=== PATIENT | male | born 1940 | race African-American/Black ===

== ENCOUNTER 2017-08-12 15:21 | Inpatient (IN) | payer MEDICARE ==
[~2017-08-12] VITALS: Ht 182.9 cm; Wt 81.6 kg
[~2017-08-12 15:21] MED LIST: AMBIEN10 M1 ORAL; ASPIR 8181 MG GT; CLONIDINE0.1 MG GT; COLACE100 MG GT; FERROUS SULFAT325 MG ORAL; FLOMAX0.4 MG GT; HEPARIN1000 UNIT/ SQ; LOPRESSOR25 M1 GT; MIRALAX17 G2 GT; MIRALAX17 G2 ORAL; NOVOLOG100 UNIT/3 SUBQ; PHOSPHA 250 NE250 M1 GT; PROSCAR5 MG ORAL; RANITIDINE HCL150 MG GT; TYLENOL325 MG GT; UNOBMED; VITAMIN B-1100 MG GT; ZANTAC GT; ZOFRAN4 M1 GT
[2017-08-12 15:40] VITALS: BP 153/85
[2017-08-12] MEDS ORDERED: CATAPRES0.1 MG ORAL (16:25)
[2017-08-12] MEDS ORDERED: AMLODIPINE BESY10 MG ORAL (16:25)
[2017-08-12] MEDS ORDERED: VITAMIN B-1100 MG ORAL (16:25)
[2017-08-12] MEDS ORDERED: ACETAMINOPHEN325 M1 ORAL (16:25)
[2017-08-12] MEDS ORDERED: METOPROLOL TART25 MG ORAL (16:25)
[2017-08-12] MEDS ORDERED: ASPIR 8181 MG ORAL (16:25)
[2017-08-12] MEDS ORDERED: ZANTAC150 MG ORAL (16:25)
--- NOTE | 2017-08-12 16:42 | Emergency Room Report ---
History of Present Illness General Chief Complaint: Male Urogenital Problems Source: Patient, EMS, PMD Present Illness HPI 77-year-old male, history of dementia coming from senior care, coming in for altered mental status. Per patient he does not know why he is here. PMD and senior care records the patient is more altered than his normal. No other history able to be obtained Currently patient is denying complaint Allergies: Coded Allergies: No Known Allergies (Unverified , 02/28/16) Patient History Past Medical History: see triage record Past Surgical History: none Pertinent Family History: none Reviewed Nursing Documentation: PMH: Agreed, PSxH: Agreed Nursing Documentation-PMH Past Medical History Deferred: Pt Cognitively Impaired Past Medical History: Deferred Hx Cardiac Problems: Yes - Syncope Hx Hypertension: Yes Hx Diabetes: Yes Hx Cancer: No Hx Gastrointestinal Problems: Yes History Of Psychiatric Problem: Yes - Anxiety Hx Neurological Problems: Yes - encephalopathy Review of Systems All Other Systems: negative except mentioned in HPI Physical Exam Vital Signs Date Time Temp Pulse Resp B/P (MAP) Pulse Ox O2 Delivery O2 Flow Rate FiO2 08/12/17 15:22 97.9 78 18 111/74 99 Room Air Sp02 EP Interpretation: reviewed, normal General Appearance: normal inspection, well appearing, no apparent distress, alert, other Head: normocephalic, atraumatic Eyes: bilateral eye normal inspection, bilateral eye PERRL, bilateral eye EOMI ENT: normal ENT inspection, normal pharynx, normal voice, moist mucus membranes Neck: normal inspection, full range of motion, supple Respiratory: normal inspection, lungs clear, normal breath sounds, no respiratory distress, no retraction, no wheezing, speaking full sentences, chest symmetrical Cardiovascular #1: normal inspection, regular rate, rhythm, no edema, normal capillary refill Cardiovascular #2: 2+ radial (R), 2+ radial (L) Gastrointestinal: normal inspection, non tender, soft, non-distended, no guarding Genitourinary: no CVA tenderness Musculoskeletal: normal inspection, back normal, normal range of motion, non- tender Neurologic: alert, responsive, motor strength/tone normal, sensory intact, other - oritned x 1 , moves all ext spontaneously Psychiatric: normal inspection, judgement/insight normal, memory normal Skin: normal inspection, normal color, no rash, warm/dry, well hydrated, normal turgor Medical Decision Making Diagnostic Impression: Primary Impression: UTI (urinary tract infection) Additional Impression: Altered mental status ER Course 77-year-old male, history of Alzheimer's, presenting with worsening altered mental status DDX: Dehydration, infection, UTI, pneumonia Cardiac Currently patient is oriented to person, no neurological signs on exam, will not perform CT head at this time Plan: Obtain labs, ua, EKG, CXR ER course: Patient has been monitored during ED stay, HD stable UTI found, fluids and antibiotics given Disposition: Patient is to be admitted to [facility] D/W hospitalist Dr. Marx who has accepted patient for admission Please note that this Emergency Department Report was dictated using [employer] wel[employer] technology software, occasionally this can lead to erroneous entry secondary to interpretation by the dictation equipment. EKG Diagnostic Results EP Interpretation: Yes Rate: normal Rhythm: NSR ST Segments: Right bundle branch block ASA given to patient: No Rhythm Strip EP Interpretation: Yes Rate: 70 Rhythm: NSR, no PVCs, no ectopy Chest X-ray CXR: Ordered: Yes 1 view Indication: ams EP interpretation: Yes Interpretation: No consolidation, no effusion, no PTX, no acute cardiopulmonary disease Impression: No acute disease Electronically signed by Rebecca Allen MD Laboratory Tests Test 08/12/17 16:00 08/12/17 16:22 White Blood Count 6.9 K/UL (4.8-10.8) Red Blood Count 4.84 M/UL (4.70-6.10) Hemoglobin 13.9 G/DL (14.2-18.0) L Hematocrit 45.6 % (42.0-52.0) Mean Corpuscular Volume 94 FL (80-99) Mean Corpuscular Hemoglobin 28.8 PG (27.0-31.0) Mean Corpuscular Hemoglobin Concent 30.6 G/DL (32.0-36.0) L Red Cell Distribution Width 13.3 % (11.6-14.8) Platelet Count 223 K/UL (150-450) Mean Platelet Volume 6.6 FL (6.5-10.1) Neutrophils (%) (Auto) 59.4 % (45.0-75.0) Lymphocytes (%) (Auto) 30.8 % (20.0-45.0) Monocytes (%) (Auto) 7.3 % (1.0-10.0) Eosinophils (%) (Auto) 1.2 % (0.0-3.0) Basophils (%) (Auto) 1.4 % (0.0-2.0) Sodium Level 144 MMOL/L (136-145) Potassium Level 4.1 MMOL/L (3.5-5.1) Chloride Level 108 MMOL/L (98-107) H Carbon Dioxide Level 29 MMOL/L (21-32) Anion Gap 7 mmol/L (5-15) Blood Urea Nitrogen 15 mg/dL (7-18) Creatinine 1.7 MG/DL (0.55-1.30) H Estimate Glomerular Filtration Rate mL/min (>60) Glucose Level 114 MG/DL (74-106) H Lactic Acid Level 1.30 mmol/L (0.66-2.22) Calcium Level 9.4 MG/DL (8.5-10.1) Total Bilirubin 0.3 MG/DL (0.2-1.0) Aspartate Amino Transferase (AST) 9 U/L (15-37) L Alanine Aminotransferase (ALT) 20 U/L (12-78) Alkaline Phosphatase 160 U/L (46-116) H Troponin I 0.018 ng/mL (0.000-0.056) Pro-B-Type Natriuretic Peptide 92 pg/mL (0-125) Total Protein 6.7 G/DL (6.4-8.2) Albumin 3.5 G/DL (3.4-5.0) Globulin 3.2 g/dL Albumin/Globulin Ratio 1.1 (1.0-2.7) Urine Color Yellow Urine Appearance Slightly cloudy Urine pH 5 (4.5-8.0) Urine Specific [place] 1.030 (1.005-1.035) Urine Protein 3+ (NEGATIVE) H Urine Glucose (UA) Negative (NEGATIVE) Urine Ketones 1+ (NEGATIVE) H Urine Occult Blood 5+ (NEGATIVE) H Urine Nitrite Positive (NEGATIVE) H Urine Bilirubin Negative (NEGATIVE) Urine Urobilinogen Normal MG/DL (0.0-1.0) Urine Leukocyte Esterase 3+ (NEGATIVE) H Urine RBC 15-20 /HPF (0 - 0) H Urine WBC 60-80 /HPF (0 - 0) H Urine Squamous Epithelial Cells Occasional /LPF Urine Bacteria Few /HPF (NONE) Last Vital Signs Date Time Temp Pulse Resp B/P (MAP) Pulse Ox O2 Delivery O2 Flow Rate FiO2 08/12/17 15:22 97.9 78 18 111/74 99 Room Air Rebecca Allen M.D. Aug 12, 2017 16:42
[2017-08-12] MEDS ORDERED: TAMSULOSIN HCL0.4 MG ORAL (16:49)
[2017-08-12] MEDS ORDERED: COLACE100 MG ORAL (16:49)
[2017-08-12 16:58] LABS: APPEARANCE,URINE SLIGHTLY CLOUDY; KETONES,URINE 1+ (NEGATIVE); LEUKOCYTE ESTERASE ,URINE 3+ (NEGATIVE); NITRITE,URINE POSITIVE (NEGATIVE); PH,URINE 5 (4.5-8.0); PROTEIN,URINE 3+ (NEGATIVE); UROBILINOGEN,URINE NORMAL MG/DL (0.0-1.0)
[2017-08-12 17:05] LABS: BACTERIA,URINE FEW /HPF; RBC,URINE 15-20 /HPF (0 - 0); SQUAMOUS EPITHELIAL CELL,UR OCCASIONAL /LPF (NONE/OCC); WBC,URINE 60-80 /HPF (0 - 0)
[2017-08-12] MEDS ORDERED: cefTRIAXone 1 GM in NS 55 ML IVPB ONE (17:15)
--- NOTE | 2017-08-12 17:21 | Diagnostic Imaging Report ---
Indication: Shortness of breath Technique: One view of the chest Comparison: 02/24/2016 Findings: Lungs and pleural spaces are clear. Heart size is normal. Aorta is tortuous Impression: No acute process
[2017-08-12 17:31] LABS: ANION GAP 7 mmol/L (5-15); CALCIUM 9.4 MG/DL (8.5-10.1); CARBON DIOXIDE 29 MMOL/L (21-32); CHLORIDE 108 MMOL/L (98-107); CREATININE 1.7 MG/DL (0.55-1.30); POTASSIUM 4.1 MMOL/L (3.5-5.1); SODIUM 144 MMOL/L (136-145)
[2017-08-12 17:41] LABS: ALANINE AMINOTRANSFERASE 20 U/L (12-78); ALBUMIN/GLOBULIN RATIO 1.1 (1.0-2.7); ASPARTATE AMINO TRANSFERASE 9 U/L (15-37); TOTAL PROTEIN 6.7 G/DL (6.4-8.2)
[2017-08-12 17:51] LABS: BASOPHILS % (AUTO) 1.4 % (0.0-2.0); EOSINOPHILS % (AUTO) 1.2 % (0.0-3.0); LYMPHOCYTES % (AUTO) 30.8 % (20.0-45.0); MEAN CORPUSCULAR HEMOGLOBIN 28.8 PG (27.0-31.0); MEAN CORPUSCULAR HGB CONC 30.6 G/DL (32.0-36.0); MEAN CORPUSCULAR VOLUME 94 FL (80-99); MEAN PLATELET VOLUME 6.6 FL (6.5-10.1); MONOCYTES % (AUTO) 7.3 % (1.0-10.0); NEUTROPHILS % (AUTO) 59.4 % (45.0-75.0); PLATELET COUNT 223 K/UL (150-450); RED BLOOD COUNT 4.84 M/UL (4.70-6.10); RED CELL DISTRIBUTION WIDTH 13.3 % (11.6-14.8); WHITE BLOOD COUNT 6.9 K/UL (4.8-10.8)
[2017-08-12 18:00] VITALS: BP 145/98
[2017-08-12 18:45] VITALS: BP 144/98
[2017-08-12] MEDS ORDERED: Docusate 100mg cap ORAL PRN (20:45)
[2017-08-12 21:00] VITALS: BP 143/98
[2017-08-12] MEDS: Metoprolol Tartrate 12.5mg TAB ORAL SCH (21:32)
[2017-08-12] MEDS: Tamsulosin 0.4mg cap ORAL SCH (21:32)
[2017-08-13] VITALS: BP 147/98
[2017-08-13 07:27] LABS: ALANINE AMINOTRANSFERASE 20 U/L (12-78); ANION GAP 8 mmol/L (5-15); ASPARTATE AMINO TRANSFERASE 17 U/L (15-37); CARBON DIOXIDE 26 MMOL/L (21-32); CHLORIDE 110 MMOL/L (98-107); CREATININE 1.6 MG/DL (0.55-1.30); POTASSIUM 4.1 MMOL/L (3.5-5.1); SODIUM 144 MMOL/L (136-145); TOTAL PROTEIN 6.4 G/DL (6.4-8.2)
[2017-08-13 07:34] LABS: BASOPHILS % (AUTO) 1.1 % (0.0-2.0); EOSINOPHILS % (AUTO) 1.5 % (0.0-3.0); LYMPHOCYTES % (AUTO) 30.5 % (20.0-45.0); MEAN CORPUSCULAR HEMOGLOBIN 30.4 PG (27.0-31.0); MEAN CORPUSCULAR HGB CONC 32.8 G/DL (32.0-36.0); MEAN CORPUSCULAR VOLUME 93 FL (80-99); MEAN PLATELET VOLUME 6.7 FL (6.5-10.1); MONOCYTES % (AUTO) 7.9 % (1.0-10.0); NEUTROPHILS % (AUTO) 59.1 % (45.0-75.0); PLATELET COUNT 205 K/UL (150-450); RED BLOOD COUNT 4.79 M/UL (4.70-6.10); RED CELL DISTRIBUTION WIDTH 13.1 % (11.6-14.8); WHITE BLOOD COUNT 4.9 K/UL (4.8-10.8)
[2017-08-13 08:00] VITALS: BP 136/94
--- NOTE | 2017-08-13 08:00 | History and Physical Report ---
DATE OF ADMISSION: 08/12/2017 REASON FOR ADMISSION: Altered mental status, most likely due to UTI. HISTORY OF PRESENT ILLNESS: The patient very confused, has dementia; however, is more agitated and confused according to the nurse at the half-way and it is most likely due to UTI. The patient also has an indwelling Martínez catheter. He is a very poor historian, cannot get any history from the patient at this point. PAST MEDICAL HISTORY: Indwelling catheter, history of recurrent UTI, history of GERD, history of BPH and Martínez-dependent, constipation, and hypertension. PAST SURGICAL HISTORY: History of PEG. ALLERGIES: No known allergies. MEDICATIONS: Clonidine, aspirin, Norvasc, finasteride, , Flomax, and thiamine. SOCIAL HISTORY: Unable to obtain. FAMILY HISTORY: Unable to obtain. REVIEW OF SYSTEMS: Unable to obtain. PHYSICAL EXAMINATION: VITAL SIGNS: Temperature is 97.9, pulse is 70, and blood pressure 111/74. HEENT: PERRLA. NECK: Supple. No lymphadenopathy. CHEST: Clear to auscultation. GASTROINTESTINAL: Soft, nontender, and nondistended. No organomegaly. EXTREMITIES: He has edema. NEUROLOGIC: Reflexes are equal on both sides. Oriented to however, is more confused and agitated than his baseline. LABORATORY DATA: WBC of 6.9, hemoglobin 13.9. Sodium 144, BUN 15, and creatinine 1.7. ASSESSMENT AND PLAN: 1. Agitated. 2. Azotemia. 3. Urinary tract infection, Martínez catheter. I have asked the urologist as well as blue print control clerk as well as Infectious Diseases to see the patient for the above-mentioned diagnoses and treatment. Jhon Moreno M.D. DR: MOY JOB#: [id number] CC:
[2017-08-13] MEDS: Thiamine 100mg tab ORAL SCH (08:45)
[2017-08-13] MEDS: Metoprolol Tartrate 12.5mg TAB ORAL SCH ×2 (08:45→20:34)
[2017-08-13] MEDS: Aspirin EC 81mg tab ORAL SCH (08:46)
--- NOTE | 2017-08-13 11:15 | Consultation ---
History of Present Illness General Date patient seen: Aug 13, 2017 Time patient seen: 11:11 Chief Complaint: Male Urogenital Problems Referring physician: Josh Reason for Consultation: UTI, BPH Present Illness HPI 77 yo male with hx of BPH and catheter dependence. In a facility due to dementia from what i can gather from records. Admitted for confusion. After one day, patient has seemingly improved. Question of azotemia but baseline creatinine unavailable. Catheter was changed in ER yesterday. Currently feels fine. Allergies: Coded Allergies: No Known Allergies (Unverified , 02/28/16) Medication History Scheduled Amlodipine Besylate* (Amlodipine Besylate*), 10 MG ORAL DAILY, (Reported) Aspirin* (Aspir 81*), 81 MG ORAL DAILY, (Reported) Finasteride* (Proscar*), 5 MG ORAL DAILY, (Reported) Metoprolol Tartrate* (Metoprolol Tartrate*), 12.5 MG ORAL EVERY 12 HOURS, ( Reported) Ranitidine Hcl* (Zantac*), 150 MG ORAL DAILY, (Reported) Tamsulosin Hcl (Tamsulosin Hcl*), 0.4 MG ORAL BEDTIME, (Reported) Thiamine Hcl* (Vitamin B-1*), 100 MG ORAL DAILY, (Reported) Scheduled PRN Acetaminophen* (Acetaminophen 325MG Tablet*), 650 MG ORAL Q4H PRN for For Pain, (Reported) Clonidine Hcl* (Catapres*), 0.1 MG ORAL EVERY 6 HOURS PRN for For High Blood Pressure, (Reported) Docusate Sodium* (Colace*), 100 MG ORAL DAILY PRN for Constipation, (Reported) Discontinued Medications Acetaminophen (Tylenol), 650 MG GT EVERY 4 HOURS PRN for Mild Pain/Temp > 100.5, (Reported) Discontinued Reason: Pt stopped taking med Aspirin* (Aspir 81*), 81 MG GT DAILY, (Reported) Discontinued Reason: Pt stopped taking med Ferrous Sulfate* (Ferrous Sulfate*), 325 MG ORAL DAILY, (Reported) Discontinued Reason: Pt stopped taking med Insulin Aspart* (Novolog*), 0 SUBQ BEFORE MEALS AND HS, (Reported) Discontinued Reason: Pt stopped taking med Metoprolol Tartrate (Metoprolol Tartrate), 12.5 MG GT EVERY 12 HOURS, (Reported) Discontinued Reason: Pt stopped taking med Ondansetron (Zofran), 4 MG GT EVERY 6 HOURS PRN for Nausea & Vomiting, (Reported ) Discontinued Reason: Pt stopped taking med Phosphorus (Phospha 250 Neutral Tablet), 250 MG GT TID, (Reported) Discontinued Reason: Pt stopped taking med Polyethylene Glycol 3350* (Miralax*), 17 GM ORAL HS PRN for Constipation, ( Reported) Discontinued Reason: Pt stopped taking med Polyethylene Glycol 3350* (Miralax*), 17 GM GT QHS, (Reported) Discontinued Reason: Pt stopped taking med Thiamine Hcl* (Vitamin B-1*), 100 MG GT DAILY, (Reported) Discontinued Reason: Pt stopped taking med Zolpidem Tartrate* (Ambien*), 10 MG ORAL HS PRN for Insomnia, (Reported) Discontinued Reason: Pt stopped taking med [Zantac liquid ], 150 MG GT DAILY, (Reported) Discontinued Reason: Pt stopped taking med Patient History History Provided By: Patient, Medical Record Healthcare decision maker N Resuscitation status Full Code Advanced Directive on File Past Medical/Surgical History Past Medical/Surgical History: (1) Acute renal failure (2) Altered level of consciousness (3) PEG (percutaneous endoscopic gastrostomy) adjustment/replacement/removal Review of Systems Constitutional: Denies: no symptoms, see HPI, chills, sweats, fever, malaise, weakness, other All Other Systems: negative except mentioned in HPI Physical Exam General Appearance: no apparent distress, alert Neck: supple Respiratory/Chest: lungs clear Cardiovascular/Chest: normal rate, regular rhythm Abdomen: non tender, soft Genitourinary/Rectal: begum Last 24 Hour Vital Signs Date Time Temp Pulse Resp B/P (MAP) Pulse Ox O2 Delivery O2 Flow Rate FiO2 08/13/17 08:46 66 147/98 08/13/17 08:45 66 147/98 08/13/17 08:00 98.1 70 17 136/94 97 Room Air 08/13/17 00:00 97.2 66 20 147/98 99 Room Air 08/12/17 21:32 83 144/98 08/12/17 21:00 97.3 66 19 143/98 99 Room Air 08/12/17 18:45 97.2 83 18 144/98 100 Room Air 08/12/17 18:44 97.2 83 18 144/98 100 Room Air 08/12/17 18:00 97.5 65 19 145/98 99 Room Air 08/12/17 15:40 97.2 108 18 153/85 100 Room Air 08/12/17 15:22 97.9 78 18 111/74 99 Room Air Laboratory Tests Test 08/12/17 16:00 08/12/17 16:22 08/13/17 05:35 White Blood Count 6.9 K/UL (4.8-10.8) 4.9 K/UL (4.8-10.8) Red Blood Count 4.84 M/UL (4.70-6.10) 4.79 M/UL (4.70-6.10) Hemoglobin 13.9 G/DL (14.2-18.0) L 14.6 G/DL (14.2-18.0) Hematocrit 45.6 % (42.0-52.0) 44.3 % (42.0-52.0) Mean Corpuscular Volume 94 FL (80-99) 93 FL (80-99) Mean Corpuscular Hemoglobin 28.8 PG (27.0-31.0) 30.4 PG (27.0-31.0) Mean Corpuscular Hemoglobin Concent 30.6 G/DL (32.0-36.0) L 32.8 G/DL (32.0-36.0) Red Cell Distribution Width 13.3 % (11.6-14.8) 13.1 % (11.6-14.8) Platelet Count 223 K/UL (150-450) 205 K/UL (150-450) Mean Platelet Volume 6.6 FL (6.5-10.1) 6.7 FL (6.5-10.1) Neutrophils (%) (Auto) 59.4 % (45.0-75.0) 59.1 % (45.0-75.0) Lymphocytes (%) (Auto) 30.8 % (20.0-45.0) 30.5 % (20.0-45.0) Monocytes (%) (Auto) 7.3 % (1.0-10.0) 7.9 % (1.0-10.0) Eosinophils (%) (Auto) 1.2 % (0.0-3.0) 1.5 % (0.0-3.0) Basophils (%) (Auto) 1.4 % (0.0-2.0) 1.1 % (0.0-2.0) Sodium Level 144 MMOL/L (136-145) 144 MMOL/L (136-145) Potassium Level 4.1 MMOL/L (3.5-5.1) 4.1 MMOL/L (3.5-5.1) Chloride Level 108 MMOL/L (98-107) H 110 MMOL/L (98-107) H Carbon Dioxide Level 29 MMOL/L (21-32) 26 MMOL/L (21-32) Anion Gap 7 mmol/L (5-15) 8 mmol/L (5-15) Blood Urea Nitrogen 15 mg/dL (7-18) 14 mg/dL (7-18) Creatinine 1.7 MG/DL (0.55-1.30) H 1.6 MG/DL (0.55-1.30) H Estimat Glomerular Filtration Rate mL/min (>60) mL/min (>60) Glucose Level 114 MG/DL (74-106) H 98 MG/DL (74-106) Lactic Acid Level 1.30 mmol/L (0.66-2.22) Calcium Level 9.4 MG/DL (8.5-10.1) 9.0 MG/DL (8.5-10.1) Total Bilirubin 0.3 MG/DL (0.2-1.0) 0.4 MG/DL (0.2-1.0) Aspartate Amino Transf (AST/SGOT) 9 U/L (15-37) L 17 U/L (15-37) Alanine Aminotransferase (ALT/SGPT) 20 U/L (12-78) 20 U/L (12-78) Alkaline Phosphatase 160 U/L (46-116) H 157 U/L (46-116) H Troponin I 0.018 ng/mL (0.000-0.056) Pro-B-Type Natriuretic Peptide 92 pg/mL (0-125) Total Protein 6.7 G/DL (6.4-8.2) 6.4 G/DL (6.4-8.2) Albumin 3.5 G/DL (3.4-5.0) 3.2 G/DL (3.4-5.0) L Globulin 3.2 g/dL 3.2 g/dL Albumin/Globulin Ratio 1.1 (1.0-2.7) 1.0 (1.0-2.7) Urine Color Yellow Urine Appearance Slightly cloudy Urine pH 5 (4.5-8.0) Urine Specific [place] 1.030 (1.005-1.035) Urine Protein 3+ (NEGATIVE) H Urine Glucose (UA) Negative (NEGATIVE) Urine Ketones 1+ (NEGATIVE) H Urine Occult Blood 5+ (NEGATIVE) H Urine Nitrite Positive (NEGATIVE) H Urine Bilirubin Negative (NEGATIVE) Urine Urobilinogen Normal MG/DL (0.0-1.0) Urine Leukocyte Esterase 3+ (NEGATIVE) H Urine RBC 15-20 /HPF (0 - 0) H Urine WBC 60-80 /HPF (0 - 0) H Urine Squamous Epithelial Cells Occasional /LPF Urine Bacteria Few /HPF (NONE) Microbiology Date/Time Source Procedure Growth Status 08/12/17 16:22 Urine,Clean Catch Urine Culture - Preliminary Resulted Height (Feet): 6 Height (Inches): 0.00 Weight (Pounds): 180 Medications Current Medications Medications (Trade) Dose Ordered Sig/Eufemia Route PRN Reason Start Time Stop Time Status Last Admin Dose Admin Acetaminophen (Tylenol) 650 mg Q4H PRN ORAL For Pain 08/12/17 20:45 09/11/17 20:44 Amlodipine Besylate (Norvasc) 10 mg DAILY ORAL 08/13/17 09:00 09/12/17 08:59 08/13/17 08:46 Aspirin (Ecotrin) 81 mg DAILY ORAL 08/13/17 09:00 09/12/17 08:59 08/13/17 08:46 Clonidine HCl (Catapres) 0.1 mg Q6H PRN ORAL For High Blood Pressure 08/12/17 20:45 09/11/17 20:44 Docusate Sodium (Colace) 100 mg Q12H PRN ORAL Constipation 08/12/17 20:45 09/11/17 20:44 Finasteride (Proscar) 5 mg DAILY ORAL 08/13/17 09:00 09/12/17 08:59 08/13/17 08:46 Metoprolol Tartrate (Lopressor) 12.5 mg EVERY 12 HOURS ORAL 08/12/17 21:00 09/11/17 20:59 08/13/17 08:45 Piperacillin Sod/ Tazobactam Sod 3.375 gm/Dextrose 55 ml @ 13.75 mls/ hr Q8H IVPB 08/13/17 12:00 08/20/17 11:59 Ranitidine HCl (Zantac) 150 mg DAILY ORAL 08/13/17 09:00 09/12/17 08:59 08/13/17 08:46 Tamsulosin HCl (Flomax) 0.4 mg BEDTIME ORAL 08/12/17 21:00 09/11/17 20:59 08/12/17 21:32 Thiamine HCl (Vitamin B1) 100 mg DAILY ORAL 08/13/17 09:00 09/12/17 08:59 08/13/17 08:45 Assessment/Plan Status: stable Assessment/Plan 77 yo male with likely catheter associated UTI. New catheter placed yesterday. patient feels better already. Doing well. Catheter dependent. Can consider voiding trial when back at facility and after urine infection is cleared. unsure baseline creatinine, but seems to be improved. 1. ok to discharge after culture results 2. recommend cath changes every 6 weeks 3. consider voiding trial at facility 4. consider adding flomax 0.8 mg to regimen to improve chances of successful voiding trial. Kwesi Baer M.D. Aug 13, 2017 11:15
[2017-08-13 12:00] VITALS: BP 136/86
[2017-08-13] MEDS: Piperacillin/Tazobactam 3.375 GM in D5W 55 ML IVPB SCH ×2 (12:19→20:35)
--- NOTE | 2017-08-13 15:40 | Cardiology Report ---
APPROVED REPORT EKG Measurement Heart [id number] Normal sinus rhythm Right bundle branch block Abnormal ECG
--- NOTE | 2017-08-13 15:45 | Consultation ---
DATE OF CONSULTATION: 08/13/2017 INFECTIOUS DISEASES CONSULTATION CONSULTING PHYSICIAN: Yue Markham M.D. REFERRING PHYSICIAN: Jhon Moreno M.D. This consultation has been done on behalf of Dr. Rick Cat. HISTORY OF PRESENTING ILLNESS: This is a 77-year-old gentleman with history of asthma, recurrent urinary tract infection, benign prostatic hypertrophy, GERD and hypertension, who came in with altered mental status. He was thought to have urinary tract infection and an Infectious Diseases consultation has been obtained for antibiotics. PAST MEDICAL HISTORY: 1. History of hypertension. 2. GERD. 3. Asthma. 4. History of benign prostatic hypertrophy. 5. Recurrent urinary tract infection. MEDICATIONS: As an inpatient, he is on amlodipine, aspirin, finasteride, Zantac, thiamine, metoprolol, Flomax, Tylenol, clonidine, and docusate. ALLERGIES: No known drug allergies. SOCIAL HISTORY: He does not smoke, drink, or use drugs. FAMILY HISTORY: Noncontributory. REVIEW OF SYSTEMS: RESPIRATORY: He denies any fever, chills, cough, shortness of breath, or chest pain. CARDIAC: No chest pain. No palpitations. No dizziness. No syncope. GASTROINTESTINAL: No nausea. No vomiting. No abdominal pain or diarrhea. PHYSICAL EXAMINATION: VITAL SIGNS: Temperature of 98.1, T-max of 98.1, pulse of 66, respiratory rate 17, blood pressure 147/98, and O2 saturation of 97%. HEENT: Pupils equally reactive to light and accommodation. Mouth appears clean without thrush. NECK: Supple. No adenopathy. No JVD. CARDIOVASCULAR: Regular rate and rhythm. No murmurs. LUNGS: Clear to auscultation bilaterally. No crackles. No wheezes. ABDOMEN: Soft and nontender. No organomegaly. EXTREMITIES: No cyanosis. No clubbing. No edema. LABORATORY AND DIAGNOSTIC DATA: White count 4.9, hemoglobin 14.6, hematocrit 44.3, MCV 93, platelet count 205, and neutrophils of 59%. Sodium 144, potassium 4.1, chloride 110, bicarbonate 26, BUN 14, creatinine 1.6, glucose 98, and calcium 9. Total bilirubin 0.4, AST 17, ALT 20, alkaline phosphatase 157, total protein 6.4. Albumin 3.2. UA showing 60 to 80 white cells. Urine cultures are pending. Chest x-ray showing no acute process. ASSESSMENT: 1. This is a 77-year-old gentleman with history of benign prostatic hypertrophy, hypertension, and asthma who comes in and is found to have urinary tract infection. 2. Renal failure is improving. 3. Hypertension. PLAN: 1. The patient has received ceftriaxone in the emergency room. 2. We will start the patient on Zosyn. 3. We will follow up cultures and adjust antibiotics accordingly. I would like to thank, Dr. Moreno, for this consultation. Yue Mrakham M.D. DR: KAYLYN JOB#: [id number] CC: Jhon Moreno M.D.; Fax#: [phone]
[2017-08-13 16:00] VITALS: BP 138/82
--- NOTE | 2017-08-13 19:44 | Consultation ---
History of Present Illness General Date patient seen: Aug 12, 2017 Chief Complaint: Male Urogenital Problems Referring physician: Josh Reason for Consultation: UTI, BPH Present Illness HPI 77 yo male with hx of mmp, agitation and dementia admitted for medical stabilization. the pt was a poor historian and confused. he was agitated earlier however calm during my eval the pt has cognitive impairment Allergies: Coded Allergies: No Known Allergies (Unverified , 02/28/16) Medication History Scheduled Amlodipine Besylate* (Amlodipine Besylate*), 10 MG ORAL DAILY, (Reported) Aspirin* (Aspir 81*), 81 MG ORAL DAILY, (Reported) Finasteride* (Proscar*), 5 MG ORAL DAILY, (Reported) Metoprolol Tartrate* (Metoprolol Tartrate*), 12.5 MG ORAL EVERY 12 HOURS, ( Reported) Ranitidine Hcl* (Zantac*), 150 MG ORAL DAILY, (Reported) Tamsulosin Hcl (Tamsulosin Hcl*), 0.4 MG ORAL BEDTIME, (Reported) Thiamine Hcl* (Vitamin B-1*), 100 MG ORAL DAILY, (Reported) Scheduled PRN Acetaminophen* (Acetaminophen 325MG Tablet*), 650 MG ORAL Q4H PRN for For Pain, (Reported) Clonidine Hcl* (Catapres*), 0.1 MG ORAL EVERY 6 HOURS PRN for For High Blood Pressure, (Reported) Docusate Sodium* (Colace*), 100 MG ORAL DAILY PRN for Constipation, (Reported) Discontinued Medications Acetaminophen (Tylenol), 650 MG GT EVERY 4 HOURS PRN for Mild Pain/Temp > 100.5, (Reported) Discontinued Reason: Pt stopped taking med Aspirin* (Aspir 81*), 81 MG GT DAILY, (Reported) Discontinued Reason: Pt stopped taking med Ferrous Sulfate* (Ferrous Sulfate*), 325 MG ORAL DAILY, (Reported) Discontinued Reason: Pt stopped taking med Insulin Aspart* (Novolog*), 0 SUBQ BEFORE MEALS AND HS, (Reported) Discontinued Reason: Pt stopped taking med Metoprolol Tartrate (Metoprolol Tartrate), 12.5 MG GT EVERY 12 HOURS, (Reported) Discontinued Reason: Pt stopped taking med Ondansetron (Zofran), 4 MG GT EVERY 6 HOURS PRN for Nausea & Vomiting, (Reported ) Discontinued Reason: Pt stopped taking med Phosphorus (Phospha 250 Neutral Tablet), 250 MG GT TID, (Reported) Discontinued Reason: Pt stopped taking med Polyethylene Glycol 3350* (Miralax*), 17 GM ORAL HS PRN for Constipation, ( Reported) Discontinued Reason: Pt stopped taking med Polyethylene Glycol 3350* (Miralax*), 17 GM GT QHS, (Reported) Discontinued Reason: Pt stopped taking med Thiamine Hcl* (Vitamin B-1*), 100 MG GT DAILY, (Reported) Discontinued Reason: Pt stopped taking med Zolpidem Tartrate* (Ambien*), 10 MG ORAL HS PRN for Insomnia, (Reported) Discontinued Reason: Pt stopped taking med [Zantac liquid ], 150 MG GT DAILY, (Reported) Discontinued Reason: Pt stopped taking med Patient History History Provided By: Patient, Medical Record, PMD Healthcare decision maker N Resuscitation status Full Code Advanced Directive on File Past Medical/Surgical History Past Medical/Surgical History: (1) Dehydration (2) Cocaine abuse (3) Hypernatremia (4) Acute encephalopathy (5) Swallowing impairment (6) Elevated creatine kinase (7) Encounter for PEG (percutaneous endoscopic gastrostomy) (8) Dysphagia (9) Encounter for nasogastric (NG) tube placement (10) Hyperglycemia (11) Anemia (12) Hypoalbuminemia (13) Elevated CEA (14) UTI (urinary tract infection) (15) Altered mental status (16) Acute renal failure (17) Altered level of consciousness (18) PEG (percutaneous endoscopic gastrostomy) adjustment/replacement/removal Review of Systems Psychiatric: Reports: prior hx, anxiety, emotional problems, hallucinations Physical Exam General Appearance: no apparent distress, alert, confused Neurologic: alert, responsive, disoriented, depressed affect Last 24 Hour Vital Signs Date Time Temp Pulse Resp B/P (MAP) Pulse Ox O2 Delivery O2 Flow Rate FiO2 08/13/17 16:00 98.0 63 18 138/82 99 Room Air 08/13/17 12:00 98.2 65 18 136/86 100 Room Air 08/13/17 08:46 66 147/98 08/13/17 08:45 66 147/98 08/13/17 08:00 98.1 70 17 136/94 97 Room Air 08/13/17 00:00 97.2 66 20 147/98 99 Room Air 08/12/17 21:32 83 144/98 08/12/17 21:00 97.3 66 19 143/98 99 Room Air Intake and Output 08/13/17 08/14/17 19:00 07:00 Intake Total 55.00 ml Output Total 300 ml Balance -245.00 ml IV Total 55.00 ml Output Urine Total 300 ml Laboratory Tests Test 08/13/17 05:35 White Blood Count 4.9 K/UL (4.8-10.8) Red Blood Count 4.79 M/UL (4.70-6.10) Hemoglobin 14.6 G/DL (14.2-18.0) Hematocrit 44.3 % (42.0-52.0) Mean Corpuscular Volume 93 FL (80-99) Mean Corpuscular Hemoglobin 30.4 PG (27.0-31.0) Mean Corpuscular Hemoglobin Concent 32.8 G/DL (32.0-36.0) Red Cell Distribution Width 13.1 % (11.6-14.8) Platelet Count 205 K/UL (150-450) Mean Platelet Volume 6.7 FL (6.5-10.1) Neutrophils (%) (Auto) 59.1 % (45.0-75.0) Lymphocytes (%) (Auto) 30.5 % (20.0-45.0) Monocytes (%) (Auto) 7.9 % (1.0-10.0) Eosinophils (%) (Auto) 1.5 % (0.0-3.0) Basophils (%) (Auto) 1.1 % (0.0-2.0) Sodium Level 144 MMOL/L (136-145) Potassium Level 4.1 MMOL/L (3.5-5.1) Chloride Level 110 MMOL/L (98-107) H Carbon Dioxide Level 26 MMOL/L (21-32) Anion Gap 8 mmol/L (5-15) Blood Urea Nitrogen 14 mg/dL (7-18) Creatinine 1.6 MG/DL (0.55-1.30) H Estimat Glomerular Filtration Rate mL/min (>60) Glucose Level 98 MG/DL (74-106) Calcium Level 9.0 MG/DL (8.5-10.1) Total Bilirubin 0.4 MG/DL (0.2-1.0) Aspartate Amino Transf (AST/SGOT) 17 U/L (15-37) Alanine Aminotransferase (ALT/SGPT) 20 U/L (12-78) Alkaline Phosphatase 157 U/L (46-116) H Total Protein 6.4 G/DL (6.4-8.2) Albumin 3.2 G/DL (3.4-5.0) L Globulin 3.2 g/dL Albumin/Globulin Ratio 1.0 (1.0-2.7) Height (Feet): 6 Height (Inches): 0.00 Weight (Pounds): 180 Medications Current Medications Medications (Trade) Dose Ordered Sig/Eufemia Route PRN Reason Start Time Stop Time Status Last Admin Dose Admin Acetaminophen (Tylenol) 650 mg Q4H PRN ORAL For Pain 08/12/17 20:45 09/11/17 20:44 Amlodipine Besylate (Norvasc) 10 mg DAILY ORAL 08/13/17 09:00 09/12/17 08:59 08/13/17 08:46 Aspirin (Ecotrin) 81 mg DAILY ORAL 08/13/17 09:00 09/12/17 08:59 08/13/17 08:46 Clonidine HCl (Catapres) 0.1 mg Q6H PRN ORAL For High Blood Pressure 08/12/17 20:45 09/11/17 20:44 Docusate Sodium (Colace) 100 mg Q12H PRN ORAL Constipation 08/12/17 20:45 09/11/17 20:44 Finasteride (Proscar) 5 mg DAILY ORAL 08/13/17 09:00 09/12/17 08:59 08/13/17 08:46 Metoprolol Tartrate (Lopressor) 12.5 mg EVERY 12 HOURS ORAL 08/12/17 21:00 09/11/17 20:59 08/13/17 08:45 Piperacillin Sod/ Tazobactam Sod 3.375 gm/Dextrose 55 ml @ 13.75 mls/ hr Q8H IVPB 08/13/17 12:00 08/20/17 11:59 08/13/17 12:19 Ranitidine HCl (Zantac) 150 mg DAILY ORAL 08/13/17 09:00 09/12/17 08:59 08/13/17 08:46 Tamsulosin HCl (Flomax) 0.4 mg BEDTIME ORAL 08/12/17 21:00 09/11/17 20:59 08/12/17 21:32 Thiamine HCl (Vitamin B1) 100 mg DAILY ORAL 08/13/17 09:00 09/12/17 08:59 08/13/17 08:45 Assessment/Plan Status: stable Assessment/Plan Dementia encephalopathy zyprexa 2.5 q6hr prn zyprexa 2.5 qhs Watson Hillman M.D. Aug 13, 2017 19:44
--- NOTE | 2017-08-13 19:50 | General Progress Note ---
Assessment/Plan Status: stable Assessment/Plan dementia encephalopathy zyprexa 2.5 qhs zyprexa 2.5 q6hr prn Subjective Date patient seen: Aug 13, 2017 Neurologic/Psychiatric: Reports: anxiety, emotional problems Allergies: Coded Allergies: No Known Allergies (Unverified , 02/28/16) Objective Last 24 Hour Vital Signs Date Time Temp Pulse Resp B/P (MAP) Pulse Ox O2 Delivery O2 Flow Rate FiO2 08/13/17 16:00 98.0 63 18 138/82 99 Room Air 08/13/17 12:00 98.2 65 18 136/86 100 Room Air 08/13/17 08:46 66 147/98 08/13/17 08:45 66 147/98 08/13/17 08:00 98.1 70 17 136/94 97 Room Air 08/13/17 00:00 97.2 66 20 147/98 99 Room Air 08/12/17 21:32 83 144/98 08/12/17 21:00 97.3 66 19 143/98 99 Room Air Intake and Output 08/13/17 08/14/17 19:00 07:00 Intake Total 55.00 ml Output Total 300 ml Balance -245.00 ml IV Total 55.00 ml Output Urine Total 300 ml Laboratory Tests 08/13/17 05:35: White Blood Count 4.9, Red Blood Count 4.79, Hemoglobin 14.6, Hematocrit 44.3, Mean Corpuscular Volume 93, Mean Corpuscular Hemoglobin 30.4, Mean Corpuscular Hemoglobin Concent 32.8, Red Cell Distribution Width 13.1, Platelet Count 205, Mean Platelet Volume 6.7, Neutrophils (%) (Auto) 59.1, Lymphocytes (%) (Auto) 30.5, Monocytes (%) (Auto) 7.9, Eosinophils (%) (Auto) 1.5, Basophils (%) (Auto ) 1.1, Sodium Level 144, Potassium Level 4.1, Chloride Level 110H, Carbon Dioxide Level 26, Anion Gap 8, Blood Urea Nitrogen 14, Creatinine 1.6H, Estimat Glomerular Filtration Rate , Glucose Level 98, Calcium Level 9.0, Total Bilirubin 0.4, Aspartate Amino Transf (AST/SGOT) 17, Alanine Aminotransferase ( ALT/SGPT) 20, Alkaline Phosphatase 157H, Total Protein 6.4, Albumin 3.2L, Globulin 3.2, Albumin/Globulin Ratio 1.0 Height (Feet): 6 Height (Inches): 0.00 Weight (Pounds): 180 General Appearance: no apparent distress, alert, confused Neurologic: alert, responsive, disoriented, depressed affect Watson Hillman M.D. Aug 13, 2017 19:50
[2017-08-13 20:00] VITALS: BP 109/73
[2017-08-13] MEDS ORDERED: OLANZapine 2.5mg tab ORAL PRN (20:00)
[2017-08-13] MEDS: Tamsulosin 0.4mg cap ORAL SCH (20:34)
[2017-08-13] MEDS ORDERED: OLANZapine 2.5mg tab ORAL SCH (21:00)
--- NOTE | 2017-08-13 21:22 | General Progress Note ---
Assessment/Plan Problem List: (1) UTI (urinary tract infection) ICD Codes: N39.0 - Urinary tract infection, site not specified SNOMED: 31469980 Status: progressing Assessment/Plan afebrile demented uti begum indwelling reviewed chart and labs abx per id Subjective ROS Limited/Unobtainable: Yes Allergies: Coded Allergies: No Known Allergies (Unverified , 02/28/16) Objective Last 24 Hour Vital Signs Date Time Temp Pulse Resp B/P (MAP) Pulse Ox O2 Delivery O2 Flow Rate FiO2 08/13/17 20:34 60 109/73 08/13/17 20:00 98.1 60 18 109/73 96 Room Air 08/13/17 16:00 98.0 63 18 138/82 99 Room Air 08/13/17 12:00 98.2 65 18 136/86 100 Room Air 08/13/17 08:46 66 147/98 08/13/17 08:45 66 147/98 08/13/17 08:00 98.1 70 17 136/94 97 Room Air 08/13/17 00:00 97.2 66 20 147/98 99 Room Air 08/12/17 21:32 83 144/98 Intake and Output 08/13/17 08/14/17 19:00 07:00 Intake Total 55.00 ml Output Total 300 ml Balance -245.00 ml IV Total 55.00 ml Output Urine Total 300 ml Laboratory Tests 08/13/17 05:35: White Blood Count 4.9, Red Blood Count 4.79, Hemoglobin 14.6, Hematocrit 44.3, Mean Corpuscular Volume 93, Mean Corpuscular Hemoglobin 30.4, Mean Corpuscular Hemoglobin Concent 32.8, Red Cell Distribution Width 13.1, Platelet Count 205, Mean Platelet Volume 6.7, Neutrophils (%) (Auto) 59.1, Lymphocytes (%) (Auto) 30.5, Monocytes (%) (Auto) 7.9, Eosinophils (%) (Auto) 1.5, Basophils (%) (Auto ) 1.1, Sodium Level 144, Potassium Level 4.1, Chloride Level 110H, Carbon Dioxide Level 26, Anion Gap 8, Blood Urea Nitrogen 14, Creatinine 1.6H, Estimat Glomerular Filtration Rate , Glucose Level 98, Calcium Level 9.0, Total Bilirubin 0.4, Aspartate Amino Transf (AST/SGOT) 17, Alanine Aminotransferase ( ALT/SGPT) 20, Alkaline Phosphatase 157H, Total Protein 6.4, Albumin 3.2L, Globulin 3.2, Albumin/Globulin Ratio 1.0 Height (Feet): 6 Height (Inches): 0.00 Weight (Pounds): 180 General Appearance: confused Neck: supple Cardiovascular: normal rate Respiratory/Chest: lungs clear Jhon Moreno MD Aug 13, 2017 21:22
[2017-08-14] VITALS (7 sets, daily range): BP systolic 111–140; BP diastolic 63–99
[2017-08-14] MEDS: Piperacillin/Tazobactam 3.375 GM in D5W 55 ML IVPB SCH ×3 (03:42→20:39)
[2017-08-14] MEDS: Metoprolol Tartrate 12.5mg TAB ORAL SCH ×2 (09:08→20:40)
[2017-08-14] MEDS: Thiamine 100mg tab ORAL SCH (09:09)
[2017-08-14] MEDS: Aspirin EC 81mg tab ORAL SCH (09:09)
--- NOTE | 2017-08-14 12:22 | Infectious Diseases Prog Note ---
Assessment/Plan Assessment/Plan A; UTI ARF, CKD BPH Dementia P; Continue Zosyn Will f/u cultures Subjective ROS Limited/Unobtainable: No Respiratory: Reports: no symptoms Cardiovascular: Reports: no symptoms Gastrointestinal/Abdominal: Reports: no symptoms Genitourinary: Reports: no symptoms Allergies: Coded Allergies: No Known Allergies (Unverified , 02/28/16) Objective Vital Signs Last 24 Hour Vital Signs Date Time Temp Pulse Resp B/P (MAP) Pulse Ox O2 Delivery O2 Flow Rate FiO2 08/14/17 09:09 66 133/83 08/14/17 09:08 66 133/83 08/14/17 08:00 98.1 66 20 133/83 98 08/14/17 04:00 98.1 62 18 119/70 97 Room Air 08/14/17 00:00 98.0 61 18 111/75 96 Room Air 08/13/17 20:34 60 109/73 08/13/17 20:00 98.1 60 18 109/73 96 Room Air 08/13/17 16:00 98.0 63 18 138/82 99 Room Air Height (Feet): 6 Height (Inches): 0.00 Weight (Pounds): 180 General Appearance: no acute distress HEENT: mucous membranes moist Respiratory/Chest: lungs clear Cardiovascular: normal rate Abdomen: soft, non tender Genitourinary: other - Martínez catheter Extremities: no edema Neurologic/Psychiatric: alert, responsive Microbiology Date/Time Source Procedure Growth Status 08/12/17 16:05 Blood Blood Culture - Preliminary NO GROWTH AFTER 24 HOURS Resulted 08/12/17 15:55 Blood Blood Culture - Preliminary NO GROWTH AFTER 24 HOURS Resulted 08/12/17 19:00 Nasal Nares MRSA Culture - Final NO METHICILLIN RESISTANT STAPH AUREUS... Complete 08/12/17 16:22 Urine,Clean Catch Urine Culture - Preliminary Gram Negative Bacillus 1 Resulted 08/12/17 19:00 Rectum VRE Culture - Final NO VANCOMYCIN RESISTANT ENTEROCOCCUS ... Complete Current Medications Medications (Trade) Dose Ordered Sig/Eufemia Route PRN Reason Start Time Stop Time Status Last Admin Dose Admin Acetaminophen (Tylenol) 650 mg Q4H PRN ORAL For Pain 08/12/17 20:45 09/11/17 20:44 Amlodipine Besylate (Norvasc) 10 mg DAILY ORAL 08/13/17 09:00 09/12/17 08:59 08/14/17 09:09 Aspirin (Ecotrin) 81 mg DAILY ORAL 08/13/17 09:00 09/12/17 08:59 08/14/17 09:09 Clonidine HCl (Catapres) 0.1 mg Q6H PRN ORAL For High Blood Pressure 08/12/17 20:45 09/11/17 20:44 Docusate Sodium (Colace) 100 mg Q12H PRN ORAL Constipation 08/12/17 20:45 09/11/17 20:44 Finasteride (Proscar) 5 mg DAILY ORAL 08/13/17 09:00 09/12/17 08:59 08/14/17 09:09 Metoprolol Tartrate (Lopressor) 12.5 mg EVERY 12 HOURS ORAL 08/12/17 21:00 09/11/17 20:59 08/14/17 09:08 Olanzapine (ZyPREXA) 2.5 mg BEDTIME ORAL 08/13/17 21:00 09/12/17 20:59 08/13/17 20:34 Olanzapine (ZyPREXA) 2.5 mg EVERY 6 HOURS PRN ORAL agitation 08/13/17 20:00 09/12/17 19:59 Piperacillin Sod/ Tazobactam Sod 3.375 gm/Dextrose 55 ml @ 13.75 mls/ hr Q8H IVPB 08/13/17 12:00 08/20/17 11:59 08/14/17 03:42 Ranitidine HCl (Zantac) 150 mg DAILY ORAL 08/13/17 09:00 09/12/17 08:59 08/14/17 09:08 Tamsulosin HCl (Flomax) 0.4 mg BEDTIME ORAL 08/12/17 21:00 09/11/17 20:59 08/13/17 20:34 Thiamine HCl (Vitamin B1) 100 mg DAILY ORAL 08/13/17 09:00 09/12/17 08:59 08/14/17 09:09 BASIM HERRERA Aug 14, 2017 12:22
--- NOTE | 2017-08-14 15:58 | General Progress Note ---
Assessment/Plan Status: not improved, unchanged Assessment/Plan dementia encephalopathy zyprexa 7.5 qhs zyprexa 2.5 q6hr prn Subjective Neurologic/Psychiatric: Reports: anxiety, emotional problems Allergies: Coded Allergies: No Known Allergies (Unverified , 02/28/16) Subjective the pt is agitated and attempted to leave/ the pt was uncooperative Objective Last 24 Hour Vital Signs Date Time Temp Pulse Resp B/P (MAP) Pulse Ox O2 Delivery O2 Flow Rate FiO2 08/14/17 12:00 96.8 59 20 140/95 99 08/14/17 09:09 66 133/83 08/14/17 09:08 66 133/83 08/14/17 08:00 98.1 66 20 133/83 98 08/14/17 04:00 98.1 62 18 119/70 97 Room Air 08/14/17 00:00 98.0 61 18 111/75 96 Room Air 08/13/17 20:34 60 109/73 08/13/17 20:00 98.1 60 18 109/73 96 Room Air 08/13/17 16:00 98.0 63 18 138/82 99 Room Air Intake and Output 08/14/17 08/15/17 19:00 07:00 # Bowel Movements 1 Height (Feet): 6 Height (Inches): 0.00 Weight (Pounds): 180 General Appearance: no apparent distress, alert, confused, agitated Neurologic: alert, responsive, disoriented, depressed affect Watson Hillman M.D. Aug 14, 2017 15:58
[2017-08-14] MEDS ORDERED: DiphenhydrAMINE 50mg/ml Inj IVP PRN ×3 (16:15→17:00)
[2017-08-14] MEDS ORDERED: LORazepam Inj 2mg/ml 1ml IV ONE (16:30)
[2017-08-14] MEDS ORDERED: Haloperidol Lactate 5 MG in D5W 55 ML IVPB ONE (16:30)
[2017-08-14] MEDS ORDERED: Haloperidol 5mg/ml Inj IM ONE (16:30)
[2017-08-14] MEDS ORDERED: LORazepam Inj 2mg/ml 1ml IM ONE (17:00)
--- NOTE | 2017-08-14 20:30 | General Progress Note ---
Assessment/Plan Problem List: (1) UTI (urinary tract infection) ICD Codes: N39.0 - Urinary tract infection, site not specified SNOMED: 68885793 Status: progressing Status Narrative afebrile uti is improving abx per id bph Assessment/Plan afebrile demented uti begum indwelling reviewed chart and labs abx per id Subjective ROS Limited/Unobtainable: Yes Allergies: Coded Allergies: No Known Allergies (Unverified , 02/28/16) Objective Last 24 Hour Vital Signs Date Time Temp Pulse Resp B/P (MAP) Pulse Ox O2 Delivery O2 Flow Rate FiO2 08/14/17 20:11 98.2 64 20 138/99 99 Room Air 08/14/17 15:58 97.1 70 21 111/63 99 Room Air 08/14/17 12:00 96.8 59 20 140/95 99 08/14/17 09:09 66 133/83 08/14/17 09:08 66 133/83 08/14/17 08:00 98.1 66 20 133/83 98 08/14/17 04:00 98.1 62 18 119/70 97 Room Air 08/14/17 00:00 98.0 61 18 111/75 96 Room Air 08/13/17 20:34 60 109/73 Intake and Output 08/14/17 08/15/17 19:00 07:00 Intake Total 358.60 ml Output Total 900 ml Balance -541.40 ml Intake Oral 300 ml IV Total 58.60 ml Output Urine Total 900 ml # Bowel Movements 1 Height (Feet): 6 Height (Inches): 0.00 Weight (Pounds): 180 General Appearance: confused Jhon Moreno MD Aug 14, 2017 20:30
[2017-08-14] MEDS: Tamsulosin 0.4mg cap ORAL SCH (20:39)
[2017-08-14] MEDS: OLANZapine 2.5mg tab ORAL SCH (20:40)
[2017-08-15] VITALS (7 sets, daily range): BP systolic 131–154; BP diastolic 89–105
[2017-08-15] MEDS: Piperacillin/Tazobactam 3.375 GM in D5W 55 ML IVPB SCH (03:34)
[2017-08-15] MEDS: Thiamine 100mg tab ORAL SCH (08:26)
[2017-08-15] MEDS: Aspirin EC 81mg tab ORAL SCH (08:26)
[2017-08-15] MEDS: Metoprolol Tartrate 12.5mg TAB ORAL SCH ×2 (08:39→21:00)
--- NOTE | 2017-08-15 10:02 | Infectious Diseases Prog Note ---
Assessment/Plan Assessment/Plan A; UTI with Pseudomonas ARF, CKD BPH Dementia P; Change Zosyn to Levaquin Subjective ROS Limited/Unobtainable: Yes Constitutional: Reports: other - wants to go home Respiratory: Reports: no symptoms Gastrointestinal/Abdominal: Reports: no symptoms Genitourinary: Reports: no symptoms Allergies: Coded Allergies: No Known Allergies (Unverified , 02/28/16) Objective Vital Signs Last 24 Hour Vital Signs Date Time Temp Pulse Resp B/P (MAP) Pulse Ox O2 Delivery O2 Flow Rate FiO2 08/15/17 08:39 73 133/89 08/15/17 08:26 73 133/89 08/15/17 08:08 97.5 73 21 133/89 99 Room Air 08/15/17 04:00 97.2 66 18 154/101 100 Room Air 08/15/17 04:00 Room Air 08/14/17 23:53 97.9 71 18 123/79 99 Room Air 08/14/17 20:40 64 138/99 08/14/17 20:11 98.2 64 20 138/99 99 Room Air 08/14/17 15:58 97.1 70 21 111/63 99 Room Air 08/14/17 12:00 96.8 59 20 140/95 99 Height (Feet): 6 Height (Inches): 0.00 Weight (Pounds): 180 General Appearance: no acute distress HEENT: mucous membranes moist Respiratory/Chest: lungs clear Cardiovascular: normal rate Abdomen: soft, non tender Extremities: no edema Neurologic/Psychiatric: alert, responsive Microbiology Date/Time Source Procedure Growth Status 08/12/17 16:05 Blood Blood Culture - Preliminary NO GROWTH AFTER 48 HOURS Resulted 08/12/17 15:55 Blood Blood Culture - Preliminary NO GROWTH AFTER 48 HOURS Resulted 08/12/17 19:00 Nasal Nares MRSA Culture - Final NO METHICILLIN RESISTANT STAPH AUREUS... Complete 08/12/17 16:22 Urine,Clean Catch Urine Culture - Final Pseudomonas Aeruginosa Complete 08/12/17 19:00 Rectum VRE Culture - Final NO VANCOMYCIN RESISTANT ENTEROCOCCUS ... Complete Current Medications Medications (Trade) Dose Ordered Sig/Eufemia Route PRN Reason Start Time Stop Time Status Last Admin Dose Admin Acetaminophen (Tylenol) 650 mg Q4H PRN ORAL For Pain 08/12/17 20:45 09/11/17 20:44 Amlodipine Besylate (Norvasc) 10 mg DAILY ORAL 08/13/17 09:00 09/12/17 08:59 08/15/17 08:26 Aspirin (Ecotrin) 81 mg DAILY ORAL 08/13/17 09:00 09/12/17 08:59 08/15/17 08:26 Clonidine HCl (Catapres) 0.1 mg Q6H PRN ORAL For High Blood Pressure 08/12/17 20:45 09/11/17 20:44 Diphenhydramine HCl (Benadryl) 50 mg Q6H PRN IVP Itching/Psychosis 08/14/17 17:00 09/13/17 16:59 Docusate Sodium (Colace) 100 mg Q12H PRN ORAL Constipation 08/12/17 20:45 09/11/17 20:44 Finasteride (Proscar) 5 mg DAILY ORAL 08/13/17 09:00 09/12/17 08:59 08/15/17 08:26 Metoprolol Tartrate (Lopressor) 12.5 mg EVERY 12 HOURS ORAL 08/12/17 21:00 09/11/17 20:59 08/15/17 08:39 Olanzapine (ZyPREXA) 2.5 mg EVERY 6 HOURS PRN ORAL agitation 08/13/17 20:00 09/12/17 19:59 Olanzapine (ZyPREXA) 7.5 mg BEDTIME ORAL 08/14/17 21:00 09/13/17 20:59 Piperacillin Sod/ Tazobactam Sod 3.375 gm/Dextrose 55 ml @ 13.75 mls/ hr Q8H IVPB 08/13/17 12:00 08/20/17 11:59 08/15/17 03:34 Ranitidine HCl (Zantac) 150 mg DAILY ORAL 08/13/17 09:00 09/12/17 08:59 08/15/17 08:26 Tamsulosin HCl (Flomax) 0.4 mg BEDTIME ORAL 08/12/17 21:00 09/11/17 20:59 08/13/17 20:34 Thiamine HCl (Vitamin B1) 100 mg DAILY ORAL 08/13/17 09:00 09/12/17 08:59 08/15/17 08:26 BASIM HERRERA Aug 15, 2017 10:02
--- NOTE | 2017-08-15 13:14 | General Progress Note ---
Assessment/Plan Problem List: (1) UTI (urinary tract infection) ICD Codes: N39.0 - Urinary tract infection, site not specified SNOMED: 87920851 Status: progressing Assessment/Plan no change abx per id uti begum indwelling reviewed chart and labs Subjective ROS Limited/Unobtainable: Yes Allergies: Coded Allergies: No Known Allergies (Unverified , 02/28/16) Objective Last 24 Hour Vital Signs Date Time Temp Pulse Resp B/P (MAP) Pulse Ox O2 Delivery O2 Flow Rate FiO2 08/15/17 12:00 98.3 63 21 133/90 99 Room Air 08/15/17 08:39 73 133/89 08/15/17 08:26 73 133/89 08/15/17 08:08 97.5 73 21 133/89 99 Room Air 08/15/17 04:00 97.2 66 18 154/101 100 Room Air 08/15/17 04:00 Room Air 08/14/17 23:53 97.9 71 18 123/79 99 Room Air 08/14/17 20:40 64 138/99 08/14/17 20:11 98.2 64 20 138/99 99 Room Air 08/14/17 15:58 97.1 70 21 111/63 99 Room Air Intake and Output 08/15/17 08/16/17 19:00 07:00 Intake Total 240 ml Balance 240 ml Intake Oral 240 ml Height (Feet): 6 Height (Inches): 0.00 Weight (Pounds): 180 General Appearance: confused Jhon Moreno MD Aug 15, 2017 13:14
[2017-08-15] MEDS ORDERED: Tubing IV Secondary IV ONE (16:36)
[2017-08-15] MEDS ORDERED: NS 275ml ONE (16:36)
[2017-08-15] MEDS: Tamsulosin 0.4mg cap ORAL SCH (20:57)
[2017-08-15] MEDS: OLANZapine 2.5mg tab ORAL SCH (20:57)
[2017-08-16 04:09] VITALS: BP 138/90
[2017-08-16 08:00] VITALS: BP 130/91
[2017-08-16 08:54] VITALS: BP 138/90
[2017-08-16] MEDS: Thiamine 100mg tab ORAL SCH (08:54)
[2017-08-16] MEDS: Aspirin EC 81mg tab ORAL SCH (08:54)
[2017-08-16] MEDS: Metoprolol Tartrate 12.5mg TAB ORAL SCH (08:54)
--- NOTE | 2017-08-16 12:14 | Infectious Diseases Prog Note ---
Assessment/Plan Assessment/Plan A; UTI with Pseudomonas ARF, CKD BPH Dementia P; Continue Levaquin X 3 days Subjective ROS Limited/Unobtainable: Yes Allergies: Coded Allergies: No Known Allergies (Unverified , 02/28/16) Objective Vital Signs Last 24 Hour Vital Signs Date Time Temp Pulse Resp B/P (MAP) Pulse Ox O2 Delivery O2 Flow Rate FiO2 08/16/17 08:54 60 138/90 08/16/17 08:54 60 138/90 08/16/17 04:09 97.7 60 19 138/90 96 Room Air 08/15/17 23:49 97.6 59 19 145/105 96 Room Air 08/15/17 21:04 59 19 133/89 98 Room Air 08/15/17 21:00 59 133/89 08/15/17 20:14 97.6 64 20 131/90 96 Room Air 08/15/17 16:00 97.5 60 20 134/92 100 Height (Feet): 6 Height (Inches): 0.00 Weight (Pounds): 180 General Appearance: no acute distress HEENT: mucous membranes moist Respiratory/Chest: lungs clear Cardiovascular: normal rate Abdomen: soft, non tender Extremities: no edema Neurologic/Psychiatric: alert, responsive Current Medications Medications (Trade) Dose Ordered Sig/Eufemia Route PRN Reason Start Time Stop Time Status Last Admin Dose Admin Acetaminophen (Tylenol) 650 mg Q4H PRN ORAL For Pain 08/12/17 20:45 09/11/17 20:44 Amlodipine Besylate (Norvasc) 10 mg DAILY ORAL 08/13/17 09:00 09/12/17 08:59 08/16/17 08:54 Aspirin (Ecotrin) 81 mg DAILY ORAL 08/13/17 09:00 09/12/17 08:59 08/16/17 08:54 Clonidine HCl (Catapres) 0.1 mg Q6H PRN ORAL For High Blood Pressure 08/12/17 20:45 09/11/17 20:44 Diphenhydramine HCl (Benadryl) 50 mg Q6H PRN IVP Itching/Psychosis 08/14/17 17:00 09/13/17 16:59 Docusate Sodium (Colace) 100 mg Q12H PRN ORAL Constipation 08/12/17 20:45 09/11/17 20:44 Finasteride (Proscar) 5 mg DAILY ORAL 08/13/17 09:00 09/12/17 08:59 08/16/17 08:54 Levofloxacin (Levaquin) 250 mg DAILY ORAL 08/15/17 10:15 08/22/17 10:14 08/16/17 08:54 Metoprolol Tartrate (Lopressor) 12.5 mg EVERY 12 HOURS ORAL 08/12/17 21:00 09/11/17 20:59 08/16/17 08:54 Olanzapine (ZyPREXA) 2.5 mg EVERY 6 HOURS PRN ORAL agitation 08/13/17 20:00 09/12/17 19:59 08/15/17 14:23 Olanzapine (ZyPREXA) 7.5 mg BEDTIME ORAL 08/14/17 21:00 09/13/17 20:59 08/15/17 20:57 Ranitidine HCl (Zantac) 150 mg DAILY ORAL 08/13/17 09:00 09/12/17 08:59 08/16/17 08:54 Tamsulosin HCl (Flomax) 0.4 mg BEDTIME ORAL 08/12/17 21:00 09/11/17 20:59 08/15/17 20:57 Thiamine HCl (Vitamin B1) 100 mg DAILY ORAL 08/13/17 09:00 09/12/17 08:59 08/16/17 08:54 BASIM HERRERA Aug 16, 2017 12:14
[2017-08-16] MEDS ORDERED: LEVOFLOXACIN250 MG ORAL (13:50)
--- NOTE | 2017-08-19 09:02 | Discharge Summary ---
Discharge Summary Hospital Course Date of Admission Aug 12, 2017 at 16:55 Date of Discharge Aug 16, 2017 at 14:40 Admitting Diagnosis alterd mental status HPI Jasiel Pete is a 77 year old male who was admitted on Aug 12, 2017 at 16:55 for Altered Mental Status Hospital Course dc summary #[id number] Discharge Medications Continued Medications: Acetaminophen* (Acetaminophen 325MG Tablet*) 325 Mg Tablet 650 MG ORAL Q4H PRN for For Pain, TAB Amlodipine Besylate* (Amlodipine Besylate*) 10 Mg Tablet 10 MG ORAL DAILY, TAB Aspirin* (Aspir 81*) 81 Mg Tablet.dr 81 MG ORAL DAILY, TAB Clonidine Hcl* (Catapres*) 0.1 Mg Tablet 0.1 MG ORAL EVERY 6 HOURS PRN for For High Blood Pressure, TAB Docusate Sodium* (Colace*) 100 Mg Capsule 100 MG ORAL DAILY PRN for Constipation, CAP Finasteride* (Proscar*) 5 Mg Tablet 5 MG ORAL DAILY, #30 TAB 0 Refills Levofloxacin (Levofloxacin*) 250 Mg Tablet 250 MG ORAL DAILY for 3 Days, TAB Metoprolol Tartrate* (Metoprolol Tartrate*) 25 Mg Tablet 12.5 MG ORAL EVERY 12 HOURS, TAB Ranitidine Hcl* (Zantac*) 150 Mg Tablet 150 MG ORAL DAILY, #30 TAB 0 Refills Tamsulosin Hcl (Tamsulosin Hcl*) 0.4 Mg Cap.er.24h 0.4 MG ORAL BEDTIME, CAP Thiamine Hcl* (Vitamin B-1*) 100 Mg Tablet 100 MG ORAL DAILY, #30 TAB 0 Refills Discharge Condition Upon Discharge: stable Discharge Disposition Patient was discharged to SNF Discharge Diagnoses: Discharge Instructions Discharge Instructions Special Instructions I have been assigned to complete a D/C Summary on this account. I was not involved in the patient management Milla Demarco NP ([place]) Aug 19, 2017 09:02
--- NOTE | 2017-08-19 10:19 | Diagnostic Imaging Report ---
APPROVED REPORT CPT Code: 45057 Present Symptoms Comments: R/O DVT BILATERAL: Imaging reveals a patent deep venous system bilaterally. There is no evidence of thrombus within the femoral, popliteal or tibial segments. The greater saphenous veins are also within normal limits. Doppler indicates normal spontaneous flow within these segments.
--- NOTE | 2017-08-19 16:30 | Discharge Summary 2 SIG ---
DATE OF ADMISSION: 08/12/2017 DATE OF DISCHARGE: 08/16/2017 REASON FOR ADMISSION: 77-year-old male with history of dementia, BPH, and acute renal failure, which resolved in 2016 with residual chronic kidney disease, [facility] with altered mental status. Vital signs were stable. Urinalysis with evidence of UTI. EKG revealed normal sinus rhythm. Troponin negative. Chest x-ray revealed no acute cardiopulmonary disease. BUN -15 and creatinine-1.7. The patient was admitted for further management with diagnosis of altered mental status, urinary tract infection, renal failure. HOSPITAL STAY: The patient was admitted to medical/surgical floor. ID consult along with the Urology consult were requested. Urologist seen and evaluated the patient, concluded that the patient likely had a catheter- associated urinary tract infection. The patient was a catheter-dependent. The catheter was changed by urologist, and further changes every six weeks. Urologist recommended to continue with antibiotics and attempt voiding trial in the facility after infection cleared. Urologist added Flomax to existing regimen of Proscar to improve chances of successful voiding trial. Renal parameters were closely monitored. The patient received IV fluids. Creatinine down to 1.6. ID seen and evaluated the patient and closely followed. Urine culture revealed Pseudomonas aeruginosa. Blood culture were negative. ID specialist recommended to change antibiotics to oral upon discharge and to continue for additional three days at the jail facility to complete the course. Psychiatrist seen and evaluated the patient, diagnosed the patient with dementia , and started the patient on Zyprexa at night time and on as needed basis. Blood pressure was managed with calcium channel zakia and clonidine on an as needed basis. Blood pressure was controlled with current regimen. Aspirin was continued. GI and DVT prophylaxis provided. The patient was stable for discharge back to facility. FINAL DIAGNOSES: 1. Urinary tract infection with Pseudomonas aeruginosa 2. Encephalopathy, probably due to acute toxic metabolic encephalopathy, secondary to urinary tract infection. 3. Chronic dementia. 4. Benign prostatic hypertrophy. 5. Acute renal failure on chronic kidney disease. DISCHARGE MEDICATIONS: See medication reconciliation list. DISCHARGE INSTRUCTIONS: The [facility] was [facility] facility. FOLLOWUP: Follow up with medical doctor at the facility. Jhon Moreno M.D. I have been assigned to dictate discharge summary on this account and I was not involved in the patient's management. Milla Álvarezfabiana N.PSusanne DR: Jesi JOB#: [id number] CC: MONTSERRAT
== END 2017-08-16 14:40 | DRG 698 ==
LOC: EDBD 15:21 → EMR 16:01 → EDBEDREQ 16:08 → 4E 16:55 → EDBEDREQ 17:23 → 4E 20:02
DX: T83.511A Infection and inflammatory reaction due to indwelling urethral catheter, initial encounter (principal); G92 Toxic encephalopathy; N17.9 Acute kidney failure, unspecified; B96.5 Pseudomonas (aeruginosa) (mallei) (pseudomallei) as the cause of diseases classified elsewhere; F03.90 Unspecified dementia, unspecified severity, without behavioral disturbance, psychotic disturbance, mood disturbance, and anxiety; Y84.6 Urinary catheterization as the cause of abnormal reaction of the patient, or of later complication, without mention of misadventure at the time of the procedure; N39.0 Urinary tract infection, site not specified; N18.9 Chronic kidney disease, unspecified; N40.0 Benign prostatic hyperplasia without lower urinary tract symptoms; K21.9 Gastro-esophageal reflux disease without esophagitis; I12.9 Hypertensive chronic kidney disease with stage 1 through stage 4 chronic kidney disease, or unspecified chronic kidney disease; J45.909 Unspecified asthma, uncomplicated; R13.10 Dysphagia, unspecified
CPT/HCPCS: 36415; 71010; 80053; 81003; 82962; 83605; 83880; 84484; 85025; 87040; 87081; 87086; 87181; 93005; 93970; 99285

== ENCOUNTER 2017-09-13 19:59 | Emergency (ER) | payer MEDICARE ==
[~2017-09-13] VITALS: Ht 182.9 cm; Wt 81.6 kg
[~2017-09-13 19:59] MED LIST changes: +ACETAMINOPHEN325 M1 ORAL; +AMLODIPINE BESY10 MG ORAL; +ASPIR 8181 MG ORAL; +CATAPRES0.1 MG ORAL; +COLACE100 MG ORAL; +LEVOFLOXACIN250 MG ORAL; +METOPROLOL TART25 MG ORAL; +TAMSULOSIN HCL0.4 MG ORAL; +VITAMIN B-1100 MG ORAL; +ZANTAC150 MG ORAL
[2017-09-13 20:05] VITALS: BP 127/85
[2017-09-13 20:38] LABS: APPEARANCE,URINE TURBID; KETONES,URINE NEGATIVE (NEGATIVE); LEUKOCYTE ESTERASE ,URINE 3+ (NEGATIVE); NITRITE,URINE NEGATIVE (NEGATIVE); PH,URINE 6 (4.5-8.0); PROTEIN,URINE 3+ (NEGATIVE); UROBILINOGEN,URINE NORMAL MG/DL (0.0-1.0)
[2017-09-13] MEDS ORDERED: NITROFURANTOIN100 M2 ORAL (20:47)
[2017-09-13 20:52] LABS: BACTERIA,URINE MANY /HPF; RBC,URINE 20-30 /HPF (0 - 0); SQUAMOUS EPITHELIAL CELL,UR OCCASIONAL /LPF (NONE/OCC); WBC,URINE TNTC /HPF (0 - 0)
--- NOTE | 2017-09-13 21:07 | Emergency Room Report ---
History of Present Illness General Chief Complaint: Male Urogenital Problems Source: Patient, Medical Record Present Illness Allergies: Coded Allergies: No Known Allergies (Unverified , 02/28/16) Patient History Past Medical History: see triage record, old chart reviewed Past Surgical History: none Pertinent Family History: none Social History: Denies: smoking, alcohol use, drug use Immunizations: UTD Reviewed Nursing Documentation: PMH: Agreed, PSxH: Agreed Nursing Documentation-PMH Hx Cardiac Problems: Yes - Syncope Hx Hypertension: Yes Hx Diabetes: Yes Hx Cancer: No Review of Systems All Other Systems: negative except mentioned in HPI Physical Exam Vital Signs Date Time Temp Pulse Resp B/P (MAP) Pulse Ox O2 Delivery O2 Flow Rate FiO2 09/13/17 19:54 98.2 75 18 127/85 98 Room Air Sp02 EP Interpretation: reviewed, normal General Appearance: normal inspection, well appearing, no apparent distress, alert, GCS 15, non-toxic Head: normocephalic, atraumatic Eyes: bilateral eye PERRL, bilateral eye EOMI ENT: normal ENT inspection, hearing grossly normal, normal pharynx, no angioedema, normal voice, TMs + canals normal, uvula midline, moist mucus membranes Neck: normal inspection, full range of motion, supple, thyroid normal, no meningismus, no bony tend Respiratory: normal inspection, lungs clear, normal breath sounds, no rhonchi, no respiratory distress, no retraction, no accessory muscle use, no wheezing, speaking full sentences Cardiovascular #1: regular rate, rhythm, no edema, no JVD, normal capillary refill Gastrointestinal: normal inspection, normal bowel sounds, non tender, soft, no mass, no peritonitis, non-distended, no guarding, no hernia, no pulsatile mass Genitourinary: no CVA tenderness, other Musculoskeletal: normal inspection, back normal, normal range of motion, no calf tenderness, pelvis stable, Rigoberto's Sign negative Neurologic: normal inspection, alert, oriented x3, responsive, binman III-XII nml as tested, motor strength/tone normal, cerebellar normal, normal gait, speech normal Psychiatric: normal inspection, judgement/insight normal, mood/affect normal, no suicidal/homicidal ideation, no delusions Skin: normal inspection, normal color, no rash Lymphatic: normal inspection, no adenopathy Medical Decision Making Diagnostic Impression: Primary Impression: Abnormal urogenital findings Additional Impression: UTI (urinary tract infection) Qualified Codes: N30.01 - Acute cystitis with hematuria ER Course August 12 urine culture alvarado sensitive to antibiotucs Martínez catheter replaced, urine output flowing, 300 mL in bag reports decreased pain UA with UTI< ABX GIVEN Last Vital Signs Date Time Temp Pulse Resp B/P (MAP) Pulse Ox O2 Delivery O2 Flow Rate FiO2 09/13/17 20:05 98.2 75 18 127/85 98 Room Air Status: improved Disposition: XFER SNF Condition: Improved Scripts Nitrofurantoin Monohyd/M-Cryst* (MACROBID 100 MG*) 100 Mg Capsule 100 MG ORAL EVERY 12 HOURS for 7 Days, #13 CAP Prov: MAIRA MCCLELLAN M.D. 09/13/17 Patient Instructions: Urinary Tract Infection Additional Instructions: - Martínez replaced in ER - Patient has UTI - initial dose tonight of Macrobid given. Take BID for next 7 days - Followup with PMD MAIRA MCCLELLAN M.D. Sep 13, 2017 21:07
[2017-09-13 21:39] VITALS: BP 133/86
[2017-09-13 22:50] VITALS: BP 129/80
[2017-09-13 23:15] VITALS: BP 129/80
== END 2017-09-13 23:15 ==
LOC: EDBD 19:59 → EMR 20:21
DX: R10.2 Pelvic and perineal pain (principal); N39.0 Urinary tract infection, site not specified; I10 Essential (primary) hypertension; E11.9 Type 2 diabetes mellitus without complications
CPT/HCPCS: 81003; 87086; 87181; 99283

== ENCOUNTER 2017-11-13 03:47 | Inpatient (IN) | payer MEDICARE, MEDICAID ==
[~2017-11-13] VITALS: Ht 188 cm; Wt 86.2 kg
[~2017-11-13 03:47] MED LIST changes: +NITROFURANTOIN100 M2 ORAL
[2017-11-13 04:29] LABS: BASOPHILS % (AUTO) 0.8 % (0.0-2.0); EOSINOPHILS % (AUTO) 0.1 % (0.0-3.0); HEMATOCRIT 44.3 % (42.0-52.0); HEMOGLOBIN 14.8 G/DL (14.2-18.0); LYMPHOCYTES % (AUTO) 11.2 % (20.0-45.0); MEAN CORPUSCULAR VOLUME 89 FL (80-99); MONOCYTES % (AUTO) 7.3 % (1.0-10.0); NEUTROPHILS % (AUTO) 80.6 % (45.0-75.0); PLATELET COUNT 186 K/UL (150-450); RED BLOOD COUNT 4.98 M/UL (4.70-6.10); RED CELL DISTRIBUTION WIDTH 13.2 % (11.6-14.8); WHITE BLOOD COUNT 9.2 K/UL (4.8-10.8)
[2017-11-13 04:37] LABS: BILIRUBIN, URINE NEGATIVE (NEGATIVE); COLOR,URINE PALE YELLOW; GLUCOSE, URINE (UA) NEGATIVE (NEGATIVE); KETONES,URINE NEGATIVE (NEGATIVE); LEUKOCYTE ESTERASE ,URINE 3+ (NEGATIVE); NITRITE,URINE NEGATIVE (NEGATIVE); PH,URINE 6.5 (4.5-8.0); PROTEIN,URINE 3+ (NEGATIVE); UROBILINOGEN,URINE NORMAL MG/DL (0.0-1.0)
[2017-11-13 04:40] LABS: ANION GAP 12 mmol/L (5-15); BLOOD UREA NITROGEN 25 mg/dL (7-18); CALCIUM 9.3 MG/DL (8.5-10.1); CARBON DIOXIDE 24 MMOL/L (21-32); CHLORIDE 107 MMOL/L (98-107); CREATININE 1.7 MG/DL (0.55-1.30); POTASSIUM 3.3 MMOL/L (3.5-5.1); SODIUM 142 MMOL/L (136-145)
[2017-11-13 04:44] LABS: ALANINE AMINOTRANSFERASE 21 U/L (12-78); ALBUMIN 3.7 G/DL (3.4-5.0); ALBUMIN/GLOBULIN RATIO 1.2 (1.0-2.7); ALKALINE PHOSPHATASE 223 U/L (46-116); ASPARTATE AMINO TRANSFERASE 21 U/L (15-37); BILIRUBIN,TOTAL 0.6 MG/DL (0.2-1.0); CREATINE KINASE 467 U/L (26-308)
[2017-11-13 04:46] LABS: APPEARANCE,URINE CLOUDY
[2017-11-13] MEDS ORDERED: cefTRIAXone 1 GM in NS 55 ML IVPB ONE (05:00)
--- NOTE | 2017-11-13 05:06 | Emergency Room Report ---
History of Present Illness General Chief Complaint: Altered Level of Consciousness Source: Patient, EMS Present Illness HPI Patient presents with alleged altered level of consciousness according to EMS and staff at the senior care facility. The patient was assessed by paramedics and found to have a negative MLAPPS and by their report, he was "oriented x3". He denies WILLIAM, change in vision, dehydration (thirst), chest pain , palpitations, neck pain, fever, chills. The patient complains about abdominal pain. He states it's on the left side greater than the right and constant. He summoned what is improved when he is laying down. He denies ever having pain like this before. He has an indwelling begum. Last admitted 07/2017 with d/c Dx: 1. Urinary tract infection with Pseudomonas aeruginosa 2. Encephalopathy, probably due to acute toxic metabolic encephalopathy, secondary to urinary tract infection. 3. Chronic dementia. 4. Benign prostatic hypertrophy. 5. Acute renal failure on chronic kidney disease. Allergies: Coded Allergies: No Known Allergies (Unverified , 02/28/16) Patient History Past Medical History: see triage record Social History: Reports: drug use - in past Social History Narrative SNF Reviewed Nursing Documentation: PMH: Agreed, PSxH: Agreed Nursing Documentation-PMH Hx Cardiac Problems: Yes - Syncope Hx Hypertension: Yes Hx Diabetes: Yes Hx Cancer: No Review of Systems All Other Systems: negative except mentioned in HPI - verasity questionable Physical Exam Vital Signs Date Time Temp Pulse Resp B/P (MAP) Pulse Ox O2 Delivery O2 Flow Rate FiO2 11/13/17 03:46 97.5 71 16 150/105 96 97.5 Sp02 EP Interpretation: reviewed, normal General Appearance: no apparent distress, GCS 15, Chronically Ill Head: normocephalic Eyes: bilateral eye normal inspection, bilateral eye PERRL ENT: dry mucus membranes Neck: supple Respiratory: lungs clear, normal breath sounds Cardiovascular #1: regular rate, rhythm Cardiovascular #2: 2+ radial (R) Gastrointestinal: no rebound, guarding - bilateral lower abdomen, tenderness Genitourinary: other - begum Musculoskeletal: back normal, gait/station normal, normal range of motion Neurologic: alert, motor strength/tone normal, sensory intact, oriented - X2 Psychiatric: mood/affect normal Skin: normal inspection, warm/dry Medical Decision Making Diagnostic Impression: Primary Impression: Abdominal pain Qualified Codes: R10.9 - Unspecified abdominal pain Additional Impressions: UTI (urinary tract infection) Qualified Codes: T83.511A - Infection and inflammatory reaction due to indwelling urethral catheter, initial encounter; N39.0 - Urinary tract infection , site not specified Renal insufficiency Hypertension Qualified Codes: I10 - Essential (primary) hypertension Hydronephrosis Qualified Codes: N13.39 - Other hydronephrosis ER Course Patient with alleged AMS complaining of abdominal pain. Ddx: diverticulitis, UTI, bowel ischemia, constipation, appendicitis, GItis amongst others. He appears dry. Evaluation with EKG, CXR, CT abdomen and pelvis (due to age and variable exam), labs. Treatment with IV hydration. Patient declines pain medicine at this time. Based on neurologic exam, CT head not indicated. EKG no injury. CXR no infiltrates. Labs with normal WBC and renal insufficiency. UA with pyuria. Patient requested pain medicine, poorly describes pain. Morphine ordered. Antibiotics started for UTI. Patient given his usual HTN meds. Improved. Still with abdominal pain. Signed out CT to Dr. Mondragon (not surgical abdomen at this time). Admit medical Dr. Moreno. Laboratory Tests Test 11/13/17 04:20 White Blood Count 9.2 K/UL (4.8-10.8) Red Blood Count 4.98 M/UL (4.70-6.10) Hemoglobin 14.8 G/DL (14.2-18.0) Hematocrit 44.3 % (42.0-52.0) Mean Corpuscular Volume 89 FL (80-99) Mean Corpuscular Hemoglobin 29.6 PG (27.0-31.0) Mean Corpuscular Hemoglobin Concent 33.3 G/DL (32.0-36.0) Red Cell Distribution Width 13.2 % (11.6-14.8) Platelet Count 186 K/UL (150-450) Mean Platelet Volume 7.4 FL (6.5-10.1) Neutrophils (%) (Auto) 80.6 % (45.0-75.0) H Lymphocytes (%) (Auto) 11.2 % (20.0-45.0) L Monocytes (%) (Auto) 7.3 % (1.0-10.0) Eosinophils (%) (Auto) 0.1 % (0.0-3.0) Basophils (%) (Auto) 0.8 % (0.0-2.0) Prothrombin Time 10.7 SEC (9.30-11.50) Prothrombin Time INR 1.0 (0.9-1.1) PTT 22 SEC (23-33) L Urine Color Pale yellow Urine Appearance Cloudy Urine pH 6.5 (4.5-8.0) Urine Specific [place] 1.015 (1.005-1.035) Urine Protein 3+ (NEGATIVE) H Urine Glucose (UA) Negative (NEGATIVE) Urine Ketones Negative (NEGATIVE) Urine Occult Blood 4+ (NEGATIVE) H Urine Nitrite Negative (NEGATIVE) Urine Bilirubin Negative (NEGATIVE) Urine Urobilinogen Normal MG/DL (0.0-1.0) Urine Leukocyte Esterase 3+ (NEGATIVE) H Urine RBC 10-15 /HPF (0 - 0) H Urine WBC Tntc /HPF (0 - 0) H Urine Squamous Epithelial Cells None /LPF (NONE/OCC) Urine Bacteria Many /HPF (NONE) H Sodium Level 142 MMOL/L (136-145) Potassium Level 3.3 MMOL/L (3.5-5.1) L Chloride Level 107 MMOL/L (98-107) Carbon Dioxide Level 24 MMOL/L (21-32) Anion Gap 12 mmol/L (5-15) Blood Urea Nitrogen 25 mg/dL (7-18) H Creatinine 1.7 MG/DL (0.55-1.30) H Estimate Glomerular Filtration Rate mL/min (>60) Glucose Level 118 MG/DL (74-106) H Calcium Level 9.3 MG/DL (8.5-10.1) Total Bilirubin 0.6 MG/DL (0.2-1.0) Aspartate Amino Transferase (AST) 21 U/L (15-37) Alanine Aminotransferase (ALT) 21 U/L (12-78) Alkaline Phosphatase 223 U/L (46-116) H Total Creatine Kinase 467 U/L (26-308) H Troponin I 0.042 ng/mL (0.000-0.056) Total Protein 6.7 G/DL (6.4-8.2) Albumin 3.7 G/DL (3.4-5.0) Globulin 3.0 g/dL Albumin/Globulin Ratio 1.2 (1.0-2.7) Lipase 86 U/L (73-393) EKG Diagnostic Results Rate: normal Rhythm: NSR ST Segments: no acute changes Rhythm Strip Diag. Results EP Interpretation: yes Rhythm: NSR, no PVC's, no ectopy Chest X-Ray Diagnostic Results Chest X-Ray Diagnostic Results : Chest X-Ray Ordered: Yes # of Views/Limited/Complete: 1 View Indication: Other Interpretation: no consolidation, no effusion, no pneumothorax Impression: No acute disease Electronically Signed by: Ye Kemp MD Last Vital Signs Date Time Temp Pulse Resp B/P (MAP) Pulse Ox O2 Delivery O2 Flow Rate FiO2 11/13/17 12:19 71 167/105 11/13/17 12:00 97.0 20 97 97.0 11/13/17 08:31 Room Air Status: improved Disposition: ADMITTED INPATIENT Condition: Serious Referrals: Jhon Moreno MD (PCP) Ye Kemp M.D. Nov 13, 2017 05:06
[2017-11-13] MEDS ORDERED: Morphine Sulfate 4mg/ml Inj IVP ONE (05:15)
[2017-11-13 07:23] VITALS: BP 176/105
[2017-11-13] MEDS ORDERED: Metoprolol 25mg tab ORAL ONE (07:45)
[2017-11-13 08:31] VITALS: BP 167/105
--- NOTE | 2017-11-13 09:06 | Diagnostic Imaging Report ---
Indication: Pain Technique: CT of the abdomen and pelvis utilizing automated exposure without intravenous contrast. Oral contrast was administered however scanning was performed early after oral contrast administration, with contrast opacifying only proximal small bowel loops. CT dose: Total DLP 712 mGycm; CTDI vol 13.8 mGy Comparison: None Findings: Please note that evaluation of the abdominal and pelvic viscera is limited without the use of intravenous contrast. Respiratory motion also degrades images through the lower lungs. Within these limitations, the following observations are made: There is dependent bibasilar atelectasis, right greater than left. Heart size within normal limits. Noncontrast evaluation of the liver, gallbladder, spleen, adrenal glands and pancreas is grossly unremarkable. There is moderate bilateral hydroureteronephrosis and bilateral perinephric stranding. No renal stones are seen bilaterally. The bladder is distended. There are multiple layering calcifications posteriorly within the bladder which may represent bladder stones or bladder wall calcifications. The prostate is enlarged and exerts mass effect the bladder. There is apparent asymmetric thickening of the wrist are bladder wall (series 3 image 123). Malignancy (either primary bladder or extension of prostatic malignancy) not entirely excluded. A Martínez catheter is noted within the bladder with the balloon above the level of the prostate. The tip of the catheter is clearly within the bladder. There is a 7 mm linear high attenuation focus in the tip of the Martínez catheter (series 3 image #128) of uncertain etiology. The bladder does not appear decompressed -correlate to assure appropriate catheter functioning. Some air is noted within the bladder likely related to recent catheterization. There is no free intraperitoneal air. No evidence of bowel obstruction. There is diverticulosis without evidence of acute diverticulitis. Appendix is normal. Abdominal aorta normal in caliber. Very few scattered atherosclerotic calcifications noted. Small pelvic and retroperitoneal lymph nodes are identified, possibly reactive in etiology. There are degenerative changes of the spine. No acute osseous abnormality is seen. IMPRESSION: Limited exam without venous contrast. Within these limitations: Moderately distended bladder despite Martínez catheter in place, with retention balloon and catheter tip within the bladder. 7 mm high attenuation structure within the tip of the Martínez catheter, possibly clogging the catheter. Correlate clinically to assure appropriate catheter functioning. Layering bladder stones versus posterior bladder wall calcifications. Moderate bilateral hydroureteronephrosis with bilateral perinephric stranding. Findings may be related to bladder distention. Cystitis/pyelonephritis not excluded. Correlation with urinalysis recommended. Consider follow up kidney ultrasound after appropriate bladder decompression to assess for resolution of the hydronephrosis. Enlarged prostate exerting mass effect on the bladder. Focal asymmetric thickening of the posterior wall of the bladder. Malignancy (primary bladder or extension of prostatic malignancy) not entirely excluded. Correlation with urine cytology and direct visualization with cystoscopy recommended. Colonic diverticulosis. No evidence of acute diverticulitis. The CT scanner at [facility] is accredited by the [employer] and the scans are performed using protocols designed to limit radiation exposure to as low as reasonably achievable to attain images of sufficient resolution adequate for diagnostic evaluation.
--- NOTE | 2017-11-13 09:50 | Diagnostic Imaging Report ---
Indication: Abdominal pain Technique: XRAY Chest 1v Comparison: 08/12/2017 Findings: Heart size and mediastinal contours are stable. There is no focal consolidation, pneumothorax or pleural effusion. Osseous structures demonstrate no acute abnormality. Impression: No radiographic evidence of acute cardiopulmonary disease.
[2017-11-13] MEDS ORDERED: Docusate 100mg cap ORAL PRN (10:15)
--- NOTE | 2017-11-13 10:47 | GI Initial Consult Note ---
Sheriff,Lucía Richard N.PSusanne 11/13/17 1047: History of Present Illness General Date patient seen: Nov 13, 2017 Time patient seen: 10:38 Reason for Hospitalization: Altered Level of Consciousness Referring physician: LUPIS DAVENPORT Reason for Consultation: ABDOMINAL PAIN Present Illness HPI Patient presents with alleged altered level of consciousness according to EMS and a custodial facility. The patient was assessed by paramedics and found to have a negative and labs and beat the report that he was oriented x3. The patient complains about abdominal pain. He states it's on the left side greater than the right and constant. He summoned what is improved when he is laying down. He denies ever having pain like this before. GI consulted for abdominal pain. Patient seen on medsurg, asleep but able to wake. Denies any abdominal pain at this time. Patient has history of PEG in 2016, now removed and noted scar on abdomen. CT AP noted with moderately distended bladder despite begum in place with enlarged prostate, see full report. Presents today with renal insufficiency and hypoalbuminemia. Home Meds Active Scripts Nitrofurantoin Monohyd/M-Cryst* (MACROBID 100 MG*) 100 Mg Capsule, 100 MG ORAL EVERY 12 HOURS for 7 Days, #13 CAP Prov:MAIRA MCCLELLAN M.D. 09/13/17 Reported Medications Levofloxacin (LEVOFLOXACIN*) 250 Mg Tablet, 250 MG ORAL DAILY for 3 Days, TAB 08/16/17 Tamsulosin Hcl (TAMSULOSIN HCL*) 0.4 Mg Cap.er.24h, 0.4 MG ORAL BEDTIME, CAP 08/12/17 Docusate Sodium* (COLACE*) 100 Mg Capsule, 100 MG ORAL DAILY Y for Constipation , CAP 08/12/17 Ranitidine Hcl* (ZANTAC*) 150 Mg Tablet, 150 MG ORAL DAILY, #30 TAB 0 Refills 08/12/17 Thiamine Hcl* (VITAMIN B-1*) 100 Mg Tablet, 100 MG ORAL DAILY, #30 TAB 0 Refills 08/12/17 Acetaminophen* (ACETAMINOPHEN 325MG TABLET*) 325 Mg Tablet, 650 MG ORAL Q4H Y for For Pain, TAB 08/12/17 Metoprolol Tartrate* (METOPROLOL TARTRATE*) 25 Mg Tablet, 12.5 MG ORAL EVERY 12 HOURS, TAB 08/12/17 Clonidine Hcl* (CATAPRES*) 0.1 Mg Tablet, 0.1 MG ORAL EVERY 6 HOURS Y for For High Blood Pressure, TAB 08/12/17 Aspirin* (ASPIR 81*) 81 Mg Tablet.dr, 81 MG ORAL DAILY, TAB 08/12/17 Amlodipine Besylate* (AMLODIPINE BESYLATE*) 10 Mg Tablet, 10 MG ORAL DAILY, TAB 08/12/17 Finasteride* (PROSCAR*) 5 Mg Tablet, 5 MG ORAL DAILY, #30 TAB 0 Refills 07/30/16 Med list reviewed/reconciled: Yes Allergies: Coded Allergies: No Known Allergies (Unverified , 02/28/16) Patient History History Provided By: Medical Record PMH Narrative Patient History Limited by: medical condition History Provided By: Medical Record PMH Narrative Dementia, history of hypertension, history of NIDDM, history of constipation, and GERD. Past Surgical History: other - unknown Social History: Reports: drug use Review of Systems All Other Systems: negative except mentioned in HPI Physical Exam Vital Signs Date Time Temp Pulse Resp B/P (MAP) Pulse Ox O2 Delivery O2 Flow Rate FiO2 11/13/17 03:46 97.5 71 16 150/105 96 97.5 11/13/17 07:23 Room Air Sp02 EP Interpretation: reviewed, normal Labs Laboratory Tests Test 11/13/17 04:20 White Blood Count 9.2 K/UL (4.8-10.8) Red Blood Count 4.98 M/UL (4.70-6.10) Hemoglobin 14.8 G/DL (14.2-18.0) Hematocrit 44.3 % (42.0-52.0) Mean Corpuscular Volume 89 FL (80-99) Mean Corpuscular Hemoglobin 29.6 PG (27.0-31.0) Mean Corpuscular Hemoglobin Concent 33.3 G/DL (32.0-36.0) Red Cell Distribution Width 13.2 % (11.6-14.8) Platelet Count 186 K/UL (150-450) Mean Platelet Volume 7.4 FL (6.5-10.1) Neutrophils (%) (Auto) 80.6 % (45.0-75.0) H Lymphocytes (%) (Auto) 11.2 % (20.0-45.0) L Monocytes (%) (Auto) 7.3 % (1.0-10.0) Eosinophils (%) (Auto) 0.1 % (0.0-3.0) Basophils (%) (Auto) 0.8 % (0.0-2.0) Prothrombin Time 10.7 SEC (9.30-11.50) Prothromb Time International Ratio 1.0 (0.9-1.1) Activated Partial Thromboplast Time 22 SEC (23-33) L Urine Color Pale yellow Urine Appearance Cloudy Urine pH 6.5 (4.5-8.0) Urine Specific [place] 1.015 (1.005-1.035) Urine Protein 3+ (NEGATIVE) H Urine Glucose (UA) Negative (NEGATIVE) Urine Ketones Negative (NEGATIVE) Urine Occult Blood 4+ (NEGATIVE) H Urine Nitrite Negative (NEGATIVE) Urine Bilirubin Negative (NEGATIVE) Urine Urobilinogen Normal MG/DL (0.0-1.0) Urine Leukocyte Esterase 3+ (NEGATIVE) H Urine RBC 10-15 /HPF (0 - 0) H Urine WBC Tntc /HPF (0 - 0) H Urine Squamous Epithelial Cells None /LPF (NONE/OCC) Urine Bacteria Many /HPF (NONE) H Sodium Level 142 MMOL/L (136-145) Potassium Level 3.3 MMOL/L (3.5-5.1) L Chloride Level 107 MMOL/L (98-107) Carbon Dioxide Level 24 MMOL/L (21-32) Anion Gap 12 mmol/L (5-15) Blood Urea Nitrogen 25 mg/dL (7-18) H Creatinine 1.7 MG/DL (0.55-1.30) H Estimat Glomerular Filtration Rate mL/min (>60) Glucose Level 118 MG/DL (74-106) H Calcium Level 9.3 MG/DL (8.5-10.1) Total Bilirubin 0.6 MG/DL (0.2-1.0) Aspartate Amino Transf (AST/SGOT) 21 U/L (15-37) Alanine Aminotransferase (ALT/SGPT) 21 U/L (12-78) Alkaline Phosphatase 223 U/L (46-116) H Total Creatine Kinase 467 U/L (26-308) H Troponin I 0.042 ng/mL (0.000-0.056) Total Protein 6.7 G/DL (6.4-8.2) Albumin 3.7 G/DL (3.4-5.0) Globulin 3.0 g/dL Albumin/Globulin Ratio 1.2 (1.0-2.7) Lipase 86 U/L (73-393) General Appearance: well appearing, no apparent distress, alert Head: normocephalic EENT: PERRL/EOMI, normal ENT inspection Neck: supple Respiratory: normal breath sounds, no respiratory distress Cardiovascular: normal rate Gastrointestinal: soft, normal bowel sounds, distended - tympanic Rectal: deferred Genitourinary: deferred Neurologic: alert, responsive Psychiatric: normal inspection, judgement/insight normal, memory normal Skin: normal inspection, normal color, no rash, warm/dry, palpation normal, well hydrated Lymphatic: normal inspection, no adenopathy Current Medications Current Medications Medications (Trade) Dose Ordered Sig/Eufemia Route PRN Reason Start Time Stop Time Status Last Admin Dose Admin Amlodipine Besylate (Norvasc) 10 mg DAILY ORAL 11/13/17 10:15 12/13/17 10:14 UNV Aspirin (Ecotrin) 81 mg DAILY ORAL 11/14/17 09:00 12/14/17 08:59 UNV Docusate Sodium (Colace) 100 mg TWICE A DAY PRN ORAL constipation 11/13/17 10:15 12/13/17 10:14 UNV Finasteride (Proscar) 5 mg DAILY ORAL 11/14/17 09:00 12/14/17 08:59 UNV Metoprolol Tartrate (Lopressor) 12.5 mg Q12HR ORAL 11/13/17 10:15 12/13/17 10:14 UNV Sodium Chloride 1,000 ml @ 300 mls/hr Q3H20M IV 11/13/17 04:15 12/13/17 04:14 11/13/17 04:51 Sodium Chloride 1,000 ml @ 300 mls/hr Q3H20M IV 11/13/17 08:00 12/13/17 07:59 11/13/17 08:25 Tamsulosin HCl (Flomax) 0.4 mg BEDTIME ORAL 11/13/17 21:00 12/13/17 20:59 UNV Thiamine HCl (Vitamin B1) 100 mg DAILY ORAL 11/14/17 09:00 12/14/17 08:59 UNV GI: Plan Problems: (1) Renal insufficiency (2) Abdominal pain (3) Dysphagia (4) Cocaine abuse (5) Anemia (6) Dehydration Plan CT AP reviewed, see full report >> bladder distention with enlarged prostate. POLST reviewed >> full treatment Hx of G tube placement for dysphagia, removed in 2015. symptomatic treatment adv diet ppi bowel regime pain mgmt fu labs Discussed with Dr. Gaxiola. Thank you for this patient referral, we will follow. ANGELICA GAXIOLA 11/14/17 1553: History of Present Illness General Reason for Hospitalization: Altered Level of Consciousness Present Illness Home Meds Active Scripts Nitrofurantoin Monohyd/M-Cryst* (MACROBID 100 MG*) 100 Mg Capsule, 100 MG ORAL EVERY 12 HOURS for 7 Days, #13 CAP Prov:MAIRA MCCLELLAN M.D. 09/13/17 Reported Medications Levofloxacin (LEVOFLOXACIN*) 250 Mg Tablet, 250 MG ORAL DAILY for 3 Days, TAB 08/16/17 Tamsulosin Hcl (TAMSULOSIN HCL*) 0.4 Mg Cap.er.24h, 0.4 MG ORAL BEDTIME, CAP 08/12/17 Docusate Sodium* (COLACE*) 100 Mg Capsule, 100 MG ORAL DAILY Y for Constipation , CAP 08/12/17 Ranitidine Hcl* (ZANTAC*) 150 Mg Tablet, 150 MG ORAL DAILY, #30 TAB 0 Refills 08/12/17 Thiamine Hcl* (VITAMIN B-1*) 100 Mg Tablet, 100 MG ORAL DAILY, #30 TAB 0 Refills 08/12/17 Acetaminophen* (ACETAMINOPHEN 325MG TABLET*) 325 Mg Tablet, 650 MG ORAL Q4H Y for For Pain, TAB 08/12/17 Metoprolol Tartrate* (METOPROLOL TARTRATE*) 25 Mg Tablet, 12.5 MG ORAL EVERY 12 HOURS, TAB 08/12/17 Clonidine Hcl* (CATAPRES*) 0.1 Mg Tablet, 0.1 MG ORAL EVERY 6 HOURS Y for For High Blood Pressure, TAB 08/12/17 Aspirin* (ASPIR 81*) 81 Mg Tablet., 81 MG ORAL DAILY, TAB 08/12/17 Amlodipine Besylate* (AMLODIPINE BESYLATE*) 10 Mg Tablet, 10 MG ORAL DAILY, TAB 08/12/17 Finasteride* (PROSCAR*) 5 Mg Tablet, 5 MG ORAL DAILY, #30 TAB 0 Refills 07/30/16 Allergies: Coded Allergies: No Known Allergies (Unverified , 02/28/16) GI: Plan Plan The patient was seen and examined at bedside and all new and available data was reviewed in the patients chart. I agree with the above findings, impression and plan. (Patient seen earlier today. Signature stamp does not reflect patient encounter time.). - MD Adilson [facility]uyyolandaSt[facility] Richard N.PSusanne Nov 13, 2017 10:47 ANGELICA GAXIOLA Nov 14, 2017 15:53
[2017-11-13 12:00] VITALS: BP 148/100
[2017-11-13] MEDS: Metoprolol Tartrate 12.5mg TAB ORAL SCH ×2 (12:19→21:17)
[2017-11-13] MEDS: Cefepime HCl 1 GM in NS 55 ML IVPB SCH (14:34)
--- NOTE | 2017-11-13 15:02 | Cardiology Report ---
APPROVED REPORT EKG Measurement Heart [id number] Normal sinus rhythm Possible Left atrial enlargement Pulmonary disease pattern Right bundle branch block Abnormal ECG
--- NOTE | 2017-11-13 15:15 | Consultation ---
Consult Note Consult Note Asked to eval for renal failure Chief Complaint: Altered Level of Consciousness Patient presents with alleged altered level of consciousness according to EMS and a longterm facility. The patient was assessed by paramedics and found to have a negative and labs and beat the report that he was oriented x3. The patient complains about abdominal pain. He states it's on the left side greater than the right and constant. He summoned what is improved when he is laying down. He denies ever having pain like this before. Hx Cardiac Problems: Yes - Syncope Hx Hypertension: Yes Hx Diabetes: Yes examined data reviewed . Assessment/Plan Renal failure: - Dehydration - Possible undelying Nephropathy due to DM or HTN - HTN OOC - BPH Other: - Abdominal pain - UTI (urinary tract infection) - Hypertension Plan: Hydrate- K supplement Adjust BP meds Per orders monitor renal parameters BRIGIDA BAILEY Nov 13, 2017 15:15
[2017-11-13 16:00] VITALS: BP 127/90
[2017-11-13] MEDS: Docusate 100mg cap ORAL SCH (17:51)
[2017-11-13] MEDS: D5 1/2NS w/KCl 20mEq 1,000 ML IV SCH (17:51)
[2017-11-13] MEDS: Tamsulosin 0.4mg cap ORAL SCH (17:59)
[2017-11-13 20:00] VITALS: BP 112/76
--- NOTE | 2017-11-13 20:06 | Consultation ---
History of Present Illness General Date patient seen: Nov 13, 2017 Time patient seen: 20:03 Chief Complaint: Altered Level of Consciousness Referring physician: LUPIS DAVENPORT Reason for Consultation: ABDOMINAL PAIN Present Illness HPI 77 yo male, frequent visitor of hospital. Admitted for abdominal pain. Found to have catheter malfunction. CT showed begum in place. After irrigation in ED , started to flow fine. Patient currently feels well. Allergies: Coded Allergies: No Known Allergies (Unverified , 02/28/16) Medication History Scheduled Amlodipine Besylate* (Amlodipine Besylate*), 10 MG ORAL DAILY, (Reported) Aspirin* (Aspir 81*), 81 MG ORAL DAILY, (Reported) Finasteride* (Proscar*), 5 MG ORAL DAILY, (Reported) Levofloxacin (Levofloxacin*), 250 MG ORAL DAILY, (Reported) Metoprolol Tartrate* (Metoprolol Tartrate*), 12.5 MG ORAL EVERY 12 HOURS, ( Reported) Nitrofurantoin Monohyd/M-Cryst* (Macrobid 100 Mg*), 100 MG ORAL EVERY 12 HOURS Ranitidine Hcl* (Zantac*), 150 MG ORAL DAILY, (Reported) Tamsulosin Hcl (Tamsulosin Hcl*), 0.4 MG ORAL BEDTIME, (Reported) Thiamine Hcl* (Vitamin B-1*), 100 MG ORAL DAILY, (Reported) Scheduled PRN Acetaminophen* (Acetaminophen 325MG Tablet*), 650 MG ORAL Q4H PRN for For Pain, (Reported) Clonidine Hcl* (Catapres*), 0.1 MG ORAL EVERY 6 HOURS PRN for For High Blood Pressure, (Reported) Docusate Sodium* (Colace*), 100 MG ORAL DAILY PRN for Constipation, (Reported) Patient History Limited by: medical condition History Provided By: Patient, Medical Record Healthcare decision maker Resuscitation status Full Code Advanced Directive on File Past Medical/Surgical History Past Medical/Surgical History: (1) PEG (percutaneous endoscopic gastrostomy) adjustment/replacement/removal (2) UTI (urinary tract infection) (3) Abdominal pain Review of Systems All Other Systems: negative except mentioned in HPI Physical Exam General Appearance: alert HEENT: normocephalic, atraumatic Respiratory/Chest: lungs clear Cardiovascular/Chest: normal rate Abdomen: non tender, soft Genitourinary/Rectal: other - paraphimosis noted, begum in place draining Extremities: non-tender Skin Exam: normal pigmentation Last 24 Hour Vital Signs Date Time Temp Pulse Resp B/P (MAP) Pulse Ox O2 Delivery O2 Flow Rate FiO2 11/13/17 16:00 97.5 63 20 127/90 96 97.5 11/13/17 12:19 71 167/105 11/13/17 12:19 71 167/105 11/13/17 12:00 97.0 56 20 148/100 97 97.0 11/13/17 08:31 97.7 71 17 167/105 100 Room Air 97.7 11/13/17 08:25 71 167/105 11/13/17 08:25 167/105 11/13/17 08:25 71 167/105 11/13/17 07:23 97.7 72 17 176/105 98 Room Air 97.7 11/13/17 03:46 97.5 71 16 150/105 96 97.5 Intake and Output 11/12/17 11/13/17 19:00 07:00 Intake Total 0 ml Balance 0 ml Intake Oral 0 ml Laboratory Tests Test 11/13/17 04:20 11/13/17 05:00 11/13/17 16:16 White Blood Count 9.2 K/UL (4.8-10.8) Red Blood Count 4.98 M/UL (4.70-6.10) Hemoglobin 14.8 G/DL (14.2-18.0) Hematocrit 44.3 % (42.0-52.0) Mean Corpuscular Volume 89 FL (80-99) Mean Corpuscular Hemoglobin 29.6 PG (27.0-31.0) Mean Corpuscular Hemoglobin Concent 33.3 G/DL (32.0-36.0) Red Cell Distribution Width 13.2 % (11.6-14.8) Platelet Count 186 K/UL (150-450) Mean Platelet Volume 7.4 FL (6.5-10.1) Neutrophils (%) (Auto) 80.6 % (45.0-75.0) H Lymphocytes (%) (Auto) 11.2 % (20.0-45.0) L Monocytes (%) (Auto) 7.3 % (1.0-10.0) Eosinophils (%) (Auto) 0.1 % (0.0-3.0) Basophils (%) (Auto) 0.8 % (0.0-2.0) Prothrombin Time 10.7 SEC (9.30-11.50) Prothromb Time International Ratio 1.0 (0.9-1.1) Activated Partial Thromboplast Time 22 SEC (23-33) L Urine Color Pale yellow Urine Appearance Cloudy Urine pH 6.5 (4.5-8.0) Urine Specific [place] 1.015 (1.005-1.035) Urine Protein 3+ (NEGATIVE) H Urine Glucose (UA) Negative (NEGATIVE) Urine Ketones Negative (NEGATIVE) Urine Occult Blood 4+ (NEGATIVE) H Urine Nitrite Negative (NEGATIVE) Urine Bilirubin Negative (NEGATIVE) Urine Urobilinogen Normal MG/DL (0.0-1.0) Urine Leukocyte Esterase 3+ (NEGATIVE) H Urine RBC 10-15 /HPF (0 - 0) H Urine WBC Tntc /HPF (0 - 0) H Urine Squamous Epithelial Cells None /LPF (NONE/OCC) Urine Bacteria Many /HPF (NONE) H Sodium Level 142 MMOL/L (136-145) Potassium Level 3.3 MMOL/L (3.5-5.1) L Chloride Level 107 MMOL/L (98-107) Carbon Dioxide Level 24 MMOL/L (21-32) Anion Gap 12 mmol/L (5-15) Blood Urea Nitrogen 25 mg/dL (7-18) H Creatinine 1.7 MG/DL (0.55-1.30) H Estimat Glomerular Filtration Rate mL/min (>60) Glucose Level 118 MG/DL (74-106) H Calcium Level 9.3 MG/DL (8.5-10.1) Total Bilirubin 0.6 MG/DL (0.2-1.0) Aspartate Amino Transf (AST/SGOT) 21 U/L (15-37) Alanine Aminotransferase (ALT/SGPT) 21 U/L (12-78) Alkaline Phosphatase 223 U/L (46-116) H Total Creatine Kinase 467 U/L (26-308) H Troponin I 0.042 ng/mL (0.000-0.056) Total Protein 6.7 G/DL (6.4-8.2) Albumin 3.7 G/DL (3.4-5.0) Globulin 3.0 g/dL Albumin/Globulin Ratio 1.2 (1.0-2.7) Lipase 86 U/L (73-393) C-Reactive Protein, Quantitative 1.4 mg/dL (0.00-0.90) H Urine Random Sodium 92 MEQ/L (20-110) Height (Feet): 6 Height (Inches): 2.00 Weight (Pounds): 190 Medications Current Medications Medications (Trade) Dose Ordered Sig/Eufemia Route PRN Reason Start Time Stop Time Status Last Admin Dose Admin Amlodipine Besylate (Norvasc) 10 mg DAILY ORAL 11/13/17 10:15 12/13/17 10:14 11/13/17 12:19 Aspirin (Ecotrin) 81 mg DAILY ORAL 11/14/17 09:00 12/14/17 08:59 Cefepime HCl 1 gm/ Sodium Chloride 55 ml @ 110 mls/hr Q24H IVPB 11/13/17 14:00 11/20/17 23:59 11/13/17 14:34 Clonidine HCl (Catapres Tab) 0.1 mg Q6H PRN ORAL SBP > 160mmHg 11/13/17 15:30 12/13/17 15:29 Dextrose/ Electrolytes 1,000 ml @ 75 mls/hr [id number] IV 11/13/17 16:30 12/13/17 16:29 11/13/17 17:51 Docusate Sodium (Colace) 100 mg TWICE A DAY ORAL 11/13/17 16:00 12/13/17 15:59 11/13/17 17:51 Finasteride (Proscar) 5 mg DAILY ORAL 11/14/17 09:00 12/14/17 08:59 Metoprolol Tartrate (Lopressor) 12.5 mg Q12HR ORAL 11/13/17 10:15 12/13/17 10:14 11/13/17 12:19 Tamsulosin HCl (Flomax) 0.4 mg BID ORAL 11/13/17 18:00 12/13/17 20:59 11/13/17 17:59 Thiamine HCl (Vitamin B1) 100 mg DAILY ORAL 11/14/17 09:00 12/14/17 08:[address]: reviewed showing enlarged bladder Assessment/Plan Status: stable Assessment/Plan 77 yo male with likely catheter malfunction. Reviewing records, evaluated patient 07/2017 for retention. Seemingly failed multiple voiding trials since then on maximum medication. At this point, likely going to be catheter dependent and recommend changing begum every 6 weeks to avoid re-admissions like this. Catheter functioning fine since irrigation. feels well. 1. continue begum indefinitely 2. recommend changing begum every 6 weeks. Kwesi Baer M.D. Nov 13, 2017 20:06
[2017-11-13] MEDS ORDERED: Tamsulosin 0.4mg cap ORAL SCH (21:00)
--- NOTE | 2017-11-13 22:15 | Consultation ---
DATE OF CONSULTATION: 11/13/2017 INFECTIOUS DISEASES CONSULTATION PRIMARY ATTENDING PHYSICIAN: Jhon Moreno M.D. REASON FOR CONSULT: Complicated UTI. HISTORY OF PRESENT ILLNESS: The patient is a 77-year-old male, admitted yesterday from a longterm facility with altered mental status. The patient has history of prostatic hypertrophy and he is on chronic Martínez catheter. In hospital Martínez catheter was changed. The patient complained of abdominal pain. Currently, he is not very communicate. PAST MEDICAL HISTORY: Significant for hypertension, diabetes mellitus, enlarged prostate, has history of encephalopathy, and has history of G-tube placement that is removed. MEDICATIONS: Getting thiamine, aspirin, Proscar, Flomax, amlodipine, Colace, metoprolol, and got a dose of ceftriaxone in the ER. ALLERGIES: No known drug allergies. SOCIAL HISTORY: [facility] resident. At the present time, is not very communicative, just open the eyes. PHYSICAL EXAMINATION: VITAL SIGNS: Temperature 97.7 degrees, pulse 71, and blood pressure 167/105. GENERAL APPEARANCE: Seems to be well developed. HEAD AND NECK: [place] conjunctiva. HEART: S1 and S2 regular. LUNGS: Clear. ABDOMEN: Soft. EXTREMITIES: No edema. GENITOURINARY: He has Martínez catheter. NEUROLOGIC: Just open eyes. He talk with a nurse briefly. LABORATORY AND DIAGNOSTIC DATA: Sodium 142, potassium 3.3, chloride 107, bicarbonate 24, BUN 25, creatinine 1.7, and glucose is 118. WBC 9.2, hemoglobin 14.2, hematocrit 44.3, and platelets 186. CT scan of the abdomen and pelvis showed bladder distention, moderate bilateral hydronephrosis, and enlarged prostate. IMPRESSION: 1. Complicated urinary tract infection. 2. Bilateral hydronephrosis. 3. Enlarged prostate. 4. Renal failure, seems to be acute. 5. Hypertension. RECOMMENDATION: 1. We will start the patient on cefepime. 2. We will follow up the cultures. Also, I have asked the patient to be seen by a urologist. At the end of my exam, I thank Dr. Moreno for involving me in the care of this patient. Rick Cat M.D. DR: ELAYNE JOB#: [id number] CC: [place]
[2017-11-13 23:58] VITALS: BP 118/73
--- NOTE | 2017-11-14 | History and Physical Report ---
DATE OF ADMISSION: 11/13/2017 HISTORY OF PRESENT ILLNESS: In general, the patient is a poor historian and has advanced dementia, admitted for abdominal pain, as well as the patient has chronic severe BPH. Also complaining t of suprapubic tenderness. He has an indwelling Martínez for urinary retention. CT of the pelvis showed asymmetric bladder thickening, distention, and bilateral hydronephrosis. The patient is also admitted for urinary tract infection. The patient was called and was transferred via 911 because of complaining of abdominal pain. The patient is a very poor historian and cannot rely up on his history. PAST MEDICAL HISTORY: Advanced dementia, severe BPH, hypertension, urinary retention, constipation, hypertension, and gastroesophageal reflux disease. PAST SURGICAL HISTORY: History of prostate surgery, history of lung surgery, and history of PEG in the past. MEDICATIONS: Norvasc, aspirin, clonidine, Colace, finasteride, metoprolol, ranitidine, and Flomax. ALLERGIES: No known allergies. FAMILY HISTORY: Noncontributory. REVIEW OF SYSTEMS: HEENT: Denies headaches. RESPIRATORY: Denies shortness of breath. Denies cough. CARDIOVASCULAR: Denies chest pain. No orthopnea. GASTROINTESTINAL: Reports abdominal pain. He is a poor historian. Denies nausea, vomiting, or diarrhea. Denies constipation. EXTREMITIES: Denies pain in lower extremities. CENTRAL NERVOUS SYSTEMS: Denies change in vision or speech pattern. PHYSICAL EXAMINATION: VITAL SIGNS: Temperature is 97.5, pulse 71, and blood pressure is 150/105. HEENT: PERRLA. NECK: Supple. No lymphadenopathy. CHEST: Clear to auscultation. GASTROINTESTINAL: Soft, nontender, and nondistended. No organomegaly. Has chronic indwelling Martínez catheter. EXTREMITIES: No edema. NEUROLOGIC: Reflexes are equal in both sides. Oriented to name x1. ASSESSMENT AND PLAN: 1. Chronic indwelling Martínez catheter. 2. History of urinary retention. 3. Benign prostatic hypertrophy. 4. Abdominal pain. 5. Urinary tract infection. 6. I have asked basically Dr. Collins, Dr. Yepez, Dr. Fernandes, and Dr. Baer to see the patient for the above-mentioned diagnoses and treatment. Jhon Moreno M.D. DR: BARI JOB#: [id number] CC:
[2017-11-14 04:24] VITALS: BP 130/90
[2017-11-14] MEDS: D5 1/2NS w/KCl 20mEq 1,000 ML IV SCH ×2 (06:39→18:11)
[2017-11-14 07:22] LABS: BASOPHILS % (AUTO) 1.3 % (0.0-2.0); EOSINOPHILS % (AUTO) 1.4 % (0.0-3.0); HEMATOCRIT 44.2 % (42.0-52.0); HEMOGLOBIN 14.9 G/DL (14.2-18.0); LYMPHOCYTES % (AUTO) 22.3 % (20.0-45.0); MEAN CORPUSCULAR VOLUME 91 FL (80-99); MONOCYTES % (AUTO) 9.7 % (1.0-10.0); NEUTROPHILS % (AUTO) 65.2 % (45.0-75.0); PLATELET COUNT 163 K/UL (150-450); RED BLOOD COUNT 4.86 M/UL (4.70-6.10); RED CELL DISTRIBUTION WIDTH 13.4 % (11.6-14.8); WHITE BLOOD COUNT 7.8 K/UL (4.8-10.8)
[2017-11-14 07:48] LABS: ALANINE AMINOTRANSFERASE 13 U/L (12-78); ANION GAP 6 mmol/L (5-15); ASPARTATE AMINO TRANSFERASE 21 U/L (15-37); BILIRUBIN,TOTAL 0.6 MG/DL (0.2-1.0); BLOOD UREA NITROGEN 22 mg/dL (7-18); CALCIUM 8.9 MG/DL (8.5-10.1); CARBON DIOXIDE 26 MMOL/L (21-32); CHLORIDE 110 MMOL/L (98-107); CREATININE 1.5 MG/DL (0.55-1.30); PHOSPHORUS 2.7 MG/DL (2.5-4.9); POTASSIUM 4.5 MMOL/L (3.5-5.1); SODIUM 142 MMOL/L (136-145)
[2017-11-14 07:49] LABS: ALBUMIN 2.9 G/DL (3.4-5.0); ALBUMIN/GLOBULIN RATIO 0.9 (1.0-2.7); ALKALINE PHOSPHATASE 183 U/L (46-116); CHOLESTEROL 155 MG/DL (< 200); HDL CHOLESTEROL 69 MG/DL (40-60); TRIGLYCERIDES 36 MG/DL (30-150)
[2017-11-14 08:00] VITALS: BP 142/91
[2017-11-14] MEDS: Tamsulosin 0.4mg cap ORAL SCH ×2 (08:20→17:37)
[2017-11-14] MEDS: Docusate 100mg cap ORAL SCH ×3 (08:20→17:37)
[2017-11-14] MEDS: Aspirin EC 81mg tab ORAL SCH (08:20)
[2017-11-14] MEDS: Metoprolol Tartrate 12.5mg TAB ORAL SCH ×2 (08:21→20:30)
[2017-11-14] MEDS: Thiamine 100mg tab ORAL SCH (08:22)
[2017-11-14 08:32] LABS: CREATINE KINASE 450 U/L (26-308); GAMMA GLUTAMYL TRANSPEPTIDASE 50 U/L (5-85)
--- NOTE | 2017-11-14 11:06 | GI Progress Note ---
Assessment/Plan Problems: (1) Anemia ICD Codes: D64.9 - Anemia, unspecified SNOMED: 679466259 (2) Cocaine abuse ICD Codes: F14.10 - Cocaine abuse, uncomplicated SNOMED: 35429583 (3) Dehydration ICD Codes: E86.0 - Dehydration SNOMED: 68802855 (4) Altered level of consciousness ICD Codes: R40.4 - Transient alteration of awareness SNOMED: 5570874 (5) Hypoalbuminemia ICD Codes: E88.09 - Other disorders of plasma-protein metabolism, not elsewhere classified SNOMED: 185811044 Status: stable Status Narrative Discussed with Dr. Yepez. Assessment/Plan CT AP reviewed, see full report >> bladder distention with enlarged prostate. POLST reviewed >> full treatment Hx of G tube placement for dysphagia, removed in 2015. symptomatic treatment adv diet ppi bowel regime pain mgmt fu labs PT eval The patient was seen and examined at bedside and all new and available data was reviewed in the patients chart. I agree with the above findings, impression and plan. (Patient seen earlier today. Signature stamp does not reflect patient encounter time.). - Andreia Yepez MD Subjective Subjective denies any abdominal pain at this time Objective Last 24 Hour Vital Signs Date Time Temp Pulse Resp B/P (MAP) Pulse Ox O2 Delivery O2 Flow Rate FiO2 11/14/17 08:21 55 142/91 11/14/17 08:21 55 142/91 11/14/17 08:00 97.9 55 19 142/91 98 97.9 11/14/17 04:24 98.6 71 17 130/90 97 98.6 11/13/17 23:58 98.4 61 18 118/73 96 98.4 11/13/17 21:17 66 112/76 11/13/17 20:00 98.6 66 18 112/76 97 98.6 11/13/17 16:00 97.5 63 20 127/90 96 97.5 11/13/17 12:19 71 167/105 11/13/17 12:19 71 167/105 11/13/17 12:00 97.0 56 20 148/100 97 97.0 Intake and Output 11/13/17 11/14/17 19:00 07:00 Intake Total 175 ml 1380 ml Output Total 1725 ml 800 ml Balance -1550 ml 580 ml Intake Oral 100 ml 480 ml IV Total 75 ml 900 ml Output Urine Total 1725 ml 800 ml # Voids 1 Laboratory Tests Test 11/13/17 16:16 11/14/17 05:00 Urine Random Sodium 92 MEQ/L (20-110) White Blood Count 7.8 K/UL (4.8-10.8) Red Blood Count 4.86 M/UL (4.70-6.10) Hemoglobin 14.9 G/DL (14.2-18.0) Hematocrit 44.2 % (42.0-52.0) Mean Corpuscular Volume 91 FL (80-99) Mean Corpuscular Hemoglobin 30.6 PG (27.0-31.0) Mean Corpuscular Hemoglobin Concent 33.6 G/DL (32.0-36.0) Red Cell Distribution Width 13.4 % (11.6-14.8) Platelet Count 163 K/UL (150-450) Mean Platelet Volume 6.9 FL (6.5-10.1) Neutrophils (%) (Auto) 65.2 % (45.0-75.0) Lymphocytes (%) (Auto) 22.3 % (20.0-45.0) Monocytes (%) (Auto) 9.7 % (1.0-10.0) Eosinophils (%) (Auto) 1.4 % (0.0-3.0) Basophils (%) (Auto) 1.3 % (0.0-2.0) Sodium Level 142 MMOL/L (136-145) Potassium Level 4.5 MMOL/L (3.5-5.1) Chloride Level 110 MMOL/L (98-107) H Carbon Dioxide Level 26 MMOL/L (21-32) Anion Gap 6 mmol/L (5-15) Blood Urea Nitrogen 22 mg/dL (7-18) H Creatinine 1.5 MG/DL (0.55-1.30) H Estimat Glomerular Filtration Rate mL/min (>60) Glucose Level 114 MG/DL (74-106) H Hemoglobin A1c 6.7 % (4.3-6.0) H Uric Acid 4.6 MG/DL (2.6-7.2) Calcium Level 8.9 MG/DL (8.5-10.1) Phosphorus Level 2.7 MG/DL (2.5-4.9) Magnesium Level 2.2 MG/DL (1.8-2.4) Total Bilirubin 0.6 MG/DL (0.2-1.0) Gamma Glutamyl Transpeptidase 50 U/L (5-85) Aspartate Amino Transf (AST/SGOT) 21 U/L (15-37) Alanine Aminotransferase (ALT/SGPT) 13 U/L (12-78) Alkaline Phosphatase 183 U/L (46-116) H Total Creatine Kinase 450 U/L (26-308) H Pro-B-Type Natriuretic Peptide 272 pg/mL (0-125) H Total Protein 6.1 G/DL (6.4-8.2) L Albumin 2.9 G/DL (3.4-5.0) L Globulin 3.2 g/dL Albumin/Globulin Ratio 0.9 (1.0-2.7) L Triglycerides Level 36 MG/DL (30-150) Cholesterol Level 155 MG/DL (< 200) LDL Cholesterol 78 mg/dL (<100) HDL Cholesterol 69 MG/DL (40-60) H Cholesterol/HDL Ratio 2.2 (3.3-4.4) L Vitamin B12 Level 464 PG/ML (193-986) Folate 3.2 NG/ML (8.6-58.9) L Thyroid Stimulating Hormone (TSH) 0.462 uiU/mL (0.358-3.740) Height (Feet): 6 Height (Inches): 2.00 Weight (Pounds): 190 General Appearance: WD/WN, no apparent distress, alert Cardiovascular: normal rate Respiratory/Chest: normal breath sounds, no respiratory distress Abdominal Exam: normal bowel sounds, non tender, soft Extremities: non-tender Lucía Sheriff NMartin Nov 14, 2017 11:06 ANGELICA YEPEZ Nov 14, 2017 15:55
[2017-11-14 11:49] VITALS: BP 126/91
--- NOTE | 2017-11-14 12:11 | Nephrology Progress Note ---
Assessment/Plan Assessment Renal failure: - Dehydration Cr lower - Possible undelying Nephropathy due to DM or HTN - HTN OOC - BPH - UTI - low folate Other: - Abdominal pain - UTI (urinary tract infection) - Hypertension Plan Plan: Hydrate- K supplement Adjust BP meds Per orders monitor renal parameters Subjective ROS Limited/Unobtainable: No Constitutional: Reports: malaise Objective Objective Last 24 Hour Vital Signs Date Time Temp Pulse Resp B/P (MAP) Pulse Ox O2 Delivery O2 Flow Rate FiO2 11/14/17 11:49 98.4 55 19 126/91 98 98.4 11/14/17 08:21 55 142/91 11/14/17 08:21 55 142/91 11/14/17 08:00 97.9 55 19 142/91 98 97.9 11/14/17 04:24 98.6 71 17 130/90 97 98.6 11/13/17 23:58 98.4 61 18 118/73 96 98.4 11/13/17 21:17 66 112/76 11/13/17 20:00 98.6 66 18 112/76 97 98.6 11/13/17 16:00 97.5 63 20 127/90 96 97.5 11/13/17 12:19 71 167/105 11/13/17 12:19 71 167/105 Intake and Output 11/13/17 11/14/17 19:00 07:00 Intake Total 175 ml 1380 ml Output Total 1725 ml 800 ml Balance -1550 ml 580 ml Intake Oral 100 ml 480 ml IV Total 75 ml 900 ml Output Urine Total 1725 ml 800 ml # Voids 1 Laboratory Tests 11/13/17 16:16: Urine Random Sodium 92 11/14/17 05:00: White Blood Count 7.8, Red Blood Count 4.86, Hemoglobin 14.9, Hematocrit 44.2, Mean Corpuscular Volume 91, Mean Corpuscular Hemoglobin 30.6, Mean Corpuscular Hemoglobin Concent 33.6, Red Cell Distribution Width 13.4, Platelet Count 163, Mean Platelet Volume 6.9, Neutrophils (%) (Auto) 65.2, Lymphocytes (%) (Auto) 22.3, Monocytes (%) (Auto) 9.7, Eosinophils (%) (Auto) 1.4, Basophils (%) (Auto ) 1.3, Sodium Level 142, Potassium Level 4.5, Chloride Level 110H, Carbon Dioxide Level 26, Anion Gap 6, Blood Urea Nitrogen 22H, Creatinine 1.5H, Estimat Glomerular Filtration Rate , Glucose Level 114H, Hemoglobin A1c 6.7H, Uric Acid 4.6, Calcium Level 8.9, Phosphorus Level 2.7, Magnesium Level 2.2, Total Bilirubin 0.6, Gamma Glutamyl Transpeptidase 50, Aspartate Amino Transf ( AST/SGOT) 21, Alanine Aminotransferase (ALT/SGPT) 13, Alkaline Phosphatase 183H , Total Creatine Kinase 450H, Pro-B-Type Natriuretic Peptide 272H, Total Protein 6.1L, Albumin 2.9L, Globulin 3.2, Albumin/Globulin Ratio 0.9L, Triglycerides Level 36, Cholesterol Level 155, LDL Cholesterol 78, HDL Cholesterol 69H, Cholesterol/HDL Ratio 2.2L, Vitamin B12 Level 464, Folate 3.2L , Thyroid Stimulating Hormone (TSH) 0.462 Height (Feet): 6 Height (Inches): 2.00 Weight (Pounds): 190 General Appearance: no apparent distress Cardiovascular: regular rhythm Respiratory/Chest: lungs clear Abdomen: soft BRIGIDA BAILEY Nov 14, 2017 12:11
--- NOTE | 2017-11-14 13:11 | Infectious Diseases Prog Note ---
Assessment/Plan Assessment/Plan A: 1. Complicated urinary tract infection. 2. Bilateral hydronephrosis. 3. Enlarged prostate. 4. Renal failure, seems to be acute. 5. Hypertension. P; Continue Cefepime will f/u cultures Subjective ROS Limited/Unobtainable: Yes Respiratory: Reports: no symptoms Gastrointestinal/Abdominal: Reports: no symptoms Genitourinary: Reports: no symptoms Neurologic: Reports: other - more alert today Allergies: Coded Allergies: No Known Allergies (Unverified , 02/28/16) Objective Vital Signs Last 24 Hour Vital Signs Date Time Temp Pulse Resp B/P (MAP) Pulse Ox O2 Delivery O2 Flow Rate FiO2 11/14/17 11:49 98.4 55 19 126/91 98 98.4 11/14/17 08:21 55 142/91 11/14/17 08:21 55 142/91 11/14/17 08:00 97.9 55 19 142/91 98 97.9 11/14/17 04:24 98.6 71 17 130/90 97 98.6 11/13/17 23:58 98.4 61 18 118/73 96 98.4 11/13/17 21:17 66 112/76 11/13/17 20:00 98.6 66 18 112/76 97 98.6 11/13/17 16:00 97.5 63 20 127/90 96 97.5 Height (Feet): 6 Height (Inches): 2.00 Weight (Pounds): 190 General Appearance: no acute distress HEENT: mucous membranes moist, other - has no teeth Cardiovascular: normal rate Abdomen: soft, non tender Genitourinary: other - GT feeding Extremities: no edema Neurologic/Psychiatric: alert, responsive Microbiology Date/Time Source Procedure Growth Status 11/13/17 04:20 Urine,Clean Catch Urine Culture - Preliminary Resulted Laboratory Tests Test 11/13/17 16:16 11/14/17 05:00 Urine Random Sodium 92 MEQ/L (20-110) White Blood Count 7.8 K/UL (4.8-10.8) Red Blood Count 4.86 M/UL (4.70-6.10) Hemoglobin 14.9 G/DL (14.2-18.0) Hematocrit 44.2 % (42.0-52.0) Mean Corpuscular Volume 91 FL (80-99) Mean Corpuscular Hemoglobin 30.6 PG (27.0-31.0) Mean Corpuscular Hemoglobin Concent 33.6 G/DL (32.0-36.0) Red Cell Distribution Width 13.4 % (11.6-14.8) Platelet Count 163 K/UL (150-450) Mean Platelet Volume 6.9 FL (6.5-10.1) Neutrophils (%) (Auto) 65.2 % (45.0-75.0) Lymphocytes (%) (Auto) 22.3 % (20.0-45.0) Monocytes (%) (Auto) 9.7 % (1.0-10.0) Eosinophils (%) (Auto) 1.4 % (0.0-3.0) Basophils (%) (Auto) 1.3 % (0.0-2.0) Sodium Level 142 MMOL/L (136-145) Potassium Level 4.5 MMOL/L (3.5-5.1) Chloride Level 110 MMOL/L (98-107) H Carbon Dioxide Level 26 MMOL/L (21-32) Anion Gap 6 mmol/L (5-15) Blood Urea Nitrogen 22 mg/dL (7-18) H Creatinine 1.5 MG/DL (0.55-1.30) H Estimat Glomerular Filtration Rate mL/min (>60) Glucose Level 114 MG/DL (74-106) H Hemoglobin A1c 6.7 % (4.3-6.0) H Uric Acid 4.6 MG/DL (2.6-7.2) Calcium Level 8.9 MG/DL (8.5-10.1) Phosphorus Level 2.7 MG/DL (2.5-4.9) Magnesium Level 2.2 MG/DL (1.8-2.4) Total Bilirubin 0.6 MG/DL (0.2-1.0) Gamma Glutamyl Transpeptidase 50 U/L (5-85) Aspartate Amino Transf (AST/SGOT) 21 U/L (15-37) Alanine Aminotransferase (ALT/SGPT) 13 U/L (12-78) Alkaline Phosphatase 183 U/L (46-116) H Total Creatine Kinase 450 U/L (26-308) H C-Reactive Protein, Quantitative 7.0 mg/dL (0.00-0.90) H Pro-B-Type Natriuretic Peptide 272 pg/mL (0-125) H Total Protein 6.1 G/DL (6.4-8.2) L Albumin 2.9 G/DL (3.4-5.0) L Globulin 3.2 g/dL Albumin/Globulin Ratio 0.9 (1.0-2.7) L Triglycerides Level 36 MG/DL (30-150) Cholesterol Level 155 MG/DL (< 200) LDL Cholesterol 78 mg/dL (<100) HDL Cholesterol 69 MG/DL (40-60) H Cholesterol/HDL Ratio 2.2 (3.3-4.4) L Vitamin B12 Level 464 PG/ML (193-986) Folate 3.2 NG/ML (8.6-58.9) L Thyroid Stimulating Hormone (TSH) 0.462 uiU/mL (0.358-3.740) Current Medications Medications (Trade) Dose Ordered Sig/Eufemia Route PRN Reason Start Time Stop Time Status Last Admin Dose Admin Amlodipine Besylate (Norvasc) 10 mg DAILY ORAL 11/13/17 10:15 12/13/17 10:14 11/14/17 08:21 Aspirin (Ecotrin) 81 mg DAILY ORAL 11/14/17 09:00 12/14/17 08:59 11/14/17 08:20 Cefepime HCl 1 gm/ Sodium Chloride 55 ml @ 110 mls/hr Q24H IVPB 11/13/17 14:00 11/20/17 23:59 11/13/17 14:34 Clonidine HCl (Catapres Tab) 0.1 mg Q6H PRN ORAL SBP > 160mmHg 11/13/17 15:30 12/13/17 15:29 Cyanocobalamin (Vitamin B12) 1,000 mcg DAILY SUBQ 11/14/17 13:00 11/16/17 09:01 Dextrose/ Electrolytes 1,000 ml @ 75 mls/hr [id number] IV 11/13/17 16:30 12/13/17 16:29 11/14/17 06:39 Docusate Sodium (Colace) 100 mg TID ORAL 11/14/17 13:00 12/13/17 15:59 Finasteride (Proscar) 5 mg DAILY ORAL 11/14/17 09:00 12/14/17 08:59 11/14/17 08:22 Folic Acid (Folate) 5 mg DAILY ORAL 11/14/17 13:00 12/14/17 12:59 Metoprolol Tartrate (Lopressor) 12.5 mg Q12HR ORAL 11/13/17 10:15 12/13/17 10:14 11/14/17 08:21 Tamsulosin HCl (Flomax) 0.4 mg BID ORAL 11/13/17 18:00 12/13/17 20:59 11/14/17 08:20 Thiamine HCl (Vitamin B1) 100 mg DAILY ORAL 11/14/17 09:00 12/14/17 08:59 11/14/17 08:22 BASIM HERRERA Nov 14, 2017 13:11
[2017-11-14] MEDS: Vitamin B12 1000mcg/ml Inj SUBQ SCH (14:25)
[2017-11-14] MEDS: Cefepime HCl 1 GM in NS 55 ML IVPB SCH (14:25)
[2017-11-14] MEDS ORDERED: NS Irrig 1000ml ONE (15:28)
[2017-11-14] MEDS ORDERED: NS 275ml ONE (15:28)
[2017-11-14 15:52] VITALS: BP 123/75
[2017-11-14 19:58] VITALS: BP 141/91
--- NOTE | 2017-11-14 21:32 | General Progress Note ---
Assessment/Plan Problem List: (1) Hydronephrosis ICD Codes: N13.30 - Unspecified hydronephrosis SNOMED: 17341495 Qualifiers: Qualified Codes: N13.39 - Other hydronephrosis (2) Renal insufficiency ICD Codes: N28.9 - Disorder of kidney and ureter, unspecified SNOMED: 863085442, 916075204 (3) UTI (urinary tract infection) ICD Codes: N39.0 - Urinary tract infection, site not specified SNOMED: 28468439 Qualifiers: Qualified Codes: T83.511A - Infection and inflammatory reaction due to indwelling urethral catheter, initial encounter; N39.0 - Urinary tract infection , site not specified (4) Hypertension ICD Codes: I10 - Essential (primary) hypertension SNOMED: 72968804, 834266619 Qualifiers: Qualified Codes: I10 - Essential (primary) hypertension (5) Abdominal pain ICD Codes: R10.9 - Unspecified abdominal pain SNOMED: 46495870 Qualifiers: Qualified Codes: R10.9 - Unspecified abdominal pain Status: progressing Assessment/Plan indwelling begum uti abx per id decrease abdominal pain demented severe bph h/o of obstructive uropathy hydronephrosis will discuss w urologist Subjective ROS Limited/Unobtainable: Yes Respiratory: Reports: no symptoms Allergies: Coded Allergies: No Known Allergies (Unverified , 02/28/16) Objective Last 24 Hour Vital Signs Date Time Temp Pulse Resp B/P (MAP) Pulse Ox O2 Delivery O2 Flow Rate FiO2 11/14/17 20:30 62 141/91 11/14/17 19:58 98.1 62 20 141/91 99 Room Air 98.1 11/14/17 15:52 99.5 60 20 123/75 97 99.5 11/14/17 11:49 98.4 55 19 126/91 98 98.4 11/14/17 08:21 55 142/91 11/14/17 08:21 55 142/91 11/14/17 08:00 97.9 55 19 142/91 98 97.9 11/14/17 04:24 98.6 71 17 130/90 97 98.6 11/13/17 23:58 98.4 61 18 118/73 96 98.4 Intake and Output 11/13/17 11/14/17 19:00 07:00 Intake Total 175 ml 1380 ml Output Total 1725 ml 800 ml Balance -1550 ml 580 ml Intake Oral 100 ml 480 ml IV Total 75 ml 900 ml Output Urine Total 1725 ml 800 ml # Voids 1 Laboratory Tests 11/14/17 05:00: White Blood Count 7.8, Red Blood Count 4.86, Hemoglobin 14.9, Hematocrit 44.2, Mean Corpuscular Volume 91, Mean Corpuscular Hemoglobin 30.6, Mean Corpuscular Hemoglobin Concent 33.6, Red Cell Distribution Width 13.4, Platelet Count 163, Mean Platelet Volume 6.9, Neutrophils (%) (Auto) 65.2, Lymphocytes (%) (Auto) 22.3, Monocytes (%) (Auto) 9.7, Eosinophils (%) (Auto) 1.4, Basophils (%) (Auto ) 1.3, Sodium Level 142, Potassium Level 4.5, Chloride Level 110H, Carbon Dioxide Level 26, Anion Gap 6, Blood Urea Nitrogen 22H, Creatinine 1.5H, Estimat Glomerular Filtration Rate , Glucose Level 114H, Hemoglobin A1c 6.7H, Uric Acid 4.6, Calcium Level 8.9, Phosphorus Level 2.7, Magnesium Level 2.2, Total Bilirubin 0.6, Gamma Glutamyl Transpeptidase 50, Aspartate Amino Transf ( AST/SGOT) 21, Alanine Aminotransferase (ALT/SGPT) 13, Alkaline Phosphatase 183H , Total Creatine Kinase 450H, C-Reactive Protein, Quantitative 7.0H, Pro-B-Type Natriuretic Peptide 272H, Total Protein 6.1L, Albumin 2.9L, Globulin 3.2, Albumin/Globulin Ratio 0.9L, Triglycerides Level 36, Cholesterol Level 155, LDL Cholesterol 78, HDL Cholesterol 69H, Cholesterol/HDL Ratio 2.2L, Vitamin B12 Level 464, Folate 3.2L, Thyroid Stimulating Hormone (TSH) 0.462 Height (Feet): 6 Height (Inches): 2.00 Weight (Pounds): 190 Neck: supple Cardiovascular: normal rate Respiratory/Chest: lungs clear Abdomen: soft Jhon Moreno MD Nov 14, 2017 21:32
[2017-11-15] VITALS: BP 141/79
[2017-11-15 03:52] VITALS: BP 125/80
[2017-11-15] MEDS: D5 1/2NS w/KCl 20mEq 1,000 ML IV SCH ×2 (05:47→21:37)
[2017-11-15 06:42] LABS: BASOPHILS % (AUTO) 1.1 % (0.0-2.0); EOSINOPHILS % (AUTO) 2.4 % (0.0-3.0); HEMATOCRIT 43.3 % (42.0-52.0); HEMOGLOBIN 14.6 G/DL (14.2-18.0); LYMPHOCYTES % (AUTO) 31.5 % (20.0-45.0); MEAN CORPUSCULAR VOLUME 90 FL (80-99); MONOCYTES % (AUTO) 9.6 % (1.0-10.0); NEUTROPHILS % (AUTO) 55.5 % (45.0-75.0); PLATELET COUNT 163 K/UL (150-450); RED CELL DISTRIBUTION WIDTH 13.1 % (11.6-14.8); WHITE BLOOD COUNT 5.2 K/UL (4.8-10.8)
[2017-11-15 07:23] LABS: ALANINE AMINOTRANSFERASE 22 U/L (12-78); ALBUMIN 2.9 G/DL (3.4-5.0); ALBUMIN/GLOBULIN RATIO 0.9 (1.0-2.7); ALKALINE PHOSPHATASE 181 U/L (46-116); ANION GAP 9 mmol/L (5-15); ASPARTATE AMINO TRANSFERASE 21 U/L (15-37); BILIRUBIN,TOTAL 0.4 MG/DL (0.2-1.0); BLOOD UREA NITROGEN 16 mg/dL (7-18); CALCIUM 8.6 MG/DL (8.5-10.1); CARBON DIOXIDE 24 MMOL/L (21-32); CHLORIDE 107 MMOL/L (98-107); CREATINE KINASE 298 U/L (26-308); CREATININE 1.2 MG/DL (0.55-1.30); GAMMA GLUTAMYL TRANSPEPTIDASE 41 U/L (5-85); PHOSPHORUS 2.2 MG/DL (2.5-4.9); SODIUM 140 MMOL/L (136-145)
[2017-11-15 08:00] VITALS: BP 147/86
[2017-11-15] MEDS: Docusate 100mg cap ORAL SCH ×3 (08:40→17:35)
[2017-11-15] MEDS: Thiamine 100mg tab ORAL SCH (08:40)
[2017-11-15] MEDS: Aspirin EC 81mg tab ORAL SCH (08:40)
[2017-11-15] MEDS: Metoprolol Tartrate 12.5mg TAB ORAL SCH ×2 (08:40→21:36)
[2017-11-15] MEDS: Tamsulosin 0.4mg cap ORAL SCH ×2 (08:40→17:35)
[2017-11-15] MEDS: Vitamin B12 1000mcg/ml Inj SUBQ SCH (08:41)
--- NOTE | 2017-11-15 10:13 | GI Progress Note ---
Assessment/Plan Problems: (1) Anemia ICD Codes: D64.9 - Anemia, unspecified SNOMED: 444333716 (2) Cocaine abuse ICD Codes: F14.10 - Cocaine abuse, uncomplicated SNOMED: 90948378 (3) Dehydration ICD Codes: E86.0 - Dehydration SNOMED: 69439863 (4) Altered level of consciousness ICD Codes: R40.4 - Transient alteration of awareness SNOMED: 7794494 (5) Hypoalbuminemia ICD Codes: E88.09 - Other disorders of plasma-protein metabolism, not elsewhere classified SNOMED: 796606434 Status: stable Status Narrative Discussed with Dr. Yepez. Assessment/Plan CT AP reviewed, see full report >> bladder distention with enlarged prostate. POLST reviewed >> full treatment Hx of G tube placement for dysphagia, removed in 2015. symptomatic treatment adv diet ppi bowel regime pain mgmt fu labs PT eval The patient was seen and examined at bedside and all new and available data was reviewed in the patients chart. I agree with the above findings, impression and plan. (Patient seen earlier today. Signature stamp does not reflect patient encounter time.). - Andreia Yepez MD Subjective Subjective denies any abdominal pain at this time Objective Last 24 Hour Vital Signs Date Time Temp Pulse Resp B/P (MAP) Pulse Ox O2 Delivery O2 Flow Rate FiO2 11/15/17 08:40 66 147/86 11/15/17 08:40 66 147/86 11/15/17 08:32 Room Air 11/15/17 08:00 98.2 66 20 147/86 98 98.2 11/15/17 03:52 97.2 62 20 125/80 99 Room Air 97.2 11/15/17 00:00 97.3 61 20 141/79 99 Room Air 97.3 11/14/17 20:30 62 141/91 11/14/17 19:58 98.1 62 20 141/91 99 Room Air 98.1 11/14/17 15:52 99.5 60 20 123/75 97 99.5 11/14/17 11:49 98.4 55 19 126/91 98 98.4 Intake and Output 11/14/17 11/15/17 19:00 07:00 Intake Total 1435 ml 1380 ml Output Total 750 ml 1300 ml Balance 685 ml 80 ml Intake Oral 480 ml 480 ml IV Total 955 ml 900 ml Output Urine Total 750 ml 1300 ml Laboratory Tests Test 11/15/17 04:40 White Blood Count 5.2 K/UL (4.8-10.8) Red Blood Count 4.80 M/UL (4.70-6.10) Hemoglobin 14.6 G/DL (14.2-18.0) Hematocrit 43.3 % (42.0-52.0) Mean Corpuscular Volume 90 FL (80-99) Mean Corpuscular Hemoglobin 30.3 PG (27.0-31.0) Mean Corpuscular Hemoglobin Concent 33.6 G/DL (32.0-36.0) Red Cell Distribution Width 13.1 % (11.6-14.8) Platelet Count 163 K/UL (150-450) Mean Platelet Volume 7.2 FL (6.5-10.1) Neutrophils (%) (Auto) 55.5 % (45.0-75.0) Lymphocytes (%) (Auto) 31.5 % (20.0-45.0) Monocytes (%) (Auto) 9.6 % (1.0-10.0) Eosinophils (%) (Auto) 2.4 % (0.0-3.0) Basophils (%) (Auto) 1.1 % (0.0-2.0) Sodium Level 140 MMOL/L (136-145) Potassium Level 4.0 MMOL/L (3.5-5.1) Chloride Level 107 MMOL/L (98-107) Carbon Dioxide Level 24 MMOL/L (21-32) Anion Gap 9 mmol/L (5-15) Blood Urea Nitrogen 16 mg/dL (7-18) Creatinine 1.2 MG/DL (0.55-1.30) Estimat Glomerular Filtration Rate mL/min (>60) Glucose Level 116 MG/DL (74-106) H Uric Acid 3.6 MG/DL (2.6-7.2) Calcium Level 8.6 MG/DL (8.5-10.1) Phosphorus Level 2.2 MG/DL (2.5-4.9) L Magnesium Level 1.8 MG/DL (1.8-2.4) Total Bilirubin 0.4 MG/DL (0.2-1.0) Gamma Glutamyl Transpeptidase 41 U/L (5-85) Aspartate Amino Transf (AST/SGOT) 21 U/L (15-37) Alanine Aminotransferase (ALT/SGPT) 22 U/L (12-78) Alkaline Phosphatase 181 U/L (46-116) H Total Creatine Kinase 298 U/L (26-308) Pro-B-Type Natriuretic Peptide 145 pg/mL (0-125) H Total Protein 6.3 G/DL (6.4-8.2) L Albumin 2.9 G/DL (3.4-5.0) L Globulin 3.4 g/dL Albumin/Globulin Ratio 0.9 (1.0-2.7) L Height (Feet): 6 Height (Inches): 2.00 Weight (Pounds): 190 General Appearance: WD/WN, no apparent distress, alert Cardiovascular: normal rate Respiratory/Chest: normal breath sounds, no respiratory distress Abdominal Exam: normal bowel sounds, non tender, soft Extremities: normal range of motion, non-tender Lucía Sheriff N.P. Nov 15, 2017 10:13 ANGELICA YEPEZ Nov 20, 2017 12:20
[2017-11-15 12:00] VITALS: BP 149/95
--- NOTE | 2017-11-15 13:02 | Infectious Diseases Prog Note ---
Assessment/Plan Assessment/Plan A: 1. Complicated urinary tract infection. 2. Bilateral hydronephrosis. 3. Enlarged prostate. 4. Renal failure, seems to be acute. 5. Hypertension. P; Continue Cefepime will f/u cultures Subjective ROS Limited/Unobtainable: Yes Cardiovascular: Reports: no symptoms Gastrointestinal/Abdominal: Reports: no symptoms Genitourinary: Reports: other - pain in [place] Allergies: Coded Allergies: No Known Allergies (Unverified , 02/28/16) Objective Vital Signs Last 24 Hour Vital Signs Date Time Temp Pulse Resp B/P (MAP) Pulse Ox O2 Delivery O2 Flow Rate FiO2 11/15/17 12:00 97.5 57 20 149/95 98 97.5 11/15/17 08:40 66 147/86 11/15/17 08:40 66 147/86 11/15/17 08:32 Room Air 11/15/17 08:00 98.2 66 20 147/86 98 98.2 11/15/17 03:52 97.2 62 20 125/80 99 Room Air 97.2 11/15/17 00:00 97.3 61 20 141/79 99 Room Air 97.3 11/14/17 20:30 62 141/91 11/14/17 19:58 98.1 62 20 141/91 99 Room Air 98.1 11/14/17 15:52 99.5 60 20 123/75 97 99.5 Height (Feet): 6 Height (Inches): 2.00 Weight (Pounds): 190 General Appearance: no acute distress HEENT: mucous membranes moist Respiratory/Chest: lungs clear Cardiovascular: normal rate Abdomen: soft, non tender Genitourinary: other - Martínez catheter Extremities: no edema Neurologic/Psychiatric: alert, responsive Microbiology Date/Time Source Procedure Growth Status 11/13/17 16:00 Nasal Nares MRSA Culture - Final NO METHICILLIN RESISTANT STAPH AUREUS... Complete 11/13/17 04:20 Urine,Clean Catch Urine Culture - Preliminary Gram Negative Bacillus 1 Resulted 11/13/17 16:00 Rectum VRE Culture - Final NO VANCOMYCIN RESISTANT ENTEROCOCCUS ... Complete Laboratory Tests Test 11/15/17 04:40 White Blood Count 5.2 K/UL (4.8-10.8) Red Blood Count 4.80 M/UL (4.70-6.10) Hemoglobin 14.6 G/DL (14.2-18.0) Hematocrit 43.3 % (42.0-52.0) Mean Corpuscular Volume 90 FL (80-99) Mean Corpuscular Hemoglobin 30.3 PG (27.0-31.0) Mean Corpuscular Hemoglobin Concent 33.6 G/DL (32.0-36.0) Red Cell Distribution Width 13.1 % (11.6-14.8) Platelet Count 163 K/UL (150-450) Mean Platelet Volume 7.2 FL (6.5-10.1) Neutrophils (%) (Auto) 55.5 % (45.0-75.0) Lymphocytes (%) (Auto) 31.5 % (20.0-45.0) Monocytes (%) (Auto) 9.6 % (1.0-10.0) Eosinophils (%) (Auto) 2.4 % (0.0-3.0) Basophils (%) (Auto) 1.1 % (0.0-2.0) Sodium Level 140 MMOL/L (136-145) Potassium Level 4.0 MMOL/L (3.5-5.1) Chloride Level 107 MMOL/L (98-107) Carbon Dioxide Level 24 MMOL/L (21-32) Anion Gap 9 mmol/L (5-15) Blood Urea Nitrogen 16 mg/dL (7-18) Creatinine 1.2 MG/DL (0.55-1.30) Estimat Glomerular Filtration Rate mL/min (>60) Glucose Level 116 MG/DL (74-106) H Uric Acid 3.6 MG/DL (2.6-7.2) Calcium Level 8.6 MG/DL (8.5-10.1) Phosphorus Level 2.2 MG/DL (2.5-4.9) L Magnesium Level 1.8 MG/DL (1.8-2.4) Total Bilirubin 0.4 MG/DL (0.2-1.0) Gamma Glutamyl Transpeptidase 41 U/L (5-85) Aspartate Amino Transf (AST/SGOT) 21 U/L (15-37) Alanine Aminotransferase (ALT/SGPT) 22 U/L (12-78) Alkaline Phosphatase 181 U/L (46-116) H Total Creatine Kinase 298 U/L (26-308) Pro-B-Type Natriuretic Peptide 145 pg/mL (0-125) H Total Protein 6.3 G/DL (6.4-8.2) L Albumin 2.9 G/DL (3.4-5.0) L Globulin 3.4 g/dL Albumin/Globulin Ratio 0.9 (1.0-2.7) L Current Medications Medications (Trade) Dose Ordered Sig/Eufemia Route PRN Reason Start Time Stop Time Status Last Admin Dose Admin Amlodipine Besylate (Norvasc) 10 mg DAILY ORAL 11/13/17 10:15 12/13/17 10:14 11/15/17 08:40 Aspirin (Ecotrin) 81 mg DAILY ORAL 11/14/17 09:00 12/14/17 08:59 11/15/17 08:40 Cefepime HCl 1 gm/ Sodium Chloride 55 ml @ 110 mls/hr Q24H IVPB 11/13/17 14:00 11/20/17 23:59 11/14/17 14:25 Clonidine HCl (Catapres Tab) 0.1 mg Q6H PRN ORAL SBP > 160mmHg 11/13/17 15:30 12/13/17 15:29 Cyanocobalamin (Vitamin B12) 1,000 mcg DAILY SUBQ 11/14/17 13:00 11/16/17 09:01 11/15/17 08:41 Dextrose/ Electrolytes 1,000 ml @ 75 mls/hr [id number] IV 11/13/17 16:30 12/13/17 16:29 11/15/17 05:47 Docusate Sodium (Colace) 100 mg TID ORAL 11/14/17 13:00 12/13/17 15:59 11/15/17 08:40 Finasteride (Proscar) 5 mg DAILY ORAL 11/14/17 09:00 12/14/17 08:59 11/15/17 08:40 Folic Acid (Folate) 5 mg DAILY ORAL 11/14/17 13:00 12/14/17 12:59 11/15/17 08:40 Metoprolol Tartrate (Lopressor) 12.5 mg Q12HR ORAL 11/13/17 10:15 12/13/17 10:14 11/15/17 08:40 Tamsulosin HCl (Flomax) 0.4 mg BID ORAL 11/13/17 18:00 12/13/17 20:59 11/15/17 08:40 Thiamine HCl (Vitamin B1) 100 mg DAILY ORAL 11/14/17 09:00 12/14/17 08:59 11/15/17 08:40 BASIM HERRERA Nov 15, 2017 13:02
[2017-11-15] MEDS: Cefepime HCl 1 GM in NS 55 ML IVPB SCH (14:05)
--- NOTE | 2017-11-15 14:26 | Nephrology Progress Note ---
Assessment/Plan Problem List: (1) UTI (urinary tract infection) (2) Renal insufficiency (3) Dehydration (4) Hypertension Assessment Renal failure: - Dehydration Cr lower - Possible undelying Nephropathy due to DM or HTN - HTN OOC - BPH - UTI - low folate Other: - Abdominal pain - UTI (urinary tract infection) - Hypertension Plan Plan: Phos supplement Hydrate- K supplement Adjust BP meds Per orders monitor renal parameters Subjective ROS Limited/Unobtainable: No Objective Objective Last 24 Hour Vital Signs Date Time Temp Pulse Resp B/P (MAP) Pulse Ox O2 Delivery O2 Flow Rate FiO2 11/15/17 12:00 97.5 57 20 149/95 98 97.5 11/15/17 08:40 66 147/86 11/15/17 08:40 66 147/86 11/15/17 08:32 Room Air 11/15/17 08:00 98.2 66 20 147/86 98 98.2 11/15/17 03:52 97.2 62 20 125/80 99 Room Air 97.2 11/15/17 00:00 97.3 61 20 141/79 99 Room Air 97.3 11/14/17 20:30 62 141/91 11/14/17 19:58 98.1 62 20 141/91 99 Room Air 98.1 11/14/17 15:52 99.5 60 20 123/75 97 99.5 Intake and Output 11/14/17 11/15/17 19:00 07:00 Intake Total 1435 ml 1380 ml Output Total 750 ml 1300 ml Balance 685 ml 80 ml Intake Oral 480 ml 480 ml IV Total 955 ml 900 ml Output Urine Total 750 ml 1300 ml Laboratory Tests 11/15/17 04:40: White Blood Count 5.2, Red Blood Count 4.80, Hemoglobin 14.6, Hematocrit 43.3, Mean Corpuscular Volume 90, Mean Corpuscular Hemoglobin 30.3, Mean Corpuscular Hemoglobin Concent 33.6, Red Cell Distribution Width 13.1, Platelet Count 163, Mean Platelet Volume 7.2, Neutrophils (%) (Auto) 55.5, Lymphocytes (%) (Auto) 31.5, Monocytes (%) (Auto) 9.6, Eosinophils (%) (Auto) 2.4, Basophils (%) (Auto ) 1.1, Sodium Level 140, Potassium Level 4.0, Chloride Level 107, Carbon Dioxide Level 24, Anion Gap 9, Blood Urea Nitrogen 16, Creatinine 1.2, Estimat Glomerular Filtration Rate , Glucose Level 116H, Uric Acid 3.6, Calcium Level 8.6, Phosphorus Level 2.2L, Magnesium Level 1.8, Total Bilirubin 0.4, Gamma Glutamyl Transpeptidase 41, Aspartate Amino Transf (AST/SGOT) 21, Alanine Aminotransferase (ALT/SGPT) 22, Alkaline Phosphatase 181H, Total Creatine Kinase 298, Pro-B-Type Natriuretic Peptide 145H, Total Protein 6.3L, Albumin 2.9L, Globulin 3.4, Albumin/Globulin Ratio 0.9L Height (Feet): 6 Height (Inches): 2.00 Weight (Pounds): 190 General Appearance: no apparent distress Objective no change BRIGIDA BAILEY Nov 15, 2017 14:26
[2017-11-15 15:44] VITALS: BP 147/84
[2017-11-15] MEDS: Phospha 250 Neutral tab ORAL SCH (17:35)
[2017-11-15 20:03] VITALS: BP 116/77
--- NOTE | 2017-11-15 20:22 | General Progress Note ---
Assessment/Plan Problem List: (1) Hydronephrosis ICD Codes: N13.30 - Unspecified hydronephrosis SNOMED: 46320393 Qualifiers: Qualified Codes: N13.39 - Other hydronephrosis (2) Renal insufficiency ICD Codes: N28.9 - Disorder of kidney and ureter, unspecified SNOMED: 567015486, 243361009 (3) UTI (urinary tract infection) ICD Codes: N39.0 - Urinary tract infection, site not specified SNOMED: 70982047 Qualifiers: Qualified Codes: T83.511A - Infection and inflammatory reaction due to indwelling urethral catheter, initial encounter; N39.0 - Urinary tract infection , site not specified (4) Hypertension ICD Codes: I10 - Essential (primary) hypertension SNOMED: 33005349, 858332121 Qualifiers: Qualified Codes: I10 - Essential (primary) hypertension (5) Abdominal pain ICD Codes: R10.9 - Unspecified abdominal pain SNOMED: 41345676 Qualifiers: Qualified Codes: R10.9 - Unspecified abdominal pain Status: progressing Assessment/Plan indwelling begum uti afebrile improving agitated severe bph h/o of obstructive uropathy hydronephrosis Subjective ROS Limited/Unobtainable: Yes Allergies: Coded Allergies: No Known Allergies (Unverified , 02/28/16) Objective Last 24 Hour Vital Signs Date Time Temp Pulse Resp B/P (MAP) Pulse Ox O2 Delivery O2 Flow Rate FiO2 11/15/17 20:03 97.8 61 20 116/77 98 Room Air 97.8 11/15/17 17:09 Room Air 11/15/17 15:44 98.1 62 20 147/84 99 98.1 11/15/17 12:00 Room Air 11/15/17 12:00 97.5 57 20 149/95 98 97.5 11/15/17 08:40 66 147/86 11/15/17 08:40 66 147/86 11/15/17 08:32 Room Air 11/15/17 08:00 98.2 66 20 147/86 98 98.2 11/15/17 03:52 97.2 62 20 125/80 99 Room Air 97.2 11/15/17 00:00 97.3 61 20 141/79 99 Room Air 97.3 2/22/18 20:30 62 141/91 Intake and Output 11/14/17 11/15/17 19:00 07:00 Intake Total 1435 ml 1380 ml Output Total 750 ml 1300 ml Balance 685 ml 80 ml Intake Oral 480 ml 480 ml IV Total 955 ml 900 ml Output Urine Total 750 ml 1300 ml Laboratory Tests 11/15/17 04:40: White Blood Count 5.2, Red Blood Count 4.80, Hemoglobin 14.6, Hematocrit 43.3, Mean Corpuscular Volume 90, Mean Corpuscular Hemoglobin 30.3, Mean Corpuscular Hemoglobin Concent 33.6, Red Cell Distribution Width 13.1, Platelet Count 163, Mean Platelet Volume 7.2, Neutrophils (%) (Auto) 55.5, Lymphocytes (%) (Auto) 31.5, Monocytes (%) (Auto) 9.6, Eosinophils (%) (Auto) 2.4, Basophils (%) (Auto ) 1.1, Sodium Level 140, Potassium Level 4.0, Chloride Level 107, Carbon Dioxide Level 24, Anion Gap 9, Blood Urea Nitrogen 16, Creatinine 1.2, Estimat Glomerular Filtration Rate , Glucose Level 116H, Uric Acid 3.6, Calcium Level 8.6, Phosphorus Level 2.2L, Magnesium Level 1.8, Total Bilirubin 0.4, Gamma Glutamyl Transpeptidase 41, Aspartate Amino Transf (AST/SGOT) 21, Alanine Aminotransferase (ALT/SGPT) 22, Alkaline Phosphatase 181H, Total Creatine Kinase 298, Pro-B-Type Natriuretic Peptide 145H, Total Protein 6.3L, Albumin 2.9L, Globulin 3.4, Albumin/Globulin Ratio 0.9L Height (Feet): 6 Height (Inches): 2.00 Weight (Pounds): 190 General Appearance: confused Jhon Moreno MD Nov 15, 2017 20:22
[2017-11-16] VITALS: BP 122/75
[2017-11-16] MEDS: Cefepime HCl 1 GM in NS 55 ML IVPB SCH ×2 (01:45→15:35)
[2017-11-16 04:00] VITALS: BP 145/98
[2017-11-16 07:20] LABS: BASOPHILS % (AUTO) 1.6 % (0.0-2.0); EOSINOPHILS % (AUTO) 2.6 % (0.0-3.0); HEMATOCRIT 44.8 % (42.0-52.0); HEMOGLOBIN 15.3 G/DL (14.2-18.0); LYMPHOCYTES % (AUTO) 30.7 % (20.0-45.0); MEAN CORPUSCULAR VOLUME 90 FL (80-99); MONOCYTES % (AUTO) 8.5 % (1.0-10.0); NEUTROPHILS % (AUTO) 56.6 % (45.0-75.0); PLATELET COUNT 190 K/UL (150-450); RED BLOOD COUNT 5.01 M/UL (4.70-6.10); RED CELL DISTRIBUTION WIDTH 12.9 % (11.6-14.8); WHITE BLOOD COUNT 5.1 K/UL (4.8-10.8)
[2017-11-16 07:35] LABS: ANION GAP 6 mmol/L (5-15); BLOOD UREA NITROGEN 9 mg/dL (7-18); CARBON DIOXIDE 27 MMOL/L (21-32); CHLORIDE 107 MMOL/L (98-107); CREATININE 1.2 MG/DL (0.55-1.30); POTASSIUM 4.2 MMOL/L (3.5-5.1); SODIUM 140 MMOL/L (136-145)
[2017-11-16] MEDS: Tamsulosin 0.4mg cap ORAL SCH ×2 (08:04→17:00)
[2017-11-16] MEDS: Thiamine 100mg tab ORAL SCH (08:04)
[2017-11-16] MEDS: Aspirin EC 81mg tab ORAL SCH (08:04)
[2017-11-16] MEDS: Docusate 100mg cap ORAL SCH ×3 (08:04→17:00)
[2017-11-16 08:06] VITALS: BP 144/97
[2017-11-16] MEDS: Metoprolol Tartrate 12.5mg TAB ORAL SCH ×2 (08:06→21:00)
[2017-11-16] MEDS: Vitamin B12 1000mcg/ml Inj SUBQ SCH (08:07)
[2017-11-16] MEDS: Phospha 250 Neutral tab ORAL SCH ×3 (08:11→17:00)
[2017-11-16] MEDS ORDERED: Tubing IV Secondary IV ONE (11:14)
[2017-11-16] MEDS: D5 1/2NS w/KCl 20mEq 1,000 ML IV SCH (11:31)
--- NOTE | 2017-11-16 11:45 | Nephrology Progress Note ---
Assessment/Plan Problem List: (1) UTI (urinary tract infection) (2) Renal insufficiency (3) Dehydration (4) Hypertension Assessment Renal failure: - Dehydration Cr lower - Possible undelying Nephropathy due to DM or HTN - HTN OOC - BPH - UTI - low folate Other: - Abdominal pain - UTI (urinary tract infection) - Hypertension Plan Plan: Phos supplement Hydrate- K supplement Adjust BP meds Per orders monitor renal parameters Subjective ROS Limited/Unobtainable: No Objective Objective Last 24 Hour Vital Signs Date Time Temp Pulse Resp B/P (MAP) Pulse Ox O2 Delivery O2 Flow Rate FiO2 11/16/17 08:06 60 144/97 11/16/17 08:06 60 144/97 11/16/17 08:06 98.1 60 18 144/97 97 Room Air 98.1 11/16/17 04:00 97.5 58 21 145/98 98 97.5 11/16/17 00:00 97.5 65 20 122/75 97 Room Air 97.5 11/15/17 21:36 61 116/77 11/15/17 20:03 97.8 61 20 116/77 98 Room Air 97.8 11/15/17 17:09 Room Air 11/15/17 15:44 98.1 62 20 147/84 99 98.1 11/15/17 12:00 Room Air 11/15/17 12:00 97.5 57 20 149/95 98 97.5 Intake and Output 11/15/17 11/16/17 19:00 07:00 Intake Total 1145 ml 805 ml Output Total 2200 ml 1500 ml Balance -1055 ml -695 ml Intake Oral 360 ml IV Total 785 ml 805 ml Output Urine Total 2200 ml 1500 ml Laboratory Tests 11/16/17 05:35: White Blood Count 5.1, Red Blood Count 5.01, Hemoglobin 15.3, Hematocrit 44.8, Mean Corpuscular Volume 90, Mean Corpuscular Hemoglobin 30.6, Mean Corpuscular Hemoglobin Concent 34.2, Red Cell Distribution Width 12.9, Platelet Count 190, Mean Platelet Volume 7.6, Neutrophils (%) (Auto) 56.6, Lymphocytes (%) (Auto) 30.7, Monocytes (%) (Auto) 8.5, Eosinophils (%) (Auto) 2.6, Basophils (%) (Auto ) 1.6, Sodium Level 140, Potassium Level 4.2, Chloride Level 107, Carbon Dioxide Level 27, Anion Gap 6, Blood Urea Nitrogen 9, Creatinine 1.2, Estimat Glomerular Filtration Rate , Glucose Level 117H, Calcium Level 9.0 Height (Feet): 6 Height (Inches): 2.00 Weight (Pounds): 190 General Appearance: no apparent distress Objective no change BRIIGDA BAILEY Nov 16, 2017 11:45
[2017-11-16 11:58] VITALS: BP 120/86
[2017-11-16 16:00] VITALS: BP 149/92
--- NOTE | 2017-11-16 19:18 | General Progress Note ---
Assessment/Plan Assessment/Plan Assessment (1) Anemia ICD Codes: D64.9 - Anemia, unspecified SNOMED: 464431189 (2) Cocaine abuse ICD Codes: F14.10 - Cocaine abuse, uncomplicated SNOMED: 24292725 (3) Dehydration ICD Codes: E86.0 - Dehydration SNOMED: 60824857 (4) Altered level of consciousness ICD Codes: R40.4 - Transient alteration of awareness SNOMED: 4715089 (5) Hypoalbuminemia ICD Codes: E88.09 - Other disorders of plasma-protein metabolism, not elsewhere classified SNOMED: 456798241 Assessment/Plan CT AP reviewed, see full report >> bladder distention with enlarged prostate. POLST reviewed >> full treatment Hx of G tube placement for dysphagia, removed in 2015. symptomatic treatment adv diet ppi bowel regime pain mgmt fu labs PT eval Subjective Allergies: Coded Allergies: No Known Allergies (Unverified , 02/28/16) Subjective walking with PT no abdominal pain d/w family and RN Objective Last 24 Hour Vital Signs Date Time Temp Pulse Resp B/P (MAP) Pulse Ox O2 Delivery O2 Flow Rate FiO2 11/16/17 16:00 98.6 62 18 149/92 97 Room Air 98.6 11/16/17 11:58 98.1 53 18 120/86 97 Room Air 98.1 11/16/17 08:06 60 144/97 11/16/17 08:06 60 144/97 11/16/17 08:06 98.1 60 18 144/97 97 Room Air 98.1 11/16/17 04:00 97.5 58 21 145/98 98 97.5 11/16/17 00:00 97.5 65 20 122/75 97 Room Air 97.5 11/15/17 21:36 61 116/77 11/15/17 20:03 97.8 61 20 116/77 98 Room Air 97.8 Intake and Output 11/15/17 11/16/17 19:00 07:00 Intake Total 1145 ml 880 ml Output Total 2200 ml 1500 ml Balance -1055 ml -620 ml Intake Oral 360 ml IV Total 785 ml 880 ml Output Urine Total 2200 ml 1500 ml Laboratory Tests 11/16/17 05:35: White Blood Count 5.1, Red Blood Count 5.01, Hemoglobin 15.3, Hematocrit 44.8, Mean Corpuscular Volume 90, Mean Corpuscular Hemoglobin 30.6, Mean Corpuscular Hemoglobin Concent 34.2, Red Cell Distribution Width 12.9, Platelet Count 190, Mean Platelet Volume 7.6, Neutrophils (%) (Auto) 56.6, Lymphocytes (%) (Auto) 30.7, Monocytes (%) (Auto) 8.5, Eosinophils (%) (Auto) 2.6, Basophils (%) (Auto ) 1.6, Sodium Level 140, Potassium Level 4.2, Chloride Level 107, Carbon Dioxide Level 27, Anion Gap 6, Blood Urea Nitrogen 9, Creatinine 1.2, Estimat Glomerular Filtration Rate , Glucose Level 117H, Calcium Level 9.0 Height (Feet): 6 Height (Inches): 2.00 Weight (Pounds): 190 Objective WDWN AA man NCAT supple CTA RRR soft ND NT no edema non focal VALENTIN TABARES Nov 16, 2017 19:18
[2017-11-16 20:00] VITALS: BP 156/98
--- NOTE | 2017-11-16 20:36 | General Progress Note ---
Assessment/Plan Problem List: (1) Hydronephrosis ICD Codes: N13.30 - Unspecified hydronephrosis SNOMED: 45503792 Qualifiers: Qualified Codes: N13.39 - Other hydronephrosis (2) Renal insufficiency ICD Codes: N28.9 - Disorder of kidney and ureter, unspecified SNOMED: 210643013, 666411794 (3) UTI (urinary tract infection) ICD Codes: N39.0 - Urinary tract infection, site not specified SNOMED: 16778226 Qualifiers: Qualified Codes: T83.511A - Infection and inflammatory reaction due to indwelling urethral catheter, initial encounter; N39.0 - Urinary tract infection , site not specified (4) Hypertension ICD Codes: I10 - Essential (primary) hypertension SNOMED: 08505781, 097131646 Qualifiers: Qualified Codes: I10 - Essential (primary) hypertension (5) Abdominal pain ICD Codes: R10.9 - Unspecified abdominal pain SNOMED: 33386593 Qualifiers: Qualified Codes: R10.9 - Unspecified abdominal pain Status: progressing Assessment/Plan indwelling begum uti severe bph h/o of obstructive uropathy hydronephrosis abx per id improving Subjective ROS Limited/Unobtainable: Yes Allergies: Coded Allergies: No Known Allergies (Unverified , 02/28/16) Objective Last 24 Hour Vital Signs Date Time Temp Pulse Resp B/P (MAP) Pulse Ox O2 Delivery O2 Flow Rate FiO2 11/16/17 16:00 98.6 62 18 149/92 97 Room Air 98.6 11/16/17 11:58 98.1 53 18 120/86 97 Room Air 98.1 11/16/17 08:06 60 144/97 11/16/17 08:06 60 144/97 11/16/17 08:06 98.1 60 18 144/97 97 Room Air 98.1 11/16/17 04:00 97.5 58 21 145/98 98 97.5 11/16/17 00:00 97.5 65 20 122/75 97 Room Air 97.5 11/15/17 21:36 61 116/77 Intake and Output 11/15/17 11/16/17 19:00 07:00 Intake Total 1145 ml 880 ml Output Total 2200 ml 1500 ml Balance -1055 ml -620 ml Intake Oral 360 ml IV Total 785 ml 880 ml Output Urine Total 2200 ml 1500 ml Laboratory Tests 11/16/17 05:35: White Blood Count 5.1, Red Blood Count 5.01, Hemoglobin 15.3, Hematocrit 44.8, Mean Corpuscular Volume 90, Mean Corpuscular Hemoglobin 30.6, Mean Corpuscular Hemoglobin Concent 34.2, Red Cell Distribution Width 12.9, Platelet Count 190, Mean Platelet Volume 7.6, Neutrophils (%) (Auto) 56.6, Lymphocytes (%) (Auto) 30.7, Monocytes (%) (Auto) 8.5, Eosinophils (%) (Auto) 2.6, Basophils (%) (Auto ) 1.6, Sodium Level 140, Potassium Level 4.2, Chloride Level 107, Carbon Dioxide Level 27, Anion Gap 6, Blood Urea Nitrogen 9, Creatinine 1.2, Estimat Glomerular Filtration Rate , Glucose Level 117H, Calcium Level 9.0 Height (Feet): 6 Height (Inches): 2.00 Weight (Pounds): 190 Cardiovascular: normal rate Respiratory/Chest: lungs clear Jhon Moreno MD Nov 16, 2017 20:36
[2017-11-17 00:29] VITALS: BP 140/99
[2017-11-17] MEDS: D5 1/2NS w/KCl 20mEq 1,000 ML IV SCH ×2 (01:16→13:46)
[2017-11-17] MEDS: Cefepime HCl 1 GM in NS 55 ML IVPB SCH (01:16)
[2017-11-17 04:07] VITALS: BP 138/79
[2017-11-17 07:54] VITALS: BP 148/91
[2017-11-17] MEDS: Phospha 250 Neutral tab ORAL SCH ×3 (08:19→17:03)
[2017-11-17] MEDS: Tamsulosin 0.4mg cap ORAL SCH ×2 (08:19→17:03)
[2017-11-17] MEDS: Docusate 100mg cap ORAL SCH ×3 (08:19→17:03)
[2017-11-17] MEDS: Aspirin EC 81mg tab ORAL SCH (08:19)
[2017-11-17] MEDS: Metoprolol Tartrate 12.5mg TAB ORAL SCH ×2 (08:20→20:56)
[2017-11-17] MEDS: Thiamine 100mg tab ORAL SCH (08:20)
--- NOTE | 2017-11-17 09:22 | Infectious Diseases Prog Note ---
Assessment/Plan Assessment/Plan A: 1. Complicated urinary tract infection with E Coli 2. Bilateral hydronephrosis. 3. Enlarged prostate. 4. Renal failure, seems to be acute. 5. Hypertension. P; Change Cefepime to Amoxicillin Subjective ROS Limited/Unobtainable: Yes Constitutional: Reports: no symptoms Genitourinary: Reports: no symptoms Allergies: Coded Allergies: No Known Allergies (Unverified , 02/28/16) Objective Vital Signs Last 24 Hour Vital Signs Date Time Temp Pulse Resp B/P (MAP) Pulse Ox O2 Delivery O2 Flow Rate FiO2 11/17/17 08:20 68 148/91 11/17/17 08:20 68 148/91 11/17/17 07:54 97.9 68 18 148/91 98 Room Air 97.9 11/17/17 04:07 97.5 59 17 138/79 97 97.5 11/17/17 00:29 98.1 57 19 140/99 100 98.1 11/16/17 21:00 52 156/98 11/16/17 20:00 97.9 56 18 156/98 98 97.9 11/16/17 16:00 98.6 62 18 149/92 97 Room Air 98.6 11/16/17 11:58 98.1 53 18 120/86 97 Room Air 98.1 Height (Feet): 6 Height (Inches): 2.00 Weight (Pounds): 190 General Appearance: no acute distress HEENT: mucous membranes moist Respiratory/Chest: lungs clear Cardiovascular: normal rate Abdomen: soft, non tender Genitourinary: other - Martínez catheter Extremities: no edema Neurologic/Psychiatric: alert, responsive Current Medications Medications (Trade) Dose Ordered Sig/Eufemia Route PRN Reason Start Time Stop Time Status Last Admin Dose Admin Amlodipine Besylate (Norvasc) 10 mg DAILY ORAL 11/13/17 10:15 12/13/17 10:14 11/17/17 08:20 Aspirin (Ecotrin) 81 mg DAILY ORAL 11/14/17 09:00 12/14/17 08:59 11/17/17 08:19 Cefepime HCl 1 gm/ Sodium Chloride 55 ml @ 110 mls/hr Q12HR@0200,1400 IVPB 11/16/17 02:00 11/20/17 13:59 11/17/17 01:16 Clonidine HCl (Catapres Tab) 0.1 mg Q6H PRN ORAL SBP > 160mmHg 11/13/17 15:30 12/13/17 15:29 Dextrose/ Electrolytes 1,000 ml @ 75 mls/hr [id number] IV 11/13/17 16:30 12/13/17 16:29 11/17/17 01:16 Docusate Sodium (Colace) 100 mg TID ORAL 11/14/17 13:00 12/13/17 15:59 11/17/17 08:19 Finasteride (Proscar) 5 mg DAILY ORAL 11/14/17 09:00 12/14/17 08:59 11/17/17 08:20 Folic Acid (Folate) 5 mg DAILY ORAL 11/14/17 13:00 12/14/17 12:59 11/17/17 08:19 Metoprolol Tartrate (Lopressor) 12.5 mg Q12HR ORAL 11/13/17 10:15 12/13/17 10:14 11/17/17 08:20 Phosphorus (Phospha 250 Neutral) 250 mg THREE TIMES A DAY ORAL 11/15/17 18:00 12/15/17 17:59 11/17/17 08:19 Tamsulosin HCl (Flomax) 0.4 mg BID ORAL 11/13/17 18:00 12/13/17 20:59 11/17/17 08:19 Thiamine HCl (Vitamin B1) 100 mg DAILY ORAL 11/14/17 09:00 12/14/17 08:59 11/17/17 08:20 BASIM HERRERA Nov 17, 2017 09:22
--- NOTE | 2017-11-17 11:29 | Nephrology Progress Note ---
Assessment/Plan Problem List: (1) UTI (urinary tract infection) (2) Renal insufficiency (3) Dehydration (4) Hypertension Assessment Renal failure: - Dehydration Cr lower - Possible undelying Nephropathy due to DM or HTN - HTN OOC - BPH - UTI - low folate Other: - Abdominal pain - UTI (urinary tract infection) - Hypertension Plan Plan: no labs today Phos supplement Hydrate- K supplement Adjust BP meds Per orders monitor renal parameters Subjective ROS Limited/Unobtainable: No Objective Objective Last 24 Hour Vital Signs Date Time Temp Pulse Resp B/P (MAP) Pulse Ox O2 Delivery O2 Flow Rate FiO2 11/17/17 08:20 68 148/91 11/17/17 08:20 68 148/91 11/17/17 07:54 97.9 68 18 148/91 98 Room Air 97.9 11/17/17 04:07 97.5 59 17 138/79 97 97.5 11/17/17 00:29 98.1 57 19 140/99 100 98.1 11/16/17 21:00 52 156/98 11/16/17 20:00 97.9 56 18 156/98 98 97.9 11/16/17 16:00 98.6 62 18 149/92 97 Room Air 98.6 11/16/17 11:58 98.1 53 18 120/86 97 Room Air 98.1 Intake and Output 11/16/17 11/17/17 19:00 07:00 Intake Total 1560 ml 1045 ml Output Total 1200 ml 2000 ml Balance 360 ml -955 ml Intake Oral 960 ml 240 ml IV Total 600 ml 805 ml Output Urine Total 1200 ml 2000 ml Height (Feet): 6 Height (Inches): 2.00 Weight (Pounds): 190 General Appearance: no apparent distress Objective no change BRIGIDA BAILEY Nov 17, 2017 11:29
[2017-11-17 11:41] VITALS: BP 139/97
[2017-11-17] MEDS: Amoxicillin 250mg/5ml susp 150ml GT SCH ×2 (13:46→21:29)
--- NOTE | 2017-11-17 15:42 | General Progress Note ---
Assessment/Plan Assessment/Plan Assessment (1) Anemia ICD Codes: D64.9 - Anemia, unspecified SNOMED: 289548506 (2) Cocaine abuse ICD Codes: F14.10 - Cocaine abuse, uncomplicated SNOMED: 72678868 (3) Dehydration ICD Codes: E86.0 - Dehydration SNOMED: 47312690 (4) Altered level of consciousness ICD Codes: R40.4 - Transient alteration of awareness SNOMED: 0856605 (5) Hypoalbuminemia ICD Codes: E88.09 - Other disorders of plasma-protein metabolism, not elsewhere classified SNOMED: 522401283 Assessment/Plan CT AP reviewed, see full report >> bladder distention with enlarged prostate. POLST reviewed >> full treatment Hx of G tube placement for dysphagia, removed in 2015. symptomatic treatment adv diet ppi bowel regime pain mgmt fu labs PT eval Subjective Allergies: Coded Allergies: No Known Allergies (Unverified , 02/28/16) Subjective eating well no abdominal pain d/w RN Objective Last 24 Hour Vital Signs Date Time Temp Pulse Resp B/P (MAP) Pulse Ox O2 Delivery O2 Flow Rate FiO2 11/17/17 11:41 98.2 18 139/97 98 Room Air 98.2 11/17/17 08:20 68 148/91 11/17/17 08:20 68 148/91 11/17/17 07:54 97.9 68 18 148/91 98 Room Air 97.9 11/17/17 04:07 97.5 59 17 138/79 97 97.5 11/17/17 00:29 98.1 57 19 140/99 100 98.1 11/16/17 21:00 52 156/98 11/16/17 20:00 97.9 56 18 156/98 98 97.9 11/16/17 16:00 98.6 62 18 149/92 97 Room Air 98.6 Intake and Output 11/16/17 11/17/17 19:00 07:00 Intake Total 1560 ml 1045 ml Output Total 1200 ml 2000 ml Balance 360 ml -955 ml Intake Oral 960 ml 240 ml IV Total 600 ml 805 ml Output Urine Total 1200 ml 2000 ml Height (Feet): 6 Height (Inches): 2.00 Weight (Pounds): 190 Objective WDWN AA man NCAT supple CTA RRR soft ND NT no edema non focal KHORRAMI,PAYMAN Nov 17, 2017 15:41
[2017-11-17 16:01] VITALS: BP 141/97
[2017-11-17 20:00] VITALS: BP 138/95
--- NOTE | 2017-11-17 20:18 | General Progress Note ---
Assessment/Plan Problem List: (1) Hydronephrosis ICD Codes: N13.30 - Unspecified hydronephrosis SNOMED: 47140585 Qualifiers: Qualified Codes: N13.39 - Other hydronephrosis (2) Renal insufficiency ICD Codes: N28.9 - Disorder of kidney and ureter, unspecified SNOMED: 847375160, 704626233 (3) UTI (urinary tract infection) ICD Codes: N39.0 - Urinary tract infection, site not specified SNOMED: 38117003 Qualifiers: Qualified Codes: T83.511A - Infection and inflammatory reaction due to indwelling urethral catheter, initial encounter; N39.0 - Urinary tract infection , site not specified (4) Hypertension ICD Codes: I10 - Essential (primary) hypertension SNOMED: 91454539, 206714566 Qualifiers: Qualified Codes: I10 - Essential (primary) hypertension (5) Abdominal pain ICD Codes: R10.9 - Unspecified abdominal pain SNOMED: 23770786 Qualifiers: Qualified Codes: R10.9 - Unspecified abdominal pain Status: progressing Assessment/Plan indwelling begum uti improved dc in am to snf demented severe bph h/o of obstructive uropathy hydronephrosis a Subjective ROS Limited/Unobtainable: Yes Constitutional: Reports: no symptoms Allergies: Coded Allergies: No Known Allergies (Unverified , 02/28/16) Objective Last 24 Hour Vital Signs Date Time Temp Pulse Resp B/P (MAP) Pulse Ox O2 Delivery O2 Flow Rate FiO2 11/17/17 16:01 98.1 68 18 141/97 98 Room Air 98.1 11/17/17 11:41 98.2 68 18 139/97 98 Room Air 98.2 11/17/17 08:20 68 148/91 11/17/17 08:20 68 148/91 11/17/17 07:54 97.9 68 18 148/91 98 Room Air 97.9 11/17/17 04:07 97.5 59 17 138/79 97 97.5 11/17/17 00:29 98.1 57 19 140/99 100 98.1 11/16/17 21:00 52 156/98 Intake and Output 11/16/17 11/17/17 19:00 07:00 Intake Total 1560 ml 1045 ml Output Total 1200 ml 2000 ml Balance 360 ml -955 ml Intake Oral 960 ml 240 ml IV Total 600 ml 805 ml Output Urine Total 1200 ml 2000 ml Height (Feet): 6 Height (Inches): 2.00 Weight (Pounds): 190 Neck: supple Jhon Moreno MD Nov 17, 2017 20:18
[2017-11-18] VITALS: BP 164/114
[2017-11-18 01:18] VITALS: BP 124/75
[2017-11-18] MEDS: D5 1/2NS w/KCl 20mEq 1,000 ML IV SCH (02:19)
[2017-11-18 04:00] VITALS: BP 145/92
[2017-11-18] MEDS: Amoxicillin 250mg/5ml susp 150ml GT SCH (05:37)
[2017-11-18 07:27] LABS: BASOPHILS % (AUTO) 1.2 % (0.0-2.0); EOSINOPHILS % (AUTO) 2.7 % (0.0-3.0); HEMATOCRIT 44.9 % (42.0-52.0); HEMOGLOBIN 15.3 G/DL (14.2-18.0); LYMPHOCYTES % (AUTO) 35.6 % (20.0-45.0); MEAN CORPUSCULAR VOLUME 89 FL (80-99); MONOCYTES % (AUTO) 9.5 % (1.0-10.0); PLATELET COUNT 211 K/UL (150-450); RED BLOOD COUNT 5.05 M/UL (4.70-6.10); WHITE BLOOD COUNT 5.3 K/UL (4.8-10.8)
[2017-11-18 07:47] VITALS: BP 130/96
[2017-11-18 07:53] LABS: ALANINE AMINOTRANSFERASE 23 U/L (12-78); ALBUMIN 2.9 G/DL (3.4-5.0); ALBUMIN/GLOBULIN RATIO 0.9 (1.0-2.7); ALKALINE PHOSPHATASE 203 U/L (46-116); ANION GAP 7 mmol/L (5-15); ASPARTATE AMINO TRANSFERASE 15 U/L (15-37); BILIRUBIN,TOTAL 0.3 MG/DL (0.2-1.0); BLOOD UREA NITROGEN 7 mg/dL (7-18); CALCIUM 8.6 MG/DL (8.5-10.1); CARBON DIOXIDE 27 MMOL/L (21-32); CHLORIDE 105 MMOL/L (98-107); CREATININE 1.2 MG/DL (0.55-1.30); PHOSPHORUS 3.3 MG/DL (2.5-4.9); POTASSIUM 3.8 MMOL/L (3.5-5.1); SODIUM 139 MMOL/L (136-145)
[2017-11-18] MEDS: Metoprolol Tartrate 12.5mg TAB ORAL SCH (08:43)
[2017-11-18] MEDS: Phospha 250 Neutral tab ORAL SCH ×2 (08:44→13:12)
[2017-11-18] MEDS: Docusate 100mg cap ORAL SCH ×2 (08:44→13:12)
[2017-11-18] MEDS: Aspirin EC 81mg tab ORAL SCH (08:44)
[2017-11-18] MEDS: Tamsulosin 0.4mg cap ORAL SCH (08:44)
[2017-11-18] MEDS: Thiamine 100mg tab ORAL SCH (08:45)
--- NOTE | 2017-11-18 10:48 | Nephrology Progress Note ---
Assessment/Plan Problem List: (1) UTI (urinary tract infection) (2) Renal insufficiency (3) Dehydration (4) Hypertension Assessment Renal failure: - Dehydration Cr lower - Possible undelying Nephropathy due to DM or HTN - HTN OOC - BPH - UTI - low folate Other: - Abdominal pain - UTI (urinary tract infection) - Hypertension Plan Plan: stable Phos supplement as needed K supplement as needed Adjust BP meds Per orders monitor renal parameters DC planning Subjective ROS Limited/Unobtainable: No Objective Objective Last 24 Hour Vital Signs Date Time Temp Pulse Resp B/P (MAP) Pulse Ox O2 Delivery O2 Flow Rate FiO2 11/18/17 08:45 68 130/96 11/18/17 08:43 68 130/96 11/18/17 07:47 97.4 68 20 130/96 97 Room Air 97.4 11/18/17 04:00 Room Air 11/18/17 04:00 96.5 60 21 145/92 98 Room Air 96.5 11/18/17 01:18 59 124/75 Room Air 11/18/17 00:00 97.8 70 19 164/114 98 Room Air 97.8 11/17/17 20:56 63 138/95 11/17/17 20:00 98.1 63 21 138/95 95 Room Air 98.1 11/17/17 20:00 Room Air 11/17/17 16:01 98.1 68 18 141/97 98 Room Air 98.1 11/17/17 11:41 98.2 68 18 139/97 98 Room Air 98.2 Intake and Output 11/17/17 11/18/17 19:00 07:00 Intake Total 1425 ml 945 ml Output Total 2350 ml 1400 ml Balance -925 ml -455 ml Intake Oral 600 ml 120 ml IV Total 825 ml 825 ml Output Urine Total 2350 ml 1400 ml # Bowel Movements 1 Laboratory Tests 11/18/17 04:45: White Blood Count 5.3, Red Blood Count 5.05, Hemoglobin 15.3, Hematocrit 44.9, Mean Corpuscular Volume 89, Mean Corpuscular Hemoglobin 30.3, Mean Corpuscular Hemoglobin Concent 34.1, Red Cell Distribution Width 13.0, Platelet Count 211, Mean Platelet Volume 7.7, Neutrophils (%) (Auto) 51.0, Lymphocytes (%) (Auto) 35.6, Monocytes (%) (Auto) 9.5, Eosinophils (%) (Auto) 2.7, Basophils (%) (Auto ) 1.2, Sodium Level 139, Potassium Level 3.8, Chloride Level 105, Carbon Dioxide Level 27, Anion Gap 7, Blood Urea Nitrogen 7, Creatinine 1.2, Estimat Glomerular Filtration Rate , Glucose Level 95, Uric Acid 3.0, Calcium Level 8.6 , Phosphorus Level 3.3, Magnesium Level 1.8, Total Bilirubin 0.3, Aspartate Amino Transf (AST/SGOT) 15, Alanine Aminotransferase (ALT/SGPT) 23, Alkaline Phosphatase 203H, Total Protein 6.1L, Albumin 2.9L, Globulin 3.2, Albumin/ Globulin Ratio 0.9L Height (Feet): 6 Height (Inches): 2.00 Weight (Pounds): 190 General Appearance: no apparent distress Objective no change BRIGIDA BAILEY Nov 18, 2017 10:48
[2017-11-18] MEDS ORDERED: AMOXICILLI250 MG/5 M ORAL (11:37)
[2017-11-18] MEDS ORDERED: AMOXICILLIN500 MG ORAL (11:41)
--- NOTE | 2017-11-18 11:43 | GI Progress Note ---
Assessment/Plan Problems: (1) Anemia ICD Codes: D64.9 - Anemia, unspecified SNOMED: 115572122 (2) Cocaine abuse ICD Codes: F14.10 - Cocaine abuse, uncomplicated SNOMED: 75014454 (3) Dehydration ICD Codes: E86.0 - Dehydration SNOMED: 60192900 (4) Altered level of consciousness ICD Codes: R40.4 - Transient alteration of awareness SNOMED: 0389655 (5) Hypoalbuminemia ICD Codes: E88.09 - Other disorders of plasma-protein metabolism, not elsewhere classified SNOMED: 585980725 Status: stable Status Narrative Discussed with Dr. Yepez. Assessment/Plan CT AP reviewed, see full report >> bladder distention with enlarged prostate. POLST reviewed >> full treatment Hx of G tube placement for dysphagia, removed in 2015. symptomatic treatment adv diet ppi bowel regime pain mgmt fu labs PT eval Subjective Subjective denies any abdominal pain at this time Objective Last 24 Hour Vital Signs Date Time Temp Pulse Resp B/P (MAP) Pulse Ox O2 Delivery O2 Flow Rate FiO2 11/18/17 08:45 68 130/96 11/18/17 08:43 68 130/96 11/18/17 07:47 97.4 68 20 130/96 97 Room Air 97.4 11/18/17 04:00 Room Air 11/18/17 04:00 96.5 60 21 145/92 98 Room Air 96.5 11/18/17 01:18 59 124/75 Room Air 11/18/17 00:00 97.8 70 19 164/114 98 Room Air 97.8 11/17/17 20:56 63 138/95 11/17/17 20:00 98.1 63 21 138/95 95 Room Air 98.1 11/17/17 20:00 Room Air 11/17/17 16:01 98.1 68 18 141/97 98 Room Air 98.1 Intake and Output 11/17/17 11/18/17 19:00 07:00 Intake Total 1425 ml 945 ml Output Total 2350 ml 1400 ml Balance -925 ml -455 ml Intake Oral 600 ml 120 ml IV Total 825 ml 825 ml Output Urine Total 2350 ml 1400 ml # Bowel Movements 1 Laboratory Tests Test 11/18/17 04:45 White Blood Count 5.3 K/UL (4.8-10.8) Red Blood Count 5.05 M/UL (4.70-6.10) Hemoglobin 15.3 G/DL (14.2-18.0) Hematocrit 44.9 % (42.0-52.0) Mean Corpuscular Volume 89 FL (80-99) Mean Corpuscular Hemoglobin 30.3 PG (27.0-31.0) Mean Corpuscular Hemoglobin Concent 34.1 G/DL (32.0-36.0) Red Cell Distribution Width 13.0 % (11.6-14.8) Platelet Count 211 K/UL (150-450) Mean Platelet Volume 7.7 FL (6.5-10.1) Neutrophils (%) (Auto) 51.0 % (45.0-75.0) Lymphocytes (%) (Auto) 35.6 % (20.0-45.0) Monocytes (%) (Auto) 9.5 % (1.0-10.0) Eosinophils (%) (Auto) 2.7 % (0.0-3.0) Basophils (%) (Auto) 1.2 % (0.0-2.0) Sodium Level 139 MMOL/L (136-145) Potassium Level 3.8 MMOL/L (3.5-5.1) Chloride Level 105 MMOL/L (98-107) Carbon Dioxide Level 27 MMOL/L (21-32) Anion Gap 7 mmol/L (5-15) Blood Urea Nitrogen 7 mg/dL (7-18) Creatinine 1.2 MG/DL (0.55-1.30) Estimat Glomerular Filtration Rate mL/min (>60) Glucose Level 95 MG/DL (74-106) Uric Acid 3.0 MG/DL (2.6-7.2) Calcium Level 8.6 MG/DL (8.5-10.1) Phosphorus Level 3.3 MG/DL (2.5-4.9) Magnesium Level 1.8 MG/DL (1.8-2.4) Total Bilirubin 0.3 MG/DL (0.2-1.0) Aspartate Amino Transf (AST/SGOT) 15 U/L (15-37) Alanine Aminotransferase (ALT/SGPT) 23 U/L (12-78) Alkaline Phosphatase 203 U/L (46-116) H Total Protein 6.1 G/DL (6.4-8.2) L Albumin 2.9 G/DL (3.4-5.0) L Globulin 3.2 g/dL Albumin/Globulin Ratio 0.9 (1.0-2.7) L Height (Feet): 6 Height (Inches): 2.00 Weight (Pounds): 190 General Appearance: WD/WN, no apparent distress, alert Cardiovascular: normal rate Respiratory/Chest: normal breath sounds, no respiratory distress Abdominal Exam: normal bowel sounds, non tender, soft Extremities: normal range of motion, non-tender Lucía Sheriff N.P. Nov 18, 2017 11:43
[2017-11-18 11:50] VITALS: BP 140/92
--- NOTE | 2017-11-18 12:31 | Infectious Diseases Prog Note ---
Assessment/Plan Assessment/Plan A: 1. Complicated urinary tract infection with E Coli 2. Bilateral hydronephrosis. 3. Enlarged prostate. 4. Renal failure, seems to be acute. 5. Hypertension. P; Continue Amoxicillin X 2 days Agree with discharge Subjective ROS Limited/Unobtainable: No Constitutional: Reports: no symptoms Respiratory: Reports: no symptoms Cardiovascular: Reports: no symptoms Gastrointestinal/Abdominal: Reports: no symptoms Genitourinary: Reports: no symptoms Allergies: Coded Allergies: No Known Allergies (Unverified , 02/28/16) Objective Vital Signs Last 24 Hour Vital Signs Date Time Temp Pulse Resp B/P (MAP) Pulse Ox O2 Delivery O2 Flow Rate FiO2 11/18/17 11:50 98.1 61 20 140/92 97 Room Air 98.1 11/18/17 08:45 68 130/96 11/18/17 08:43 68 130/96 11/18/17 07:47 97.4 68 20 130/96 97 Room Air 97.4 11/18/17 04:00 Room Air 11/18/17 04:00 96.5 60 21 145/92 98 Room Air 96.5 11/18/17 01:18 59 124/75 Room Air 11/18/17 00:00 97.8 70 19 164/114 98 Room Air 97.8 11/17/17 20:56 63 138/95 11/17/17 20:00 98.1 63 21 138/95 95 Room Air 98.1 11/17/17 20:00 Room Air 11/17/17 16:01 98.1 68 18 141/97 98 Room Air 98.1 Height (Feet): 6 Height (Inches): 2.00 Weight (Pounds): 190 HEENT: mucous membranes moist Respiratory/Chest: lungs clear Cardiovascular: normal rate Abdomen: soft, non tender Extremities: no edema Neurologic/Psychiatric: alert, oriented x 3, responsive Laboratory Tests Test 11/18/17 04:45 White Blood Count 5.3 K/UL (4.8-10.8) Red Blood Count 5.05 M/UL (4.70-6.10) Hemoglobin 15.3 G/DL (14.2-18.0) Hematocrit 44.9 % (42.0-52.0) Mean Corpuscular Volume 89 FL (80-99) Mean Corpuscular Hemoglobin 30.3 PG (27.0-31.0) Mean Corpuscular Hemoglobin Concent 34.1 G/DL (32.0-36.0) Red Cell Distribution Width 13.0 % (11.6-14.8) Platelet Count 211 K/UL (150-450) Mean Platelet Volume 7.7 FL (6.5-10.1) Neutrophils (%) (Auto) 51.0 % (45.0-75.0) Lymphocytes (%) (Auto) 35.6 % (20.0-45.0) Monocytes (%) (Auto) 9.5 % (1.0-10.0) Eosinophils (%) (Auto) 2.7 % (0.0-3.0) Basophils (%) (Auto) 1.2 % (0.0-2.0) Sodium Level 139 MMOL/L (136-145) Potassium Level 3.8 MMOL/L (3.5-5.1) Chloride Level 105 MMOL/L (98-107) Carbon Dioxide Level 27 MMOL/L (21-32) Anion Gap 7 mmol/L (5-15) Blood Urea Nitrogen 7 mg/dL (7-18) Creatinine 1.2 MG/DL (0.55-1.30) Estimat Glomerular Filtration Rate mL/min (>60) Glucose Level 95 MG/DL (74-106) Uric Acid 3.0 MG/DL (2.6-7.2) Calcium Level 8.6 MG/DL (8.5-10.1) Phosphorus Level 3.3 MG/DL (2.5-4.9) Magnesium Level 1.8 MG/DL (1.8-2.4) Total Bilirubin 0.3 MG/DL (0.2-1.0) Aspartate Amino Transf (AST/SGOT) 15 U/L (15-37) Alanine Aminotransferase (ALT/SGPT) 23 U/L (12-78) Alkaline Phosphatase 203 U/L (46-116) H Total Protein 6.1 G/DL (6.4-8.2) L Albumin 2.9 G/DL (3.4-5.0) L Globulin 3.2 g/dL Albumin/Globulin Ratio 0.9 (1.0-2.7) L Current Medications Medications (Trade) Dose Ordered Sig/Eufemia Route PRN Reason Start Time Stop Time Status Last Admin Dose Admin Amlodipine Besylate (Norvasc) 10 mg DAILY ORAL 11/13/17 10:15 12/13/17 10:14 11/18/17 08:45 Amoxicillin (Amoxil) 500 mg EVERY 8 HOURS ORAL 11/18/17 14:00 11/24/17 13:59 Aspirin (Ecotrin) 81 mg DAILY ORAL 11/14/17 09:00 12/14/17 08:59 11/18/17 08:44 Clonidine HCl (Catapres Tab) 0.1 mg Q6H PRN ORAL SBP > 160mmHg 11/13/17 15:30 12/13/17 15:29 Dextrose/ Electrolytes 1,000 ml @ 75 mls/hr [id number] IV 11/13/17 16:30 12/13/17 16:29 11/18/17 02:19 Docusate Sodium (Colace) 100 mg TID ORAL 11/14/17 13:00 12/13/17 15:59 11/18/17 08:44 Finasteride (Proscar) 5 mg DAILY ORAL 11/14/17 09:00 12/14/17 08:59 11/18/17 08:44 Folic Acid (Folate) 5 mg DAILY ORAL 11/14/17 13:00 12/14/17 12:59 11/18/17 08:45 Metoprolol Tartrate (Lopressor) 12.5 mg Q12HR ORAL 11/13/17 10:15 12/13/17 10:14 11/18/17 08:43 Phosphorus (Phospha 250 Neutral) 250 mg THREE TIMES A DAY ORAL 11/15/17 18:00 12/15/17 17:59 11/18/17 08:44 Tamsulosin HCl (Flomax) 0.4 mg BID ORAL 11/13/17 18:00 12/13/17 20:59 11/18/17 08:44 Thiamine HCl (Vitamin B1) 100 mg DAILY ORAL 11/14/17 09:00 12/14/17 08:59 11/18/17 08:45 BASIM HERRERA Nov 18, 2017 12:31
--- NOTE | 2017-11-20 08:01 | Discharge Summary ---
Discharge Summary Hospital Course Date of Admission Nov 13, 2017 at 04:42 Date of Discharge Nov 18, 2017 at 14:20 Admitting Diagnosis abdominal pain HPI Jasiel Pete is a 77 year old male who was admitted on Nov 13, 2017 at 04:42 for Abdominal Pain Hospital Course dc summary #[id number] Discharge Medications Continued Medications: Acetaminophen* (Acetaminophen 325MG Tablet*) 325 Mg Tablet 650 MG ORAL Q4H PRN for For Pain, TAB Amlodipine Besylate* (Amlodipine Besylate*) 10 Mg Tablet 10 MG ORAL DAILY, TAB Amoxicillin* (Amoxil*) 500 Mg Capsule 500 MG ORAL EVERY 8 HOURS, CAP Aspirin* (Aspir 81*) 81 Mg Tablet.dr 81 MG ORAL DAILY, TAB Clonidine Hcl* (Catapres*) 0.1 Mg Tablet 0.1 MG ORAL EVERY 6 HOURS PRN for For High Blood Pressure, TAB Docusate Sodium* (Colace*) 100 Mg Capsule 100 MG ORAL DAILY PRN for Constipation, CAP Finasteride* (Proscar*) 5 Mg Tablet 5 MG ORAL DAILY, #30 TAB 0 Refills Metoprolol Tartrate* (Metoprolol Tartrate*) 25 Mg Tablet 12.5 MG ORAL EVERY 12 HOURS, TAB Nitrofurantoin Monohyd/M-Cryst* (Macrobid 100 Mg*) 100 Mg Capsule 100 MG ORAL EVERY 12 HOURS for 7 Days, #13 CAP Ranitidine Hcl* (Zantac*) 150 Mg Tablet 150 MG ORAL DAILY, #30 TAB 0 Refills Tamsulosin Hcl (Tamsulosin Hcl*) 0.4 Mg Cap.er.24h 0.4 MG ORAL BEDTIME, CAP Thiamine Hcl* (Vitamin B-1*) 100 Mg Tablet 100 MG ORAL DAILY, #30 TAB 0 Refills Discharge Condition Upon Discharge: stable Discharge Disposition Patient was discharged to SNF Discharge Diagnoses: Discharge Instructions Discharge Instructions Special Instructions I have been assigned to complete a D/C Summary on this account. I was not involved in the patient management Milla Demarco NP ([place]te[place]) Nov 20, 2017 08:01
--- NOTE | 2017-11-20 13:07 | Diagnostic Imaging Report ---
APPROVED REPORT CPT Code: 98754 Present Symptoms Comments: R/O DVT BILATERAL: Imaging reveals a patent deep venous system bilaterally. There is no evidence of thrombus within the femoral, popliteal or tibial segments. The greater saphenous veins are also within normal limits. Doppler indicates normal spontaneous flow within these segments.
--- NOTE | 2017-11-21 04:16 | Discharge Summary 2 SIG ---
DATE OF ADMISSION: 11/13/2017 DATE OF DISCHARGE: 11/18/2017 REASON FOR ADMISSION: 77 years old male with history of advanced dementia, hypertension, GERD, severe BPH, urinary retention, failed multiple voiding trials and appeared to be catheter dependent , was sent from the [facility] for altered mental status. Upon evaluation, the patient noted to be more awake and alert and was able to answer simple questions. Blood pressure was elevated- 150/105. No leukocytosis , no fever. Urinalysis with evidence of UTI. CT of the abdomen and pelvis revealed bladder distention despite presence of Martínez catheter and enlarged prostate as well as bilateral hydronephrosis. Renal parameters revealed evidence of renal insufficiency with BUN -25 and creatinine - 1.7. The patient was admitted with diagnosis of transient altered mental status, abdominal pain, UTI, renal insufficiency, history of urinary retention, and BPH. HOSPITAL COURSE: The patient admitted. Urology consult was requested. Martínez catheter was irrigated in the emergency room after CT of the abdomen and pelvis results were reviewed, flow was stabilized with improved urine output. Per urologist, the patient likely had Martínez catheter malfunctioning and required irrigation. Since the patient failed multiple voiding trials in the past, he appeared to be catheter dependent. Urologist recommended to change Martínez every four to six weeks and closely monitor output and continue Martínez indefinitely. Plastics Tooling Engineer followed the patient. The patient was started on the IV hydration. Per pleasure craft sailor, renal insufficiency was likely due to dehydration, however, could be possible element of nephropathy secondary to hypertension. With hydration, BUN down to 7 and creatinine down to 1.2 prior to discharge. Blood pressure regimen was optimized and controlled prior to discharge back to [facility]. Urine culture grew E. coli and mixed Gram-positive organisms. Infectious Disease specialist followed. The patient was on the IV antibiotic . Continue two more days of oral amoxicillin at the [facility] as per ID recommendations. According to Infectious Disease, the patient had a complicated urinary tract infection, secondary to history of urinary retention, bilateral hydronephrosis, and enlarged BPH as well as history of obstructive uropathy. GI closely followed the patient. The patient had abdominal pain and it was likely secondary to UTI and hydronephrosis. No abdominal pathology was found. The patient had a history of dysphagia and had G-tube in the past, which was removed in 2015, since that time he was able to eat safety. Diet was slowly advanced, patient was able to tolerate diet. Antiemetic were on board to use as needed, but no nausea and no vomiting. Bowel regimen instituted. PPI added to existing medication regimen. The patient was working with the physical therapist. The patient was stable for discharge home. FINAL DIAGNOSES: 1. Abdominal pain, likely due to urinary tract infection, resolved. 2. Complicated urinary tract infection with Escherichia coli. 3. Renal insufficiency, likely due to dehydration, resolved. 4. Possible underlying nephropathy, secondary to hypertension 5. Hypertension. 6. Benign prostatic hypertrophy. 7. Bilateral hydronephrosis. 8. History of urinary retention and chronic catheter dependency. 9. Martínez catheter malfunctioning. 10. Altered level of consciousness, transient, likely secondary to urinary tract infection, resolved. 11. History of cocaine abuse. DISCHARGE MEDICATIONS: See medication reconciliation list. DISCHARGE INSTRUCTIONS: The patient discharged to alf facility. Continue antibiotics for additional two days. Continue Martínez indefinitely. Change Martínez every four to six weeks. Jhon Moreno M.D. I have been assigned to dictate discharge summary on this account and I was not involved in the patient's management. Milla [facility] N.P. DR: SPENCER JOB#: [id number] CC: [place]
[2017-11-22] MEDS ORDERED: AMOXICILLIN500 MG ORAL (09:06)
== END 2017-11-18 14:20 | DRG 690 ==
LOC: EDBD 03:47 → EMR 03:58 → 4W 04:42 → EDBEDREQ 05:09 → 4W 11-18 04:38
DX: N39.0 Urinary tract infection, site not specified (principal); N17.9 Acute kidney failure, unspecified; E11.21 Type 2 diabetes mellitus with diabetic nephropathy; N13.30 Unspecified hydronephrosis; R13.10 Dysphagia, unspecified; F03.90 Unspecified dementia, unspecified severity, without behavioral disturbance, psychotic disturbance, mood disturbance, and anxiety; E88.09 Other disorders of plasma-protein metabolism, not elsewhere classified; E86.0 Dehydration; R10.9 Unspecified abdominal pain; I10 Essential (primary) hypertension; D64.9 Anemia, unspecified; R41.82 Altered mental status, unspecified; B96.20 Unspecified Escherichia coli [E. coli] as the cause of diseases classified elsewhere; N40.1 Benign prostatic hyperplasia with lower urinary tract symptoms; R33.8 Other retention of urine; K21.9 Gastro-esophageal reflux disease without esophagitis; F14.21 Cocaine dependence, in remission
CPT/HCPCS: 36415; 51702; 71045; 74176; 80048; 80053; 80061; 81003; 82550; 82607; 82746; 82977; 83036; 83690; 83735; 83880; 84100; 84300; 84443; 84484; 84550; 85025; 85610; 85730; 86140; 86850; 86900; 86901; 87081; 87086; 87181; 93005; 93970; 99285; C9399; J2405; J8499

== ENCOUNTER 2018-03-15 08:32 | Inpatient (IN) | payer MEDICARE, MEDICAID ==
[~2018-03-15] VITALS: Ht 185.4 cm; Wt 75.3 kg
[~2018-03-15 08:32] MED LIST changes: +AMOXICILLI250 MG/5 M ORAL; +AMOXICILLIN500 MG ORAL
[2018-03-15] MEDS ORDERED: METOPROLOL TART25 MG ORAL (08:53)
[2018-03-15] MEDS ORDERED: HUMULIN R100 UNIT/1 SUBQ (08:53)
[2018-03-15] MEDS ORDERED: Morphine Sulfate 4mg/ml Inj IVP ONE (09:00)
[2018-03-15 09:03] VITALS: BP 156/80
[2018-03-15 09:49] LABS: APPEARANCE,URINE CLOUDY; BASOPHILS % (AUTO) 1.2 % (0.0-2.0); BILIRUBIN, URINE NEGATIVE (NEGATIVE); COLOR,URINE PALE YELLOW; EOSINOPHILS % (AUTO) 0.2 % (0.0-3.0); GLUCOSE, URINE (UA) NEGATIVE (NEGATIVE); HEMATOCRIT 50.5 % (42.0-52.0); HEMOGLOBIN 15.9 G/DL (14.2-18.0); KETONES,URINE NEGATIVE (NEGATIVE); LEUKOCYTE ESTERASE ,URINE 3+ (NEGATIVE); LYMPHOCYTES % (AUTO) 16.2 % (20.0-45.0); MEAN CORPUSCULAR VOLUME 90 FL (80-99); MONOCYTES % (AUTO) 6.8 % (1.0-10.0); NEUTROPHILS % (AUTO) 75.7 % (45.0-75.0); NITRITE,URINE NEGATIVE (NEGATIVE); PH,URINE 6 (4.5-8.0); PLATELET COUNT 173 K/UL (150-450); PROTEIN,URINE 2+ (NEGATIVE); RED BLOOD COUNT 5.61 M/UL (4.70-6.10); RED CELL DISTRIBUTION WIDTH 13.3 % (11.6-14.8); UROBILINOGEN,URINE NORMAL MG/DL (0.0-1.0); WHITE BLOOD COUNT 6.2 K/UL (4.8-10.8)
[2018-03-15 09:53] LABS: ANION GAP 10 mmol/L (5-15); BLOOD UREA NITROGEN 20 mg/dL (7-18); CALCIUM 8.9 MG/DL (8.5-10.1); CARBON DIOXIDE 22 MMOL/L (21-32); CHLORIDE 107 MMOL/L (98-107); CREATININE 1.6 MG/DL (0.55-1.30); POTASSIUM 4.4 MMOL/L (3.5-5.1); SODIUM 139 MMOL/L (136-145)
[2018-03-15 09:56] VITALS: BP 143/91
[2018-03-15 09:59] LABS: ALANINE AMINOTRANSFERASE 18 U/L (12-78); ALBUMIN 3.9 G/DL (3.4-5.0); ALBUMIN/GLOBULIN RATIO 1.1 (1.0-2.7); ALKALINE PHOSPHATASE 371 U/L (46-116); ASPARTATE AMINO TRANSFERASE 33 U/L (15-37); BILIRUBIN,TOTAL 0.6 MG/DL (0.2-1.0)
--- NOTE | 2018-03-15 10:14 | Emergency Room Report ---
History of Present Illness General Chief Complaint: Male Urogenital Problems Source: Medical Record, EMS Present Illness HPI Patient is a 77-year-old male brought in by EMS after reportedly removing his indwelling Martínez catheter. Patient was noted to have prior history of urinary retention. Patient was sent in for further evaluation and treatment. Patient been noted to have increased foul smelling cloudy urine. The patient had prior history of dementia. The patient was noted to have no fever or vomiting. He was noted to have some hematuria after Martínez had been removed. The catheter had reportedly been removed approximately 3 hours prior to arrival. History is limited by patient's mental status. Allergies: Coded Allergies: No Known Allergies (Unverified , 02/28/16) Patient History Past Medical History: see triage record Reviewed Nursing Documentation: PMH: Agreed; PSxH: Agreed Nursing Documentation-PMH Hx Cardiac Problems: Yes - Syncope Hx Hypertension: Yes Hx Diabetes: Yes Hx Cancer: No Hx Syncope: Yes Review of Systems All Other Systems: limited - by mental status Physical Exam Vital Signs Date Time Temp Pulse Resp B/P (MAP) Pulse Ox O2 Delivery O2 Flow Rate FiO2 03/15/18 08:30 97.7 75 15 190/113 99 Room Air 97.7 General Appearance: alert, Chronically Ill ENT: uvula midline Neck: limited range of motion Respiratory: lungs clear, normal breath sounds Cardiovascular #1: normal peripheral pulses, regular rate, rhythm, no edema Gastrointestinal: normal inspection Genitourinary: no CVA tenderness Musculoskeletal: back normal Neurologic: alert, responsive, motor weakness Psychiatric: mood/affect normal Skin: normal inspection, normal color Medical Decision Making Diagnostic Impression: Primary Impression: Pyelonephritis Additional Impressions: Encephalopathy Dehydration ER Course Patient presented for hematuria. Differential diagnosis included wasn't limited to urinary tract infection, stone, pyelonephritis, sepsis among others. Because of complexity of patient's case laboratory testing and imaging studies were ordered. The patient was noted to have a chronic indwelling catheter. The patient's catheter was replaced. The patient noted have a large amount of the extremely cloudy and purulent appearing urine. Patient started on IV fluids and IV antibiotics.Dr. Jhon Marx was contacted for inpatient management Labs Test 03/15/18 09:20 White Blood Count 6.2 K/UL (4.8-10.8) Red Blood Count 5.61 M/UL (4.70-6.10) Hemoglobin 15.9 G/DL (14.2-18.0) Hematocrit 50.5 % (42.0-52.0) Mean Corpuscular Volume 90 FL (80-99) Mean Corpuscular Hemoglobin 28.4 PG (27.0-31.0) Mean Corpuscular Hemoglobin Concent 31.6 G/DL (32.0-36.0) Red Cell Distribution Width 13.3 % (11.6-14.8) Platelet Count 173 K/UL (150-450) Mean Platelet Volume 7.4 FL (6.5-10.1) Neutrophils (%) (Auto) 75.7 % (45.0-75.0) Lymphocytes (%) (Auto) 16.2 % (20.0-45.0) Monocytes (%) (Auto) 6.8 % (1.0-10.0) Eosinophils (%) (Auto) 0.2 % (0.0-3.0) Basophils (%) (Auto) 1.2 % (0.0-2.0) Urine Color Pale yellow Urine Appearance Cloudy Urine pH 6 (4.5-8.0) Urine Specific [place] 1.020 (1.005-1.035) Urine Protein 2+ (NEGATIVE) Urine Glucose (UA) Negative (NEGATIVE) Urine Ketones Negative (NEGATIVE) Urine Occult Blood 5+ (NEGATIVE) Urine Nitrite Negative (NEGATIVE) Urine Bilirubin Negative (NEGATIVE) Urine Urobilinogen Normal MG/DL (0.0-1.0) Urine Leukocyte Esterase 3+ (NEGATIVE) Urine RBC Tntc /HPF (0 - 0) Urine WBC Tntc /HPF (0 - 0) Urine Squamous Epithelial Cells Occasional /LPF Urine Bacteria Many /HPF (NONE) Sodium Level 139 MMOL/L (136-145) Potassium Level 4.4 MMOL/L (3.5-5.1) Chloride Level 107 MMOL/L (98-107) Carbon Dioxide Level 22 MMOL/L (21-32) Anion Gap 10 mmol/L (5-15) Blood Urea Nitrogen 20 mg/dL (7-18) Creatinine 1.6 MG/DL (0.55-1.30) Estimat Glomerular Filtration Rate mL/min (>60) Glucose Level 113 MG/DL (74-106) Calcium Level 8.9 MG/DL (8.5-10.1) Total Bilirubin 0.6 MG/DL (0.2-1.0) Aspartate Amino Transf (AST/SGOT) 33 U/L (15-37) Alanine Aminotransferase (ALT/SGPT) 18 U/L (12-78) Alkaline Phosphatase 371 U/L (46-116) Total Protein 7.4 G/DL (6.4-8.2) Albumin 3.9 G/DL (3.4-5.0) Globulin 3.5 g/dL Albumin/Globulin Ratio 1.1 (1.0-2.7) Lipase 103 U/L (73-393) EKG Diagnostic Results Rate: normal Rhythm: NSR ST Segments: no acute changes Last Vital Signs Date Time Temp Pulse Resp B/P (MAP) Pulse Ox O2 Delivery O2 Flow Rate FiO2 03/15/18 09:56 207.9 63 16 143/91 99 Room Air 207.9 Status: unchanged Disposition: ADMITTED INPATIENT Condition: Serious Referrals: Jhon Moreno MD (PCP) Germain Mondragon MD Mar 15, 2018 10:14
[2018-03-15] MEDS ORDERED: cefTRIAXone 1 GM in NS 55 ML IVPB ONE (10:15)
[2018-03-15 12:29] VITALS: BP 154/98
[2018-03-15 14:11] VITALS: BP 154/78
[2018-03-15 16:00] VITALS: BP 157/100
--- NOTE | 2018-03-15 16:16 | Consultation ---
Consult Note Consult Note Patient is a 77-year-old male brought in by EMS after reportedly removing his indwelling Martínez catheter. Patient was noted to have prior history of urinary retention. Patient was sent in for further evaluation and treatment. Patient been noted to have increased foul smelling cloudy urine. The patient had prior history of dementia. The patient was noted to have no fever or vomiting. He was noted to have some hematuria after Martínez had been removed. The catheter had reportedly been removed approximately 3 hours prior to arrival. History is limited by patient's mental status. admitted with: Pyelonephritis Encephalopathy Dehydration non historian examined data reviewed Assessment/Plan Renal failure: - Dehydration - Possible undelying Nephropathy due to DM or HTN - HTN - BPH - UTI (urinary tract infection) Plan: Hydrate- K supplement as needed Adjust BP meds Per orders monitor renal parameters per consultants BRIGIDA BAILEY Mar 15, 2018 16:16
[2018-03-15] MEDS: D5 1/2NS 1,000 ML IV SCH (18:00)
[2018-03-15] MEDS: Docusate 100mg cap ORAL SCH (18:14)
--- NOTE | 2018-03-15 19:12 | History & Physical ---
History and Physical History & Physicial Job ID [id number] Alexei Pompa MD Mar 15, 2018 19:12
[2018-03-15 20:00] VITALS: BP 148/97
[2018-03-15] MEDS: Heparin 5000 units/ml inj SUBQ SCH (21:00)
[2018-03-15] MEDS: Metoprolol Tartrate 12.5mg TAB ORAL SCH (21:45)
[2018-03-15] MEDS: Tamsulosin 0.4mg cap ORAL SCH (21:45)
[2018-03-16] VITALS: BP 147/98
[2018-03-16] MEDS: D5 1/2NS 1,000 ML IV SCH ×2 (06:49→20:42)
[2018-03-16 08:00] VITALS: BP 151/92
[2018-03-16 08:32] LABS: BASOPHILS % (AUTO) 1.4 % (0.0-2.0); EOSINOPHILS % (AUTO) 2.4 % (0.0-3.0); HEMATOCRIT 44.7 % (42.0-52.0); HEMOGLOBIN 14.7 G/DL (14.2-18.0); LYMPHOCYTES % (AUTO) 31.6 % (20.0-45.0); MEAN CORPUSCULAR VOLUME 89 FL (80-99); MONOCYTES % (AUTO) 11.9 % (1.0-10.0); NEUTROPHILS % (AUTO) 52.6 % (45.0-75.0); PLATELET COUNT 156 K/UL (150-450); RED BLOOD COUNT 5.01 M/UL (4.70-6.10); RED CELL DISTRIBUTION WIDTH 13.2 % (11.6-14.8); WHITE BLOOD COUNT 4.3 K/UL (4.8-10.8)
[2018-03-16] MEDS ORDERED: cefTRIAXone 1 GM in D5W 55 ML IVPB SCH (09:00)
[2018-03-16 09:28] LABS: ALANINE AMINOTRANSFERASE 17 U/L (12-78); ALBUMIN 3.2 G/DL (3.4-5.0); ALBUMIN/GLOBULIN RATIO 1.2 (1.0-2.7); ALKALINE PHOSPHATASE 315 U/L (46-116); ANION GAP 7 mmol/L (5-15); ASPARTATE AMINO TRANSFERASE 17 U/L (15-37); BILIRUBIN,TOTAL 0.6 MG/DL (0.2-1.0); BLOOD UREA NITROGEN 14 mg/dL (7-18); CALCIUM 8.5 MG/DL (8.5-10.1); CARBON DIOXIDE 25 MMOL/L (21-32); CHLORIDE 110 MMOL/L (98-107); CHOLESTEROL 170 MG/DL (< 200); CREATININE 1.4 MG/DL (0.55-1.30); FERRITIN 68 NG/ML (8-388); GAMMA GLUTAMYL TRANSPEPTIDASE 49 U/L (5-85); HDL CHOLESTEROL 66 MG/DL (40-60); PHOSPHORUS 3.2 MG/DL (2.5-4.9); POTASSIUM 3.9 MMOL/L (3.5-5.1); SODIUM 142 MMOL/L (136-145); TRIGLYCERIDES 51 MG/DL (30-150)
[2018-03-16] MEDS ORDERED: cefTRIAXone 1 GM in NS 55 ML IVPB SCH (09:30)
[2018-03-16 09:43] LABS: % IRON SATURATION 26 % (15-50); IRON 63 ug/dL (50-175); TOTAL IRON BINDING CAPACITY 239 ug/dL (250-450)
[2018-03-16] MEDS: Metoprolol Tartrate 12.5mg TAB ORAL SCH (09:54)
[2018-03-16] MEDS: Thiamine 100mg tab ORAL SCH (09:54)
[2018-03-16] MEDS: Docusate 100mg cap ORAL SCH ×3 (09:54→18:26)
[2018-03-16] MEDS: Aspirin EC 81mg tab ORAL SCH (09:54)
[2018-03-16] MEDS: Heparin 5000 units/ml inj SUBQ SCH ×2 (09:56→21:03)
[2018-03-16 12:00] VITALS: BP 146/88
--- NOTE | 2018-03-16 12:42 | Nephrology Progress Note ---
Assessment/Plan Problem List: (1) Acute renal failure (2) Pyelonephritis Assessment Renal failure: - Dehydration - Possible undelying Nephropathy due to DM or HTN - HTN - BPH - UTI (urinary tract infection) Plan Hydrate- K supplement as needed Adjust BP meds DC lopressor for low HR and start Hydralazine for high BP monitor renal parameters per consultants Subjective ROS Limited/Unobtainable: No Constitutional: Reports: malaise Objective Objective Last 24 Hour Vital Signs Date Time Temp Pulse Resp B/P (MAP) Pulse Ox O2 Delivery O2 Flow Rate FiO2 03/16/18 09:54 55 151/92 03/16/18 09:54 55 151/92 03/16/18 08:00 97.5 55 18 151/92 96 Room Air 97.5 03/16/18 07:57 46 03/16/18 04:00 49 03/16/18 00:00 97.7 53 20 147/98 100 Room Air 97.7 03/16/18 00:00 49 03/15/18 21:45 57 148/97 03/15/18 20:00 98.1 53 22 148/97 96 Room Air 98.1 03/15/18 20:00 56 03/15/18 16:00 53 03/15/18 16:00 97.5 52 19 157/100 95 Room Air 97.5 03/15/18 15:09 97.8 54 16 154/78 100 Room Air 97.8 03/15/18 14:11 97.8 54 16 154/78 100 Room Air 97.8 03/15/18 14:10 60 18 Room Air Intake and Output 03/15/18 03/16/18 19:00 07:00 Intake Total 130 ml 675 ml Output Total 600 ml 700 ml Balance -470 ml -25 ml Intake Oral 0 ml IV Total 130 ml 675 ml Output Urine Total 600 ml 700 ml Laboratory Tests 03/16/18 07:40: White Blood Count 4.3L, Red Blood Count 5.01, Hemoglobin 14.7, Hematocrit 44.7, Mean Corpuscular Volume 89, Mean Corpuscular Hemoglobin 29.4, Mean Corpuscular Hemoglobin Concent 32.9, Red Cell Distribution Width 13.2, Platelet Count 156, Mean Platelet Volume 7.4, Neutrophils (%) (Auto) 52.6, Lymphocytes (%) (Auto) 31.6, Monocytes (%) (Auto) 11.9H, Eosinophils (%) (Auto) 2.4, Basophils (%) ( Auto) 1.4, Sodium Level 142, Potassium Level 3.9, Chloride Level 110H, Carbon Dioxide Level 25, Anion Gap 7, Blood Urea Nitrogen 14, Creatinine 1.4H, Estimat Glomerular Filtration Rate , Glucose Level 104, Hemoglobin A1c 5.9, Uric Acid 4.1, Calcium Level 8.5, Phosphorus Level 3.2, Magnesium Level 2.0, Iron Level 63 , Total Iron Binding Capacity 239L, Percent Iron Saturation 26, Unsaturated Iron Binding 176, Ferritin 68, Total Bilirubin 0.6, Gamma Glutamyl Transpeptidase 49, Aspartate Amino Transf (AST/SGOT) 17, Alanine Aminotransferase (ALT/SGPT) 17, Alkaline Phosphatase 315H, Troponin I 0.000, C- Reactive Protein, Quantitative < 0.4, Pro-B-Type Natriuretic Peptide 281H, Total Protein 5.9L, Albumin 3.2L, Globulin 2.7, Albumin/Globulin Ratio 1.2, Triglycerides Level 51, Cholesterol Level 170, LDL Cholesterol 105H, HDL Cholesterol 66H, Cholesterol/HDL Ratio 2.6L, Vitamin B12 Level 457, Folate 5.4L , Thyroid Stimulating Hormone (TSH) 0.948 Height (Feet): 6 Height (Inches): 1.00 Weight (Pounds): 166 General Appearance: no apparent distress Cardiovascular: normal rate, bradycardia Respiratory/Chest: decreased breath sounds Abdomen: soft BRIGIDA BAILEY Mar 16, 2018 12:42
[2018-03-16] MEDS: HydrALAZINE 25mg tab ORAL SCH ×2 (14:57→21:03)
[2018-03-16 16:00] VITALS: BP 135/80
--- NOTE | 2018-03-16 16:15 | Consultation ---
DATE OF CONSULTATION: 03/16/2018 INFECTIOUS DISEASE CONSULT CONSULTING PHYSICIAN: Rick Cat M.D. PRIMARY ATTENDING PHYSICIAN: Jhon Moreno M.D. Dr. Pompa is covering for Dr. Moreno. REASON FOR CONSULT: UTI. HISTORY OF PRESENT ILLNESS: This is a 77-year-old male, admitted yesterday from a care home facility after he removed his Martínez catheter. He had hematuria and pyuria. PAST MEDICAL HISTORY: Significant for diabetes mellitus, hypertension, history of urinary retention secondary to prostatic hypertrophy, has history of mild bilateral hydronephrosis in previous admission in October, history of E. coli UTI in October 2017, and has dementia. ALLERGIES: No known drug allergies. MEDICATIONS: Ceftriaxone received one dose in the ER, amlodipine, aspirin, finasteride, vitamin B1, metoprolol, Flomax, heparin, Colace. SOCIAL HISTORY: halfway resident. Single. Denies alcohol, drug abuse, or smoking. REVIEW OF SYSTEMS: No fever. No chills. No coughing. No nausea. No vomiting. Feels hungry. No urinary problem at the present time. PHYSICAL EXAMINATION: VITAL SIGNS: Temperature 97.5, pulse 85, blood pressure 151/92. GENERAL APPEARANCE: No acute distress. HEAD AND NECK: He has no teeth. [place] conjunctivae. HEART: S1 and S2 regular. LUNGS: Clear. ABDOMEN: Soft, nontender. EXTREMITIES: He has no edema. GENITOURINARY: He has Martínez catheter with gross hematuria. LABORATORY AND DIAGNOSTIC DATA: Sodium 142, potassium 3.9, chloride 110, bicarbonate 25, BUN 14, creatinine 1.4 coming down from 1.6, glucose . WBC 4.3, hemoglobin 14.7, hematocrit 44.7, platelet 156,000. IMPRESSION: Pyuria, hematuria, likely secondary to complicated UTI. The patient has Martínez catheter. Bilateral hydronephrosis and prostatic hypertrophy. He has history of hypertension. He has acute renal failure, has history of urinary retention, and dementia. RECOMMENDATION: We will continue with Rocephin. We will follow up the blood culture and urine culture. At the end of my exam, I thank Dr. Pompa and Dr. Moreno, for involving me in the care of this patient. Rick Cat M.D. DR: Timmy JOB#: [id number] CC:
[2018-03-16 20:00] VITALS: BP 124/78
[2018-03-16] MEDS: Tamsulosin 0.4mg cap ORAL SCH (21:02)
[2018-03-17] VITALS: BP 145/70
[2018-03-17 04:00] VITALS: BP 153/102
[2018-03-17] MEDS: HydrALAZINE 25mg tab ORAL SCH (05:51)
[2018-03-17 08:00] VITALS: BP 147/93
[2018-03-17] MEDS: D5 1/2NS 1,000 ML IV SCH ×2 (08:30→21:50)
[2018-03-17] MEDS: Heparin 5000 units/ml inj SUBQ SCH ×2 (09:00→20:19)
[2018-03-17] MEDS: cefTRIAXone 1 GM in NS 55 ML IVPB SCH (09:07)
[2018-03-17] MEDS: Docusate 100mg cap ORAL SCH ×3 (09:07→17:02)
[2018-03-17] MEDS: Thiamine 100mg tab ORAL SCH (09:08)
[2018-03-17] MEDS: Aspirin EC 81mg tab ORAL SCH (09:08)
--- NOTE | 2018-03-17 09:34 | Nephrology Progress Note ---
Assessment/Plan Problem List: (1) Acute renal failure (2) Pyelonephritis (3) Hypertension Assessment Renal failure: - Dehydration - Possible undelying Nephropathy due to DM or HTN - HTN - BPH - UTI (urinary tract infection) Plan Hydrate- K supplement as needed Adjust BP meds DC lopressor for low HR and start Hydralazine for high BP monitor renal parameters per consultants Subjective ROS Limited/Unobtainable: No Objective Objective Last 24 Hour Vital Signs Date Time Temp Pulse Resp B/P (MAP) Pulse Ox O2 Delivery O2 Flow Rate FiO2 03/17/18 09:08 72 147/93 03/17/18 08:00 97.6 72 18 147/93 100 Room Air 97.6 03/17/18 05:51 153/102 03/17/18 04:00 98.1 61 20 153/102 99 Room Air 98.1 03/17/18 04:00 51 03/17/18 00:00 58 03/17/18 00:00 97.0 58 20 145/70 96 Room Air 97.0 03/16/18 21:03 124/78 03/16/18 20:00 98.3 57 20 124/78 99 Room Air 98.3 03/16/18 20:00 53 03/16/18 16:00 97.9 57 20 135/80 96 Room Air 97.9 03/16/18 15:20 55 03/16/18 14:57 151/92 03/16/18 12:00 98.1 52 20 146/88 98 Room Air 98.1 03/16/18 11:51 53 03/16/18 09:54 55 151/92 03/16/18 09:54 55 151/92 Intake and Output 03/16/18 03/17/18 19:00 07:00 Intake Total 555 ml 825 ml Output Total 400 ml 600 ml Balance 155 ml 225 ml Intake Oral 480 ml IV Total 75 ml 825 ml Output Urine Total 400 ml 600 ml Height (Feet): 6 Height (Inches): 1.00 Weight (Pounds): 166 General Appearance: no apparent distress Cardiovascular: normal rate Respiratory/Chest: lungs clear Abdomen: soft Objective no change BRIGIDA BAILEY Mar 17, 2018 09:34
--- NOTE | 2018-03-17 10:30 | History and Physical Report ---
DATE OF ADMISSION: 03/15/2018 NOTE: POOR AUDIO I am covering for Dr. Moreno. HISTORY OF PRESENT ILLNESS: The patient is a pleasant 77-year-old man, who I have seen in the past, has a past medical history, which is significant for GERD, mild hydronephrosis, altered mental status, history of BPH, urinary retention, and advanced dementia, at this time presents to the [facility] noted to have hematuria with history of prior urinary retention episodes. Catheter removed . The patient noted to have increasing foul-smelling urine, chronic history of dementia. No fevers. No chills. The patient's history is limited due to mental status. The patient has pyuria also hypotensive. Internal Medicine Service following the patient at this time by Dr. Collins. PAST MEDICAL HISTORY: encephalopathy, dehydration, and Martínez catheter placement. PAST SURGICAL HISTORY: None noted. MEDICATIONS: At this time reviewed, amlodipine, finasteride, heparin, tamsulosin, metoprolol, and clonidine. the patient given ceftriaxone this morning. REVIEW OF SYSTEMS: CONSTITUTIONAL: No fevers, chills, or night sweats. SKIN: No rashes, bumps, or itching. HEENT: No headache, hearing or visual changes. BREASTS: No lumps, pain, or discharge. PULMONARY: No cough, sputum, or shortness of breath. GASTROINTESTINAL: No nausea, vomiting, or diarrhea. GENITOURINARY: No dysuria, frequency, or urgency. MUSCULOSKELETAL: No joint swelling, muscle pain, or trauma. PHYSICAL EXAMINATION: VITAL SIGNS: Reviewed. GENERAL: No acute distress. PULMONARY: Decreased breath sounds. CARDIOVASCULAR: Regular rate. No S3 or S4. ABDOMEN: Soft, nontender, and nondistended. EXTREMITIES: A 1+ edema. LABORATORY AND DIAGNOSTIC DATA: Labs reviewed. WBC 6.3, hemoglobin 15.9, and platelet count 173,000. BUN of 20 and creatinine 1.6. Glucose 113. Alkaline phosphatase 271. Urinalysis reviewed. Leukocyte esterase positive. ASSESSMENT AND RECOMMENDATION: 1. Pyuria, status post removal of the patient's Martínez catheter, potentially colonization versus other causes. Administered ceftriaxone. 2. Sepsis, likely due to urinary tract infection. Continue to closely monitor. Infectious Disease consulted. 3. Dehydration. Administer IV fluids. 4. Possible nephropathy due to diabetes. 5. Hypertension, likely potentially secondary to urinary retention. 6. Follow up consultants. 7. I appreciate consultants' care. Alexei Pompa M.D. DR: Ilan JOB#: [id number] CC:
--- NOTE | 2018-03-17 11:48 | Consultation ---
History of Present Illness General Date patient seen: Mar 16, 2018 Chief Complaint: Male Urogenital Problems Present Illness HPI 77-year-old man, with past medical history of dementia, GERD, mild hydronephrosis, altered mental status and anxiety who has been admitted for removing his Martínez and more confusion. The pt has been anxious and confused. the pt was unable to provide any viable hx. Allergies: Coded Allergies: No Known Allergies (Unverified , 02/28/16) Medication History Scheduled Amlodipine Besylate* (Amlodipine Besylate*), 10 MG ORAL DAILY, (Reported) Amoxicillin* (Amoxil*), 500 MG ORAL EVERY 8 HOURS Aspirin* (Aspir 81*), 81 MG ORAL DAILY, (Reported) Finasteride* (Proscar*), 5 MG ORAL DAILY, (Reported) Metoprolol Tartrate* (Metoprolol Tartrate*), 12.5 MG ORAL EVERY 12 HOURS, ( Reported) Metoprolol Tartrate* (Metoprolol Tartrate*), 25 MG ORAL BID, (Reported) Nitrofurantoin Monohyd/M-Cryst* (Macrobid 100 Mg*), 100 MG ORAL EVERY 12 HOURS Ranitidine Hcl* (Zantac*), 150 MG ORAL DAILY, (Reported) Tamsulosin Hcl (Tamsulosin Hcl*), 0.4 MG ORAL BEDTIME, (Reported) Thiamine Hcl* (Vitamin B-1*), 100 MG ORAL DAILY, (Reported) Scheduled PRN Acetaminophen* (Acetaminophen 325MG Tablet*), 650 MG ORAL Q4H PRN for For Pain, (Reported) Clonidine Hcl* (Catapres*), 0.1 MG ORAL EVERY 6 HOURS PRN for For High Blood Pressure, (Reported) Docusate Sodium* (Colace*), 100 MG ORAL DAILY PRN for Constipation, (Reported) Miscellaneous Medications Insulin Regular, Human (Humulin R), 0 SUBQ, (Reported) Patient History Limited by: medical condition History Provided By: Medical Record, PMD Healthcare decision maker Resuscitation status Advanced Directive on File Past Medical/Surgical History Past Medical/Surgical History: (1) Swallowing impairment (2) Hyperglycemia (3) Hypernatremia (4) Elevated CEA (5) Elevated creatine kinase (6) Encounter for nasogastric (NG) tube placement (7) Encounter for PEG (percutaneous endoscopic gastrostomy) (8) Acute encephalopathy (9) Abnormal urogenital findings (10) Cocaine abuse (11) Anemia (12) Dysphagia (13) PEG (percutaneous endoscopic gastrostomy) adjustment/replacement/removal (14) Hypoalbuminemia (15) Altered level of consciousness (16) Pyelonephritis (17) Encephalopathy (18) Dehydration (19) UTI (urinary tract infection) (20) Acute renal failure (21) Hypertension Review of Systems Psychiatric: Reports: prior hx, anxiety, depressed feelings, emotional problems Physical Exam General Appearance: no apparent distress, alert, confused Neurologic: depressed affect Last 24 Hour Vital Signs Date Time Temp Pulse Resp B/P (MAP) Pulse Ox O2 Delivery O2 Flow Rate FiO2 03/17/18 09:08 72 147/93 03/17/18 08:00 74 03/17/18 08:00 97.6 72 18 147/93 100 Room Air 97.6 03/17/18 05:51 153/102 03/17/18 04:00 98.1 61 20 153/102 99 Room Air 98.1 03/17/18 04:00 51 03/17/18 00:00 58 03/17/18 00:00 97.0 58 20 145/70 96 Room Air 97.0 03/16/18 21:03 124/78 03/16/18 20:00 98.3 57 20 124/78 99 Room Air 98.3 03/16/18 20:00 53 03/16/18 16:00 97.9 57 20 135/80 96 Room Air 97.9 03/16/18 15:20 55 03/16/18 14:57 151/92 03/16/18 12:00 98.1 52 20 146/88 98 Room Air 98.1 03/16/18 11:51 53 Intake and Output 03/16/18 03/17/18 19:00 07:00 Intake Total 555 ml 825 ml Output Total 400 ml 600 ml Balance 155 ml 225 ml Intake Oral 480 ml IV Total 75 ml 825 ml Output Urine Total 400 ml 600 ml Height (Feet): 6 Height (Inches): 1.00 Weight (Pounds): 166 Medications Current Medications Medications (Trade) Dose Ordered Sig/Eufemia Route PRN Reason Start Time Stop Time Status Last Admin Dose Admin Acetaminophen (Tylenol) 650 mg Q4H PRN ORAL For Pain 6/23/18 16:30 04/14/18 16:29 Amlodipine Besylate (Norvasc) 10 mg DAILY ORAL 03/16/18 09:00 04/15/18 08:59 03/17/18 09:08 Aspirin (Ecotrin) 81 mg DAILY ORAL 03/16/18 09:00 04/15/18 08:59 03/17/18 09:08 Ceftriaxone Sodium 1 gm/ Sodium Chloride 55 ml @ 110 mls/hr Q24H IVPB 03/17/18 09:00 03/22/18 09:29 03/17/18 09:07 Clonidine HCl (Catapres Tab) 0.1 mg Q4H PRN ORAL for BP over 160 syst 03/15/18 16:30 04/14/18 16:29 Dextrose/Sodium Chloride 1,000 ml @ 75 mls/hr [id number] IV 03/15/18 16:30 04/14/18 16:29 03/17/18 08:30 Docusate Sodium (Colace) 100 mg TID ORAL 03/15/18 18:00 04/14/18 17:59 03/17/18 09:07 Finasteride (Proscar) 5 mg DAILY ORAL 03/16/18 09:00 04/15/18 08:59 03/17/18 09:08 Folic Acid (Folate) 2 mg DAILY ORAL 03/16/18 14:30 04/15/18 14:29 03/17/18 09:08 Heparin Sodium (Porcine) (Heparin 5000 units/ml) 5,000 units EVERY 12 HOURS SUBQ 03/15/18 21:00 04/14/18 20:59 03/16/18 21:03 Hydralazine HCl (Apresoline) 50 mg Q8HR ORAL 03/17/18 14:00 04/15/18 13:59 Tamsulosin HCl (Flomax) 0.4 mg BEDTIME ORAL 03/15/18 21:00 04/14/18 20:59 03/16/18 21:02 Thiamine HCl (Vitamin B1) 100 mg DAILY ORAL 03/16/18 09:00 04/15/18 08:59 03/17/18 09:08 Assessment/Plan Assessment/Plan Dementia with behavioral dist anxiety encephalopathy ativan prn provided ro/st this is a late entry Watson Hillman M.D. Mar 17, 2018 11:48
--- NOTE | 2018-03-17 11:53 | General Progress Note ---
Assessment/Plan Status: stable, progressing Assessment/Plan Dementia with behavioral dist anxiety encephalopathy ativan prn provided ro/st Subjective Date patient seen: Mar 17, 2018 Neurologic/Psychiatric: Reports: anxiety, depressed, emotional problems Allergies: Coded Allergies: No Known Allergies (Unverified , 02/28/16) Objective Last 24 Hour Vital Signs Date Time Temp Pulse Resp B/P (MAP) Pulse Ox O2 Delivery O2 Flow Rate FiO2 03/17/18 09:08 72 147/93 03/17/18 08:00 74 03/17/18 08:00 97.6 72 18 147/93 100 Room Air 97.6 03/17/18 05:51 153/102 03/17/18 04:00 98.1 61 20 153/102 99 Room Air 98.1 03/17/18 04:00 51 03/17/18 00:00 58 03/17/18 00:00 97.0 58 20 145/70 96 Room Air 97.0 03/16/18 21:03 124/78 03/16/18 20:00 98.3 57 20 124/78 99 Room Air 98.3 03/16/18 20:00 53 03/16/18 16:00 97.9 57 20 135/80 96 Room Air 97.9 03/16/18 15:20 55 03/16/18 14:57 151/92 03/16/18 12:00 98.1 52 20 146/88 98 Room Air 98.1 Intake and Output 03/16/18 03/17/18 19:00 07:00 Intake Total 555 ml 825 ml Output Total 400 ml 600 ml Balance 155 ml 225 ml Intake Oral 480 ml IV Total 75 ml 825 ml Output Urine Total 400 ml 600 ml Laboratory Tests 03/17/18 11:40: C-Reactive Protein, Quantitative [Pending] Height (Feet): 6 Height (Inches): 1.00 Weight (Pounds): 166 General Appearance: no apparent distress, alert, confused Neurologic: alert, oriented x 3, depressed affect Watson Hillman M.D. Mar 17, 2018 11:53
[2018-03-17 12:00] VITALS: BP 146/80
[2018-03-17] MEDS ORDERED: LORazepam 0.5mg tab ORAL PRN (12:00)
--- NOTE | 2018-03-17 12:26 | General Progress Note ---
Assessment/Plan Problem List: (1) Sepsis ICD Codes: A41.9 - Sepsis, unspecified organism SNOMED: 41392652 (2) Diabetes ICD Codes: E11.9 - Type 2 diabetes mellitus without complications SNOMED: 82939897 (3) HTN (hypertension) ICD Codes: I10 - Essential (primary) hypertension SNOMED: 35836085 (4) UTI (urinary tract infection) ICD Codes: N39.0 - Urinary tract infection, site not specified SNOMED: 56055826 (5) Dehydration ICD Codes: E86.0 - Dehydration SNOMED: 74282426 Status: stable, progressing Assessment/Plan abx ivf ot pt diet cbc bmp am Subjective Constitutional: Reports: weakness Allergies: Coded Allergies: No Known Allergies (Unverified , 02/28/16) All Systems: reviewed and negative except above Subjective calm in bed Objective Last 24 Hour Vital Signs Date Time Temp Pulse Resp B/P (MAP) Pulse Ox O2 Delivery O2 Flow Rate FiO2 03/17/18 09:08 72 147/93 03/17/18 08:00 74 03/17/18 08:00 97.6 72 18 147/93 100 Room Air 97.6 03/17/18 05:51 153/102 03/17/18 04:00 98.1 61 20 153/102 99 Room Air 98.1 03/17/18 04:00 51 03/17/18 00:00 58 03/17/18 00:00 97.0 58 20 145/70 96 Room Air 97.0 03/16/18 21:03 124/78 03/16/18 20:00 98.3 57 20 124/78 99 Room Air 98.3 03/16/18 20:00 53 03/16/18 16:00 97.9 57 20 135/80 96 Room Air 97.9 03/16/18 15:20 55 03/16/18 14:57 151/92 Intake and Output 03/16/18 03/17/18 19:00 07:00 Intake Total 555 ml 825 ml Output Total 400 ml 600 ml Balance 155 ml 225 ml Intake Oral 480 ml IV Total 75 ml 825 ml Output Urine Total 400 ml 600 ml Laboratory Tests 03/17/18 11:40: C-Reactive Protein, Quantitative < 0.4 Height (Feet): 6 Height (Inches): 1.00 Weight (Pounds): 166 General Appearance: lethargic EENT: normal ENT inspection Neck: non-tender, normal alignment, supple Cardiovascular: normal peripheral pulses, normal rate, regular rhythm Respiratory/Chest: chest wall non-tender, lungs clear, normal breath sounds Abdomen: normal bowel sounds, non tender, soft Extremities: normal inspection Edema: no edema noted Arm (L), no edema noted Arm (R), no edema noted Leg (L), no edema noted Leg (R), no edema noted Pedal (L), no edema noted Pedal (R), no edema noted Generalized Neurologic: motor weakness Skin: normal pigmentation, warm/dry Darrell Gonzalez DO Mar 17, 2018 12:26
[2018-03-17] MEDS: HydrALAZINE 50mg tab ORAL SCH ×2 (13:07→21:50)
--- NOTE | 2018-03-17 13:31 | General Progress Note ---
Assessment/Plan Status: stable Assessment/Plan 1. Pyuria --> s/p removal of the patient's Martínez catheter, --> Administered ceftriaxone. --> resolved 2. Sepsis, likely due to urinary tract infection. --> Continue to closely monitor. Infectious Disease consulted. --> on IV abx 3. Dehydration. Administer IV fluids. 4. Possible nephropathy due to diabetes. 5. Hypertension, likely potentially secondary to urinary retention. --> monitor for improvement 6. Follow up consultants. Subjective Date patient seen: Mar 16, 2018 Allergies: Coded Allergies: No Known Allergies (Unverified , 02/28/16) All Systems: reviewed and negative except above Subjective No overnight events. Vitals are stable. No c/o of pain or sob. Objective Last 24 Hour Vital Signs Date Time Temp Pulse Resp B/P (MAP) Pulse Ox O2 Delivery O2 Flow Rate FiO2 03/17/18 13:07 146/80 03/17/18 12:00 98.2 64 18 146/80 99 Room Air 98.2 03/17/18 09:08 72 147/93 03/17/18 08:00 74 03/17/18 08:00 97.6 72 18 147/93 100 Room Air 97.6 03/17/18 05:51 153/102 03/17/18 04:00 98.1 61 20 153/102 99 Room Air 98.1 03/17/18 04:00 51 03/17/18 00:00 58 03/17/18 00:00 97.0 58 20 145/70 96 Room Air 97.0 03/16/18 21:03 124/78 03/16/18 20:00 98.3 57 20 124/78 99 Room Air 98.3 03/16/18 20:00 53 03/16/18 16:00 97.9 57 20 135/80 96 Room Air 97.9 03/16/18 15:20 55 03/16/18 14:57 151/92 Intake and Output 03/16/18 03/17/18 19:00 07:00 Intake Total 555 ml 825 ml Output Total 400 ml 600 ml Balance 155 ml 225 ml Intake Oral 480 ml IV Total 75 ml 825 ml Output Urine Total 400 ml 600 ml Laboratory Tests 03/17/18 11:40: C-Reactive Protein, Quantitative < 0.4 Height (Feet): 6 Height (Inches): 1.00 Weight (Pounds): 166 General Appearance: WD/WN, no apparent distress EENT: PERRL/EOMI Neck: normal alignment Cardiovascular: normal peripheral pulses Respiratory/Chest: no respiratory distress Abdomen: no mass Alexei Pompa MD Mar 17, 2018 13:31
--- NOTE | 2018-03-17 13:56 | General Progress Note ---
Assessment/Plan Status: stable Assessment/Plan #. Leukopenia potentially 2/2 sepsis rule out viral infection --> psa ordered given enlarged prostate --> rule out hepatitis and hiv panel #. Pyuria --> s/p removal of the patient's Martínez catheter, --> Administered ceftriaxone. --> resolved #. Sepsis, likely due to urinary tract infection. --> Continue to closely monitor. Infectious Disease consulted. --> on IV abx #. Dehydration. Administer IV fluids. #. Possible nephropathy due to diabetes. #. Hypertension, likely potentially secondary to urinary retention. --> monitor for improvement --> BP meds adjusted on 03/17 Subjective Date patient seen: Mar 17, 2018 Allergies: Coded Allergies: No Known Allergies (Unverified , 02/28/16) All Systems: reviewed and negative except above Subjective No overnight events. No c/o of pain or sob. BP meds adjusted. Objective Last 24 Hour Vital Signs Date Time Temp Pulse Resp B/P (MAP) Pulse Ox O2 Delivery O2 Flow Rate FiO2 03/17/18 13:07 146/80 03/17/18 12:00 75 03/17/18 12:00 98.2 64 18 146/80 99 Room Air 98.2 03/17/18 09:08 72 147/93 03/17/18 08:00 74 03/17/18 08:00 97.6 72 18 147/93 100 Room Air 97.6 03/17/18 05:51 153/102 03/17/18 04:00 98.1 61 20 153/102 99 Room Air 98.1 03/17/18 04:00 51 03/17/18 00:00 58 03/17/18 00:00 97.0 58 20 145/70 96 Room Air 97.0 03/16/18 21:03 124/78 03/16/18 20:00 98.3 57 20 124/78 99 Room Air 98.3 03/16/18 20:00 53 03/16/18 16:00 97.9 57 20 135/80 96 Room Air 97.9 03/16/18 15:20 55 03/16/18 14:57 151/92 Intake and Output 03/16/18 03/17/18 19:00 07:00 Intake Total 555 ml 825 ml Output Total 400 ml 600 ml Balance 155 ml 225 ml Intake Oral 480 ml IV Total 75 ml 825 ml Output Urine Total 400 ml 600 ml Laboratory Tests 03/17/18 11:40: C-Reactive Protein, Quantitative < 0.4 Height (Feet): 6 Height (Inches): 1.00 Weight (Pounds): 166 General Appearance: WD/WN, no apparent distress EENT: PERRL/EOMI Neck: normal alignment Cardiovascular: no JVD Respiratory/Chest: no respiratory distress Abdomen: no mass Alexei Pompa MD Mar 17, 2018 13:56
--- NOTE | 2018-03-17 14:56 | Infectious Diseases Prog Note ---
Assessment/Plan Assessment/Plan antibiotics : ceftriaxone A 1. e.coli UTI 2. diabetes mellitus 3. hypertension 4. hydronephrosis P 1. continue ceftriaxone 2. will follow up cultures 3. US abdomen Subjective Constitutional: Denies: fever, chills Respiratory: Denies: shortness of breath, dry cough Gastrointestinal/Abdominal: Denies: nausea, vomiting, diarrhea Musculoskeletal: Denies: pain Allergies: Coded Allergies: No Known Allergies (Unverified , 02/28/16) Objective Vital Signs Last 24 Hour Vital Signs Date Time Temp Pulse Resp B/P (MAP) Pulse Ox O2 Delivery O2 Flow Rate FiO2 03/17/18 13:07 146/80 03/17/18 12:00 75 03/17/18 12:00 98.2 64 18 146/80 99 Room Air 98.2 03/17/18 09:08 72 147/93 03/17/18 08:00 74 03/17/18 08:00 97.6 72 18 147/93 100 Room Air 97.6 03/17/18 05:51 153/102 03/17/18 04:00 98.1 61 20 153/102 99 Room Air 98.1 03/17/18 04:00 51 03/17/18 00:00 58 03/17/18 00:00 97.0 58 20 145/70 96 Room Air 97.0 03/16/18 21:03 124/78 03/16/18 20:00 98.3 57 20 124/78 99 Room Air 98.3 03/16/18 20:00 53 03/16/18 16:00 97.9 57 20 135/80 96 Room Air 97.9 03/16/18 15:20 55 03/16/18 14:57 151/92 Height (Feet): 6 Height (Inches): 1.00 Weight (Pounds): 166 Respiratory/Chest: lungs clear Cardiovascular: normal rate, regular rhythm, no gallop/murmur Abdomen: soft, non tender Extremities: no edema Microbiology Date/Time Source Procedure Growth Status 03/15/18 10:30 Blood Blood Culture - Preliminary NO GROWTH AFTER 24 HOURS Resulted 03/15/18 10:15 Blood Blood Culture - Preliminary NO GROWTH AFTER 24 HOURS Resulted 03/15/18 09:20 Urine,Clean Catch Urine Culture - Final Escherichia Coli Complete Laboratory Tests Test 03/17/18 11:40 C-Reactive Protein, Quantitative < 0.4 mg/dL (0.00-0.90) Current Medications Medications (Trade) Dose Ordered Sig/Eufemia Route PRN Reason Start Time Stop Time Status Last Admin Dose Admin Acetaminophen (Tylenol) 650 mg Q4H PRN ORAL For Pain 03/15/18 16:30 04/14/18 16:29 Amlodipine Besylate (Norvasc) 10 mg DAILY ORAL 03/16/18 09:00 04/15/18 08:59 03/17/18 09:08 Aspirin (Ecotrin) 81 mg DAILY ORAL 03/16/18 09:00 04/15/18 08:59 03/17/18 09:08 Ceftriaxone Sodium 1 gm/ Sodium Chloride 55 ml @ 110 mls/hr Q24H IVPB 03/17/18 09:00 03/22/18 09:29 03/17/18 09:07 Clonidine HCl (Catapres Tab) 0.1 mg Q4H PRN ORAL for BP over 160 syst 03/15/18 16:30 04/14/18 16:29 Dextrose/Sodium Chloride 1,000 ml @ 75 mls/hr [id number] IV 03/15/18 16:30 04/14/18 16:29 03/17/18 08:30 Docusate Sodium (Colace) 100 mg TID ORAL 03/15/18 18:00 04/14/18 17:59 03/17/18 09:07 Finasteride (Proscar) 5 mg DAILY ORAL 03/16/18 09:00 04/15/18 08:59 03/17/18 09:08 Folic Acid (Folate) 2 mg DAILY ORAL 03/16/18 14:30 04/15/18 14:29 03/17/18 09:08 Heparin Sodium (Porcine) (Heparin 5000 units/ml) 5,000 units EVERY 12 HOURS SUBQ 03/15/18 21:00 04/14/18 20:59 03/16/18 21:03 Hydralazine HCl (Apresoline) 50 mg Q8HR ORAL 03/17/18 14:00 04/15/18 13:59 03/17/18 13:07 Lorazepam (Ativan) 1 mg Q6H PRN ORAL For Anxiety 03/17/18 12:00 03/24/18 11:59 Tamsulosin HCl (Flomax) 0.4 mg BEDTIME ORAL 03/15/18 21:00 04/14/18 20:59 03/16/18 21:02 Thiamine HCl (Vitamin B1) 100 mg DAILY ORAL 03/16/18 09:00 04/15/18 08:59 03/17/18 09:08 LUIS ANTONIO CADE Mar 17, 2018 14:56
[2018-03-17 15:43] VITALS: BP 129/79
[2018-03-17 20:00] VITALS: BP 160/104
[2018-03-17] MEDS: Tamsulosin 0.4mg cap ORAL SCH (20:18)
[2018-03-18] VITALS (7 sets, daily range): BP systolic 114–165; BP diastolic 77–100
[2018-03-18] MEDS: HydrALAZINE 50mg tab ORAL SCH ×3 (06:00→21:58)
[2018-03-18 07:17] LABS: HEMOGLOBIN 13.9 G/DL (14.2-18.0); LYMPHOCYTES % (AUTO) 29.7 % (20.0-45.0); MEAN CORPUSCULAR VOLUME 89 FL (80-99); MONOCYTES % (AUTO) 7.7 % (1.0-10.0); NEUTROPHILS % (AUTO) 60.7 % (45.0-75.0); PLATELET COUNT 140 K/UL (150-450); RED BLOOD COUNT 4.71 M/UL (4.70-6.10); RED CELL DISTRIBUTION WIDTH 12.9 % (11.6-14.8); WHITE BLOOD COUNT 4.6 K/UL (4.8-10.8)
[2018-03-18 07:49] LABS: ALANINE AMINOTRANSFERASE 18 U/L (12-78); ALBUMIN 2.8 G/DL (3.4-5.0); ALBUMIN/GLOBULIN RATIO 0.9 (1.0-2.7); ALKALINE PHOSPHATASE 331 U/L (46-116); ANION GAP 7 mmol/L (5-15); ASPARTATE AMINO TRANSFERASE 21 U/L (15-37); BILIRUBIN,TOTAL 0.3 MG/DL (0.2-1.0); BLOOD UREA NITROGEN 10 mg/dL (7-18); CALCIUM 8.4 MG/DL (8.5-10.1); CARBON DIOXIDE 25 MMOL/L (21-32); CHLORIDE 109 MMOL/L (98-107); CREATININE 1.2 MG/DL (0.55-1.30); PHOSPHORUS 3.1 MG/DL (2.5-4.9); POTASSIUM 3.4 MMOL/L (3.5-5.1); SODIUM 141 MMOL/L (136-145)
--- NOTE | 2018-03-18 08:56 | Infectious Diseases Prog Note ---
Assessment/Plan Assessment/Plan A 1. e E.coli UTI 2. diabetes mellitus 3. hypertension 4. hydronephrosis P 1. continue ceftriaxone 2. will follow up US of abdomen Subjective ROS Limited/Unobtainable: Yes Allergies: Coded Allergies: No Known Allergies (Unverified , 02/28/16) Objective Vital Signs Last 24 Hour Vital Signs Date Time Temp Pulse Resp B/P (MAP) Pulse Ox O2 Delivery O2 Flow Rate FiO2 03/18/18 06:00 141/100 03/18/18 05:30 140/100 03/18/18 04:24 165/100 03/18/18 04:00 80 03/18/18 04:00 97.9 73 18 165/100 98 97.9 03/18/18 00:03 97.2 76 20 140/92 98 97.2 03/18/18 00:00 106 03/17/18 21:50 167/102 03/17/18 20:18 167/102 03/17/18 20:00 98.2 74 20 160/104 98 Room Air 98.2 03/17/18 20:00 75 03/17/18 16:00 77 03/17/18 15:43 97.3 74 18 129/79 98 Room Air 97.3 03/17/18 13:07 146/80 03/17/18 12:00 75 03/17/18 12:00 98.2 64 18 146/80 99 Room Air 98.2 03/17/18 09:08 72 147/93 Height (Feet): 6 Height (Inches): 1.00 Weight (Pounds): 166 General Appearance: no acute distress HEENT: mucous membranes moist Respiratory/Chest: lungs clear Cardiovascular: normal rate Abdomen: soft, non tender Genitourinary: other - Martínez catheter Extremities: no edema Microbiology Date/Time Source Procedure Growth Status 03/15/18 10:30 Blood Blood Culture - Preliminary NO GROWTH AFTER 48 HOURS Resulted 03/15/18 10:15 Blood Blood Culture - Preliminary NO GROWTH AFTER 48 HOURS Resulted 03/15/18 09:20 Urine,Clean Catch Urine Culture - Final Escherichia Coli Complete Laboratory Tests Test 03/17/18 11:40 03/17/18 17:30 03/18/18 06:50 C-Reactive Protein, Quantitative < 0.4 mg/dL (0.00-0.90) Prostate Specific Antigen 140.92 ng/mL (0.13-4.0) H Hepatitis A IgM Antibody Negative (Negative) Hepatitis B Surface Antigen Negative (Negative) Hepatitis B Core IgM Antibody Negative (Negative) Hepatitis C Antibody <0.1 s/co ratio HIV (1&2) Antibody Rapid Negative (NEGATIVE) White Blood Count 4.6 K/UL (4.8-10.8) L Red Blood Count 4.71 M/UL (4.70-6.10) Hemoglobin 13.9 G/DL (14.2-18.0) L Hematocrit 42.0 % (42.0-52.0) Mean Corpuscular Volume 89 FL (80-99) Mean Corpuscular Hemoglobin 29.6 PG (27.0-31.0) Mean Corpuscular Hemoglobin Concent 33.2 G/DL (32.0-36.0) Red Cell Distribution Width 12.9 % (11.6-14.8) Platelet Count 140 K/UL (150-450) L Mean Platelet Volume 7.7 FL (6.5-10.1) Neutrophils (%) (Auto) 60.7 % (45.0-75.0) Lymphocytes (%) (Auto) 29.7 % (20.0-45.0) Monocytes (%) (Auto) 7.7 % (1.0-10.0) Eosinophils (%) (Auto) 1.0 % (0.0-3.0) Basophils (%) (Auto) 1.0 % (0.0-2.0) Sodium Level 141 MMOL/L (136-145) Potassium Level 3.4 MMOL/L (3.5-5.1) L Chloride Level 109 MMOL/L (98-107) H Carbon Dioxide Level 25 MMOL/L (21-32) Anion Gap 7 mmol/L (5-15) Blood Urea Nitrogen 10 mg/dL (7-18) Creatinine 1.2 MG/DL (0.55-1.30) Estimat Glomerular Filtration Rate mL/min (>60) Glucose Level 115 MG/DL (74-106) H Calcium Level 8.4 MG/DL (8.5-10.1) L Phosphorus Level 3.1 MG/DL (2.5-4.9) Magnesium Level 2.1 MG/DL (1.8-2.4) Total Bilirubin 0.3 MG/DL (0.2-1.0) Aspartate Amino Transf (AST/SGOT) 21 U/L (15-37) Alanine Aminotransferase (ALT/SGPT) 18 U/L (12-78) Alkaline Phosphatase 331 U/L (46-116) H Pro-B-Type Natriuretic Peptide 256 pg/mL (0-125) H Total Protein 5.8 G/DL (6.4-8.2) L Albumin 2.8 G/DL (3.4-5.0) L Globulin 3.0 g/dL Albumin/Globulin Ratio 0.9 (1.0-2.7) L Current Medications Medications (Trade) Dose Ordered Sig/Eufemia Route PRN Reason Start Time Stop Time Status Last Admin Dose Admin Acetaminophen (Tylenol) 650 mg Q4H PRN ORAL For Pain 03/15/18 16:30 04/14/18 16:29 Amlodipine Besylate (Norvasc) 10 mg DAILY ORAL 03/16/18 09:00 04/15/18 08:59 03/17/18 09:08 Aspirin (Ecotrin) 81 mg DAILY ORAL 03/16/18 09:00 04/15/18 08:59 03/17/18 09:08 Ceftriaxone Sodium 1 gm/ Sodium Chloride 55 ml @ 110 mls/hr Q24H IVPB 03/17/18 09:00 03/22/18 09:29 03/17/18 09:07 Clonidine HCl (Catapres Tab) 0.1 mg Q4H PRN ORAL for BP over 160 syst 03/15/18 16:30 04/14/18 16:29 03/18/18 04:24 Dextrose/Sodium Chloride 1,000 ml @ 75 mls/hr [id number] IV 03/15/18 16:30 04/14/18 16:29 03/17/18 21:50 Docusate Sodium (Colace) 100 mg TID ORAL 03/15/18 18:00 04/14/18 17:59 03/17/18 17:02 Finasteride (Proscar) 5 mg DAILY ORAL 03/16/18 09:00 04/15/18 08:59 03/17/18 09:08 Folic Acid (Folate) 2 mg DAILY ORAL 03/16/18 14:30 04/15/18 14:29 03/17/18 09:08 Heparin Sodium (Porcine) (Heparin 5000 units/ml) 5,000 units EVERY 12 HOURS SUBQ 03/15/18 21:00 04/14/18 20:59 03/17/18 20:19 Hydralazine HCl (Apresoline) 50 mg Q8HR ORAL 03/17/18 14:00 04/15/18 13:59 03/18/18 06:00 Lorazepam (Ativan) 1 mg Q6H PRN ORAL For Anxiety 03/17/18 12:00 03/24/18 11:59 03/17/18 15:59 Tamsulosin HCl (Flomax) 0.4 mg BEDTIME ORAL 03/15/18 21:00 04/14/18 20:59 03/17/18 20:18 Thiamine HCl (Vitamin B1) 100 mg DAILY ORAL 03/16/18 09:00 04/15/18 08:59 03/17/18 09:08 Rick Cat MD Mar 18, 2018 08:56
[2018-03-18] MEDS: Aspirin EC 81mg tab ORAL SCH (09:53)
[2018-03-18] MEDS: Docusate 100mg cap ORAL SCH ×3 (09:55→18:09)
[2018-03-18] MEDS: Thiamine 100mg tab ORAL SCH (09:56)
[2018-03-18] MEDS: Heparin 5000 units/ml inj SUBQ SCH ×2 (10:00→21:00)
--- NOTE | 2018-03-18 10:20 | General Progress Note ---
Assessment/Plan Status: unchanged Assessment/Plan #. Elevated prostate antrigen --> psa results: 140.92, Heterogeneous sclerotic changes of the right acetabular and ischium. Note that acetabular sclerosis is visible in retrospect on prior CT scan of 11/13/2017, appears more extensive on current plain radiograph. This could indicate metastatic disease, but other etiologies are certainly possible, particularly in view of lack of similar findings elsewhere --> bone scan has been ordered #. Leukopenia potentially 2/2 sepsis rule out viral infection v infection -> hepatitis and hiv panel are negative #. Thrombocytopenia similar likely related to meds versus infection --> viral studies reviewed and are negative #. Pyuria --> s/p removal of the patient's Martínez catheter --> Administered ceftriaxone --> resolved #. Sepsis, likely due to urinary tract infection. --> Continue to closely monitor. Infectious Disease consulted. --> on IV abx #. Dehydration. Administer IV fluids. #. Possible nephropathy due to diabetes. #. Hypertension, likely potentially secondary to urinary retention. --> monitor for improvement --> on hydralazine Subjective Date patient seen: Mar 18, 2018 Allergies: Coded Allergies: No Known Allergies (Unverified , 02/28/16) All Systems: reviewed and negative except above Subjective No overnight events. No c/o of pain or sob. On hydralazine for BP. Objective Last 24 Hour Vital Signs Date Time Temp Pulse Resp B/P (MAP) Pulse Ox O2 Delivery O2 Flow Rate FiO2 03/18/18 09:55 71 138/95 03/18/18 06:00 141/100 03/18/18 05:30 140/100 03/18/18 04:24 165/100 03/18/18 04:00 80 03/18/18 04:00 97.9 73 18 165/100 98 97.9 03/18/18 00:03 97.2 76 20 140/92 98 97.2 03/18/18 00:00 106 03/17/18 21:50 167/102 03/17/18 20:18 167/102 03/17/18 20:00 98.2 74 20 160/104 98 Room Air 98.2 03/17/18 20:00 75 03/17/18 16:00 77 03/17/18 15:43 97.3 74 18 129/79 98 Room Air 97.3 6/25/18 13:07 146/80 03/17/18 12:00 75 03/17/18 12:00 98.2 64 18 146/80 99 Room Air 98.2 Intake and Output 03/17/18 03/18/18 19:00 07:00 Intake Total 435 ml 750 ml Output Total 1400 ml 2000 ml Balance -965 ml -1250 ml Intake Oral 360 ml IV Total 75 ml 750 ml Output Urine Total 1400 ml 2000 ml # Bowel Movements 2 Laboratory Tests 03/17/18 11:40: C-Reactive Protein, Quantitative < 0.4 03/17/18 17:30: Prostate Specific Antigen 140.92H, Hepatitis A IgM Antibody Negative, Hepatitis B Surface Antigen Negative, Hepatitis B Core IgM Antibody Negative, Hepatitis C Antibody <0.1, HIV (1&2) Antibody Rapid Negative 03/18/18 06:50: White Blood Count 4.6L, Red Blood Count 4.71, Hemoglobin 13.9L, Hematocrit 42.0 , Mean Corpuscular Volume 89, Mean Corpuscular Hemoglobin 29.6, Mean Corpuscular Hemoglobin Concent 33.2, Red Cell Distribution Width 12.9, Platelet Count 140L, Mean Platelet Volume 7.7, Neutrophils (%) (Auto) 60.7, Lymphocytes ( %) (Auto) 29.7, Monocytes (%) (Auto) 7.7, Eosinophils (%) (Auto) 1.0, Basophils (%) (Auto) 1.0, Sodium Level 141, Potassium Level 3.4L, Chloride Level 109H, Carbon Dioxide Level 25, Anion Gap 7, Blood Urea Nitrogen 10, Creatinine 1.2, Estimat Glomerular Filtration Rate , Glucose Level 115H, Calcium Level 8.4L, Phosphorus Level 3.1, Magnesium Level 2.1, Total Bilirubin 0.3, Aspartate Amino Transf (AST/SGOT) 21, Alanine Aminotransferase (ALT/SGPT) 18, Alkaline Phosphatase 331H, Pro-B-Type Natriuretic Peptide 256H, Total Protein 5.8L, Albumin 2.8L, Globulin 3.0, Albumin/Globulin Ratio 0.9L Height (Feet): 6 Height (Inches): 1.00 Weight (Pounds): 166 General Appearance: WD/WN, no apparent distress EENT: PERRL/EOMI Neck: normal alignment Cardiovascular: normal peripheral pulses Respiratory/Chest: no respiratory distress Abdomen: no mass Alexei Pompa MD Mar 18, 2018 10:20
[2018-03-18] MEDS: cefTRIAXone 1 GM in NS 55 ML IVPB SCH (10:29)
--- NOTE | 2018-03-18 10:35 | Nephrology Progress Note ---
Assessment/Plan Problem List: (1) Acute renal failure (2) Pyelonephritis (3) Hypertension Assessment Renal failure: - Dehydration - Possible undelying Nephropathy due to DM or HTN - HTN - BPH - UTI (urinary tract infection) Plan Hydrate- K supplement as needed Adjust BP meds DC lopressor for low HR and start Hydralazine for high BP monitor renal parameters per consultants Subjective ROS Limited/Unobtainable: No Constitutional: Reports: malaise Objective Objective Last 24 Hour Vital Signs Date Time Temp Pulse Resp B/P (MAP) Pulse Ox O2 Delivery O2 Flow Rate FiO2 03/18/18 09:55 71 138/95 03/18/18 06:00 141/100 03/18/18 05:30 140/100 03/18/18 04:24 165/100 03/18/18 04:00 80 03/18/18 04:00 97.9 73 18 165/100 98 97.9 03/18/18 00:03 97.2 76 20 140/92 98 97.2 03/18/18 00:00 106 03/17/18 21:50 167/102 03/17/18 20:18 167/102 03/17/18 20:00 98.2 74 20 160/104 98 Room Air 98.2 03/17/18 20:00 75 03/17/18 16:00 77 03/17/18 15:43 97.3 74 18 129/79 98 Room Air 97.3 03/17/18 13:07 146/80 03/17/18 12:00 75 03/17/18 12:00 98.2 64 18 146/80 99 Room Air 98.2 Intake and Output 03/17/18 03/18/18 19:00 07:00 Intake Total 435 ml 750 ml Output Total 1400 ml 2000 ml Balance -965 ml -1250 ml Intake Oral 360 ml IV Total 75 ml 750 ml Output Urine Total 1400 ml 2000 ml # Bowel Movements 2 Laboratory Tests 03/17/18 11:40: C-Reactive Protein, Quantitative < 0.4 03/17/18 17:30: Prostate Specific Antigen 140.92H, Hepatitis A IgM Antibody Negative, Hepatitis B Surface Antigen Negative, Hepatitis B Core IgM Antibody Negative, Hepatitis C Antibody <0.1, HIV (1&2) Antibody Rapid Negative 03/18/18 06:50: White Blood Count 4.6L, Red Blood Count 4.71, Hemoglobin 13.9L, Hematocrit 42.0 , Mean Corpuscular Volume 89, Mean Corpuscular Hemoglobin 29.6, Mean Corpuscular Hemoglobin Concent 33.2, Red Cell Distribution Width 12.9, Platelet Count 140L, Mean Platelet Volume 7.7, Neutrophils (%) (Auto) 60.7, Lymphocytes ( %) (Auto) 29.7, Monocytes (%) (Auto) 7.7, Eosinophils (%) (Auto) 1.0, Basophils (%) (Auto) 1.0, Sodium Level 141, Potassium Level 3.4L, Chloride Level 109H, Carbon Dioxide Level 25, Anion Gap 7, Blood Urea Nitrogen 10, Creatinine 1.2, Estimat Glomerular Filtration Rate , Glucose Level 115H, Calcium Level 8.4L, Phosphorus Level 3.1, Magnesium Level 2.1, Total Bilirubin 0.3, Aspartate Amino Transf (AST/SGOT) 21, Alanine Aminotransferase (ALT/SGPT) 18, Alkaline Phosphatase 331H, Pro-B-Type Natriuretic Peptide 256H, Total Protein 5.8L, Albumin 2.8L, Globulin 3.0, Albumin/Globulin Ratio 0.9L Height (Feet): 6 Height (Inches): 1.00 Weight (Pounds): 166 General Appearance: no apparent distress Objective no change BRIGIDA BAILEY Mar 18, 2018 10:35
--- NOTE | 2018-03-18 10:57 | Consultation ---
History of Present Illness General Date patient seen: Mar 18, 2018 Reason for Consultation: cough Present Illness HPI 77-year-old male with hx of HTN, DM, BPH, Dementia brought in by EMS after reportedly removing his indwelling Martínez catheter. Patient been noted to have increased foul smelling cloudy urine and some hematuria after Martínez had been removed. Pt was diagnosed to have pyelonephritis and was started on antibiotics. Yesterday he developed episodes of cough. I was asked to evaluate his cough. Allergies: Coded Allergies: No Known Allergies (Unverified , 02/28/16) Medication History Scheduled Amlodipine Besylate* (Amlodipine Besylate*), 10 MG ORAL DAILY, (Reported) Amoxicillin* (Amoxil*), 500 MG ORAL EVERY 8 HOURS Aspirin* (Aspir 81*), 81 MG ORAL DAILY, (Reported) Finasteride* (Proscar*), 5 MG ORAL DAILY, (Reported) Metoprolol Tartrate* (Metoprolol Tartrate*), 12.5 MG ORAL EVERY 12 HOURS, ( Reported) Metoprolol Tartrate* (Metoprolol Tartrate*), 25 MG ORAL BID, (Reported) Nitrofurantoin Monohyd/M-Cryst* (Macrobid 100 Mg*), 100 MG ORAL EVERY 12 HOURS Ranitidine Hcl* (Zantac*), 150 MG ORAL DAILY, (Reported) Tamsulosin Hcl (Tamsulosin Hcl*), 0.4 MG ORAL BEDTIME, (Reported) Thiamine Hcl* (Vitamin B-1*), 100 MG ORAL DAILY, (Reported) Scheduled PRN Acetaminophen* (Acetaminophen 325MG Tablet*), 650 MG ORAL Q4H PRN for For Pain, (Reported) Clonidine Hcl* (Catapres*), 0.1 MG ORAL EVERY 6 HOURS PRN for For High Blood Pressure, (Reported) Docusate Sodium* (Colace*), 100 MG ORAL DAILY PRN for Constipation, (Reported) Miscellaneous Medications Insulin Regular, Human (Humulin R), 0 SUBQ, (Reported) Patient History Healthcare decision maker Resuscitation status Advanced Directive on File Past Medical/Surgical History Past Medical/Surgical History: (1) HTN (hypertension) (2) Diabetes (3) Elevated CEA Review of Systems All Other Systems: negative except mentioned in HPI Physical Exam General Appearance: cachetic Lines, tubes and drains: peripheral HEENT: normocephalic, atraumatic Neck: non-tender, normal alignment Respiratory/Chest: chest wall non-tender, lungs clear Breasts: no masses Cardiovascular/Chest: normal peripheral pulses Abdomen: normal bowel sounds Genitourinary/Rectal: normal genital exam Skin Exam: normal pigmentation 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 Last 24 Hour Vital Signs Date Time Temp Pulse Resp B/P (MAP) Pulse Ox O2 Delivery O2 Flow Rate FiO2 03/18/18 09:55 71 138/95 03/18/18 06:00 141/100 03/18/18 05:30 140/100 03/18/18 04:24 165/100 03/18/18 04:00 80 03/18/18 04:00 97.9 73 18 165/100 98 97.9 03/18/18 00:03 97.2 76 20 140/92 98 97.2 03/18/18 00:00 106 03/17/18 21:50 167/102 03/17/18 20:18 167/102 03/17/18 20:00 98.2 74 20 160/104 98 Room Air 98.2 03/17/18 20:00 75 03/17/18 16:00 77 03/17/18 15:43 97.3 74 18 129/79 98 Room Air 97.3 03/17/18 13:07 146/80 03/17/18 12:00 75 03/17/18 12:00 98.2 64 18 146/80 99 Room Air 98.2 Intake and Output 03/17/18 03/18/18 19:00 07:00 Intake Total 435 ml 750 ml Output Total 1400 ml 2000 ml Balance -965 ml -1250 ml Intake Oral 360 ml IV Total 75 ml 750 ml Output Urine Total 1400 ml 2000 ml # Bowel Movements 2 Laboratory Tests Test 03/17/18 11:40 03/17/18 17:30 03/18/18 06:50 C-Reactive Protein, Quantitative < 0.4 mg/dL (0.00-0.90) Prostate Specific Antigen 140.92 ng/mL (0.13-4.0) H Hepatitis A IgM Antibody Negative (Negative) Hepatitis B Surface Antigen Negative (Negative) Hepatitis B Core IgM Antibody Negative (Negative) Hepatitis C Antibody <0.1 s/co ratio HIV (1&2) Antibody Rapid Negative (NEGATIVE) White Blood Count 4.6 K/UL (4.8-10.8) L Red Blood Count 4.71 M/UL (4.70-6.10) Hemoglobin 13.9 G/DL (14.2-18.0) L Hematocrit 42.0 % (42.0-52.0) Mean Corpuscular Volume 89 FL (80-99) Mean Corpuscular Hemoglobin 29.6 PG (27.0-31.0) Mean Corpuscular Hemoglobin Concent 33.2 G/DL (32.0-36.0) Red Cell Distribution Width 12.9 % (11.6-14.8) Platelet Count 140 K/UL (150-450) L Mean Platelet Volume 7.7 FL (6.5-10.1) Neutrophils (%) (Auto) 60.7 % (45.0-75.0) Lymphocytes (%) (Auto) 29.7 % (20.0-45.0) Monocytes (%) (Auto) 7.7 % (1.0-10.0) Eosinophils (%) (Auto) 1.0 % (0.0-3.0) Basophils (%) (Auto) 1.0 % (0.0-2.0) Sodium Level 141 MMOL/L (136-145) Potassium Level 3.4 MMOL/L (3.5-5.1) L Chloride Level 109 MMOL/L (98-107) H Carbon Dioxide Level 25 MMOL/L (21-32) Anion Gap 7 mmol/L (5-15) Blood Urea Nitrogen 10 mg/dL (7-18) Creatinine 1.2 MG/DL (0.55-1.30) Estimat Glomerular Filtration Rate mL/min (>60) Glucose Level 115 MG/DL (74-106) H Calcium Level 8.4 MG/DL (8.5-10.1) L Phosphorus Level 3.1 MG/DL (2.5-4.9) Magnesium Level 2.1 MG/DL (1.8-2.4) Total Bilirubin 0.3 MG/DL (0.2-1.0) Aspartate Amino Transf (AST/SGOT) 21 U/L (15-37) Alanine Aminotransferase (ALT/SGPT) 18 U/L (12-78) Alkaline Phosphatase 331 U/L (46-116) H Pro-B-Type Natriuretic Peptide 256 pg/mL (0-125) H Total Protein 5.8 G/DL (6.4-8.2) L Albumin 2.8 G/DL (3.4-5.0) L Globulin 3.0 g/dL Albumin/Globulin Ratio 0.9 (1.0-2.7) L Height (Feet): 6 Height (Inches): 1.00 Weight (Pounds): 166 Medications Current Medications Medications (Trade) Dose Ordered Sig/Eufemia Route PRN Reason Start Time Stop Time Status Last Admin Dose Admin Acetaminophen (Tylenol) 650 mg Q4H PRN ORAL For Pain 03/15/18 16:30 04/14/18 16:29 Amlodipine Besylate (Norvasc) 10 mg DAILY ORAL 03/16/18 09:00 04/15/18 08:59 03/18/18 09:55 Aspirin (Ecotrin) 81 mg DAILY ORAL 03/16/18 09:00 04/15/18 08:59 03/18/18 09:53 Ceftriaxone Sodium 1 gm/ Sodium Chloride 55 ml @ 110 mls/hr Q24H IVPB 03/17/18 09:00 03/22/18 09:29 03/18/18 10:29 Clonidine HCl (Catapres Tab) 0.1 mg Q4H PRN ORAL for BP over 160 syst 03/15/18 16:30 04/14/18 16:29 03/18/18 04:24 Docusate Sodium (Colace) 100 mg TID ORAL 03/15/18 18:00 04/14/18 17:59 03/18/18 09:55 Finasteride (Proscar) 5 mg DAILY ORAL 03/16/18 09:00 04/15/18 08:59 03/18/18 09:56 Folic Acid (Folate) 2 mg DAILY ORAL 03/16/18 14:30 04/15/18 14:29 03/18/18 09:55 Heparin Sodium (Porcine) (Heparin 5000 units/ml) 5,000 units EVERY 12 HOURS SUBQ 03/15/18 21:00 04/14/18 20:59 03/18/18 10:00 Hydralazine HCl (Apresoline) 50 mg Q8HR ORAL 03/17/18 14:00 04/15/18 13:59 03/18/18 06:00 Lorazepam (Ativan) 1 mg Q6H PRN ORAL For Anxiety 03/17/18 12:00 03/24/18 11:59 03/17/18 15:59 Tamsulosin HCl (Flomax) 0.4 mg BEDTIME ORAL 03/15/18 21:00 04/14/18 20:59 03/17/18 20:18 Thiamine HCl (Vitamin B1) 100 mg DAILY ORAL 03/16/18 09:00 04/15/18 08:59 03/18/18 09:56 Assessment/Plan Problem List: (1) Acute bronchitis ICD Codes: J20.9 - Acute bronchitis, unspecified SNOMED: 80868446 (2) Sepsis ICD Codes: A41.9 - Sepsis, unspecified organism SNOMED: 52651512 (3) Diabetes ICD Codes: E11.9 - Type 2 diabetes mellitus without complications SNOMED: 71097172 (4) HTN (hypertension) ICD Codes: I10 - Essential (primary) hypertension SNOMED: 60501278 Assessment/Plan check sputum CXr respiratory treatment titrate fio2 to sat of 92% antitussives continue abx pt may go to med/surg. Dayanna Perez MD Mar 18, 2018 10:57
[2018-03-18] MEDS ORDERED: Promethazine/Codeine 5ml UD ORAL PRN ×2 (11:00→16:00)
--- NOTE | 2018-03-18 11:22 | Diagnostic Imaging Report ---
Indication: Abnormal liver function tests and abnormal renal function tests Technique: Saha-scale and duplex images of the upper abdomen were obtained Comparison: Abdomen ultrasound dated 02/27/2016, abdomen pelvis CT 11/13/2017 Findings: There is suggestion of trace pleural fluid on the right. Gallbladder is unremarkable, without stones, wall thickening, nor pericholecystic fluid. There is questionably a small amount of sludge in the gallbladder lumen. Common bile duct measures 5 mm in diameter. No intrahepatic biliary ductal dilatation. Liver demonstrates normal echogenicity, no focal abnormality. Portal vein and hepatic veins are patent. Pancreas is unremarkable. Spleen is unremarkable. Left kidney measures 11.5 cm in length. Right kidney measures 10 cm length. Both kidneys demonstrate normal echogenicity. There is moderate left hydronephrosis. There is borderline minimal right hydronephrosis. No focal abnormality . The bladder is empty, contains a Martínez catheter. The urinary bladder wall is equivocally thickened, although this could just represent an artifact of under distention. Prostate is prominent, calculated volume of 42 mL. Abdominal aorta is partially obscured by bowel gas, visualized portions are non-aneurysmal . Impression: Left hydronephrosis, minimal right hydronephrosis. No definite CT scan of 11/13/2017 demonstrated bilateral hydronephrosis and hydroureter thought at that time secondary to bladder outlet obstruction. Hydronephrosis also evident on prior 03/12/2016 ultrasound Empty bladder with a Martínez catheter. Apparent gallbladder wall thickening, most likely artifact of under distention, process such as cystitis or bladder hypertrophy also possible Small right pleural effusion Prominent prostate, volume 42 mL Equivocal gallbladder sludge note that sludge is definitely demonstrated on prior 02/27/2016 ultrasound. Negative for gallstones or dilated ducts
[2018-03-18] MEDS ORDERED: Albuterol/Ipratropium 3ml neb HHN SCH (13:00)
--- NOTE | 2018-03-18 13:56 | General Progress Note ---
Assessment/Plan Problem List: (1) Sepsis ICD Codes: A41.9 - Sepsis, unspecified organism SNOMED: 00652669 (2) Diabetes ICD Codes: E11.9 - Type 2 diabetes mellitus without complications SNOMED: 28834265 (3) HTN (hypertension) ICD Codes: I10 - Essential (primary) hypertension SNOMED: 57505535 (4) UTI (urinary tract infection) ICD Codes: N39.0 - Urinary tract infection, site not specified SNOMED: 20926938 (5) Dehydration ICD Codes: E86.0 - Dehydration SNOMED: 55231064 Status: stable, progressing Assessment/Plan abx ivf ot pt diet cbc bmp am Subjective Constitutional: Reports: weakness Allergies: Coded Allergies: No Known Allergies (Unverified , 02/28/16) All Systems: reviewed and negative except above Subjective calm in bed Objective Last 24 Hour Vital Signs Date Time Temp Pulse Resp B/P (MAP) Pulse Ox O2 Delivery O2 Flow Rate FiO2 03/18/18 13:08 78 16 97 Room Air 21 03/18/18 12:57 76 16 96 Room Air 21 03/18/18 12:57 21 03/18/18 12:00 96.8 79 18 147/87 99 96.8 03/18/18 09:55 71 138/95 03/18/18 08:00 98.1 71 18 138/95 100 98.1 03/18/18 06:00 141/100 03/18/18 05:30 140/100 03/18/18 04:24 165/100 03/18/18 04:00 80 03/18/18 04:00 97.9 73 18 165/100 98 97.9 03/18/18 00:03 97.2 76 20 140/92 98 97.2 03/18/18 00:00 106 03/17/18 21:50 167/102 03/17/18 20:18 167/102 03/17/18 20:00 98.2 74 20 160/104 98 Room Air 98.2 03/17/18 20:00 75 03/17/18 16:00 77 03/17/18 15:43 97.3 74 18 129/79 98 Room Air 97.3 Intake and Output 03/17/18 03/18/18 19:00 07:00 Intake Total 435 ml 750 ml Output Total 1400 ml 2000 ml Balance -965 ml -1250 ml Intake Oral 360 ml IV Total 75 ml 750 ml Output Urine Total 1400 ml 2000 ml # Bowel Movements 2 Laboratory Tests 03/17/18 17:30: Prostate Specific Antigen 140.92H, Hepatitis A IgM Antibody Negative, Hepatitis B Surface Antigen Negative, Hepatitis B Core IgM Antibody Negative, Hepatitis C Antibody <0.1, HIV (1&2) Antibody Rapid Negative 03/18/18 06:50: White Blood Count 4.6L, Red Blood Count 4.71, Hemoglobin 13.9L, Hematocrit 42.0 , Mean Corpuscular Volume 89, Mean Corpuscular Hemoglobin 29.6, Mean Corpuscular Hemoglobin Concent 33.2, Red Cell Distribution Width 12.9, Platelet Count 140L, Mean Platelet Volume 7.7, Neutrophils (%) (Auto) 60.7, Lymphocytes ( %) (Auto) 29.7, Monocytes (%) (Auto) 7.7, Eosinophils (%) (Auto) 1.0, Basophils (%) (Auto) 1.0, Sodium Level 141, Potassium Level 3.4L, Chloride Level 109H, Carbon Dioxide Level 25, Anion Gap 7, Blood Urea Nitrogen 10, Creatinine 1.2, Estimat Glomerular Filtration Rate , Glucose Level 115H, Calcium Level 8.4L, Phosphorus Level 3.1, Magnesium Level 2.1, Total Bilirubin 0.3, Aspartate Amino Transf (AST/SGOT) 21, Alanine Aminotransferase (ALT/SGPT) 18, Alkaline Phosphatase 331H, Pro-B-Type Natriuretic Peptide 256H, Total Protein 5.8L, Albumin 2.8L, Globulin 3.0, Albumin/Globulin Ratio 0.9L Height (Feet): 6 Height (Inches): 1.00 Weight (Pounds): 166 General Appearance: lethargic EENT: normal ENT inspection Neck: normal alignment Cardiovascular: normal peripheral pulses, normal rate, regular rhythm Respiratory/Chest: chest wall non-tender, lungs clear, normal breath sounds Abdomen: normal bowel sounds, non tender, soft Extremities: normal inspection Edema: no edema noted Arm (L), no edema noted Arm (R), no edema noted Leg (L), no edema noted Leg (R), no edema noted Pedal (L), no edema noted Pedal (R), no edema noted Generalized Neurologic: motor weakness Skin: normal pigmentation, warm/dry Gonzalez,Darrell [place] DO Mar 18, 2018 13:56
--- NOTE | 2018-03-18 14:15 | Diagnostic Imaging Report ---
Indication: History of prostate carcinoma, evaluation for metastases Technique: Limited images of the axial skeleton and long bones Comparison: Reference made to abdomen pelvis CT dated 11/13/2017. Findings: There is a heterogeneous sclerotic appearance to the right acetabulum and ischium. Elsewhere, bones appear osteoporotic, but no definite osteolytic or osteoblastic lesions are demonstrated. The spine demonstrates normal bony alignment and no evidence of compression fracture deformity. The chest demonstrates clear lungs, no infiltrates, effusions, congestion. No rib lesions. Somewhat heterogeneous appearance of the distal humerus on the right, and of the right radius and ulna are noted. This most likely represents heterogeneity related to osteoporotic change, although neoplastic involvement cannot be excluded. Equivocal similar findings are seen in the left scapula. Impression: Heterogeneous sclerotic changes of the right acetabular and ischium. Note that acetabular sclerosis is visible in retrospect on prior CT scan of 11/13/2017, appears more extensive on current plain radiograph. This could indicate metastatic disease, but other etiologies are certainly possible, particularly in view of lack of similar findings elsewhere Recommend bone scan for more sensitive evaluation of possible metastatic disease Heterogeneity to the distal right humerus, as well as radius and ulna. More likely on the basis of osteoporotic change than metastatic disease.
[2018-03-18] MEDS: LORazepam 0.5mg tab ORAL PRN (18:09)
[2018-03-18] MEDS: Albuterol/Ipratropium 3ml neb HHN SCH (20:38)
[2018-03-18] MEDS: Tamsulosin 0.4mg cap ORAL SCH (21:00)
--- NOTE | 2018-03-18 23:09 | General Progress Note ---
Assessment/Plan Assessment/Plan Dementia with behavioral dist anxiety encephalopathy Ativan prn provided ro/st Seroquel Subjective Neurologic/Psychiatric: Reports: anxiety, emotional problems Allergies: Coded Allergies: No Known Allergies (Unverified , 02/28/16) Objective Last 24 Hour Vital Signs Date Time Temp Pulse Resp B/P (MAP) Pulse Ox O2 Delivery O2 Flow Rate FiO2 03/18/18 21:58 114/77 03/18/18 20:50 97.9 104 17 114/77 95 97.9 03/18/18 20:42 80 16 Room Air 21 03/18/18 20:00 70 16 96 Room Air 21 03/18/18 20:00 82 16 98 Room Air 21 03/18/18 19:30 80 16 Room Air 21 03/18/18 16:00 98.0 88 18 135/83 98 98.0 03/18/18 14:40 147/87 03/18/18 13:08 78 16 97 Room Air 21 03/18/18 12:57 76 16 96 Room Air 21 03/18/18 12:57 21 03/18/18 12:00 96.8 79 18 147/87 99 96.8 03/18/18 09:55 71 138/95 03/18/18 08:00 79 03/18/18 08:00 98.1 71 18 138/95 100 98.1 03/18/18 06:00 141/100 03/18/18 05:30 140/100 03/18/18 04:24 165/100 03/18/18 04:00 80 03/18/18 04:00 97.9 73 18 165/100 98 97.9 03/18/18 00:03 97.2 76 20 140/92 98 97.2 03/18/18 00:00 106 Intake and Output 03/17/18 03/18/18 19:00 07:00 Intake Total 435 ml 750 ml Output Total 1400 ml 2000 ml Balance -965 ml -1250 ml Intake Oral 360 ml IV Total 75 ml 750 ml Output Urine Total 1400 ml 2000 ml # Bowel Movements 2 Laboratory Tests 03/18/18 06:50: White Blood Count 4.6L, Red Blood Count 4.71, Hemoglobin 13.9L, Hematocrit 42.0 , Mean Corpuscular Volume 89, Mean Corpuscular Hemoglobin 29.6, Mean Corpuscular Hemoglobin Concent 33.2, Red Cell Distribution Width 12.9, Platelet Count 140L, Mean Platelet Volume 7.7, Neutrophils (%) (Auto) 60.7, Lymphocytes ( %) (Auto) 29.7, Monocytes (%) (Auto) 7.7, Eosinophils (%) (Auto) 1.0, Basophils (%) (Auto) 1.0, Sodium Level 141, Potassium Level 3.4L, Chloride Level 109H, Carbon Dioxide Level 25, Anion Gap 7, Blood Urea Nitrogen 10, Creatinine 1.2, Estimat Glomerular Filtration Rate , Glucose Level 115H, Calcium Level 8.4L, Phosphorus Level 3.1, Magnesium Level 2.1, Total Bilirubin 0.3, Aspartate Amino Transf (AST/SGOT) 21, Alanine Aminotransferase (ALT/SGPT) 18, Alkaline Phosphatase 331H, Pro-B-Type Natriuretic Peptide 256H, Total Protein 5.8L, Albumin 2.8L, Globulin 3.0, Albumin/Globulin Ratio 0.9L Height (Feet): 6 Height (Inches): 1.00 Weight (Pounds): 166 General Appearance: no apparent distress, alert, confused Watson Hillman M.D. Mar 18, 2018 23:09
[2018-03-19 00:47] VITALS: BP 136/93
[2018-03-19] MEDS: Albuterol/Ipratropium 3ml neb HHN SCH ×4 (01:00→19:46)
[2018-03-19 05:46] VITALS: BP 182/97
[2018-03-19] MEDS: HydrALAZINE 50mg tab ORAL SCH ×3 (05:51→20:33)
[2018-03-19 08:00] VITALS: BP 155/89
[2018-03-19] MEDS: Aspirin EC 81mg tab ORAL SCH (08:24)
[2018-03-19] MEDS: Docusate 100mg cap ORAL SCH ×3 (08:25→18:04)
[2018-03-19] MEDS: Thiamine 100mg tab ORAL SCH (08:25)
[2018-03-19] MEDS: Heparin 5000 units/ml inj SUBQ SCH ×2 (08:28→20:34)
[2018-03-19 08:38] LABS: BASOPHILS % (AUTO) 1.1 % (0.0-2.0); EOSINOPHILS % (AUTO) 0.6 % (0.0-3.0); HEMATOCRIT 48.4 % (42.0-52.0); HEMOGLOBIN 16.2 G/DL (14.2-18.0); LYMPHOCYTES % (AUTO) 36.1 % (20.0-45.0); MEAN CORPUSCULAR VOLUME 90 FL (80-99); NEUTROPHILS % (AUTO) 55.3 % (45.0-75.0); PLATELET COUNT 161 K/UL (150-450); RED BLOOD COUNT 5.38 M/UL (4.70-6.10); RED CELL DISTRIBUTION WIDTH 13.3 % (11.6-14.8); WHITE BLOOD COUNT 7.1 K/UL (4.8-10.8)
[2018-03-19] MEDS: cefTRIAXone 1 GM in NS 55 ML IVPB SCH (09:19)
[2018-03-19 09:32] LABS: ALANINE AMINOTRANSFERASE 18 U/L (12-78); ALBUMIN 3.3 G/DL (3.4-5.0); ALBUMIN/GLOBULIN RATIO 0.9 (1.0-2.7); ALKALINE PHOSPHATASE 391 U/L (46-116); ANION GAP 13 mmol/L (5-15); ASPARTATE AMINO TRANSFERASE 18 U/L (15-37); BILIRUBIN,TOTAL 0.4 MG/DL (0.2-1.0); BLOOD UREA NITROGEN 9 mg/dL (7-18); CALCIUM 9.4 MG/DL (8.5-10.1); CARBON DIOXIDE 21 MMOL/L (21-32); CHLORIDE 108 MMOL/L (98-107); CREATININE 1.5 MG/DL (0.55-1.30); POTASSIUM 3.3 MMOL/L (3.5-5.1); SODIUM 142 MMOL/L (136-145)
--- NOTE | 2018-03-19 10:45 | General Progress Note ---
Assessment/Plan Status: stable Assessment/Plan #. Elevated prostate antrigen --> psa results: 140.92, Heterogeneous sclerotic changes of the right acetabular and ischium. Note that acetabular sclerosis is visible in retrospect on prior CT scan of 11/13/2017, appears more extensive on current plain radiograph. This could indicate metastatic disease, but other etiologies are certainly possible, particularly in view of lack of similar findings elsewhere --> bone scan scheduled for today 03/19 shows metastatic disease --> recommend a biopsy for definitive diagnosis --> start bicalutamide and lupron outpatient --> outpatient followup #. Leukopenia potentially 2/2 sepsis rule out viral infection v infection -> hepatitis and hiv panel are negative #. Thrombocytopenia similar likely related to meds versus infection --> viral studies reviewed and are negative #. Pyuria --> s/p removal of the patient's Martínez catheter --> Administered ceftriaxone --> resolved #. Sepsis, likely due to urinary tract infection. --> Continue to closely monitor. Infectious Disease consulted. --> on IV abx #. Dehydration. Administer IV fluids. #. Possible nephropathy due to diabetes. #. Hypertension, likely potentially secondary to urinary retention. --> monitor for improvement --> on hydralazine Subjective Date patient seen: Mar 19, 2018 Allergies: Coded Allergies: No Known Allergies (Unverified , 02/28/16) All Systems: reviewed and negative except above Subjective No overnight events. Bone scan scheduled for today. NAD. Objective Last 24 Hour Vital Signs Date Time Temp Pulse Resp B/P (MAP) Pulse Ox O2 Delivery O2 Flow Rate FiO2 03/19/18 08:24 100 150/89 03/19/18 08:00 97.9 100 18 155/89 99 Room Air 97.9 03/19/18 07:36 118 16 98 Room Air 21 03/19/18 07:26 115 16 98 Room Air 21 03/19/18 05:51 182/97 03/19/18 05:46 97.0 77 20 182/97 99 97.0 03/19/18 01:03 Room Air 21 03/19/18 01:01 Room Air 21 03/19/18 00:47 98.1 86 18 136/93 98 98.1 03/18/18 21:58 114/77 03/18/18 20:50 97.9 104 17 114/77 95 97.9 03/18/18 20:42 80 16 Room Air 21 03/18/18 20:00 70 16 96 Room Air 21 03/18/18 20:00 82 16 98 Room Air 21 03/18/18 19:30 80 16 Room Air 21 03/18/18 16:00 98.0 88 18 135/83 98 98.0 03/18/18 14:40 147/87 03/18/18 13:08 78 16 97 Room Air 21 03/18/18 12:57 76 16 96 Room Air 21 03/18/18 12:57 21 03/18/18 12:00 96.8 79 18 147/87 99 96.8 Intake and Output 03/18/18 03/19/18 19:00 07:00 Output Total 100 ml 300 ml Balance -100 ml -300 ml Output Urine Total 100 ml 300 ml Laboratory Tests 03/19/18 08:05: White Blood Count 7.1#, Red Blood Count 5.38, Hemoglobin 16.2, Hematocrit 48.4, Mean Corpuscular Volume 90, Mean Corpuscular Hemoglobin 30.1, Mean Corpuscular Hemoglobin Concent 33.5, Red Cell Distribution Width 13.3, Platelet Count 161, Mean Platelet Volume 7.4, Neutrophils (%) (Auto) 55.3, Lymphocytes (%) (Auto) 36.1, Monocytes (%) (Auto) 7.0, Eosinophils (%) (Auto) 0.6, Basophils (%) (Auto ) 1.1, Sodium Level 142, Potassium Level 3.3L, Chloride Level 108H, Carbon Dioxide Level 21, Anion Gap 13, Blood Urea Nitrogen 9, Creatinine 1.5H, Estimat Glomerular Filtration Rate , Glucose Level 132H, Calcium Level 9.4, Total Bilirubin 0.4, Aspartate Amino Transf (AST/SGOT) 18, Alanine Aminotransferase ( ALT/SGPT) 18, Alkaline Phosphatase 391H, Pro-B-Type Natriuretic Peptide 284H, Total Protein 6.9, Albumin 3.3L, Globulin 3.6, Albumin/Globulin Ratio 0.9L Height (Feet): 6 Height (Inches): 1.00 Weight (Pounds): 166 General Appearance: no apparent distress, alert EENT: PERRL/EOMI Neck: normal alignment Cardiovascular: tachycardia Respiratory/Chest: no respiratory distress Abdomen: soft Kleynberg,Alexei L. MD Mar 19, 2018 10:45
--- NOTE | 2018-03-19 11:12 | Infectious Diseases Prog Note ---
Assessment/Plan Assessment/Plan A 1. e E.coli UTI 2. diabetes mellitus 3. hypertension 4. hydronephrosis, more in left side P 1. continue ceftriaxone 2. will follow up US of abdomen Subjective ROS Limited/Unobtainable: Yes Constitutional: Reports: no symptoms Gastrointestinal/Abdominal: Reports: no symptoms Genitourinary: Reports: no symptoms Allergies: Coded Allergies: No Known Allergies (Unverified , 02/28/16) Objective Vital Signs Last 24 Hour Vital Signs Date Time Temp Pulse Resp B/P (MAP) Pulse Ox O2 Delivery O2 Flow Rate FiO2 03/19/18 08:24 100 150/89 03/19/18 08:00 97.9 100 18 155/89 99 Room Air 97.9 03/19/18 07:36 118 16 98 Room Air 03/19/18 07:26 115 16 98 Room Air 03/19/18 05:51 182/97 03/19/18 05:46 97.0 77 20 182/97 99 97.0 03/19/18 01:03 Room Air 03/19/18 01:01 Room Air 03/19/18 00:47 98.1 86 18 136/93 98 98.1 03/18/18 21:58 114/77 03/18/18 20:50 97.9 104 17 114/77 95 97.9 03/18/18 20:42 80 16 Room Air 21 03/18/18 20:00 70 16 96 Room Air 21 03/18/18 20:00 82 16 98 Room Air 21 03/18/18 19:30 80 16 Room Air 21 03/18/18 16:00 98.0 88 18 135/83 98 98.0 03/18/18 14:40 147/87 03/18/18 13:08 78 16 97 Room Air 03/18/18 12:57 76 16 96 Room Air 21 03/18/18 12:57 21 03/18/18 12:00 96.8 79 18 147/87 99 96.8 Height (Feet): 6 Height (Inches): 1.00 Weight (Pounds): 166 General Appearance: no acute distress HEENT: mucous membranes moist Respiratory/Chest: lungs clear Cardiovascular: normal rate Abdomen: soft, non tender Extremities: no edema Neurologic/Psychiatric: alert, responsive Laboratory Tests Test 03/19/18 08:05 White Blood Count 7.1 K/UL (4.8-10.8) # Red Blood Count 5.38 M/UL (4.70-6.10) Hemoglobin 16.2 G/DL (14.2-18.0) Hematocrit 48.4 % (42.0-52.0) Mean Corpuscular Volume 90 FL (80-99) Mean Corpuscular Hemoglobin 30.1 PG (27.0-31.0) Mean Corpuscular Hemoglobin Concent 33.5 G/DL (32.0-36.0) Red Cell Distribution Width 13.3 % (11.6-14.8) Platelet Count 161 K/UL (150-450) Mean Platelet Volume 7.4 FL (6.5-10.1) Neutrophils (%) (Auto) 55.3 % (45.0-75.0) Lymphocytes (%) (Auto) 36.1 % (20.0-45.0) Monocytes (%) (Auto) 7.0 % (1.0-10.0) Eosinophils (%) (Auto) 0.6 % (0.0-3.0) Basophils (%) (Auto) 1.1 % (0.0-2.0) Sodium Level 142 MMOL/L (136-145) Potassium Level 3.3 MMOL/L (3.5-5.1) L Chloride Level 108 MMOL/L (98-107) H Carbon Dioxide Level 21 MMOL/L (21-32) Anion Gap 13 mmol/L (5-15) Blood Urea Nitrogen 9 mg/dL (7-18) Creatinine 1.5 MG/DL (0.55-1.30) H Estimat Glomerular Filtration Rate mL/min (>60) Glucose Level 132 MG/DL (74-106) H Calcium Level 9.4 MG/DL (8.5-10.1) Total Bilirubin 0.4 MG/DL (0.2-1.0) Aspartate Amino Transf (AST/SGOT) 18 U/L (15-37) Alanine Aminotransferase (ALT/SGPT) 18 U/L (12-78) Alkaline Phosphatase 391 U/L (46-116) H Pro-B-Type Natriuretic Peptide 284 pg/mL (0-125) H Total Protein 6.9 G/DL (6.4-8.2) Albumin 3.3 G/DL (3.4-5.0) L Globulin 3.6 g/dL Albumin/Globulin Ratio 0.9 (1.0-2.7) L Current Medications Medications (Trade) Dose Ordered Sig/Eufemia Route PRN Reason Start Time Stop Time Status Last Admin Dose Admin Acetaminophen (Tylenol) 650 mg Q4H PRN ORAL For Pain 03/18/18 15:30 04/14/18 15:29 Albuterol/ Ipratropium (Albuterol/ Ipratropium) 3 ml Q6HRT HHN 03/18/18 19:00 03/23/18 12:59 03/19/18 07:35 Amlodipine Besylate (Norvasc) 10 mg DAILY ORAL 03/19/18 09:00 04/15/18 08:59 03/19/18 08:24 Aspirin (Ecotrin) 81 mg DAILY ORAL 03/19/18 09:00 04/15/18 08:59 03/19/18 08:24 Ceftriaxone Sodium 1 gm/ Sodium Chloride 55 ml @ 110 mls/hr Q24H IVPB 03/19/18 09:00 03/22/18 09:29 03/19/18 09:19 Clonidine HCl (Catapres Tab) 0.1 mg Q4H PRN ORAL for BP over 160 syst 03/18/18 15:30 04/14/18 15:29 Docusate Sodium (Colace) 100 mg TID ORAL 03/18/18 18:00 04/14/18 17:59 03/19/18 08:25 Finasteride (Proscar) 5 mg DAILY ORAL 03/19/18 09:00 04/15/18 08:59 03/19/18 08:24 Folic Acid (Folate) 2 mg DAILY ORAL 03/19/18 09:00 04/15/18 14:29 03/19/18 08:24 Heparin Sodium (Porcine) (Heparin 5000 units/ml) 5,000 units EVERY 12 HOURS SUBQ 03/18/18 21:00 04/14/18 20:59 Hydralazine HCl (Apresoline) 50 mg Q8HR ORAL 03/18/18 22:00 04/15/18 13:59 03/19/18 05:51 Lorazepam (Ativan) 1 mg Q6H PRN ORAL For Anxiety 03/18/18 18:00 03/24/18 11:59 03/18/18 18:09 Promethazine HCl/ Codeine (Phenergan with Codeine) 5 ml Q4H PRN ORAL For Cough 03/18/18 16:00 04/17/18 15:59 Tamsulosin HCl (Flomax) 0.4 mg BEDTIME ORAL 03/18/18 21:00 04/14/18 20:59 Thiamine HCl (Vitamin B1) 100 mg DAILY ORAL 03/19/18 09:00 04/15/18 08:59 03/19/18 08:25 Rick Cat MD Mar 19, 2018 11:12
[2018-03-19 11:49] VITALS: BP 137/90
--- NOTE | 2018-03-19 12:16 | Diagnostic Imaging Report ---
Indication: Dyspnea Comparison: 11/13/2017 A single view chest radiograph was obtained. Findings: No definite infiltrate or pulmonary vascular congestion identified. The heart is normal in size. The aorta is mildly enlarged consistent with atherosclerotic vascular disease. The bones are osteopenic. Impression: No acute disease
--- NOTE | 2018-03-19 12:44 | General Progress Note ---
Assessment/Plan Status: stable, progressing Assessment/Plan Dementia with behavioral dist anxiety encephalopathy Ativan prn provided ro/st Seroquel Subjective Date patient seen: Mar 19, 2018 Neurologic/Psychiatric: Reports: anxiety, depressed, emotional problems Allergies: Coded Allergies: No Known Allergies (Unverified , 02/28/16) Subjective the pt is yelling however calmer today Objective Last 24 Hour Vital Signs Date Time Temp Pulse Resp B/P (MAP) Pulse Ox O2 Delivery O2 Flow Rate FiO2 03/19/18 11:49 97.1 84 18 137/90 100 97.1 03/19/18 08:24 100 150/89 03/19/18 08:00 97.9 100 18 155/89 99 Room Air 97.9 03/19/18 07:36 118 16 98 Room Air 03/19/18 07:26 115 16 98 Room Air 21 03/19/18 05:51 182/97 03/19/18 05:46 97.0 77 20 182/97 99 97.0 03/19/18 01:03 Room Air 03/19/18 01:01 Room Air 21 03/19/18 00:47 98.1 86 18 136/93 98 98.1 03/18/18 21:58 114/77 03/18/18 20:50 97.9 104 17 114/77 95 97.9 03/18/18 20:42 80 16 Room Air 21 03/18/18 20:00 70 16 96 Room Air 21 03/18/18 20:00 82 16 98 Room Air 21 03/18/18 19:30 80 16 Room Air 21 03/18/18 16:00 98.0 88 18 135/83 98 98.0 03/18/18 14:40 147/87 03/18/18 13:08 78 16 97 Room Air 03/18/18 12:57 76 16 96 Room Air 03/18/18 12:57 21 Intake and Output 03/18/18 03/19/18 19:00 07:00 Output Total 100 ml 300 ml Balance -100 ml -300 ml Output Urine Total 100 ml 300 ml Laboratory Tests 03/19/18 08:05: White Blood Count 7.1#, Red Blood Count 5.38, Hemoglobin 16.2, Hematocrit 48.4, Mean Corpuscular Volume 90, Mean Corpuscular Hemoglobin 30.1, Mean Corpuscular Hemoglobin Concent 33.5, Red Cell Distribution Width 13.3, Platelet Count 161, Mean Platelet Volume 7.4, Neutrophils (%) (Auto) 55.3, Lymphocytes (%) (Auto) 36.1, Monocytes (%) (Auto) 7.0, Eosinophils (%) (Auto) 0.6, Basophils (%) (Auto ) 1.1, Sodium Level 142, Potassium Level 3.3L, Chloride Level 108H, Carbon Dioxide Level 21, Anion Gap 13, Blood Urea Nitrogen 9, Creatinine 1.5H, Estimat Glomerular Filtration Rate , Glucose Level 132H, Calcium Level 9.4, Total Bilirubin 0.4, Aspartate Amino Transf (AST/SGOT) 18, Alanine Aminotransferase ( ALT/SGPT) 18, Alkaline Phosphatase 391H, Pro-B-Type Natriuretic Peptide 284H, Total Protein 6.9, Albumin 3.3L, Globulin 3.6, Albumin/Globulin Ratio 0.9L Height (Feet): 6 Height (Inches): 1.00 Weight (Pounds): 166 General Appearance: no apparent distress, alert, confused Watson Hillman M.D. Mar 19, 2018 12:44
--- NOTE | 2018-03-19 14:02 | General Progress Note ---
Assessment/Plan Problem List: (1) Sepsis ICD Codes: A41.9 - Sepsis, unspecified organism SNOMED: 75763655 (2) Diabetes ICD Codes: E11.9 - Type 2 diabetes mellitus without complications SNOMED: 51454653 (3) HTN (hypertension) ICD Codes: I10 - Essential (primary) hypertension SNOMED: 91190136 (4) UTI (urinary tract infection) ICD Codes: N39.0 - Urinary tract infection, site not specified SNOMED: 87535088 (5) Dehydration ICD Codes: E86.0 - Dehydration SNOMED: 51518904 Status: stable, progressing Assessment/Plan abx ivf ot pt diet cbc bmp am dc plan Subjective Constitutional: Reports: weakness Allergies: Coded Allergies: No Known Allergies (Unverified , 02/28/16) All Systems: reviewed and negative except above Subjective calm in bed Objective Last 24 Hour Vital Signs Date Time Temp Pulse Resp B/P (MAP) Pulse Ox O2 Delivery O2 Flow Rate FiO2 03/19/18 13:19 Room Air 03/19/18 13:19 Room Air 03/19/18 11:49 97.1 84 18 137/90 100 97.1 03/19/18 08:24 100 150/89 03/19/18 08:00 97.9 100 18 155/89 99 Room Air 97.9 03/19/18 07:36 118 16 98 Room Air 03/19/18 07:26 115 16 98 Room Air 21 03/19/18 05:51 182/97 03/19/18 05:46 97.0 77 20 182/97 99 97.0 03/19/18 01:03 Room Air 21 03/19/18 01:01 Room Air 21 03/19/18 00:47 98.1 86 18 136/93 98 98.1 03/18/18 21:58 114/77 03/18/18 20:50 97.9 104 17 114/77 95 97.9 03/18/18 20:42 80 16 Room Air 21 03/18/18 20:00 70 16 96 Room Air 21 03/18/18 20:00 82 16 98 Room Air 21 03/18/18 19:30 80 16 Room Air 21 03/18/18 16:00 98.0 88 18 135/83 98 98.0 03/18/18 14:40 147/87 Intake and Output 03/18/18 03/19/18 19:00 07:00 Output Total 100 ml 300 ml Balance -100 ml -300 ml Output Urine Total 100 ml 300 ml Laboratory Tests 03/19/18 08:05: White Blood Count 7.1#, Red Blood Count 5.38, Hemoglobin 16.2, Hematocrit 48.4, Mean Corpuscular Volume 90, Mean Corpuscular Hemoglobin 30.1, Mean Corpuscular Hemoglobin Concent 33.5, Red Cell Distribution Width 13.3, Platelet Count 161, Mean Platelet Volume 7.4, Neutrophils (%) (Auto) 55.3, Lymphocytes (%) (Auto) 36.1, Monocytes (%) (Auto) 7.0, Eosinophils (%) (Auto) 0.6, Basophils (%) (Auto ) 1.1, Sodium Level 142, Potassium Level 3.3L, Chloride Level 108H, Carbon Dioxide Level 21, Anion Gap 13, Blood Urea Nitrogen 9, Creatinine 1.5H, Estimat Glomerular Filtration Rate , Glucose Level 132H, Calcium Level 9.4, Total Bilirubin 0.4, Aspartate Amino Transf (AST/SGOT) 18, Alanine Aminotransferase ( ALT/SGPT) 18, Alkaline Phosphatase 391H, Pro-B-Type Natriuretic Peptide 284H, Total Protein 6.9, Albumin 3.3L, Globulin 3.6, Albumin/Globulin Ratio 0.9L Height (Feet): 6 Height (Inches): 1.00 Weight (Pounds): 166 General Appearance: lethargic EENT: normal ENT inspection Neck: normal alignment Cardiovascular: normal peripheral pulses, normal rate, regular rhythm Respiratory/Chest: chest wall non-tender, lungs clear, normal breath sounds Abdomen: normal bowel sounds, non tender, soft Extremities: normal inspection Edema: no edema noted Arm (L), no edema noted Arm (R), no edema noted Leg (L), no edema noted Leg (R), no edema noted Pedal (L), no edema noted Pedal (R), no edema noted Generalized Neurologic: motor weakness Skin: normal pigmentation, warm/dry Darrell Gonzalez DO Mar 19, 2018 14:02
[2018-03-19] MEDS: LORazepam 0.5mg tab ORAL PRN ×2 (14:21→20:33)
--- NOTE | 2018-03-19 14:31 | Nephrology Progress Note ---
Assessment/Plan Problem List: (1) Acute renal failure (2) Pyelonephritis (3) Hypertension Assessment Renal failure: - Dehydration - Possible undelying Nephropathy due to DM or HTN - HTN - BPH - UTI (urinary tract infection) Plan Hydrate- K supplement as needed Adjust BP meds DC lopressor for low HR and start Hydralazine for high BP monitor renal parameters per consultants Dc planning?? Subjective ROS Limited/Unobtainable: No Constitutional: Reports: malaise Objective Objective Last 24 Hour Vital Signs Date Time Temp Pulse Resp B/P (MAP) Pulse Ox O2 Delivery O2 Flow Rate FiO2 03/19/18 14:13 131/88 03/19/18 13:19 Room Air 03/19/18 13:19 Room Air 03/19/18 11:49 97.1 84 18 137/90 100 97.1 03/19/18 08:24 100 150/89 03/19/18 08:00 97.9 100 18 155/89 99 Room Air 97.9 03/19/18 07:36 118 16 98 Room Air 03/19/18 07:26 115 16 98 Room Air 21 03/19/18 05:51 182/97 03/19/18 05:46 97.0 77 20 182/97 99 97.0 03/19/18 01:03 Room Air 21 03/19/18 01:01 Room Air 21 03/19/18 00:47 98.1 86 18 136/93 98 98.1 03/18/18 21:58 114/77 03/18/18 20:50 97.9 104 17 114/77 95 97.9 03/18/18 20:42 80 16 Room Air 21 03/18/18 20:00 70 16 96 Room Air 21 03/18/18 20:00 82 16 98 Room Air 21 03/18/18 19:30 80 16 Room Air 03/18/18 16:00 98.0 88 18 135/83 98 98.0 03/18/18 14:40 147/87 Intake and Output 03/18/18 03/19/18 19:00 07:00 Output Total 100 ml 300 ml Balance -100 ml -300 ml Output Urine Total 100 ml 300 ml Current Medications Medications (Trade) Dose Ordered Sig/Eufemia Route PRN Reason Start Time Stop Time Status Last Admin Dose Admin Acetaminophen (Tylenol) 650 mg Q4H PRN ORAL For Pain 03/18/18 15:30 04/14/18 15:29 Albuterol/ Ipratropium (Albuterol/ Ipratropium) 3 ml Q6HRT HHN 03/18/18 19:00 03/23/18 12:59 03/19/18 07:35 Amlodipine Besylate (Norvasc) 10 mg DAILY ORAL 03/19/18 09:00 04/15/18 08:59 03/19/18 08:24 Aspirin (Ecotrin) 81 mg DAILY ORAL 03/19/18 09:00 04/15/18 08:59 03/19/18 08:24 Ceftriaxone Sodium 1 gm/ Sodium Chloride 55 ml @ 110 mls/hr Q24H IVPB 03/19/18 09:00 03/22/18 09:29 03/19/18 09:19 Clonidine HCl (Catapres Tab) 0.1 mg Q4H PRN ORAL for BP over 160 syst 03/18/18 15:30 04/14/18 15:29 Docusate Sodium (Colace) 100 mg TID ORAL 03/18/18 18:00 04/14/18 17:59 03/19/18 14:12 Finasteride (Proscar) 5 mg DAILY ORAL 03/19/18 09:00 04/15/18 08:59 03/19/18 08:24 Folic Acid (Folate) 2 mg DAILY ORAL 03/19/18 09:00 04/15/18 14:29 03/19/18 08:24 Heparin Sodium (Porcine) (Heparin 5000 units/ml) 5,000 units EVERY 12 HOURS SUBQ 03/18/18 21:00 04/14/18 20:59 Hydralazine HCl (Apresoline) 50 mg Q8HR ORAL 03/18/18 22:00 04/15/18 13:59 03/19/18 14:13 Lorazepam (Ativan) 1 mg Q6H PRN ORAL For Anxiety 03/18/18 18:00 03/24/18 11:59 03/19/18 14:21 Potassium Chloride (K-Dur) 40 meq ONCE ORAL 03/19/18 14:15 03/19/18 15:15 03/19/18 14:12 Promethazine HCl/ Codeine (Phenergan with Codeine) 5 ml Q4H PRN ORAL For Cough 03/18/18 16:00 04/17/18 15:59 Tamsulosin HCl (Flomax) 0.4 mg BEDTIME ORAL 03/18/18 21:00 04/14/18 20:59 Thiamine HCl (Vitamin B1) 100 mg DAILY ORAL 03/19/18 09:00 04/15/18 08:59 03/19/18 08:25 Laboratory Tests 03/19/18 08:05: White Blood Count 7.1#, Red Blood Count 5.38, Hemoglobin 16.2, Hematocrit 48.4, Mean Corpuscular Volume 90, Mean Corpuscular Hemoglobin 30.1, Mean Corpuscular Hemoglobin Concent 33.5, Red Cell Distribution Width 13.3, Platelet Count 161, Mean Platelet Volume 7.4, Neutrophils (%) (Auto) 55.3, Lymphocytes (%) (Auto) 36.1, Monocytes (%) (Auto) 7.0, Eosinophils (%) (Auto) 0.6, Basophils (%) (Auto ) 1.1, Sodium Level 142, Potassium Level 3.3L, Chloride Level 108H, Carbon Dioxide Level 21, Anion Gap 13, Blood Urea Nitrogen 9, Creatinine 1.5H, Estimat Glomerular Filtration Rate , Glucose Level 132H, Calcium Level 9.4, Total Bilirubin 0.4, Aspartate Amino Transf (AST/SGOT) 18, Alanine Aminotransferase ( ALT/SGPT) 18, Alkaline Phosphatase 391H, Pro-B-Type Natriuretic Peptide 284H, Total Protein 6.9, Albumin 3.3L, Globulin 3.6, Albumin/Globulin Ratio 0.9L Height (Feet): 6 Height (Inches): 1.00 Weight (Pounds): 166 General Appearance: no apparent distress Objective no change BRIGIDA BAILEY Mar 19, 2018 14:31
[2018-03-19 15:39] VITALS: BP 142/89
--- NOTE | 2018-03-19 16:57 | Diagnostic Imaging Report ---
Indication: Back pain. Elevated PSA. Abnormal skeletal survey. History of prostate cancer Technique: 25.4 mCi of technetium 99 M-MDP was injected intravenously. A whole-body bone scan was then performed in anterior and posterior projections. Several spot images were also obtained. Comparison: Recent skeletal survey 03/18/2018 Findings: . Corresponding intense abnormal uptake demonstrated in the right aspect of the acetabulum pubis and ischium consistent with metastatic neoplasm. Several abnormal foci also demonstrated throughout the thoracolumbar spine and several rib lesions near the costovertebral junctions bilaterally. There is retention of radiotracer within the collecting system of the left kidney with a dilated renal pelvis and markedly dilated ureter. Impression: Suspicion of metastatic neoplasm as described above. Obstruction of the left collecting system suspected. This could be due to localize pelvic disease and tumor involving the bladder base. Correlate with contrast CT.
[2018-03-19 20:00] VITALS: BP 125/81
[2018-03-19] MEDS: Tamsulosin 0.4mg cap ORAL SCH (20:33)
[2018-03-20] MEDS: Albuterol/Ipratropium 3ml neb HHN SCH ×3 (01:00→13:00)
[2018-03-20 04:00] VITALS: BP 159/98
[2018-03-20] MEDS: HydrALAZINE 50mg tab ORAL SCH (05:42)
[2018-03-20 06:30] LABS: ANION GAP 9 mmol/L (5-15); BLOOD UREA NITROGEN 10 mg/dL (7-18); CALCIUM 8.5 MG/DL (8.5-10.1); CARBON DIOXIDE 23 MMOL/L (21-32); CHLORIDE 110 MMOL/L (98-107); CREATININE 1.3 MG/DL (0.55-1.30); POTASSIUM 3.8 MMOL/L (3.5-5.1); SODIUM 142 MMOL/L (136-145)
[2018-03-20 06:31] LABS: BASOPHILS % (AUTO) 1.2 % (0.0-2.0); EOSINOPHILS % (AUTO) 1.1 % (0.0-3.0); HEMATOCRIT 42.1 % (42.0-52.0); HEMOGLOBIN 13.9 G/DL (14.2-18.0); LYMPHOCYTES % (AUTO) 27.9 % (20.0-45.0); MEAN CORPUSCULAR VOLUME 90 FL (80-99); NEUTROPHILS % (AUTO) 60.8 % (45.0-75.0); PLATELET COUNT 141 K/UL (150-450); RED BLOOD COUNT 4.66 M/UL (4.70-6.10); RED CELL DISTRIBUTION WIDTH 13.9 % (11.6-14.8); WHITE BLOOD COUNT 5.2 K/UL (4.8-10.8)
--- NOTE | 2018-03-20 07:01 | General Progress Note ---
Assessment/Plan Problem List: (1) Diabetes ICD Codes: E11.9 - Type 2 diabetes mellitus without complications SNOMED: 70219902 (2) UTI (urinary tract infection) ICD Codes: N39.0 - Urinary tract infection, site not specified SNOMED: 22384045 Status: progressing Assessment/Plan e coli uti urinary retention begum was replaced by er needs to go to snf w begum cath due to urinary retention and and hydronephrosis was agitated and trying to awol so ordered sitter has advanced dementia Subjective ROS Limited/Unobtainable: Yes Allergies: Coded Allergies: No Known Allergies (Unverified , 02/28/16) Objective Last 24 Hour Vital Signs Date Time Temp Pulse Resp B/P (MAP) Pulse Ox O2 Delivery O2 Flow Rate FiO2 03/20/18 05:42 159/98 03/20/18 04:00 98.3 94 18 159/98 100 98.3 03/20/18 01:15 Room Air 03/20/18 01:15 Room Air 03/19/18 20:33 142/89 03/19/18 20:01 94 16 98 Room Air 21 03/19/18 20:00 99.0 89 18 125/81 97 99.0 03/19/18 19:48 92 20 96 Room Air 21 03/19/18 15:39 98.1 91 18 142/89 100 98.1 03/19/18 14:13 131/88 03/19/18 13:19 Room Air 03/19/18 13:19 Room Air 03/19/18 11:49 97.1 84 18 137/90 100 97.1 03/19/18 08:24 100 150/89 03/19/18 08:00 97.9 100 18 155/89 99 Room Air 97.9 03/19/18 07:36 118 16 98 Room Air 21 03/19/18 07:26 115 16 98 Room Air 21 Intake and Output 03/19/18 03/20/18 19:00 07:00 Intake Total 480 ml Output Total 525 ml Balance -45 ml Intake Oral 480 ml Output Urine Total 525 ml # Bowel Movements 1 Laboratory Tests 03/19/18 08:05: White Blood Count 7.1#, Red Blood Count 5.38, Hemoglobin 16.2, Hematocrit 48.4, Mean Corpuscular Volume 90, Mean Corpuscular Hemoglobin 30.1, Mean Corpuscular Hemoglobin Concent 33.5, Red Cell Distribution Width 13.3, Platelet Count 161, Mean Platelet Volume 7.4, Neutrophils (%) (Auto) 55.3, Lymphocytes (%) (Auto) 36.1, Monocytes (%) (Auto) 7.0, Eosinophils (%) (Auto) 0.6, Basophils (%) (Auto ) 1.1, Sodium Level 142, Potassium Level 3.3L, Chloride Level 108H, Carbon Dioxide Level 21, Anion Gap 13, Blood Urea Nitrogen 9, Creatinine 1.5H, Estimat Glomerular Filtration Rate , Glucose Level 132H, Calcium Level 9.4, Total Bilirubin 0.4, Aspartate Amino Transf (AST/SGOT) 18, Alanine Aminotransferase ( ALT/SGPT) 18, Alkaline Phosphatase 391H, Pro-B-Type Natriuretic Peptide 284H, Total Protein 6.9, Albumin 3.3L, Globulin 3.6, Albumin/Globulin Ratio 0.9L 03/20/18 05:25: White Blood Count 5.2, Red Blood Count 4.66L, Hemoglobin 13.9L, Hematocrit 42.1 , Mean Corpuscular Volume 90, Mean Corpuscular Hemoglobin 29.8, Mean Corpuscular Hemoglobin Concent 33.0, Red Cell Distribution Width 13.9, Platelet Count 141L, Mean Platelet Volume 7.6, Neutrophils (%) (Auto) 60.8, Lymphocytes ( %) (Auto) 27.9, Monocytes (%) (Auto) 9.0, Eosinophils (%) (Auto) 1.1, Basophils (%) (Auto) 1.2, Sodium Level 142, Potassium Level 3.8, Chloride Level 110H, Carbon Dioxide Level 23, Anion Gap 9, Blood Urea Nitrogen 10, Creatinine 1.3, Estimat Glomerular Filtration Rate , Glucose Level 106, Calcium Level 8.5 Height (Feet): 6 Height (Inches): 1.00 Weight (Pounds): 166 Cardiovascular: normal rate Respiratory/Chest: lungs clear Abdomen: soft Jhon Moreno MD Mar 20, 2018 07:01
[2018-03-20] MEDS ORDERED: Lidocaine 1% Plain 30 ml INJ PRN (07:45)
[2018-03-20 07:54] VITALS: BP 127/81
[2018-03-20] MEDS ORDERED: Bicalutamide 50mg tab ORAL SCH (09:00)
[2018-03-20] MEDS: Heparin 5000 units/ml inj SUBQ SCH (09:41)
[2018-03-20] MEDS: cefTRIAXone 1 GM in NS 55 ML IVPB SCH (09:44)
[2018-03-20 09:45] VITALS: BP 127/81
[2018-03-20] MEDS: Thiamine 100mg tab ORAL SCH (09:45)
[2018-03-20] MEDS: Aspirin EC 81mg tab ORAL SCH (09:45)
[2018-03-20] MEDS: Docusate 100mg cap ORAL SCH (09:45)
--- NOTE | 2018-03-20 10:24 | Nephrology Progress Note ---
Assessment/Plan Problem List: (1) Acute renal failure (2) Pyelonephritis (3) Hypertension Assessment Renal failure: - Dehydration - Possible undelying Nephropathy due to DM or HTN - HTN - BPH - UTI (urinary tract infection) Plan Hydrate- K supplement as needed Adjust BP meds DC lopressor for low HR and start Hydralazine for high BP monitor renal parameters per consultants Dc planning?? Subjective ROS Limited/Unobtainable: No Constitutional: Reports: malaise Objective Objective Last 24 Hour Vital Signs Date Time Temp Pulse Resp B/P (MAP) Pulse Ox O2 Delivery O2 Flow Rate FiO2 03/20/18 09:45 72 127/81 03/20/18 08:15 Room Air 03/20/18 08:15 Room Air 03/20/18 07:54 98.6 72 18 127/81 Room Air 98.6 03/20/18 05:42 159/98 03/20/18 04:00 98.3 94 18 159/98 100 98.3 03/20/18 01:15 Room Air 03/20/18 01:15 Room Air 03/19/18 20:33 142/89 03/19/18 20:01 94 16 98 Room Air 21 03/19/18 20:00 99.0 89 18 125/81 97 99.0 03/19/18 19:48 92 20 96 Room Air 21 03/19/18 15:39 98.1 91 18 142/89 100 98.1 03/19/18 14:13 131/88 03/19/18 13:19 Room Air 03/19/18 13:19 Room Air 03/19/18 11:49 97.1 84 18 137/90 100 97.1 Intake and Output 03/19/18 03/20/18 19:00 07:00 Intake Total 480 ml 250 ml Output Total 525 ml 320 ml Balance -45 ml -70 ml Intake Oral 480 ml 250 ml Output Urine Total 525 ml 320 ml # Bowel Movements 1 Laboratory Tests 03/20/18 05:25: White Blood Count 5.2, Red Blood Count 4.66L, Hemoglobin 13.9L, Hematocrit 42.1 , Mean Corpuscular Volume 90, Mean Corpuscular Hemoglobin 29.8, Mean Corpuscular Hemoglobin Concent 33.0, Red Cell Distribution Width 13.9, Platelet Count 141L, Mean Platelet Volume 7.6, Neutrophils (%) (Auto) 60.8, Lymphocytes ( %) (Auto) 27.9, Monocytes (%) (Auto) 9.0, Eosinophils (%) (Auto) 1.1, Basophils (%) (Auto) 1.2, Sodium Level 142, Potassium Level 3.8, Chloride Level 110H, Carbon Dioxide Level 23, Anion Gap 9, Blood Urea Nitrogen 10, Creatinine 1.3, Estimat Glomerular Filtration Rate , Glucose Level 106, Calcium Level 8.5 Height (Feet): 6 Height (Inches): 1.00 Weight (Pounds): 166 General Appearance: no apparent distress Objective no change BRIGIDA BAILEY Mar 20, 2018 10:24
--- NOTE | 2018-03-20 10:33 | Infectious Diseases Prog Note ---
Assessment/Plan Assessment/Plan A 1. e E.coli UTI 2. diabetes mellitus 3. hypertension 4. hydronephrosis, more in left side P 1. change ceftriaxone to Keflex Subjective ROS Limited/Unobtainable: Yes Constitutional: Reports: no symptoms Gastrointestinal/Abdominal: Reports: no symptoms Genitourinary: Reports: no symptoms Allergies: Coded Allergies: No Known Allergies (Unverified , 02/28/16) Objective Vital Signs Last 24 Hour Vital Signs Date Time Temp Pulse Resp B/P (MAP) Pulse Ox O2 Delivery O2 Flow Rate FiO2 03/20/18 09:45 72 127/81 03/20/18 08:15 Room Air 03/20/18 08:15 Room Air 03/20/18 07:54 98.6 72 18 127/81 Room Air 98.6 03/20/18 05:42 159/98 03/20/18 04:00 98.3 94 18 159/98 100 98.3 03/20/18 01:15 Room Air 03/20/18 01:15 Room Air 03/19/18 20:33 142/89 03/19/18 20:01 94 16 98 Room Air 21 03/19/18 20:00 99.0 89 18 125/81 97 99.0 03/19/18 19:48 92 20 96 Room Air 21 03/19/18 15:39 98.1 91 18 142/89 100 98.1 03/19/18 14:13 131/88 03/19/18 13:19 Room Air 03/19/18 13:19 Room Air 03/19/18 11:49 97.1 84 18 137/90 100 97.1 Height (Feet): 6 Height (Inches): 1.00 Weight (Pounds): 166 General Appearance: no acute distress HEENT: mucous membranes moist Respiratory/Chest: lungs clear Cardiovascular: normal rate Abdomen: soft, non tender Genitourinary: other - Martínez catheter Laboratory Tests Test 03/20/18 05:25 White Blood Count 5.2 K/UL (4.8-10.8) Red Blood Count 4.66 M/UL (4.70-6.10) L Hemoglobin 13.9 G/DL (14.2-18.0) L Hematocrit 42.1 % (42.0-52.0) Mean Corpuscular Volume 90 FL (80-99) Mean Corpuscular Hemoglobin 29.8 PG (27.0-31.0) Mean Corpuscular Hemoglobin Concent 33.0 G/DL (32.0-36.0) Red Cell Distribution Width 13.9 % (11.6-14.8) Platelet Count 141 K/UL (150-450) L Mean Platelet Volume 7.6 FL (6.5-10.1) Neutrophils (%) (Auto) 60.8 % (45.0-75.0) Lymphocytes (%) (Auto) 27.9 % (20.0-45.0) Monocytes (%) (Auto) 9.0 % (1.0-10.0) Eosinophils (%) (Auto) 1.1 % (0.0-3.0) Basophils (%) (Auto) 1.2 % (0.0-2.0) Sodium Level 142 MMOL/L (136-145) Potassium Level 3.8 MMOL/L (3.5-5.1) Chloride Level 110 MMOL/L (98-107) H Carbon Dioxide Level 23 MMOL/L (21-32) Anion Gap 9 mmol/L (5-15) Blood Urea Nitrogen 10 mg/dL (7-18) Creatinine 1.3 MG/DL (0.55-1.30) Estimat Glomerular Filtration Rate mL/min (>60) Glucose Level 106 MG/DL (74-106) Calcium Level 8.5 MG/DL (8.5-10.1) Current Medications Medications (Trade) Dose Ordered Sig/Eufemia Route PRN Reason Start Time Stop Time Status Last Admin Dose Admin Acetaminophen (Tylenol) 650 mg Q4H PRN ORAL For Pain 03/18/18 15:30 04/14/18 15:29 03/19/18 21:37 Albuterol/ Ipratropium (Albuterol/ Ipratropium) 3 ml Q6HRT HHN 03/18/18 19:00 03/23/18 12:59 03/19/18 19:46 Amlodipine Besylate (Norvasc) 10 mg DAILY ORAL 03/19/18 09:00 04/15/18 08:59 03/20/18 09:45 Aspirin (Ecotrin) 81 mg DAILY ORAL 03/19/18 09:00 04/15/18 08:59 03/20/18 09:45 Bicalutamide (Casodex) 50 mg DAILY ORAL 03/20/18 09:00 03/25/18 08:59 03/20/18 09:45 Ceftriaxone Sodium 1 gm/ Sodium Chloride 55 ml @ 110 mls/hr Q24H IVPB 03/19/18 09:00 03/22/18 09:29 03/20/18 09:44 Clonidine HCl (Catapres Tab) 0.1 mg Q4H PRN ORAL for BP over 160 syst 03/18/18 15:30 04/14/18 15:29 Docusate Sodium (Colace) 100 mg TID ORAL 03/18/18 18:00 04/14/18 17:59 03/20/18 09:45 Finasteride (Proscar) 5 mg DAILY ORAL 03/19/18 09:00 04/15/18 08:59 03/20/18 09:45 Folic Acid (Folate) 2 mg DAILY ORAL 03/19/18 09:00 04/15/18 14:29 03/20/18 09:45 Heparin Sodium (Porcine) (Heparin 5000 units/ml) 5,000 units EVERY 12 HOURS SUBQ 03/18/18 21:00 04/14/18 20:59 03/19/18 20:34 Hydralazine HCl (Apresoline) 50 mg Q8HR ORAL 03/18/18 22:00 04/15/18 13:59 03/20/18 05:42 Lidocaine HCl (Xylocaine 1% 30ml) 30 ml NOW PRN INJ Radiology Procedure 03/20/18 07:45 03/22/18 07:32 Lorazepam (Ativan) 1 mg Q6H PRN ORAL For Anxiety 03/18/18 18:00 03/24/18 11:59 03/19/18 20:33 Promethazine HCl/ Codeine (Phenergan with Codeine) 5 ml Q4H PRN ORAL For Cough 03/18/18 16:00 04/17/18 15:59 Tamsulosin HCl (Flomax) 0.4 mg BEDTIME ORAL 03/18/18 21:00 04/14/18 20:59 03/19/18 20:33 Thiamine HCl (Vitamin B1) 100 mg DAILY ORAL 03/19/18 09:00 04/15/18 08:59 03/20/18 09:45 Rick Cat MD Mar 20, 2018 10:33
[2018-03-20] MEDS ORDERED: CEPHALEXIN500 MG ORAL (10:48)
--- NOTE | 2018-03-20 11:51 | General Progress Note ---
Assessment/Plan Status: unchanged Assessment/Plan #. Elevated prostate antrigen --> psa results: 140.92, Heterogeneous sclerotic changes of the right acetabular and ischium. Note that acetabular sclerosis is visible in retrospect on prior CT scan of 11/13/2017, appears more extensive on current plain radiograph. This could indicate metastatic disease, but other etiologies are certainly possible, particularly in view of lack of similar findings elsewhere --> bone scan 03/20 shows metastatic disease --> recommend a biopsy for definitive diagnosis --> start bicalutamide and lupron outpatient --> outpatient followup #. Leukopenia potentially 2/2 sepsis rule out viral infection v infection -> hepatitis and hiv panel are negative #. Thrombocytopenia similar likely related to meds versus infection --> viral studies reviewed and are negative #. Pyuria --> s/p removal of the patient's Martínez catheter --> Administered ceftriaxone --> resolved #. Sepsis, likely due to urinary tract infection. --> Continue to closely monitor. Infectious Disease consulted. --> on IV abx #. Dehydration. Administer IV fluids. #. Possible nephropathy due to diabetes. #. Hypertension, likely potentially secondary to urinary retention. --> monitor for improvement --> on hydralazine Subjective Date patient seen: Mar 20, 2018 Allergies: Coded Allergies: No Known Allergies (Unverified , 02/28/16) All Systems: reviewed and negative except above Subjective No acute overnight events. Abx changed. DC to snf planning. Bone scan shows suspicion of metastatic neoplasm. Objective Last 24 Hour Vital Signs Date Time Temp Pulse Resp B/P (MAP) Pulse Ox O2 Delivery O2 Flow Rate FiO2 03/20/18 09:45 72 127/81 03/20/18 08:15 Room Air 03/20/18 08:15 Room Air 03/20/18 07:54 98.6 72 18 127/81 Room Air 98.6 03/20/18 05:42 159/98 03/20/18 04:00 98.3 94 18 159/98 100 98.3 03/20/18 01:15 Room Air 03/20/18 01:15 Room Air 03/19/18 20:33 142/89 03/19/18 20:01 94 16 98 Room Air 21 03/19/18 20:00 99.0 89 18 125/81 97 99.0 03/19/18 19:48 92 20 96 Room Air 21 03/19/18 15:39 98.1 91 18 142/89 100 98.1 03/19/18 14:13 131/88 03/19/18 13:19 Room Air 03/19/18 13:19 Room Air 03/19/18 11:49 97.1 84 18 137/90 100 97.1 Intake and Output 03/19/18 03/20/18 19:00 07:00 Intake Total 480 ml 250 ml Output Total 525 ml 320 ml Balance -45 ml -70 ml Intake Oral 480 ml 250 ml Output Urine Total 525 ml 320 ml # Bowel Movements 1 Laboratory Tests 03/20/18 05:25: White Blood Count 5.2, Red Blood Count 4.66L, Hemoglobin 13.9L, Hematocrit 42.1 , Mean Corpuscular Volume 90, Mean Corpuscular Hemoglobin 29.8, Mean Corpuscular Hemoglobin Concent 33.0, Red Cell Distribution Width 13.9, Platelet Count 141L, Mean Platelet Volume 7.6, Neutrophils (%) (Auto) 60.8, Lymphocytes ( %) (Auto) 27.9, Monocytes (%) (Auto) 9.0, Eosinophils (%) (Auto) 1.1, Basophils (%) (Auto) 1.2, Sodium Level 142, Potassium Level 3.8, Chloride Level 110H, Carbon Dioxide Level 23, Anion Gap 9, Blood Urea Nitrogen 10, Creatinine 1.3, Estimat Glomerular Filtration Rate , Glucose Level 106, Calcium Level 8.5 Height (Feet): 6 Height (Inches): 1.00 Weight (Pounds): 166 General Appearance: no apparent distress EENT: PERRL/EOMI Neck: normal alignment Cardiovascular: normal peripheral pulses Respiratory/Chest: no respiratory distress Abdomen: soft Alexei Pompa MD Mar 20, 2018 11:51
--- NOTE | 2018-03-20 12:14 | Pulmonology Progress Note ---
Assessment/Plan Problems: (1) Acute bronchitis (2) Sepsis (3) Diabetes (4) HTN (hypertension) Assessment/Plan respiratory treatment titrate fio2 to sat of 92% antitussives continue abx check cultures check electrolytes dvt prophylaxis. Subjective Interval Events: late note for 03/19, no new complains Allergies: Coded Allergies: No Known Allergies (Unverified , 02/28/16) Objective Last 24 Hour Vital Signs Date Time Temp Pulse Resp B/P (MAP) Pulse Ox O2 Delivery O2 Flow Rate FiO2 03/20/18 09:45 72 127/81 03/20/18 08:15 Room Air 03/20/18 08:15 Room Air 03/20/18 07:54 98.6 72 18 127/81 Room Air 98.6 03/20/18 05:42 159/98 03/20/18 04:00 98.3 94 18 159/98 100 98.3 03/20/18 01:15 Room Air 03/20/18 01:15 Room Air 03/19/18 20:33 142/89 03/19/18 20:01 94 16 98 Room Air 21 03/19/18 20:00 99.0 89 18 125/81 97 99.0 03/19/18 19:48 92 20 96 Room Air 21 03/19/18 15:39 98.1 91 18 142/89 100 98.1 03/19/18 14:13 131/88 03/19/18 13:19 Room Air 03/19/18 13:19 Room Air Intake and Output 03/19/18 03/20/18 19:00 07:00 Intake Total 480 ml 250 ml Output Total 525 ml 320 ml Balance -45 ml -70 ml Intake Oral 480 ml 250 ml Output Urine Total 525 ml 320 ml # Bowel Movements 1 General Appearance: WD/WN HEENT: normocephalic Respiratory/Chest: chest wall non-tender, lungs clear Cardiovascular: normal peripheral pulses, normal rate Abdomen: normal bowel sounds, soft, non tender Genitourinary: normal external genitalia Extremities: no cyanosis 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 Lymphatic: no neck adenopathy Laboratory Tests 03/20/18 05:25: White Blood Count 5.2, Red Blood Count 4.66L, Hemoglobin 13.9L, Hematocrit 42.1 , Mean Corpuscular Volume 90, Mean Corpuscular Hemoglobin 29.8, Mean Corpuscular Hemoglobin Concent 33.0, Red Cell Distribution Width 13.9, Platelet Count 141L, Mean Platelet Volume 7.6, Neutrophils (%) (Auto) 60.8, Lymphocytes ( %) (Auto) 27.9, Monocytes (%) (Auto) 9.0, Eosinophils (%) (Auto) 1.1, Basophils (%) (Auto) 1.2, Sodium Level 142, Potassium Level 3.8, Chloride Level 110H, Carbon Dioxide Level 23, Anion Gap 9, Blood Urea Nitrogen 10, Creatinine 1.3, Estimat Glomerular Filtration Rate , Glucose Level 106, Calcium Level 8.5 Current Medications Medications (Trade) Dose Ordered Sig/Eufemia Route PRN Reason Start Time Stop Time Status Last Admin Dose Admin Acetaminophen (Tylenol) 650 mg Q4H PRN ORAL For Pain 03/18/18 15:30 04/14/18 15:29 03/19/18 21:37 Albuterol/ Ipratropium (Albuterol/ Ipratropium) 3 ml Q6HRT HHN 03/18/18 19:00 03/23/18 12:59 03/19/18 19:46 Amlodipine Besylate (Norvasc) 10 mg DAILY ORAL 03/19/18 09:00 04/15/18 08:59 03/20/18 09:45 Aspirin (Ecotrin) 81 mg DAILY ORAL 03/19/18 09:00 04/15/18 08:59 03/20/18 09:45 Bicalutamide (Casodex) 50 mg DAILY ORAL 03/20/18 09:00 03/25/18 08:59 03/20/18 09:45 Cephalexin (Keflex) 500 mg EVERY 8 HOURS ORAL 03/20/18 14:00 03/27/18 13:59 Clonidine HCl (Catapres Tab) 0.1 mg Q4H PRN ORAL for BP over 160 syst 03/18/18 15:30 04/14/18 15:29 Docusate Sodium (Colace) 100 mg TID ORAL 03/18/18 18:00 04/14/18 17:59 03/20/18 09:45 Finasteride (Proscar) 5 mg DAILY ORAL 03/19/18 09:00 04/15/18 08:59 03/20/18 09:45 Folic Acid (Folate) 2 mg DAILY ORAL 03/19/18 09:00 04/15/18 14:29 03/20/18 09:45 Heparin Sodium (Porcine) (Heparin 5000 units/ml) 5,000 units EVERY 12 HOURS SUBQ 03/18/18 21:00 04/14/18 20:59 03/19/18 20:34 Hydralazine HCl (Apresoline) 50 mg Q8HR ORAL 03/18/18 22:00 04/15/18 13:59 03/20/18 05:42 Lidocaine HCl (Xylocaine 1% 30ml) 30 ml NOW PRN INJ Radiology Procedure 03/20/18 07:45 03/22/18 07:32 Lorazepam (Ativan) 1 mg Q6H PRN ORAL For Anxiety 03/18/18 18:00 03/24/18 11:59 03/19/18 20:33 Promethazine HCl/ Codeine (Phenergan with Codeine) 5 ml Q4H PRN ORAL For Cough 03/18/18 16:00 04/17/18 15:59 Tamsulosin HCl (Flomax) 0.4 mg BEDTIME ORAL 03/18/18 21:00 04/14/18 20:59 03/19/18 20:33 Thiamine HCl (Vitamin B1) 100 mg DAILY ORAL 03/19/18 09:00 04/15/18 08:59 03/20/18 09:45 Dayanna Perez MD Mar 20, 2018 12:14
--- NOTE | 2018-03-20 12:15 | Pulmonology Progress Note ---
Assessment/Plan Problems: (1) Acute bronchitis (2) Sepsis (3) Diabetes (4) HTN (hypertension) Assessment/Plan improving respiratory treatment titrate fio2 to sat of 92% antitussives continue abx check cultures check electrolytes dvt prophylaxis. dc planning in process Subjective ROS Limited/Unobtainable: No Allergies: Coded Allergies: No Known Allergies (Unverified , 02/28/16) Objective Last 24 Hour Vital Signs Date Time Temp Pulse Resp B/P (MAP) Pulse Ox O2 Delivery O2 Flow Rate FiO2 03/20/18 09:45 72 127/81 03/20/18 08:15 Room Air 03/20/18 08:15 Room Air 03/20/18 07:54 98.6 72 18 127/81 Room Air 98.6 03/20/18 05:42 159/98 03/20/18 04:00 98.3 94 18 159/98 100 98.3 03/20/18 01:15 Room Air 03/20/18 01:15 Room Air 03/19/18 20:33 142/89 03/19/18 20:01 94 16 98 Room Air 21 03/19/18 20:00 99.0 89 18 125/81 97 99.0 03/19/18 19:48 92 20 96 Room Air 21 03/19/18 15:39 98.1 91 18 142/89 100 98.1 03/19/18 14:13 131/88 03/19/18 13:19 Room Air 03/19/18 13:19 Room Air Intake and Output 03/19/18 03/20/18 19:00 07:00 Intake Total 480 ml 250 ml Output Total 525 ml 320 ml Balance -45 ml -70 ml Intake Oral 480 ml 250 ml Output Urine Total 525 ml 320 ml # Bowel Movements 1 General Appearance: WD/WN HEENT: normocephalic Respiratory/Chest: chest wall non-tender, lungs clear Cardiovascular: normal peripheral pulses, normal rate Genitourinary: normal external genitalia 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 Laboratory Tests 03/20/18 05:25: White Blood Count 5.2, Red Blood Count 4.66L, Hemoglobin 13.9L, Hematocrit 42.1 , Mean Corpuscular Volume 90, Mean Corpuscular Hemoglobin 29.8, Mean Corpuscular Hemoglobin Concent 33.0, Red Cell Distribution Width 13.9, Platelet Count 141L, Mean Platelet Volume 7.6, Neutrophils (%) (Auto) 60.8, Lymphocytes ( %) (Auto) 27.9, Monocytes (%) (Auto) 9.0, Eosinophils (%) (Auto) 1.1, Basophils (%) (Auto) 1.2, Sodium Level 142, Potassium Level 3.8, Chloride Level 110H, Carbon Dioxide Level 23, Anion Gap 9, Blood Urea Nitrogen 10, Creatinine 1.3, Estimat Glomerular Filtration Rate , Glucose Level 106, Calcium Level 8.5 Current Medications Medications (Trade) Dose Ordered Sig/Eufemia Route PRN Reason Start Time Stop Time Status Last Admin Dose Admin Acetaminophen (Tylenol) 650 mg Q4H PRN ORAL For Pain 03/18/18 15:30 04/14/18 15:29 03/19/18 21:37 Albuterol/ Ipratropium (Albuterol/ Ipratropium) 3 ml Q6HRT HHN 03/18/18 19:00 03/23/18 12:59 03/19/18 19:46 Amlodipine Besylate (Norvasc) 10 mg DAILY ORAL 03/19/18 09:00 04/15/18 08:59 03/20/18 09:45 Aspirin (Ecotrin) 81 mg DAILY ORAL 03/19/18 09:00 04/15/18 08:59 03/20/18 09:45 Bicalutamide (Casodex) 50 mg DAILY ORAL 03/20/18 09:00 03/25/18 08:59 03/20/18 09:45 Cephalexin (Keflex) 500 mg EVERY 8 HOURS ORAL 03/20/18 14:00 03/27/18 13:59 Clonidine HCl (Catapres Tab) 0.1 mg Q4H PRN ORAL for BP over 160 syst 03/18/18 15:30 04/14/18 15:29 Docusate Sodium (Colace) 100 mg TID ORAL 03/18/18 18:00 04/14/18 17:59 03/20/18 09:45 Finasteride (Proscar) 5 mg DAILY ORAL 03/19/18 09:00 04/15/18 08:59 03/20/18 09:45 Folic Acid (Folate) 2 mg DAILY ORAL 03/19/18 09:00 04/15/18 14:29 03/20/18 09:45 Heparin Sodium (Porcine) (Heparin 5000 units/ml) 5,000 units EVERY 12 HOURS SUBQ 03/18/18 21:00 04/14/18 20:59 03/19/18 20:34 Hydralazine HCl (Apresoline) 50 mg Q8HR ORAL 03/18/18 22:00 04/15/18 13:59 03/20/18 05:42 Lidocaine HCl (Xylocaine 1% 30ml) 30 ml NOW PRN INJ Radiology Procedure 03/20/18 07:45 03/22/18 07:32 Lorazepam (Ativan) 1 mg Q6H PRN ORAL For Anxiety 03/18/18 18:00 03/24/18 11:59 03/19/18 20:33 Promethazine HCl/ Codeine (Phenergan with Codeine) 5 ml Q4H PRN ORAL For Cough 03/18/18 16:00 04/17/18 15:59 Tamsulosin HCl (Flomax) 0.4 mg BEDTIME ORAL 03/18/18 21:00 04/14/18 20:59 03/19/18 20:33 Thiamine HCl (Vitamin B1) 100 mg DAILY ORAL 03/19/18 09:00 04/15/18 08:59 03/20/18 09:45 Dayanna Perez MD Mar 20, 2018 12:14
--- NOTE | 2018-03-20 12:36 | General Progress Note ---
Assessment/Plan Assessment/Plan Dementia with behavioral dist anxiety encephalopathy Ativan prn provided ro/st Inderjit Subjective Date patient seen: Mar 20, 2018 Neurologic/Psychiatric: Reports: anxiety Allergies: Coded Allergies: No Known Allergies (Unverified , 02/28/16) Subjective episodes of yelling Objective Last 24 Hour Vital Signs Date Time Temp Pulse Resp B/P (MAP) Pulse Ox O2 Delivery O2 Flow Rate FiO2 03/20/18 09:45 72 127/81 03/20/18 08:15 Room Air 03/20/18 08:15 Room Air 03/20/18 07:54 98.6 72 18 127/81 Room Air 98.6 03/20/18 05:42 159/98 03/20/18 04:00 98.3 94 18 159/98 100 98.3 03/20/18 01:15 Room Air 03/20/18 01:15 Room Air 03/19/18 20:33 142/89 03/19/18 20:01 94 16 98 Room Air 21 03/19/18 20:00 99.0 89 18 125/81 97 99.0 03/19/18 19:48 92 20 96 Room Air 21 03/19/18 15:39 98.1 91 18 142/89 100 98.1 03/19/18 14:13 131/88 03/19/18 13:19 Room Air 03/19/18 13:19 Room Air Intake and Output 03/19/18 03/20/18 19:00 07:00 Intake Total 480 ml 250 ml Output Total 525 ml 320 ml Balance -45 ml -70 ml Intake Oral 480 ml 250 ml Output Urine Total 525 ml 320 ml # Bowel Movements 1 Laboratory Tests 03/20/18 05:25: White Blood Count 5.2, Red Blood Count 4.66L, Hemoglobin 13.9L, Hematocrit 42.1 , Mean Corpuscular Volume 90, Mean Corpuscular Hemoglobin 29.8, Mean Corpuscular Hemoglobin Concent 33.0, Red Cell Distribution Width 13.9, Platelet Count 141L, Mean Platelet Volume 7.6, Neutrophils (%) (Auto) 60.8, Lymphocytes ( %) (Auto) 27.9, Monocytes (%) (Auto) 9.0, Eosinophils (%) (Auto) 1.1, Basophils (%) (Auto) 1.2, Sodium Level 142, Potassium Level 3.8, Chloride Level 110H, Carbon Dioxide Level 23, Anion Gap 9, Blood Urea Nitrogen 10, Creatinine 1.3, Estimat Glomerular Filtration Rate , Glucose Level 106, Calcium Level 8.5 Height (Feet): 6 Height (Inches): 1.00 Weight (Pounds): 166 General Appearance: no apparent distress, alert, confused Watson Hillman M.D. Mar 20, 2018 12:36
[2018-03-20] MEDS ORDERED: Tubing IV Secondary IV ONE (13:39)
[2018-03-20] MEDS ORDERED: NS 275ml ONE (13:39)
[2018-03-20] MEDS ORDERED: Cephalexin 500mg cap ORAL SCH (14:00)
--- NOTE | 2018-03-21 09:49 | Discharge Summary ---
Discharge Summary Discharge Summary _ DATE OF ADMISSION: 03/15/2018 DATE OF DISCHARGE: 03/20/2018 CONSULTANTS: Dr. Alexei Collins BRIEF HOSPITAL COURSE: Patient is a 77-year-old male, with medical history significant for GERD, mild hydronephrosis, altered mental status, history of BPH, urinary retention, and advanced dementia presented to [facility] as he was noted to have hematuria after Martínez catheter was accidentally pulled out at the [facility] 3 hours prior to arrival. He was noted to have increased foul-smelling urine. There was no fever, no chills, history was limited due to mental status. On evaluation at ED, catheter was replaced. He was noted to have large amount of extremely cloudy and purulent appearing urine. Culture was sent and patient was started on Rocephin. He was given IV hydration. Blood work showed no leukocytosis, creatinine was elevated to 1.6 BUN 20. Urinalysis with too many to count RBCs, too many to count WBC, 3+ leukocyte esterase, negative nitrite, 5 + occult blood and 2+ protein. He was admitted for pyuria and sepsis likely due to urinary tract infection. He was given IV hydration. Patient has acute renal failure with possible underlying nephropathy due to hypertension and diabetes. He was continued on Rocephin pending culture results. He was confused and altered and was seen attempting to remove his Martínez catheter. He was diagnosed with dementia with behavioral disturbance and encephalopathy. He was yelling and agitated. He was given Ativan. He was eventually started on Seroquel and was provided a sitter. He came in with elevated blood pressure, he was given Norvasc 10 mg and hydralazine 50 mg every 8 hours. BP improved. He had leukopenia. Workup showed negative HIV and hepatitis panel. Leukopenia potentially secondary due to sepsis. He also had thrombocytopenia, viral studies were negative. PSA was checked and was elevated to 140. Bone scan was ordered and showed metastatic disease. He was recommended biopsy for definitive diagnosis. Recommend bicalutamide and Lupron as outpatient. He had cough and was given respiratory treatments, he was started on antitussives. Breathing and cough improved. Urine culture with growth of Escherichia coli. Rocephin was transitioned to po Keflex, advised to be continued at the [facility]. He was eventually discharged to SNF. FINAL DIAGNOSES: Sepsis possibly secondary to UTI Escherichia coli UTI with chronic indwelling Martínez catheter Elevated PSA possible metastatic prostate CA Leukopenia secondary to sepsis Thrombocytopenia Acute renal failure with underlying nephropathy due to diabetes mellitus and hypertension Diabetes mellitus Hypertension BPH Dementia with behavioral disturbance Anxiety Encephalopathy DISPOSITION: Patient was discharged on Rehabilitation at [facility]. To follow-up with Oncologist for treatment and further work-up. DISCHARGE MEDICATIONS: Refer to Discharge Medication List. Continue with Keflex every 8 hours for 7 days. I have been assigned to dictate discharge summary on this account, and I was not involved in the patient's management. Mira Perez NP Mar 21, 2018 09:49
== END 2018-03-20 13:40 | DRG 871 ==
LOC: EDBD 08:32 → EMR 09:10 → 2E 10:15 → EDBEDREQ 11:50 → 2E 03-16 05:19 → 4E 03-18 15:59
DX: A41.9 Sepsis, unspecified organism (principal); G93.40 Encephalopathy, unspecified; N39.0 Urinary tract infection, site not specified; N17.9 Acute kidney failure, unspecified; C79.9 Secondary malignant neoplasm of unspecified site; F03.91 Unspecified dementia, unspecified severity, with behavioral disturbance; N12 Tubulo-interstitial nephritis, not specified as acute or chronic; N13.30 Unspecified hydronephrosis; B96.20 Unspecified Escherichia coli [E. coli] as the cause of diseases classified elsewhere; C61 Malignant neoplasm of prostate; D69.6 Thrombocytopenia, unspecified; E13.21 Other specified diabetes mellitus with diabetic nephropathy; I12.9 Hypertensive chronic kidney disease with stage 1 through stage 4 chronic kidney disease, or unspecified chronic kidney disease; N18.9 Chronic kidney disease, unspecified; F41.9 Anxiety disorder, unspecified; K21.9 Gastro-esophageal reflux disease without esophagitis; N40.1 Benign prostatic hyperplasia with lower urinary tract symptoms; R33.8 Other retention of urine; E86.0 Dehydration; J20.9 Acute bronchitis, unspecified
CPT/HCPCS: 36415; 71045; 76700; 77075; 78306; 80048; 80053; 80061; 81003; 82607; 82728; 82746; 82962; 82977; 83036; 83540; 83550; 83605; 83690; 83735; 83880; 84100; 84153; 84443; 84484; 84550; 85025; 86140; 86703; 86705; 86709; 86803; 87040; 87086; 87181; 87340; 94640; 94664; 99285; J7620; J8499

== ENCOUNTER 2018-05-12 10:52 | Outpatient (CLI) | payer MEDICARE, MEDICAID ==
[~2018-05-12 10:52] MED LIST changes: +CEPHALEXIN500 MG ORAL; +HUMULIN R100 UNIT/1 SUBQ
--- NOTE | 2018-05-12 13:55 | Diagnostic Imaging Report ---
Indication: Osteoporosis Technique: 10 mm thick slices obtained through the L2, L3, and L4 vertebral bodies. Cortical and trabecular regions of interest were drawn. The average trabecular bone mineral density was calculated. Total dose length product 38.43 mGycm. CTDIvol(s) 2 x 6 mGy. Dose reduction achieved using automated exposure control Comparison: none Findings: Please note that the L1, L2, and L3, vertebral bodies all contain osteoblastic metastases within the regions of interest The calculated bone mineral density is 144.3 mg ca-WILLIAM/ml. The T score is -1.15. This indicates the patient's bone mineral density is 1.15 standard deviations below that of normal 20-year-old males. The Z score is 2.41. This indicates the patient's bone mineral density is 2.41 standard deviations above that of age-matched controls Impression: Calculated bone mineral mineral density is 10-25% below that of normal 20-year-old males, technically osteopenic by WHO criteria. However, the calculated bone mineral density is undoubtably higher than the actual trabecular bone mineral density, given the inclusion of osteoblastic metastases within the regions of interest of every vertebral body, likely resulting in artifactual elevation of the calculated bone mineral density. The CT scanner at [facility] is accredited by the [employer] and the scans are performed using protocols designed to limit radiation exposure to as low as reasonably achievable to attain images of sufficient resolution adequate for diagnostic evaluation.
== END 2018-05-12 12:52 | disposition home or self-care (01) ==
LOC: CAT 10:52
DX: M81.0 Age-related osteoporosis without current pathological fracture (principal)
CPT/HCPCS: 77078

== ENCOUNTER 2018-11-26 10:28 | Outpatient (CLI) | payer MEDICARE, MEDICAID ==
--- NOTE | 2018-11-26 16:18 | Diagnostic Imaging Report ---
Clinical Indication: Abdominal pain, abnormal PSA. Abnormal CEA, sepsis probably secondary to UTI, leukopenia, sepsis Technique: Patient ingested oral contrast IV administration nonionic contrast. Venous phase spiral acquisition obtained through the abdomen and pelvis. Multiplanar reconstructions were generated. Total dose length product 602.18 mGycm. CTDIvol(s) 11.59 mGy. Dose reduction achieved using automated exposure control Comparison: 11/13/2017 noncontrast study Findings: Again demonstrated is massive left hydronephrosis and hydroureter. Hydroureter extends to the bladder. The bladder is empty, contains a Martínez catheter. The bladder wall is markedly thickened. Calcifications are seen within the bladder wall and/or bladder lumen The prostate is enlarged. Previously demonstrated right hydronephrosis has resolved. Right kidney and collecting system currently appear unremarkable. Subcentimeter low-attenuation lesion is seen in the upper pole of the left kidney which is too small to characterize, probably also evident previously, better demonstrated currently. The liver is unremarkable. The gallbladder contains slightly high attenuation material, likely sludge. No definite gallstones. No gallbladder wall thickening. No biliary ductal dilatation. The pancreas, spleen, adrenals are unremarkable. No retroperitoneal or mesenteric mass or adenopathy. The rectum is mildly distended with stool. There is some presacral edema noted. There is colonic diverticulosis. No evidence of diverticulitis. The appendix is not definitely visualized, but no findings to suggest acute appendicitis are evident. No small bowel distention or small bowel wall thickening. No free or loculated intraperitoneal gas or fluid is evident. The distal esophagus, stomach, duodenum are unremarkable. The bones demonstrate extensive and diffuse osteosclerosis of the lumbar spine, osteoporotic foci within multiple ribs, extensive osteophyte foci throughout the sacrum and pelvic bones. There is an ununited fracture of the right femoral neck, with multiple fracture fragments noted. There is evidence of surrounding synovial hypertrophy. There is focal thickening of the subcutaneous fat posterior to the sacrum and coccyx. There is generalized mild edema of the subcutaneous fat. Impression: Massive left hydronephrosis and hydroureter, also previously reported, with hydroureter extending to the bladder, likely related to bladder wall pathology. The possibility of pyelitis should be considered as well. Markedly thick-walled bladder, suspicious for cystitis. This is probably exaggerated by the bladder being nondistended, however. Small calcifications within the bladder wall and/or bladder lumen are noted, small bladder calculi possible. These are also demonstrated previously Martínez catheter seen within the bladder Evidence of extensive osteoblastic metastases, presumably related to stated clinical history of prostate carcinoma. This is described on the previous study, and is increased markedly Right hip fracture, ununited, presumably pathologic. Age indeterminate although suspect not acute given evidence of surrounding synovial hypertrophy related correlate with clinical history and findings Generalized mild edema of the subcutaneous fat Possible retrococcygeal/retrosacral mild decubitus changes. Correlate with clinical history and findings are possible mild rectal fecal impaction. Surrounding mild edema could indicate early stercoral proctitis changes, although is more likely related to the more generalized edema Possible gallbladder sludge The CT scanner at [facility] is accredited by the [employer] and the scans are performed using protocols designed to limit radiation exposure to as low as reasonably achievable to attain images of sufficient resolution adequate for diagnostic evaluation.
== END 2018-11-26 12:28 | disposition home or self-care (01) ==
LOC: CAT 10:28
DX: N13.30 Unspecified hydronephrosis (principal); N13.4 Hydroureter; Z85.46 Personal history of malignant neoplasm of prostate; S72.001A Fracture of unspecified part of neck of right femur, initial encounter for closed fracture; R60.1 Generalized edema
CPT/HCPCS: 74177; Q9967

== ENCOUNTER 2019-03-27 18:38 | Inpatient (IN) | payer MEDICARE, MEDICAID ==
[~2019-03-27] VITALS: Ht 188 cm; Wt 70.8 kg
[~2019-03-27 18:38] MED LIST changes: +Vancomycin 500mg/D5W 110ml IVPB SCH
[2019-03-27 18:55] VITALS: BP 147/76
[2019-03-27] MEDS ORDERED: Sodium Chloride 2,200 ML IVLG ONE (19:00)
[2019-03-27] MEDS ORDERED: Meropenem 1 GM in NS 55 ML IVPB ONE (19:00)
[2019-03-27 19:20] LABS: BASOPHILS % (AUTO) 0.7 % (0.0-2.0); EOSINOPHILS % (AUTO) 0.6 % (0.0-3.0); HEMATOCRIT 34.1 % (42.0-52.0); HEMOGLOBIN 10.9 G/DL (14.2-18.0); LYMPHOCYTES % (AUTO) 17.4 % (20.0-45.0); MEAN CORPUSCULAR VOLUME 85 FL (80-99); MONOCYTES % (AUTO) 7.9 % (1.0-10.0); NEUTROPHILS % (AUTO) 73.3 % (45.0-75.0); PLATELET COUNT 378 K/UL (150-450); RED BLOOD COUNT 4.03 M/UL (4.70-6.10); WHITE BLOOD COUNT 8.2 K/UL (4.8-10.8)
[2019-03-27 19:52] LABS: ANION GAP 11 mmol/L (5-15); BLOOD UREA NITROGEN 26 mg/dL (7-18); CALCIUM 9.4 MG/DL (8.5-10.1); CARBON DIOXIDE 25 MMOL/L (21-32); CHLORIDE 101 MMOL/L (98-107); POTASSIUM 4.1 MMOL/L (3.5-5.1); SODIUM 137 MMOL/L (136-145)
[2019-03-27 20:08] LABS: ALANINE AMINOTRANSFERASE 26 U/L (12-78); ALBUMIN 2.7 G/DL (3.4-5.0); ALBUMIN/GLOBULIN RATIO 0.6 (1.0-2.7); ALKALINE PHOSPHATASE 1048 U/L (46-116); ASPARTATE AMINO TRANSFERASE 43 U/L (15-37); BILIRUBIN,TOTAL 0.3 MG/DL (0.2-1.0); CKMB 0.6 NG/ML (0.0-3.6); CREATINE KINASE 121 U/L (26-308)
--- NOTE | 2019-03-27 20:11 | Diagnostic Imaging Report ---
EXAM: XR Chest, 1 View CLINICAL HISTORY: SOB TECHNIQUE: Frontal view of the chest. COMPARISON: Abdomen CT 11/26/18 and chest x-ray March 19, 2018. FINDINGS: Normal heart size. Tortuous thoracic aorta. No pathologic mediastinal widening or shift but subtle nodular densities are suggested in the bilateral paraspinal upper mediastinum that are most likely artifact of imaging technique. No focal infiltrates the lungs. No hilar adenopathy. No pneumothorax or pleural effusion. Mild right diaphragmatic elevation is present. IMPRESSION: No acute cardiopulmonary process.
[2019-03-27 20:27] LABS: APPEARANCE,URINE CLEAR; BILIRUBIN, URINE NEGATIVE (NEGATIVE); GLUCOSE, URINE (UA) NEGATIVE (NEGATIVE); KETONES,URINE NEGATIVE (NEGATIVE); LEUKOCYTE ESTERASE ,URINE 3+ (NEGATIVE); NITRITE,URINE POSITIVE (NEGATIVE); PH,URINE 5 (4.5-8.0); PROTEIN,URINE 2+ (NEGATIVE); UROBILINOGEN,URINE NORMAL MG/DL (0.0-1.0)
[2019-03-27 20:28] LABS: COLOR,URINE YELLOW
[2019-03-27] MEDS ORDERED: Isovue-300 100ml vial INJ PRN (20:30)
--- NOTE | 2019-03-27 20:45 | NUR ---
ED Nurse Note: Got report from CHANDLER Vásquez. Patient is here from [facility] due to high fever. Patient's temp upon arrival is 100.5 rec. AAO x1, HR is 122, O2 sat 98 % on 4 L NC.
--- NOTE | 2019-03-27 21:40 | NUR ---
NURSE NOTES: Report called from Alondra ARTEAGA in ER. Pending pt arrival to unit.
--- NOTE | 2019-03-27 21:50 | NUR ---
ED Nurse Note: Patient was admited to Tele due to pneumonia, high fever. Patient was transfered to the unit via gurney, by ACLS protocol, with all belongings.
--- NOTE | 2019-03-27 21:54 | Diagnostic Imaging Report ---
EXAM: CT Chest With Intravenous Contrast CLINICAL HISTORY: MASS TECHNIQUE: Axial computed tomography images of the chest with intravenous contrast. CTDI is 19.35 mGy and DLP is 741.27 mGy-cm. One or more of the following dose reduction techniques were used: automated exposure control, adjustment of the mA and/or kV according to patient size, use of iterative reconstruction technique. COMPARISON: November 26, 2018 FINDINGS: Lungs: Minimal atelectatic changes in the right lower lobe near the costophrenic angle posteriorly. Pleural space: Unremarkable. No pneumothorax. No significant effusion. Heart: See below. Bones/joints: The nodular densities identified in the paraspinal upper chest correlates with dense sclerosis in the bones, typical of osteoblastic metastatic disease. No acute fracture. No dislocation. Soft tissues: Unremarkable. Vasculature: Aortic valvular calcifications and scattered opacifications in the coronary arteries. Contrast bolus opacification is suboptimal and limits detailed evaluation for pulmonary emboli but no pulmonary emboli are seen. No thoracic aortic aneurysm. Lymph nodes: Unremarkable. No enlarged lymph nodes. IMPRESSION: 1. Suboptimal contrast bolus timing showing no evidence of pulmonary emboli or other acute vascular pathology. 2. Diffuse osteoblastic metastatic disease. <MYCVCSECTION> Critical Value Communications 03/27/19 22:16 Verify Receipt Verified receipt with telemetry Nurse Zena on 03/27 22:16 (-07:00)
[2019-03-27 21:55] VITALS: BP 147/76
--- NOTE | 2019-03-27 22:00 | NUR ---
NURSE NOTES: Pt transferred from ER via gurney and assisted to [facility] by staff members without incidence. monitoring and evaluation advisor applied. Belongings list checked with transferring RN and patient at bedside. Pt only has one pair of socks, no other belongings. Pt is AOx1 to name only. Pt is on 2L O2 via nasal cannula. Breathing is slightly labored, tachypnic to 24 breaths/minute. Will notify MD. IV site is L FA #20g and is asymptomatic, patent, and intact. Martínez is patent and draining to gravity. Bed placed in lowest position with brake engaged, side rails up x3, and bed alarm on. Call light and side table placed within reach. Pt provided with orientation to surroundings and hospital policies. Fall precautions in place. Will continue to monitor and contact MD Moreno for admission orders.
--- NOTE | 2019-03-27 22:02 | Emergency Room Report ---
History of Present Illness General Chief Complaint: Fever Source: Medical Record Present Illness HPI This patient presents from a [facility] facility for fever. The patient has a history of CVA and is unable to give any type of history. Allergies: Coded Allergies: No Known Allergies (Unverified , 02/28/16) Patient History Past Medical History: see triage record, DM, HTN, CVA/TIA, other - CA Social History: Denies: smoking, alcohol use, drug use Reviewed Nursing Documentation: PMH: Agreed; PSxH: Agreed Nursing Documentation-PMH Past Medical History: No History, Except For Hx Cardiac Problems: No Hx Hypertension: Yes Hx Diabetes: Yes Hx Cancer: No Hx Gastrointestinal Problems: No Hx Neurological Problems: Yes Hx Syncope: Yes Hx Dysphasia: Yes Hx Neurologic Surgery: No Review of Systems All Other Systems: limited Physical Exam Vital Signs Date Time Temp Pulse Resp B/P (MAP) Pulse Ox O2 Delivery O2 Flow Rate FiO2 03/27/19 18:39 99.1 115 18 127/76 (93) 96 Nasal Cannula 2.0 Sp02 EP Interpretation: reviewed, normal General Appearance: no apparent distress, alert, GCS 15, non-toxic Head: normocephalic, atraumatic ENT: hearing grossly normal, normal pharynx, no angioedema Neck: normal inspection Respiratory: chest non-tender, lungs clear, normal breath sounds, no respiratory distress, no retraction, no accessory muscle use, speaking full sentences Cardiovascular #1: no edema, tachycardia Gastrointestinal: normal bowel sounds, non tender, soft, non-distended, no guarding, no rebound Rectal: deferred Musculoskeletal: back normal Neurologic: alert, oriented x3, responsive, motor strength/tone normal, sensory intact, speech normal Psychiatric: mood/affect normal Medical Decision Making Diagnostic Impression: Primary Impression: Fever Additional Impressions: Pneumonia UTI (urinary tract infection) ER Course This patient presents with fever. He also has a chest x-ray concerning for metastatic cancer. There may be an underlying pneumonia and he is found to have urinary tract infection. The patient was given broad-spectrum antibiotics and aggressive IV fluids and admitted for further evaluation and treatment. Laboratory Tests Test 03/27/19 19:05 03/27/19 20:08 White Blood Count 8.2 K/UL (4.8-10.8) Red Blood Count 4.03 M/UL (4.70-6.10) L Hemoglobin 10.9 G/DL (14.2-18.0) L Hematocrit 34.1 % (42.0-52.0) L Mean Corpuscular Volume 85 FL (80-99) Mean Corpuscular Hemoglobin 27.1 PG (27.0-31.0) Mean Corpuscular Hemoglobin Concent 32.0 G/DL (32.0-36.0) Red Cell Distribution Width 16.0 % (11.6-14.8) H Platelet Count 378 K/UL (150-450) Mean Platelet Volume 4.8 FL (6.5-10.1) L Neutrophils (%) (Auto) 73.3 % (45.0-75.0) Lymphocytes (%) (Auto) 17.4 % (20.0-45.0) L Monocytes (%) (Auto) 7.9 % (1.0-10.0) Eosinophils (%) (Auto) 0.6 % (0.0-3.0) Basophils (%) (Auto) 0.7 % (0.0-2.0) Sodium Level 137 MMOL/L (136-145) Potassium Level 4.1 MMOL/L (3.5-5.1) Chloride Level 101 MMOL/L (98-107) Carbon Dioxide Level 25 MMOL/L (21-32) Anion Gap 11 mmol/L (5-15) Blood Urea Nitrogen 26 mg/dL (7-18) H Creatinine 1.0 MG/DL (0.55-1.30) Estimate Glomerular Filtration Rate mL/min (>60) Glucose Level 190 MG/DL (74-106) H Lactic Acid Level 1.80 mmol/L (0.4-2.0) Calcium Level 9.4 MG/DL (8.5-10.1) Total Bilirubin 0.3 MG/DL (0.2-1.0) Aspartate Amino Transferase (AST) 43 U/L (15-37) H Alanine Aminotransferase (ALT) 26 U/L (12-78) Alkaline Phosphatase 1048 U/L (46-116) H Total Creatine Kinase 121 U/L (26-308) Creatine Kinase MB 0.6 NG/ML (0.0-3.6) Creatine Kinase MB Relative Index 0.4 Troponin I 0.000 ng/mL (0.000-0.056) Total Protein 7.6 G/DL (6.4-8.2) Albumin 2.7 G/DL (3.4-5.0) L Globulin 4.9 g/dL Albumin/Globulin Ratio 0.6 (1.0-2.7) L Urine Color Yellow Urine Appearance Clear Urine pH 5 (4.5-8.0) Urine Specific [place] 1.020 (1.005-1.035) Urine Protein 2+ (NEGATIVE) H Urine Glucose (UA) Negative (NEGATIVE) Urine Ketones Negative (NEGATIVE) Urine Blood 2+ (NEGATIVE) H Urine Nitrite Positive (NEGATIVE) H Urine Bilirubin Negative (NEGATIVE) Urine Urobilinogen Normal MG/DL (0.0-1.0) Urine Leukocyte Esterase 3+ (NEGATIVE) H Urine RBC 5-10 /HPF (0 - 0) H Urine WBC 15-20 /HPF (0 - 0) H Urine Squamous Epithelial Cells None /LPF (NONE/OCC) Urine Bacteria Moderate /HPF (NONE) H EKG Diagnostic Results Rate: tachycardiac - S.tachycardia Rhythm: other - S.tachycardia ST Segments: no acute changes Rhythm Strip Diag. Results EP Interpretation: yes Rate: 100's Rhythm: no PVC's, no ectopy, other - S.tachycardia Chest X-Ray Diagnostic Results Chest X-Ray Diagnostic Results : Chest X-Ray Ordered: Yes # of Views/Limited/Complete: 1 View Indication: Other EP Interpretation: Yes Interpretation: other - multiple opacities concerning for metastatic ca. Impression: Other - See above. Electronically Signed by: Angelic Scott DO. CT/MRI/US Diagnostic Results CT/MRI/US Diagnostic Results : Imaging Test Ordered: CT chest Impression Multiple tumors consistent with metastatic cancer. See official report in electronic medical record. Last Vital Signs Date Time Temp Pulse Resp B/P (MAP) Pulse Ox O2 Delivery O2 Flow Rate FiO2 03/27/19 18:55 115 18 Nasal Cannula 2.0 03/27/19 18:55 100.5 147/76 96 Disposition: ADMITTED INPATIENT Condition: Serious Referrals: Jhon Moreno MD (PCP) Angelic Scott DO Mar 27, 2019 22:02
[2019-03-27 22:30] VITALS: BP 144/96
--- NOTE | 2019-03-27 22:35 | NUR ---
NURSE NOTES: MD Moreno updated on pt current status, vitals, abnormal labs upon admission. Admission orders noted and carried out. Will continue to monitor patient.
--- NOTE | 2019-03-27 23:06 | NUR ---
NURSE NOTES: MD De La Cruz called and updated on patient current status. Orders provided, noted and carried out per .
[2019-03-27] MEDS ORDERED: Albuterol/Ipratropium 3ml neb HHN PRN (23:30)
[2019-03-27] MEDS ORDERED: HYDROcodone/Acetamin 5/325 tab ORAL PRN ×2 (23:30)
--- NOTE | 2019-03-27 23:30 | History and Physical Report ---
DATE OF ADMISSION: 03/27/2019 HISTORY OF PRESENT ILLNESS: The patient is admitted to telemetric floor for pneumonia. The patient is a poor historian, cannot get any reliable history from the patient due to advanced dementia. alf called me and stated that he is still having wheezing and shortness of breath despite breathing treatment. The patient has history of COPD. The patient also history of metastatic prostate cancer. The x-ray also shows most likely metastatic cancer from prostate cancer. The patient also admitted for azotemia, shortness of breath, wheezing, and as above mentioned COPD and again cannot give any further history because he is a very poor historian. PAST MEDICAL HISTORY: Metastatic prostate cancer, advanced dementia, hypertension, constipation, NIDDM, GERD, indwelling Martínez catheter. PAST SURGICAL HISTORY: The patient has history of indwelling catheter, also has history of PEG. ALLERGIES: No known allergies. MEDICATIONS: Clonidine, docusate, finasteride, insulin, metoprolol, ranitidine, Flomax, and Proscar. FAMILY HISTORY: Noncontributory. SOCIAL HISTORY: The patient denies smoking, alcohol, or illicit drug. Comes from a intermediate. REVIEW OF SYSTEMS: HEENT: Denies headaches. RESPIRATORY: Very poor historian, however does complain of shortness of breath and wheezing. CARDIOVASCULAR: Denies chest pain. EXTREMITIES: Does have some back pain. NEUROLOGIC: Denies significant changes in speech pattern. Feels weak. PHYSICAL EXAMINATION: VITAL SIGNS: Temperature is 99.9, pulse is 115, blood pressure is 127/76. HEENT: PERRLA. NECK: Supple. No lymphadenopathy. CHEST: Bibasilar wheezing. CARDIOVASCULAR: Tachycardic. Some murmurs, which is chronic. GASTROINTESTINAL: Soft, nontender. No organomegaly. EXTREMITIES: No edema. Moves all four extremities. Sensory intact to light touch. . DIAGNOSTIC DATA: Chest x-ray shows possible metastatic lung lesions, also pneumonia. LABORATORY DATA: WBC of 8.2, hemoglobin 10.9. Sodium 137, potassium 4.1, BUN of 22, creatinine 1, glucose 190. ASSESSMENT AND PLAN: COPD, shortness of breath, wheezing, metastatic cancer, pneumonia, azotemia. I have asked Dr. Collins, Dr. Alexei Pompa, Dr. Rick Cat, Dr. Balfe to see the patient for the treatment of above-mentioned diagnoses. Jhon Moreno M.D. DR: DHAVAL JOB#: [id number] CC:
--- NOTE | 2019-03-27 23:57 | NUR ---
ED Nurse Note: Got report from CHANDLER Vásquez. Patient is here from [facility] due to high fever. Patient's temp upon arrival is 100.5 rec. AAO x1, HR is 122, O2 sat 98 % on 4 L NC. Patient was transfered to the unit via gurney, by ACLS protocol with all belongings.
--- NOTE | 2019-03-27 23:57 | NUR ---
Note undone in EDM - 03/28/19 at 0003 by EZIO ED Nurse Note: Got report from CHANDLER Vásquez. Patient is here from [facility] due to high fever. Patient's temp upon arrival is 100.5 rec. AAO x1, HR is 122, O2 sat 98 % on 4 L NC. Patient was transfered to the unit via gurney, by ACLS protocol with all belongings.
[2019-03-28] VITALS (7 sets, daily range): BP systolic 110–138; BP diastolic 69–92
[2019-03-28] MEDS: Vancomycin 500mg/D5W 110ml IVPB SCH ×4 (00:46→11:19)
[2019-03-28] MEDS: NovoLOG Insulin Flexpen SUBQ SCH ×4 (05:49→21:58)
--- NOTE | 2019-03-28 07:18 | NUR ---
HAND-OFF: Report given to Tamiko Donnelly RN. Pt is resting in bed in stable condition. No acute distress noted. Endorsed plan of care.
[2019-03-28 07:38] LABS: BASOPHILS % (AUTO) 0.7 % (0.0-2.0); EOSINOPHILS % (AUTO) 0.4 % (0.0-3.0); HEMATOCRIT 29.8 % (42.0-52.0); HEMOGLOBIN 9.5 G/DL (14.2-18.0); LYMPHOCYTES % (AUTO) 16.3 % (20.0-45.0); MEAN CORPUSCULAR VOLUME 85 FL (80-99); MONOCYTES % (AUTO) 6.8 % (1.0-10.0); NEUTROPHILS % (AUTO) 75.8 % (45.0-75.0); PLATELET COUNT 325 K/UL (150-450); RED BLOOD COUNT 3.49 M/UL (4.70-6.10); RED CELL DISTRIBUTION WIDTH 16.7 % (11.6-14.8); WHITE BLOOD COUNT 6.8 K/UL (4.8-10.8)
--- NOTE | 2019-03-28 07:42 | NUR ---
NURSE NOTES: Report received from CHANDLER Freitas. Pt is lying comfortably in semi-fowlers with no signs of distress. A+Ox1, no signs of pain/SOB. Respirations are even and unlabored on 2 L NC. IV site is patent, intact, and saline locked. Martínez is in place, patent, and draining to gravity at foot of bed. Bed is at lowest position, brakes engaged, siderails x2, bed alarm on, and call light within reach. Pt is in stable condition; will continue to monitor.
--- NOTE | 2019-03-28 07:56 | Pulmonology Progress Note ---
Assessment/Plan Assessment/Plan Pulmonary Consultation HPI: The patient is a 78 year old man with PMH of COPD, Dementia, admitted with shortness of breath, noyted to have pneumonia and UTI in the ED. The patient is a poor historian, PMH: of advanced Dementia, COPD, hypertension, constipation, NIDDM, GERD, indwelling Martínez catheter. PEG. Noted to have Pulmonary infiltrates, evidence of bony metastatic disease. ALLERGIES: No known allergies. MEDICATIONS: Clonidine, docusate, finasteride, insulin, metoprolol, ranitidine, Flomax, and Proscar. FAMILY HISTORY: NA. SOCIAL HISTORY: detention patient. REVIEW OF SYSTEMS: NA PHYSICAL EXAMINATION: VITAL SIGNS NOTED and stable HEENT: PERRLA. NECK: Supple. No lymphadenopathy. CHEST: Occasional rhonchi and wheezing. CARDIOVASCULAR: Tachycardic. Some murmurs, which is chronic. GASTROINTESTINAL: Soft, nontender. No organomegaly. EXTREMITIES: No edema. CUSTOMER RELATIONS COORDINATOR: Moves all four extremities. No focal signs IMAGING: Chest x-ray shows possible metastatic lung lesions, also pneumonia at bases LABORATORY DATA NOTED: WBC of 8.2, hemoglobin 10.9. Sodium 137, potassium 4.1, BUN of 22, creatinine 1, glucose 190. ASSESSMENT Pneumonia UTI Azotemia Advanced Dementia COPD Hypertension H/o constipation NIDDM GERD Indwelling Martínez catheter, PEG. PLAN: HHN O2 PRN Broad spectrum antibiotics Aspiration precautions PPX Monitor labs COPD IVF PRN CT Chest: FINDINGS: Lungs: Minimal atelectatic changes in the right lower lobe near the costophrenic angle posteriorly. Pleural space: Unremarkable. No pneumothorax. No significant effusion. Heart: See below. Bones/joints: The nodular densities identified in the paraspinal upper chest correlates with dense sclerosis in the bones, typical of osteoblastic metastatic disease. No acute fracture. No dislocation. Soft tissues: Unremarkable. Vasculature: Aortic valvular calcifications and scattered opacifications in the coronary arteries. Contrast bolus opacification is suboptimal and limits detailed evaluation for pulmonary emboli but no pulmonary emboli are seen. No thoracic aortic aneurysm. Lymph nodes: Unremarkable. No enlarged lymph nodes. IMPRESSION: 1. Suboptimal contrast bolus timing showing no evidence of pulmonary emboli or other acute vascular pathology. 2. Diffuse osteoblastic metastatic disease. Subjective ROS Limited/Unobtainable: No Allergies: Coded Allergies: No Known Allergies (Unverified , 02/28/16) Objective Last 24 Hour Vital Signs Date Time Temp Pulse Resp B/P (MAP) Pulse Ox O2 Delivery O2 Flow Rate FiO2 03/28/19 04:00 112 03/28/19 04:00 99.8 114 22 122/79 (93) 99 03/28/19 00:14 108 20 96 Nasal Cannula 2.0 28 03/28/19 00:00 116 03/28/19 00:00 97.0 114 22 138/92 (107) 100 03/27/19 22:40 Nasal Cannula 2.0 03/27/19 22:30 99.0 120 24 144/96 (112) 99 03/27/19 21:55 100.5 18 147/76 96 Nasal Cannula 2.0 03/27/19 21:55 100.5 112 18 147/76 96 Nasal Cannula 2.0 03/27/19 18:55 115 18 Nasal Cannula 2.0 03/27/19 18:55 100.5 115 18 147/76 96 Nasal Cannula 2.0 03/27/19 18:39 99.1 115 18 127/76 (93) 96 Nasal Cannula 2.0 Intake and Output 03/27/19 03/28/19 19:00 07:00 Intake Total 2200 ml Output Total 1000 ml Balance 2200 ml -1000 ml Intake IV Total 2200 ml Output Urine Total 1000 ml # Voids 100 Microbiology Date/Time Source Procedure Growth Status 03/27/19 21:00 Rectum Received Laboratory Tests 03/27/19 19:05: White Blood Count 8.2, Red Blood Count 4.03L, Hemoglobin 10.9L, Hematocrit 34.1L , Mean Corpuscular Volume 85, Mean Corpuscular Hemoglobin 27.1, Mean Corpuscular Hemoglobin Concent 32.0, Red Cell Distribution Width 16.0H, Platelet Count 378, Mean Platelet Volume 4.8L, Neutrophils (%) (Auto) 73.3, Lymphocytes (%) (Auto) 17.4L, Monocytes (%) (Auto) 7.9, Eosinophils (%) (Auto) 0.6, Basophils (%) (Auto) 0.7, Sodium Level 137, Potassium Level 4.1, Chloride Level 101, Carbon Dioxide Level 25, Anion Gap 11, Blood Urea Nitrogen 26H, Creatinine 1.0, Estimat Glomerular Filtration Rate , Glucose Level 190H, Lactic Acid Level 1.80, Calcium Level 9.4, Total Bilirubin 0.3, Aspartate Amino Transf (AST/SGOT) 43H, Alanine Aminotransferase (ALT/SGPT) 26, Alkaline Phosphatase 1048H, Total Creatine Kinase 121, Creatine Kinase MB 0.6, Creatine Kinase MB Relative Index 0.4, Troponin I 0.000, Total Protein 7.6, Albumin 2.7L, Globulin 4.9, Albumin/Globulin Ratio 0.6L 03/27/19 20:08: Urine Color Yellow, Urine Appearance Clear, Urine pH 5, Urine Specific [place] 1.020, Urine Protein 2+H, Urine Glucose (UA) Negative, Urine Ketones Negative, Urine Blood 2+H, Urine Nitrite PositiveH, Urine Bilirubin Negative, Urine Urobilinogen Normal, Urine Leukocyte Esterase 3+H, Urine RBC 5-10H, Urine WBC 15 -20H, Urine Squamous Epithelial Cells None, Urine Bacteria ModerateH 03/28/19 06:45: White Blood Count 6.8, Red Blood Count 3.49L, Hemoglobin 9.5L, Hematocrit 29.8L , Mean Corpuscular Volume 85, Mean Corpuscular Hemoglobin 27.2, Mean Corpuscular Hemoglobin Concent 31.9L, Red Cell Distribution Width 16.7H, Platelet Count 325, Mean Platelet Volume 5.1L, Neutrophils (%) (Auto) 75.8H, Lymphocytes (%) (Auto) 16.3L, Monocytes (%) (Auto) 6.8, Eosinophils (%) (Auto) 0.4, Basophils (%) (Auto) 0.7, Sodium Level [Pending], Potassium Level [Pending] , Chloride Level [Pending], Carbon Dioxide Level [Pending], Blood Urea Nitrogen [Pending], Creatinine [Pending], Estimat Glomerular Filtration Rate [Pending], Glucose Level [Pending], Calcium Level [Pending], Total Bilirubin [Pending], Aspartate Amino Transf (AST/SGOT) [Pending], Alanine Aminotransferase (ALT/SGPT ) [Pending], Alkaline Phosphatase [Pending], Total Protein [Pending], Albumin [ Pending], Globulin [Pending], Hemoglobin A1c [Pending] Current Medications Medications (Trade) Dose Ordered Sig/Eufemia Route PRN Reason Start Time Stop Time Status Last Admin Dose Admin Acetaminophen (Tylenol) 650 mg Q4H PRN ORAL Mild Pain/Temp > 100.5 03/27/19 23:30 04/26/19 23:29 Acetaminophen/ Hydrocodone Bitart ([place] 5/325) 1 tab Q6H PRN ORAL Moderate Pain (Pain Scale 4-6) 03/27/19 23:30 04/03/19 23:29 Acetaminophen/ Hydrocodone Bitart ([place] 5/325) 2 tab Q6H PRN ORAL Severe Pain (Pain Scale 7-10) 03/27/19 23:30 04/03/19 23:29 Albuterol/ Ipratropium (Albuterol/ Ipratropium) 3 ml Q4H PRN HHN Shortness of Breath 03/27/19 23:30 04/01/19 23:29 03/28/19 00:13 Amlodipine Besylate (Norvasc) 10 mg DAILY ORAL 03/28/19 09:00 04/27/19 08:59 Aspirin (ASA) 81 mg DAILY ORAL 03/28/19 09:00 04/27/19 08:59 Cefepime HCl 1 gm/ Dextrose 55 ml @ 110 mls/hr EVERY 12 HOURS IVPB 03/28/19 09:00 04/04/19 08:59 Dextrose (Dextrose 50%) 25 ml Q30M PRN IV Hypoglycemia 03/27/19 23:30 04/26/19 23:29 Dextrose (Dextrose 50%) 50 ml Q30M PRN IV Hypoglycemia 03/27/19 23:30 04/26/19 23:29 Docusate Sodium (Colace) 100 mg TWICE A DAY ORAL 03/28/19 09:00 04/27/19 08:59 Doxycycline Hyclate 100 mg/ Dextrose 110 ml @ 110 mls/hr Q12H IV 03/28/19 10:00 04/04/19 09:59 Finasteride (Proscar) 5 mg DAILY ORAL 03/28/19 09:00 04/27/19 08:59 Heparin Sodium (Porcine) (Heparin 5000 units/ml) 5,000 units EVERY 12 HOURS SUBQ 03/28/19 09:00 04/27/19 08:59 Insulin Aspart (NovoLOG) BEFORE MEALS AND HS SUBQ 03/28/19 06:30 04/27/19 06:29 03/28/19 05:49 Iopamidol (Isovue-300 100ml) 100 ml NOW PRN INJ Radiology Procedure 03/27/19 20:30 03/29/19 20:25 Tamsulosin HCl (Flomax) 0.4 mg BEDTIME ORAL 03/28/19 23:45 04/27/19 23:44 Thiamine HCl (Vitamin B1) 100 mg DAILY ORAL 03/28/19 09:00 04/27/19 08:59 Vancomycin HCl (Vanco rx to dose) 1 ea DAILY PRN MISC Per rx protocol 03/28/19 09:00 04/27/19 08:59 Vancomycin HCl 500 mg/Dextrose 110 ml @ 110 mls/hr Q12H IVPB 03/28/19 00:00 04/02/19 00:00 03/28/19 00:46 Ye De La Cruz MD Mar 28, 2019 07:56
[2019-03-28 08:34] LABS: ALANINE AMINOTRANSFERASE 21 U/L (12-78); ALBUMIN/GLOBULIN RATIO 0.6 (1.0-2.7); ALKALINE PHOSPHATASE 848 U/L (46-116); ANION GAP 11 mmol/L (5-15); ASPARTATE AMINO TRANSFERASE 28 U/L (15-37); BILIRUBIN,TOTAL 0.4 MG/DL (0.2-1.0); BLOOD UREA NITROGEN 18 mg/dL (7-18); CALCIUM 8.7 MG/DL (8.5-10.1); CARBON DIOXIDE 22 MMOL/L (21-32); CHLORIDE 108 MMOL/L (98-107); CREATININE 0.9 MG/DL (0.55-1.30); POTASSIUM 4.4 MMOL/L (3.5-5.1); SODIUM 141 MMOL/L (136-145)
[2019-03-28] MEDS: Thiamine 100mg tab ORAL SCH (08:56)
[2019-03-28] MEDS: Aspirin Baby 81mg ORAL SCH (08:56)
[2019-03-28] MEDS: Heparin 5000 units/ml inj SUBQ SCH ×2 (08:57→21:47)
[2019-03-28] MEDS ORDERED: Doxycycline Hyclate 100 MG in D5W 110 ML IVPB SCH (09:00)
[2019-03-28] MEDS ORDERED: Docusate 100mg cap ORAL SCH (09:00)
[2019-03-28] MEDS: Cefepime HCl 1 GM in D5W 55 ML IVPB SCH ×2 (09:05→21:14)
[2019-03-28] MEDS: Doxycycline Hyclate 100 MG in D5W 110 ML IV SCH ×2 (09:37→22:16)
--- NOTE | 2019-03-28 11:32 | NUR ---
RD ASSESSMENT & RECOMMENDATIONS SEE CARE ACTIVITY FOR COMPLETE ASSESSMENT DAILY ESTIMATED NEEDS: Needs based on DM, wasting/ 71kg 25-30 kcals/kg 1128-9181 total kcals 1-1.5 g protein/kg 71-106 g total protein 25-30 mL/kg 1540-3326 total fluid mLs NUTRITION DIAGNOSIS: 1) Swallowing difficulty R/T dysphagia, edentulous status as evidenced by pt pureed moist texture, NTL, ELECTRICAL HARDWARE ENGINEER eval pending. 2) Increased kcal/prot intake needs R/T catabolic dx as evidenced by history of metastatic prostate cancer and per MD, x-ray also shows most likely metastatic cancer from prostate cancer. CURRENT DIET:CCHO MED, pureed moist, NTL PO DIET RECOMMENDATIONS: CCHO MED/ Texture per ELECTRICAL HARDWARE ENGINEER ENTERAL NUTRITION RECOMMENDATIONS: CONSULT RD FOR TF RECOMMENDATION IF INDICATED ADDITIONAL RECOMMENDATIONS: 1) Calibrated bedscale wt for accurate CBW 2) MVI x 1 as supplement 3) Monitor PO intake and tolerance closely 4) Glucerna TID w/ meals 5) Monitor lytes, replete as needed
--- NOTE | 2019-03-28 11:34 | NUR ---
NURSE NOTES: Spoke with Dr. Sanchez regarding patient's begum and whether or not to change it. Per Dr. Sanchez, do not change begum. He will see the patient Saturday.
--- NOTE | 2019-03-28 11:50 | Consultation ---
History of Present Illness General Date patient seen: Mar 28, 2019 Time patient seen: 08:00 Chief Complaint: Fever Referring physician: Dr Moreno Reason for Consultation: Metastatic Disease Present Illness HPI This is a 78 year old [place] male patient is admiited for sob, copd exacerbation, He is a poor histoiran. Upon work up he was found to have an abnormal CT Chest revealing metastatic disease and has history of Prostate CA, unknown if patient is being treated at this time, no records available. Upon lab work up he was found to have anemia hgb 9.5, U/A showed 2+ hematuria. We were consulted for Metastatic Disease liekly Metastatic Prostate Ca mets to bone. Allergies: Coded Allergies: No Known Allergies (Unverified , 02/28/16) Medication History Scheduled Amlodipine Besylate* (Amlodipine Besylate*), 10 MG ORAL DAILY, (Reported) Amoxicillin* (Amoxil*), 500 MG ORAL EVERY 8 HOURS Aspirin* (Aspir 81*), 81 MG ORAL DAILY, (Reported) Cephalexin* (Keflex*), 500 MG ORAL EVERY 8 HOURS, (Reported) Finasteride* (Proscar*), 5 MG ORAL DAILY, (Reported) Metoprolol Tartrate* (Metoprolol Tartrate*), 12.5 MG ORAL EVERY 12 HOURS, ( Reported) Metoprolol Tartrate* (Metoprolol Tartrate*), 25 MG ORAL BID, (Reported) Nitrofurantoin Monohyd/M-Cryst* (Macrobid 100 Mg*), 100 MG ORAL EVERY 12 HOURS Ranitidine Hcl* (Zantac*), 150 MG ORAL DAILY, (Reported) Tamsulosin Hcl (Tamsulosin Hcl*), 0.4 MG ORAL BEDTIME, (Reported) Thiamine Hcl* (Vitamin B-1*), 100 MG ORAL DAILY, (Reported) Scheduled PRN Acetaminophen* (Acetaminophen 325MG Tablet*), 650 MG ORAL Q4H PRN for For Pain, (Reported) Clonidine Hcl* (Catapres*), 0.1 MG ORAL EVERY 6 HOURS PRN for For High Blood Pressure, (Reported) Docusate Sodium* (Colace*), 100 MG ORAL DAILY PRN for Constipation, (Reported) Miscellaneous Medications Insulin Regular, Human (Humulin R), 0 SUBQ, (Reported) Patient History Healthcare decision maker Resuscitation status Full Code Advanced Directive on File Review of Systems ROS Narrative Unable to assess due to patient condition Physical Exam Last 24 Hour Vital Signs Date Time Temp Pulse Resp B/P (MAP) Pulse Ox O2 Delivery O2 Flow Rate FiO2 03/28/19 09:59 Nasal Cannula 2.0 03/28/19 08:56 103 121/80 03/28/19 08:00 98.4 106 20 121/80 (94) 98 03/28/19 08:00 103 03/28/19 04:00 112 03/28/19 04:00 99.8 114 22 122/79 (93) 99 03/28/19 00:14 108 20 96 Nasal Cannula 2.0 28 03/28/19 00:00 116 03/28/19 00:00 97.0 114 22 138/92 (107) 100 03/27/19 22:40 Nasal Cannula 2.0 03/27/19 22:30 99.0 120 24 144/96 (112) 99 03/27/19 21:55 100.5 18 147/76 96 Nasal Cannula 2.0 03/27/19 21:55 100.5 112 18 147/76 96 Nasal Cannula 2.0 03/27/19 18:55 115 18 Nasal Cannula 2.0 03/27/19 18:55 100.5 115 18 147/76 96 Nasal Cannula 2.0 03/27/19 18:39 99.1 115 18 127/76 (93) 96 Nasal Cannula 2.0 Intake and Output 03/27/19 03/28/19 18:59 06:59 Intake Total 2200 ml Output Total 1000 ml Balance 2200 ml -1000 ml IV Total 2200 ml Output Urine Total 1000 ml # Voids 100 Laboratory Tests Test 03/27/19 19:05 03/27/19 20:08 03/28/19 06:45 White Blood Count 8.2 K/UL (4.8-10.8) 6.8 K/UL (4.8-10.8) Red Blood Count 4.03 M/UL (4.70-6.10) L 3.49 M/UL (4.70-6.10) L Hemoglobin 10.9 G/DL (14.2-18.0) L 9.5 G/DL (14.2-18.0) L Hematocrit 34.1 % (42.0-52.0) L 29.8 % (42.0-52.0) L Mean Corpuscular Volume 85 FL (80-99) 85 FL (80-99) Mean Corpuscular Hemoglobin 27.1 PG (27.0-31.0) 27.2 PG (27.0-31.0) Mean Corpuscular Hemoglobin Concent 32.0 G/DL (32.0-36.0) 31.9 G/DL (32.0-36.0) L Red Cell Distribution Width 16.0 % (11.6-14.8) H 16.7 % (11.6-14.8) H Platelet Count 378 K/UL (150-450) 325 K/UL (150-450) Mean Platelet Volume 4.8 FL (6.5-10.1) L 5.1 FL (6.5-10.1) L Neutrophils (%) (Auto) 73.3 % (45.0-75.0) 75.8 % (45.0-75.0) H Lymphocytes (%) (Auto) 17.4 % (20.0-45.0) L 16.3 % (20.0-45.0) L Monocytes (%) (Auto) 7.9 % (1.0-10.0) 6.8 % (1.0-10.0) Eosinophils (%) (Auto) 0.6 % (0.0-3.0) 0.4 % (0.0-3.0) Basophils (%) (Auto) 0.7 % (0.0-2.0) 0.7 % (0.0-2.0) Sodium Level 137 MMOL/L (136-145) 141 MMOL/L (136-145) Potassium Level 4.1 MMOL/L (3.5-5.1) 4.4 MMOL/L (3.5-5.1) Chloride Level 101 MMOL/L (98-107) 108 MMOL/L (98-107) H Carbon Dioxide Level 25 MMOL/L (21-32) 22 MMOL/L (21-32) Anion Gap 11 mmol/L (5-15) 11 mmol/L (5-15) Blood Urea Nitrogen 26 mg/dL (7-18) H 18 mg/dL (7-18) Creatinine 1.0 MG/DL (0.55-1.30) 0.9 MG/DL (0.55-1.30) Estimat Glomerular Filtration Rate mL/min (>60) mL/min (>60) Glucose Level 190 MG/DL (74-106) H 144 MG/DL (74-106) H Lactic Acid Level 1.80 mmol/L (0.4-2.0) Calcium Level 9.4 MG/DL (8.5-10.1) 8.7 MG/DL (8.5-10.1) Total Bilirubin 0.3 MG/DL (0.2-1.0) 0.4 MG/DL (0.2-1.0) Aspartate Amino Transf (AST/SGOT) 43 U/L (15-37) H 28 U/L (15-37) Alanine Aminotransferase (ALT/SGPT) 26 U/L (12-78) 21 U/L (12-78) Alkaline Phosphatase 1048 U/L (46-116) H 848 U/L (46-116) H Total Creatine Kinase 121 U/L (26-308) Creatine Kinase MB 0.6 NG/ML (0.0-3.6) Creatine Kinase MB Relative Index 0.4 Troponin I 0.000 ng/mL (0.000-0.056) Total Protein 7.6 G/DL (6.4-8.2) 5.5 G/DL (6.4-8.2) L Albumin 2.7 G/DL (3.4-5.0) L 2.0 G/DL (3.4-5.0) L Globulin 4.9 g/dL 3.5 g/dL Albumin/Globulin Ratio 0.6 (1.0-2.7) L 0.6 (1.0-2.7) L Urine Color Yellow Urine Appearance Clear Urine pH 5 (4.5-8.0) Urine Specific [place] 1.020 (1.005-1.035) Urine Protein 2+ (NEGATIVE) H Urine Glucose (UA) Negative (NEGATIVE) Urine Ketones Negative (NEGATIVE) Urine Blood 2+ (NEGATIVE) H Urine Nitrite Positive (NEGATIVE) H Urine Bilirubin Negative (NEGATIVE) Urine Urobilinogen Normal MG/DL (0.0-1.0) Urine Leukocyte Esterase 3+ (NEGATIVE) H Urine RBC 5-10 /HPF (0 - 0) H Urine WBC 15-20 /HPF (0 - 0) H Urine Squamous Epithelial Cells None /LPF (NONE/OCC) Urine Bacteria Moderate /HPF (NONE) H Hemoglobin A1c 6.6 % (4.3-6.0) H Microbiology Date/Time Source Procedure Growth Status 03/27/19 21:00 Rectum Received Height (Feet): 6 Height (Inches): 2.00 Weight (Pounds): 156 Medications Current Medications Medications (Trade) Dose Ordered Sig/Eufemia Route PRN Reason Start Time Stop Time Status Last Admin Dose Admin Acetaminophen (Tylenol) 650 mg Q4H PRN ORAL Mild Pain/Temp > 100.5 03/27/19 23:30 04/26/19 23:29 Acetaminophen/ Hydrocodone Bitart ([place] 5/325) 1 tab Q6H PRN ORAL Moderate Pain (Pain Scale 4-6) 03/27/19 23:30 04/03/19 23:29 Acetaminophen/ Hydrocodone Bitart ([place] 5/325) 2 tab Q6H PRN ORAL Severe Pain (Pain Scale 7-10) 03/27/19 23:30 04/03/19 23:29 Albuterol/ Ipratropium (Albuterol/ Ipratropium) 3 ml Q4H PRN HHN Shortness of Breath 03/27/19 23:30 04/01/19 23:29 03/28/19 00:13 Amlodipine Besylate (Norvasc) 10 mg DAILY ORAL 03/28/19 09:00 04/27/19 08:59 03/28/19 08:56 Aspirin (ASA) 81 mg DAILY ORAL 03/28/19 09:00 04/27/19 08:59 03/28/19 08:56 Cefepime HCl 1 gm/ Dextrose 55 ml @ 110 mls/hr EVERY 12 HOURS IVPB 03/28/19 09:00 04/04/19 08:59 03/28/19 09:05 Dextrose (Dextrose 50%) 25 ml Q30M PRN IV Hypoglycemia 03/27/19 23:30 04/26/19 23:29 Dextrose (Dextrose 50%) 50 ml Q30M PRN IV Hypoglycemia 03/27/19 23:30 04/26/19 23:29 Docusate Sodium (Colace) 100 mg TWICE A DAY ORAL 03/28/19 18:00 04/27/19 17:59 Doxycycline Hyclate 100 mg/ Dextrose 110 ml @ 110 mls/hr Q12H IV 03/28/19 10:00 04/04/19 09:59 03/28/19 09:37 Finasteride (Proscar) 5 mg DAILY ORAL 03/28/19 09:00 04/27/19 08:59 03/28/19 08:56 Heparin Sodium (Porcine) (Heparin 5000 units/ml) 5,000 units EVERY 12 HOURS SUBQ 03/28/19 09:00 04/27/19 08:59 03/28/19 08:57 Insulin Aspart (NovoLOG) BEFORE MEALS AND HS SUBQ 03/28/19 06:30 04/27/19 06:29 03/28/19 11:21 Iopamidol (Isovue-300 100ml) 100 ml NOW PRN INJ Radiology Procedure 03/27/19 20:30 03/29/19 20:25 Tamsulosin HCl (Flomax) 0.4 mg BEDTIME ORAL 03/28/19 23:45 04/27/19 23:44 Thiamine HCl (Vitamin B1) 100 mg DAILY ORAL 03/28/19 09:00 04/27/19 08:59 03/28/19 08:56 Objective Narrative General Appearance: no apparent distress, alert, GCS 15, ill appearing. Head: normocephalic, atraumatic ENT: hearing grossly normal, normal pharynx, no angioedema Neck: normal inspection Respiratory: chest non-tender, lungs clear, normal breath sounds, no respiratory distress. Cardiovascular #1: no edema, tachycardia Gastrointestinal: normal bowel sounds, non tender, soft, non-distended, no guarding, no rebound Rectal: deferred Musculoskeletal: back normal, + weakness Contracted RUE Neurologic: alert, oriented x1, responsive Psychiatric: mood/affect normal Assessment/Plan Diagnosis [place] I: ASSESSMENT AND REC'S 1. Prostate Cancer likely metastatic to bone ---> Check PSA level, Consider Uro eval unknown is patient is seeking treatment outpatient need more clinical records. ---> CT Chest reviewed: no evidence of pulmonary emboli or other acute vascular pathology.Diffuse osteoblastic metastatic disease. --> begum cath intact 2. Hematuria --> U/A noted 2 + hematuria --> consider Uro eval, begum intact no active bleeding seen 3. Anemia of chronic disease due to prostate ca --> anemia w/u has been ordered --> No evidence of hemolysis is noted, peripheral smear has been reviewed. --> Hgb goal >7. Transfuse prn.Currently Hgb 9.5 2. COPD --> breathing treatments as needed --> imaging revealed CT Chest and CXR --> / 3. Shortness of breath --> likely due to above 4. Azotemia. The time the the note was written does not neceassrily correspond the time the patient was seen. Aggie Corral [employer] PRODUCTS CHECKER Mar 28, 2019 11:50
[2019-03-28 12:46] LABS: % IRON SATURATION 11 % (15-50); IRON 13 ug/dL (50-175); TOTAL IRON BINDING CAPACITY 117 ug/dL (250-450)
--- NOTE | 2019-03-28 13:15 | Consultation ---
DATE OF CONSULTATION: 03/28/2019 INFECTIOUS DISEASE CONSULTATION CONSULTING PHYSICIAN: Rick Cat M.D. PRIMARY ATTENDING PHYSICIAN: Jhon Moreno M.D. REASON FOR CONSULT: Sepsis, UTI. HISTORY OF PRESENT ILLNESS: This is a 78-year-old male, who is a [facility] resident, admitted last night because of fever; had a temperature of 100.5 in the ER; had an episode of labored breathing, wheezing in nursing facility; was tachycardic with pulse rate of 115 that reached to 120 later. The patient is demented and poor historian. PAST MEDICAL HISTORY: Significant for metastatic prostate cancer to the bones, diabetes mellitus, hypertension, dementia, BPH, has chronic Martínez catheter , has dysphagia, history of syncope, and gastroesophageal reflux disease. ALLERGIES: No known drug allergy. MEDICATIONS: Getting Flomax, Colace, doxycycline, aspirin, amlodipine, finasteride, thiamine, cefepime, vancomycin, heparin, insulin, albuterol ipratropium, Lissie, and Tylenol. Got a dose of meropenem and vancomycin in the ER. SOCIAL HISTORY: halfway resident, single. No other history obtainable by the patient. REVIEW OF SYSTEMS: Very limited. The patient has no complaints. PHYSICAL EXAMINATION: VITAL SIGNS: Temperature 98.4, pulse 103, blood pressure 121/80. GENERAL APPEARANCE: No acute distress. HEAD AND NECK: Getting oxygen by nasal cannula. HEART: Tachycardic. LUNGS: Clear. ABDOMEN: Soft and nontender. EXTREMITIES: He has no edema. NEUROLOGIC: He is alert, responsive. LABORATORY AND DIAGNOSTIC DATA: Sodium 141, potassium 4.4, chloride 108, bicarb 22, BUN 18, creatinine 0.9, glucose 144. Alkaline phosphatase is 848. Albumin is 2. WBC 6.8, hemoglobin 9.5, hematocrit 29.8, platelets 325. Chest x-ray, no acute coronary cardiopulmonary disease. CT angiogram of the chest showed atelectatic changes. No pulmonary emboli. Diffuse osteoblastic metastatic disease. UA showed wbc of 15-20, nitrite positive. IMPRESSION: Sepsis with low-grade fever and tachycardia, source seems to be UTI. The patient has chronic Martínez catheter, BPH, metastatic prostate cancer, diabetes mellitus, dementia, anemia, and protein-calorie malnutrition. RECOMMENDATION: Continue with doxycycline and cefepime. We will discontinue IV vancomycin. We will follow up the cultures. At the end of my exam, I thank Dr. Moreno for involving me in the care of this patient. Rick Cat M.D. DR: LEVI JOB#: [id number] CC: [place]
--- NOTE | 2019-03-28 14:12 | NUR ---
CASE MANAGEMENT: REVIEW 78Y/M CC: FEVER SI: PNA . SEPSIS . UTI T 100.5 HR 120 RR 24 BP 147/76 SAT 96% 2L/NC UA: PROTEIN 2+ BLOOD 2+ NITRITE + LEUKOCYTE ESTERASE 3+ BACTERIA MOD IS: VANCO IV X1 MEROPENEM IV X1 NS IVF BOLUS X1 PATIENT ADMITTED TO [facility]LEMETRY UNIT DCP: [facility] IS FROM [facility]
--- NOTE | 2019-03-28 15:40 | General Progress Note ---
Assessment/Plan Problem List: (1) HTN (hypertension) ICD Codes: I10 - Essential (primary) hypertension SNOMED: 40851609 (2) Pneumonia ICD Codes: J18.9 - Pneumonia, unspecified organism SNOMED: 040492349 Status: progressing Assessment/Plan: sob is improving no wheezing pna mets prostate cancer afebrile abx per id Subjective ROS Limited/Unobtainable: Yes Allergies: Coded Allergies: No Known Allergies (Unverified , 02/28/16) Objective Last 24 Hour Vital Signs Date Time Temp Pulse Resp B/P (MAP) Pulse Ox O2 Delivery O2 Flow Rate FiO2 03/28/19 12:00 103 03/28/19 12:00 99.4 110 20 115/69 (84) 99 03/28/19 09:59 Nasal Cannula 2.0 03/28/19 08:56 103 121/80 03/28/19 08:00 98.4 106 20 121/80 (94) 98 03/28/19 08:00 103 03/28/19 04:00 112 03/28/19 04:00 99.8 114 22 122/79 (93) 99 03/28/19 00:14 108 20 96 Nasal Cannula 2.0 28 03/28/19 00:00 116 03/28/19 00:00 97.0 114 22 138/92 (107) 100 03/27/19 22:40 Nasal Cannula 2.0 03/27/19 22:30 99.0 120 24 144/96 (112) 99 03/27/19 21:55 100.5 18 147/76 96 Nasal Cannula 2.0 03/27/19 21:55 100.5 112 18 147/76 96 Nasal Cannula 2.0 03/27/19 18:55 115 18 Nasal Cannula 2.0 03/27/19 18:55 100.5 115 18 147/76 96 Nasal Cannula 2.0 03/27/19 18:39 99.1 115 18 127/76 (93) 96 Nasal Cannula 2.0 Intake and Output 03/27/19 03/28/19 18:59 06:59 Intake Total 2200 ml Output Total 1000 ml Balance 2200 ml -1000 ml IV Total 2200 ml Output Urine Total 1000 ml # Voids 100 Laboratory Tests 03/27/19 19:05: White Blood Count 8.2, Red Blood Count 4.03L, Hemoglobin 10.9L, Hematocrit 34.1L , Mean Corpuscular Volume 85, Mean Corpuscular Hemoglobin 27.1, Mean Corpuscular Hemoglobin Concent 32.0, Red Cell Distribution Width 16.0H, Platelet Count 378, Mean Platelet Volume 4.8L, Neutrophils (%) (Auto) 73.3, Lymphocytes (%) (Auto) 17.4L, Monocytes (%) (Auto) 7.9, Eosinophils (%) (Auto) 0.6, Basophils (%) (Auto) 0.7, Sodium Level 137, Potassium Level 4.1, Chloride Level 101, Carbon Dioxide Level 25, Anion Gap 11, Blood Urea Nitrogen 26H, Creatinine 1.0, Estimat Glomerular Filtration Rate , Glucose Level 190H, Lactic Acid Level 1.80, Calcium Level 9.4, Total Bilirubin 0.3, Aspartate Amino Transf (AST/SGOT) 43H, Alanine Aminotransferase (ALT/SGPT) 26, Alkaline Phosphatase 1048H, Total Creatine Kinase 121, Creatine Kinase MB 0.6, Creatine Kinase MB Relative Index 0.4, Troponin I 0.000, Total Protein 7.6, Albumin 2.7L, Globulin 4.9, Albumin/Globulin Ratio 0.6L 03/27/19 20:08: Urine Color Yellow, Urine Appearance Clear, Urine pH 5, Urine Specific [place] 1.020, Urine Protein 2+H, Urine Glucose (UA) Negative, Urine Ketones Negative, Urine Blood 2+H, Urine Nitrite PositiveH, Urine Bilirubin Negative, Urine Urobilinogen Normal, Urine Leukocyte Esterase 3+H, Urine RBC 5-10H, Urine WBC 15 -20H, Urine Squamous Epithelial Cells None, Urine Bacteria ModerateH 03/28/19 06:45: White Blood Count 6.8, Red Blood Count 3.49L, Hemoglobin 9.5L, Hematocrit 29.8L , Mean Corpuscular Volume 85, Mean Corpuscular Hemoglobin 27.2, Mean Corpuscular Hemoglobin Concent 31.9L, Red Cell Distribution Width 16.7H, Platelet Count 325, Mean Platelet Volume 5.1L, Neutrophils (%) (Auto) 75.8H, Lymphocytes (%) (Auto) 16.3L, Monocytes (%) (Auto) 6.8, Eosinophils (%) (Auto) 0.4, Basophils (%) (Auto) 0.7, Sodium Level 141, Potassium Level 4.4, Chloride Level 108H, Carbon Dioxide Level 22, Anion Gap 11, Blood Urea Nitrogen 18, Creatinine 0.9, Estimat Glomerular Filtration Rate , Glucose Level 144H, Calcium Level 8.7, Total Bilirubin 0.4, Aspartate Amino Transf (AST/SGOT) 28, Alanine Aminotransferase (ALT/SGPT) 21, Alkaline Phosphatase 848H, Total Protein 5.5L, Albumin 2.0L, Globulin 3.5, Albumin/Globulin Ratio 0.6L, Hemoglobin A1c 6.6H, Iron Level 13L, Total Iron Binding Capacity 117L, Percent Iron Saturation 11L, Unsaturated Iron Binding 104L, Ferritin 409H, Carcinoembryonic Antigen [Pending], Prostate Specific Antigen 533.33H Height (Feet): 6 Height (Inches): 2.00 Weight (Pounds): 156 Cardiovascular: normal rate Respiratory/Chest: lungs clear Jhon Moreno MD Mar 28, 2019 15:40
[2019-03-28] MEDS ORDERED: Docusate 100mg/10ml Liq ORAL SCH (18:00)
--- NOTE | 2019-03-28 19:14 | Consultation ---
Consult Note Consult Note asked to eval for BP and fluid management ER: HPI This patient presents from a intermediate facility for fever. The patient has a history of CVA and is unable to give any type of history. No Known Allergies (Unverified , 02/28/16) Past Medical History: see triage record, DM, HTN, CVA/TIA, other - CA Past Medical History: No History, Except For Hx Hypertension: Yes Hx Diabetes: Yes Hx Neurological Problems: Yes Hx Syncope: Yes Hx Dysphasia: Yes examined not historian data reviewed . Assessment/Plan HTN mild dehydration BPH, High PSA of over 500 UTI Anemia Adjust BP meds Gastric support IV iron continue the rest Cecil Collins MD Mar 28, 2019 19:14
--- NOTE | 2019-03-28 19:15 | NUR ---
NURSE NOTES: Received patient from No ARTEAG[facility]. Patient in bed, 2L NC, no s/s of respiratory distress. Alert and oriented x1, calm. No c/o pain or signs of pain observed. Martínez catheter intact, patent, yellow output. PIV 20 gauge on LFA intact, no s/s of infection or infiltration. Bed in low position, locked, bed alarm on, call light within reach.
--- NOTE | 2019-03-28 23:30 | NUR ---
NURSE NOTES: Dr. Sanchez saw patient and instructed current begum catheter to be kept in place.
[2019-03-28] MEDS: Tamsulosin 0.4mg cap ORAL SCH (23:44)
[2019-03-29] VITALS (7 sets, daily range): BP systolic 104–135; BP diastolic 69–89
--- NOTE | 2019-03-29 00:08 | NUR ---
NURSE NOTES: Notified Dr. Rick Cat of patient's fever, received orders for blood culture. Patient is already on antibiotics and tylenol.
--- NOTE | 2019-03-29 01:30 | Consultation ---
DATE OF CONSULTATION: 03/28/2019 CONSULTING PHYSICIAN: Edgar Sanchez M.D. REFERRING PHYSICIAN: Jhon Moreno M.D. REASON FOR CONSULTATION: For followup of chronic Martínez. HISTORY OF PRESENT ILLNESS: This is an unfortunate 78-year-old gentleman. He is a resident of a penitentiary. He is known to me from outpatient evaluations in the office. The patient has a history of advanced prostate cancer. He has a history of BPH, urinary retention, chronic Martínez. He was admitted to the hospital because of fevers and he was noted to have pyuria with a chronic Martínez and followup Urology evaluation requested. The patient is nonverbal. He appears to be comfortable at this time. Most of the history was obtained from the chart. PAST MEDICAL HISTORY: Significant for advanced prostate cancer with metastasis, history of diabetes, hypertension, CVA, transient ischemic attack, history of mild dementia. PAST SURGICAL HISTORY: Unknown. CURRENT MEDICATIONS: Here in the hospital, the patient is on Colace, Cardizem, Flomax, Protonix, dextrose, aspirin, finasteride, insulin, Isovue, and [place]. ALLERGIES: No known drug allergies. SOCIAL HISTORY: He is a resident of a penitentiary. FAMILY HISTORY: Unable to obtain. REVIEW OF SYSTEMS: Unable to obtain. PHYSICAL EXAMINATION: GENERAL: Elderly male, cachectic, in no acute distress. VITAL SIGNS: Temperature is 99.4, blood pressure is 128/84, pulse is 111, and respirations 20. HEENT: Normocephalic. NECK: Supple. ABDOMEN: Soft. GENITOURINARY: Reveals Martínez catheter in place, a 16 Cypriot. The Martínez appears to be relatively new. Urine is yellowish with some debris. EXTREMITIES: No clubbing or cyanosis. LABORATORY DATA: UA on admission showed 2+ protein, 5 to 10 rbc's, 15 to 20 wbc's, and moderate bacteria. White count is 6.8, hemoglobin 9.5, and platelets are 325,000. BUN is 18, creatinine 0.9, potassium is 4.4. The PSA level was 533. DIAGNOSTIC IMAGING STUDIES: The patient did not have any renal imaging during this admission. However, he did have a CT scan earlier this year in November also of the abdomen and pelvis and there was mention of massive left-sided hydronephrosis and hydroureter, which appears to be chronic. The hydroureter extends to the level of the bladder. The bladder was markedly thickened, calcifications within the bladder, and also small cyst in the left kidney. IMPRESSION: 1. Urinary retention with chronic Martínez. 2. BPH history. 3. Probable neurogenic bladder. 4. Advanced prostate cancer. 5. Hematuria. 6. Pyuria. 7. Proteinuria. 8. Left-sided hydronephrosis, which appears to be chronic. 9. Possible small renal cyst. 10. Bladder calcifications. 11. Possible cystitis. PLAN AND DISCUSSION: Again as noted above, the patient does have a chronic Martínez catheter. He usually comes to the office for Martínez exchange and I believe that the last Martínez placed in the office was 18-Cypriot. He currently has a 16-Cypriot Martínez catheter, which I believe may have been changed in the penitentiary, but the catheter appears to be relatively clean and new. At this time, I do not think it needs to be changed. We may have to try to get history from the penitentiary and see if it was changed there. The renal function is currently stable. He does have left-sided hydronephrosis and I presume this may be obstruction from his locally advanced prostate cancer. In any event, the hydronephrosis appears to be chronic and his renal function at this time is stable with normal creatinine. He does have pyuria, possibly secondary to chronic Martínez. He is to continue with antibiotics as ordered. He is currently on doxycycline and cefepime. Again, I would recommend to get catheter indwelling and possibly check a urine culture. His Martínez catheter will be irrigated on a p.r.n. basis. 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 I will follow the patient. Any other recommendations will be forthcoming. Thank you for this consultation. Edgar Sanchez M.D. DR: BILLY JOB#: [id number] CC:
[2019-03-29] MEDS: dilTIAZem HCl 30mg tab ORAL SCH ×4 (06:00→21:38)
[2019-03-29] MEDS: NovoLOG Insulin Flexpen SUBQ SCH ×4 (06:31→21:00)
--- NOTE | 2019-03-29 07:15 | NUR ---
NURSE NOTES: Nurse report given by CHANDLER Cha. Patient's awake and comfortable. No sign of distress or SOB, breathing is unlabored, no retraction. AOx1. Patient's on 2L NC. Bed at lowest position, break engaged and call light within reach. IV site is flushed well, no sign of tenderness or redness. Will continue to monitor.
--- NOTE | 2019-03-29 07:39 | NUR ---
HAND-OFF: Report given to No ARTEAG[facility].
[2019-03-29 08:14] LABS: BASOPHILS % (AUTO) 0.9 % (0.0-2.0); HEMATOCRIT 29.5 % (42.0-52.0); HEMOGLOBIN 9.3 G/DL (14.2-18.0); LYMPHOCYTES % (AUTO) 17.2 % (20.0-45.0); MEAN CORPUSCULAR VOLUME 86 FL (80-99); MONOCYTES % (AUTO) 7.9 % (1.0-10.0); NEUTROPHILS % (AUTO) 73.2 % (45.0-75.0); PLATELET COUNT 329 K/UL (150-450); RED BLOOD COUNT 3.44 M/UL (4.70-6.10); WHITE BLOOD COUNT 7.1 K/UL (4.8-10.8)
[2019-03-29] MEDS: Cefepime HCl 1 GM in D5W 55 ML IVPB SCH ×2 (08:42→20:52)
[2019-03-29] MEDS: Aspirin Baby 81mg ORAL SCH (08:43)
[2019-03-29] MEDS: Thiamine 100mg tab ORAL SCH (08:43)
[2019-03-29] MEDS: Docusate 100mg cap ORAL SCH ×3 (08:43→17:45)
[2019-03-29] MEDS: Heparin 5000 units/ml inj SUBQ SCH ×2 (08:44→21:11)
--- NOTE | 2019-03-29 09:17 | Urology Progress Note ---
Assessment/Plan Status: progressing Assessment/Plan: 1. Urinary retention with chronic Begum. 2. BPH history. 3. Probable neurogenic bladder. 4. Advanced prostate cancer. 5. Hematuria. 6. Pyuria. 7. Proteinuria. 8. Left-sided hydronephrosis, which appears to be chronic. 9. Possible small renal cyst. 10. Bladder calcifications. 11. Possible cystitis. maintain begum, do not remove hand irrigated and do PRN abx as ordered consider medical onc eval consider repeat renal imaging study Subjective Allergies: Coded Allergies: No Known Allergies (Unverified , 02/28/16) Subjective all noted Objective Last 24 Hour Vital Signs Date Time Temp Pulse Resp B/P (MAP) Pulse Ox O2 Delivery O2 Flow Rate FiO2 03/29/19 08:58 108 18 96 Nasal Cannula 2.0 28 03/29/19 08:00 97.9 103 22 117/76 (90) 100 03/29/19 08:00 108 03/29/19 06:15 100 24 109/70 (83) 98 03/29/19 06:00 100 109/70 03/29/19 05:05 99.0 101 24 104/69 (81) 97 03/29/19 04:00 97 03/29/19 04:00 98 03/29/19 03:40 98 03/29/19 00:37 98.2 03/29/19 00:36 98.2 102 18 112/75 (87) 97 03/29/19 00:00 108 110/74 03/28/19 23:45 108 03/28/19 23:33 101.7 108 28 110/74 (86) 97 03/28/19 21:00 Nasal Cannula 2.0 03/28/19 20:00 100.6 112 19 110/79 (89) 99 03/28/19 19:34 109 03/28/19 16:00 105 03/28/19 16:00 99.4 111 20 128/84 (99) 100 03/28/19 12:00 103 03/28/19 12:00 99.4 110 20 115/69 (84) 99 03/28/19 09:59 Nasal Cannula 2.0 Intake and Output 03/28/19 03/29/19 19:00 07:00 Intake Total 615 ml Output Total 500 ml 650 ml Balance 115 ml -650 ml Intake Oral 450 ml IV Total 165 ml Output Urine Total 500 ml 650 ml # Bowel Movements 1 1 Microbiology Date/Time Source Procedure Growth Status 03/27/19 19:05 Blood Blood Culture - Preliminary NO GROWTH AFTER 24 HOURS Resulted 03/27/19 20:08 Urine,Clean Catch Urine Culture - Preliminary Mixed Urogenital Contaminants Resulted 03/27/19 21:00 Rectum Received Current Medications Medications (Trade) Dose Ordered Sig/Eufemia Route PRN Reason Start Time Stop Time Status Last Admin Dose Admin Acetaminophen (Tylenol) 650 mg Q4H PRN ORAL Mild Pain/Temp > 100.5 03/27/19 23:30 04/26/19 23:29 03/28/19 23:48 Acetaminophen/ Hydrocodone Bitart ([place] 5/325) 1 tab Q6H PRN ORAL Moderate Pain (Pain Scale 4-6) 03/27/19 23:30 04/03/19 23:29 Acetaminophen/ Hydrocodone Bitart ([place] 5/325) 2 tab Q6H PRN ORAL Severe Pain (Pain Scale 7-10) 03/27/19 23:30 04/03/19 23:29 Albuterol/ Ipratropium (Albuterol/ Ipratropium) 3 ml Q4H PRN HHN Shortness of Breath 03/27/19 23:30 04/01/19 23:29 03/28/19 00:13 Aspirin (ASA) 81 mg DAILY ORAL 03/28/19 09:00 04/27/19 08:59 03/29/19 08:43 Cefepime HCl 1 gm/ Dextrose 55 ml @ 110 mls/hr EVERY 12 HOURS IVPB 03/28/19 09:00 04/04/19 08:59 03/29/19 08:42 Dextrose (Dextrose 50%) 25 ml Q30M PRN IV Hypoglycemia 03/27/19 23:30 04/26/19 23:29 Dextrose (Dextrose 50%) 50 ml Q30M PRN IV Hypoglycemia 03/27/19 23:30 04/26/19 23:29 Diltiazem HCl (Cardizem) 30 mg EVERY 6 HOURS ORAL 03/29/19 00:00 04/28/19 00:00 Docusate Sodium (Colace) 100 mg THREE TIMES A DAY ORAL 03/29/19 09:00 04/28/19 08:59 03/29/19 08:43 Doxycycline Hyclate 100 mg/ Dextrose 110 ml @ 110 mls/hr Q12H IV 03/28/19 10:00 04/04/19 09:59 03/28/19 22:16 Finasteride (Proscar) 5 mg DAILY ORAL 03/28/19 09:00 04/27/19 08:59 03/29/19 08:43 Heparin Sodium (Porcine) (Heparin 5000 units/ml) 5,000 units EVERY 12 HOURS SUBQ 03/28/19 09:00 04/27/19 08:59 03/29/19 08:44 Insulin Aspart (NovoLOG) BEFORE MEALS AND HS SUBQ 03/28/19 06:30 04/27/19 06:29 03/29/19 06:31 Iopamidol (Isovue-300 100ml) 100 ml NOW PRN INJ Radiology Procedure 03/27/19 20:30 03/29/19 20:25 Iron Sucrose 100 mg/Sodium Chloride 55 ml @ 200 mls/hr BEDTIME IV 03/28/19 21:00 04/06/19 21:17 03/28/19 21:50 Pantoprazole (Protonix) 40 mg EVERY 12 HOURS ORAL 03/28/19 21:00 04/27/19 20:59 03/29/19 08:43 Tamsulosin HCl (Flomax) 0.4 mg BEDTIME ORAL 03/28/19 23:45 04/27/19 23:44 03/28/19 23:44 Thiamine HCl (Vitamin B1) 100 mg DAILY ORAL 03/28/19 09:00 04/27/19 08:59 03/29/19 08:43 Laboratory Tests 03/29/19 07:23: White Blood Count 7.1, Red Blood Count 3.44L, Hemoglobin 9.3L, Hematocrit 29.5L , Mean Corpuscular Volume 86, Mean Corpuscular Hemoglobin 27.0, Mean Corpuscular Hemoglobin Concent 31.5L, Red Cell Distribution Width 17.0H, Platelet Count 329, Mean Platelet Volume 5.4L, Neutrophils (%) (Auto) 73.2, Lymphocytes (%) (Auto) 17.2L, Monocytes (%) (Auto) 7.9, Eosinophils (%) (Auto) 1.0, Basophils (%) (Auto) 0.9, Sodium Level [Pending], Potassium Level [Pending] , Chloride Level [Pending], Carbon Dioxide Level [Pending], Blood Urea Nitrogen [Pending], Creatinine [Pending], Estimat Glomerular Filtration Rate [Pending], Glucose Level [Pending], Uric Acid [Pending], Calcium Level [Pending], Phosphorus Level [Pending], Magnesium Level [Pending], Total Bilirubin [Pending] , Gamma Glutamyl Transpeptidase [Pending], Aspartate Amino Transf (AST/SGOT) [ Pending], Alanine Aminotransferase (ALT/SGPT) [Pending], Alkaline Phosphatase [ Pending], C-Reactive Protein, Quantitative [Pending], Pro-B-Type Natriuretic Peptide [Pending], Total Protein [Pending], Albumin [Pending], Globulin [Pending ], Triglycerides Level [Pending], Cholesterol Level [Pending], LDL Cholesterol [ Pending], HDL Cholesterol [Pending], Cholesterol/HDL Ratio [Pending], Thyroid Stimulating Hormone (TSH) [Pending] Height (Feet): 6 Height (Inches): 2.00 Weight (Pounds): 156 Objective exam stable urine yellow/jimmy with some debris Edgar Sanchez MD Mar 29, 2019 09:17
[2019-03-29 09:20] LABS: ALANINE AMINOTRANSFERASE 24 U/L (12-78); ALBUMIN 1.9 G/DL (3.4-5.0); ALBUMIN/GLOBULIN RATIO 0.4 (1.0-2.7); ALKALINE PHOSPHATASE 779 U/L (46-116); ANION GAP 11 mmol/L (5-15); ASPARTATE AMINO TRANSFERASE 30 U/L (15-37); BILIRUBIN,TOTAL 0.5 MG/DL (0.2-1.0); BLOOD UREA NITROGEN 20 mg/dL (7-18); CALCIUM 8.9 MG/DL (8.5-10.1); CARBON DIOXIDE 21 MMOL/L (21-32); CHLORIDE 107 MMOL/L (98-107); CHOLESTEROL 112 MG/DL (< 200); GAMMA GLUTAMYL TRANSPEPTIDASE 192 U/L (5-85); HDL CHOLESTEROL 39 MG/DL (40-60); PHOSPHORUS 3.3 MG/DL (2.5-4.9); POTASSIUM 3.9 MMOL/L (3.5-5.1); SODIUM 139 MMOL/L (136-145); TRIGLYCERIDES 58 MG/DL (30-150)
[2019-03-29] MEDS: Doxycycline Hyclate 100 MG in D5W 110 ML IV SCH ×2 (10:15→22:01)
--- NOTE | 2019-03-29 11:06 | Nephrology Progress Note ---
Assessment/Plan Problem List: (1) Hypertension (2) Dehydration (3) UTI (urinary tract infection) (4) Anemia (5) Elevated PSA Assessment HTN mild dehydration BPH, High PSA of over 500 UTI Anemia Plan Adjust BP meds Gastric support IV iron continue the rest Subjective ROS Limited/Unobtainable: No Constitutional: Reports: malaise, weakness Objective Objective Last 24 Hour Vital Signs Date Time Temp Pulse Resp B/P (MAP) Pulse Ox O2 Delivery O2 Flow Rate FiO2 03/29/19 09:00 Nasal Cannula 2.0 03/29/19 08:58 108 18 96 Nasal Cannula 2.0 28 03/29/19 08:00 97.9 103 22 117/76 (90) 100 03/29/19 08:00 108 03/29/19 06:15 100 24 109/70 (83) 98 03/29/19 06:00 100 109/70 03/29/19 05:05 99.0 101 24 104/69 (81) 97 03/29/19 04:00 97 03/29/19 04:00 98 03/29/19 03:40 98 03/29/19 00:37 98.2 03/29/19 00:36 98.2 102 18 112/75 (87) 97 03/29/19 00:00 108 110/74 03/28/19 23:45 108 03/28/19 23:33 101.7 108 28 110/74 (86) 97 03/28/19 21:00 Nasal Cannula 2.0 03/28/19 20:00 100.6 112 19 110/79 (89) 99 03/28/19 19:34 109 03/28/19 16:00 105 03/28/19 16:00 99.4 111 20 128/84 (99) 100 03/28/19 12:00 103 03/28/19 12:00 99.4 110 20 115/69 (84) 99 Intake and Output 03/28/19 03/29/19 19:00 07:00 Intake Total 615 ml Output Total 500 ml 650 ml Balance 115 ml -650 ml Intake Oral 450 ml IV Total 165 ml Output Urine Total 500 ml 650 ml # Bowel Movements 1 1 Laboratory Tests 03/29/19 07:23: White Blood Count 7.1, Red Blood Count 3.44L, Hemoglobin 9.3L, Hematocrit 29.5L , Mean Corpuscular Volume 86, Mean Corpuscular Hemoglobin 27.0, Mean Corpuscular Hemoglobin Concent 31.5L, Red Cell Distribution Width 17.0H, Platelet Count 329, Mean Platelet Volume 5.4L, Neutrophils (%) (Auto) 73.2, Lymphocytes (%) (Auto) 17.2L, Monocytes (%) (Auto) 7.9, Eosinophils (%) (Auto) 1.0, Basophils (%) (Auto) 0.9, Sodium Level 139, Potassium Level 3.9, Chloride Level 107, Carbon Dioxide Level 21, Anion Gap 11, Blood Urea Nitrogen 20H, Creatinine 1.0, Estimat Glomerular Filtration Rate , Glucose Level 120H, Uric Acid 3.2, Calcium Level 8.9, Phosphorus Level 3.3, Magnesium Level 1.9, Total Bilirubin 0.5, Gamma Glutamyl Transpeptidase 192H, Aspartate Amino Transf (AST/ SGOT) 30, Alanine Aminotransferase (ALT/SGPT) 24, Alkaline Phosphatase 779H, C- Reactive Protein, Quantitative 21.0H, Pro-B-Type Natriuretic Peptide 191H, Total Protein 6.4, Albumin 1.9L, Globulin 4.5, Albumin/Globulin Ratio 0.4L, Triglycerides Level 58, Cholesterol Level 112, LDL Cholesterol 61, HDL Cholesterol 39L, Cholesterol/HDL Ratio 2.9L, Thyroid Stimulating Hormone (TSH) 1.581 Height (Feet): 6 Height (Inches): 2.00 Weight (Pounds): 156 General Appearance: lethargic Cardiovascular: tachycardia Respiratory/Chest: decreased breath sounds Abdomen: distended Cecil Collins MD Mar 29, 2019 11:06
--- NOTE | 2019-03-29 12:00 | NUR ---
NURSE NOTES: P200 mattress applied.
--- NOTE | 2019-03-29 13:26 | General Progress Note ---
Assessment/Plan Problem List: (1) HTN (hypertension) ICD Codes: I10 - Essential (primary) hypertension SNOMED: 90975493 (2) Pneumonia ICD Codes: J18.9 - Pneumonia, unspecified organism SNOMED: 348556849 Status: progressing Assessment/Plan: reviewed the chart and labs vitals stable no fever pna mets prostate cance abx per id Subjective ROS Limited/Unobtainable: Yes Allergies: Coded Allergies: No Known Allergies (Unverified , 02/28/16) Objective Last 24 Hour Vital Signs Date Time Temp Pulse Resp B/P (MAP) Pulse Ox O2 Delivery O2 Flow Rate FiO2 03/29/19 13:12 107 126/86 03/29/19 12:00 98.4 107 22 124/87 (99) 100 03/29/19 09:00 Nasal Cannula 2.0 03/29/19 08:58 108 18 96 Nasal Cannula 2.0 28 03/29/19 08:00 97.9 103 22 117/76 (90) 100 03/29/19 08:00 108 03/29/19 06:15 100 24 109/70 (83) 98 03/29/19 06:00 100 109/70 03/29/19 05:05 99.0 101 24 104/69 (81) 97 03/29/19 04:00 97 03/29/19 04:00 98 03/29/19 03:40 98 03/29/19 00:37 98.2 03/29/19 00:36 98.2 102 18 112/75 (87) 97 03/29/19 00:00 108 110/74 03/28/19 23:45 108 03/28/19 23:33 101.7 108 28 110/74 (86) 97 03/28/19 21:00 Nasal Cannula 2.0 03/28/19 20:00 100.6 112 19 110/79 (89) 99 03/28/19 19:34 109 03/28/19 16:00 105 03/28/19 16:00 99.4 111 20 128/84 (99) 100 Intake and Output 03/28/19 03/29/19 19:00 07:00 Intake Total 615 ml Output Total 500 ml 650 ml Balance 115 ml -650 ml Intake Oral 450 ml IV Total 165 ml Output Urine Total 500 ml 650 ml # Bowel Movements 1 1 Laboratory Tests 03/29/19 07:23: White Blood Count 7.1, Red Blood Count 3.44L, Hemoglobin 9.3L, Hematocrit 29.5L , Mean Corpuscular Volume 86, Mean Corpuscular Hemoglobin 27.0, Mean Corpuscular Hemoglobin Concent 31.5L, Red Cell Distribution Width 17.0H, Platelet Count 329, Mean Platelet Volume 5.4L, Neutrophils (%) (Auto) 73.2, Lymphocytes (%) (Auto) 17.2L, Monocytes (%) (Auto) 7.9, Eosinophils (%) (Auto) 1.0, Basophils (%) (Auto) 0.9, Sodium Level 139, Potassium Level 3.9, Chloride Level 107, Carbon Dioxide Level 21, Anion Gap 11, Blood Urea Nitrogen 20H, Creatinine 1.0, Estimat Glomerular Filtration Rate , Glucose Level 120H, Uric Acid 3.2, Calcium Level 8.9, Phosphorus Level 3.3, Magnesium Level 1.9, Total Bilirubin 0.5, Gamma Glutamyl Transpeptidase 192H, Aspartate Amino Transf (AST/ SGOT) 30, Alanine Aminotransferase (ALT/SGPT) 24, Alkaline Phosphatase 779H, C- Reactive Protein, Quantitative 21.0H, Pro-B-Type Natriuretic Peptide 191H, Total Protein 6.4, Albumin 1.9L, Globulin 4.5, Albumin/Globulin Ratio 0.4L, Triglycerides Level 58, Cholesterol Level 112, LDL Cholesterol 61, HDL Cholesterol 39L, Cholesterol/HDL Ratio 2.9L, Thyroid Stimulating Hormone (TSH) 1.581 Height (Feet): 6 Height (Inches): 2.00 Weight (Pounds): 156 EENT: PERRL/EOMI Neck: supple Cardiovascular: normal rate Respiratory/Chest: lungs clear Jhon Moreno MD Mar 29, 2019 13:26
[2019-03-29] MEDS ORDERED: Tubing IV Secondary IV ONE (15:22)
--- NOTE | 2019-03-29 18:30 | Pulmonology Progress Note ---
Assessment/Plan Assessment/Plan Pulmonary Progress Note HPI: The patient is a 78 year old man with PMH of COPD, Dementia, admitted with shortness of breath, noyted to have pneumonia and UTI in the ED. The patient is a poor historian, PMH: of advanced Dementia, COPD, hypertension, constipation, NIDDM, GERD, indwelling Martínez catheter. PEG. Noted to have Pulmonary infiltrates, evidence of bony metastatic disease. ALLERGIES: No known allergies. MEDICATIONS: Clonidine, docusate, finasteride, insulin, metoprolol, ranitidine, Flomax, and Proscar. FAMILY HISTORY: NA. SOCIAL HISTORY: long-term patient. REVIEW OF SYSTEMS: NA PHYSICAL EXAMINATION: VITAL SIGNS NOTED and stable HEENT: PERRLA. NECK: Supple. No lymphadenopathy. CHEST: Occasional rhonchi and wheezing. CARDIOVASCULAR: Tachycardic. Some murmurs, which is chronic. GASTROINTESTINAL: Soft, nontender. No organomegaly. EXTREMITIES: No edema. PLATE SENSITIZER: Moves all four extremities. No focal signs IMAGING: Chest x-ray shows possible metastatic lung lesions, also pneumonia at bases LABORATORY DATA NOTED: WBC of 8.2, hemoglobin 10.9. Sodium 137, potassium 4.1, BUN of 22, creatinine 1, glucose 190. ASSESSMENT Pneumonia UTI Azotemia Advanced Dementia COPD Hypertension H/o constipation NIDDM GERD Indwelling Martínez catheter, PEG. PLAN: HHN O2 PRN Broad spectrum antibiotics Aspiration precautions PPX Monitor labs COPD IVF PRN CT Chest: FINDINGS: Lungs: Minimal atelectatic changes in the right lower lobe near the costophrenic angle posteriorly. Pleural space: Unremarkable. No pneumothorax. No significant effusion. Heart: See below. Bones/joints: The nodular densities identified in the paraspinal upper chest correlates with dense sclerosis in the bones, typical of osteoblastic metastatic disease. No acute fracture. No dislocation. Soft tissues: Unremarkable. Vasculature: Aortic valvular calcifications and scattered opacifications in the coronary arteries. Contrast bolus opacification is suboptimal and limits detailed evaluation for pulmonary emboli but no pulmonary emboli are seen. No thoracic aortic aneurysm. Lymph nodes: Unremarkable. No enlarged lymph nodes. IMPRESSION: 1. Suboptimal contrast bolus timing showing no evidence of pulmonary emboli or other acute vascular pathology. 2. Diffuse osteoblastic metastatic disease. Subjective ROS Limited/Unobtainable: No Allergies: Coded Allergies: No Known Allergies (Unverified , 02/28/16) Objective Last 24 Hour Vital Signs Date Time Temp Pulse Resp B/P (MAP) Pulse Ox O2 Delivery O2 Flow Rate FiO2 03/29/19 16:00 99.4 104 24 110/70 (83) 96 03/29/19 16:00 103 03/29/19 13:12 107 126/86 03/29/19 12:00 104 03/29/19 12:00 98.4 107 22 124/87 (99) 100 03/29/19 09:00 Nasal Cannula 2.0 03/29/19 08:58 108 18 96 Nasal Cannula 2.0 28 03/29/19 08:00 97.9 103 22 117/76 (90) 100 03/29/19 08:00 108 03/29/19 06:15 100 24 109/70 (83) 98 03/29/19 06:00 100 109/70 03/29/19 05:05 99.0 101 24 104/69 (81) 97 03/29/19 04:00 97 03/29/19 04:00 98 03/29/19 03:40 98 03/29/19 00:37 98.2 03/29/19 00:36 98.2 102 18 112/75 (87) 97 03/29/19 00:00 108 110/74 03/28/19 23:45 108 03/28/19 23:33 101.7 108 28 110/74 (86) 97 03/28/19 21:00 Nasal Cannula 2.0 03/28/19 20:00 100.6 112 19 110/79 (89) 99 03/28/19 19:34 109 Intake and Output 03/28/19 03/29/19 18:59 06:59 Intake Total 615 ml Output Total 500 ml 650 ml Balance 115 ml -650 ml Intake Oral 450 ml IV Total 165 ml Output Urine Total 500 ml 650 ml # Bowel Movements 1 1 Microbiology Date/Time Source Procedure Growth Status 03/27/19 19:05 Blood Blood Culture - Preliminary NO GROWTH AFTER 24 HOURS Resulted 03/27/19 18:50 Blood Blood Culture - Preliminary NO GROWTH AFTER 24 HOURS Resulted 03/27/19 20:08 Urine,Clean Catch Urine Culture - Preliminary Mixed Urogenital Contaminants Resulted 03/27/19 21:00 Rectum Received Laboratory Tests 03/29/19 07:23: White Blood Count 7.1, Red Blood Count 3.44L, Hemoglobin 9.3L, Hematocrit 29.5L , Mean Corpuscular Volume 86, Mean Corpuscular Hemoglobin 27.0, Mean Corpuscular Hemoglobin Concent 31.5L, Red Cell Distribution Width 17.0H, Platelet Count 329, Mean Platelet Volume 5.4L, Neutrophils (%) (Auto) 73.2, Lymphocytes (%) (Auto) 17.2L, Monocytes (%) (Auto) 7.9, Eosinophils (%) (Auto) 1.0, Basophils (%) (Auto) 0.9, Sodium Level 139, Potassium Level 3.9, Chloride Level 107, Carbon Dioxide Level 21, Anion Gap 11, Blood Urea Nitrogen 20H, Creatinine 1.0, Estimat Glomerular Filtration Rate , Glucose Level 120H, Uric Acid 3.2, Calcium Level 8.9, Phosphorus Level 3.3, Magnesium Level 1.9, Total Bilirubin 0.5, Gamma Glutamyl Transpeptidase 192H, Aspartate Amino Transf (AST/ SGOT) 30, Alanine Aminotransferase (ALT/SGPT) 24, Alkaline Phosphatase 779H, C- Reactive Protein, Quantitative 21.0H, Pro-B-Type Natriuretic Peptide 191H, Total Protein 6.4, Albumin 1.9L, Globulin 4.5, Albumin/Globulin Ratio 0.4L, Triglycerides Level 58, Cholesterol Level 112, LDL Cholesterol 61, HDL Cholesterol 39L, Cholesterol/HDL Ratio 2.9L, Thyroid Stimulating Hormone (TSH) 1.581 Current Medications Medications (Trade) Dose Ordered Sig/Eufemia Route PRN Reason Start Time Stop Time Status Last Admin Dose Admin Acetaminophen (Tylenol) 650 mg Q4H PRN ORAL Mild Pain/Temp > 100.5 03/27/19 23:30 04/26/19 23:29 03/28/19 23:48 Acetaminophen/ Hydrocodone Bitart ([place] 5/325) 1 tab Q6H PRN ORAL Moderate Pain (Pain Scale 4-6) 03/27/19 23:30 04/03/19 23:29 Acetaminophen/ Hydrocodone Bitart ([place] 5/325) 2 tab Q6H PRN ORAL Severe Pain (Pain Scale 7-10) 03/27/19 23:30 04/03/19 23:29 Albuterol/ Ipratropium (Albuterol/ Ipratropium) 3 ml Q4H PRN HHN Shortness of Breath 03/27/19 23:30 04/01/19 23:29 03/28/19 00:13 Aspirin (ASA) 81 mg DAILY ORAL 03/28/19 09:00 04/27/19 08:59 03/29/19 08:43 Cefepime HCl 1 gm/ Dextrose 55 ml @ 110 mls/hr EVERY 12 HOURS IVPB 03/28/19 09:00 04/04/19 08:59 03/29/19 08:42 Dextrose (Dextrose 50%) 25 ml Q30M PRN IV Hypoglycemia 03/27/19 23:30 04/26/19 23:29 Dextrose (Dextrose 50%) 50 ml Q30M PRN IV Hypoglycemia 03/27/19 23:30 04/26/19 23:29 Diltiazem HCl (Cardizem) 30 mg EVERY 8 HOURS ORAL 03/29/19 14:00 04/28/19 00:00 03/29/19 13:12 Docusate Sodium (Colace) 100 mg THREE TIMES A DAY ORAL 03/29/19 09:00 04/28/19 08:59 03/29/19 17:45 Doxycycline Hyclate 100 mg/ Dextrose 110 ml @ 110 mls/hr Q12H IV 03/28/19 10:00 04/04/19 09:59 03/29/19 10:15 Finasteride (Proscar) 5 mg DAILY ORAL 03/28/19 09:00 04/27/19 08:59 03/29/19 08:43 Heparin Sodium (Porcine) (Heparin 5000 units/ml) 5,000 units EVERY 12 HOURS SUBQ 03/28/19 09:00 04/27/19 08:59 03/29/19 08:44 Insulin Aspart (NovoLOG) BEFORE MEALS AND HS SUBQ 03/28/19 06:30 04/27/19 06:29 03/29/19 17:45 Iopamidol (Isovue-300 100ml) 100 ml NOW PRN INJ Radiology Procedure 03/27/19 20:30 03/29/19 20:25 Iron Sucrose 100 mg/Sodium Chloride 55 ml @ 200 mls/hr BEDTIME IV 03/28/19 21:00 04/06/19 21:17 03/28/19 21:50 Pantoprazole (Protonix) 40 mg EVERY 12 HOURS ORAL 03/28/19 21:00 04/27/19 20:59 03/29/19 08:43 Tamsulosin HCl (Flomax) 0.4 mg BEDTIME ORAL 03/28/19 23:45 04/27/19 23:44 03/28/19 23:44 Thiamine HCl (Vitamin B1) 100 mg DAILY ORAL 03/28/19 09:00 04/27/19 08:59 03/29/19 08:43 Ye De La Cruz MD Mar 29, 2019 18:30
--- NOTE | 2019-03-29 19:26 | NUR ---
HAND-OFF: Report given to CHANDLER Olmos. Pt is in stable condition; plan of care endorsed.
--- NOTE | 2019-03-29 19:27 | NUR ---
NURSE NOTES: Got report from Patti Rn. Pt in stable condition. Denies any pain. No s/s of distress or discomfort noted. Pt resting in bed comfortably. Bed in low and locked position, call light within reach, bedside table within reach. Continue to monitor.
--- NOTE | 2019-03-29 20:45 | Hematology/Onc Progress Note ---
Assessment/Plan Assessment/Plan ASSESSMENT AND REC'S 1. Prostate Cancer likely metastatic to bone ---> Check PSA level, Consider Uro eval unknown is patient is seeking treatment outpatient need more clinical records. ---> CT Chest reviewed: no evidence of pulmonary emboli or other acute vascular pathology.Diffuse osteoblastic metastatic disease. --> begum cath intact 2. Hematuria --> U/A noted 2 + hematuria --> consider Uro eval, begum intact no active bleeding seen 3. Anemia of chronic disease due to prostate ca --> anemia w/u has been ordered --> No evidence of hemolysis is noted, peripheral smear has been reviewed. --> Hgb goal >7. Transfuse prn.Currently Hgb 9.5 2. COPD --> breathing treatments as needed --> imaging revealed CT Chest and CXR --> / 3. Shortness of breath --> likely due to above 4. Azotemia. The time the the note was written does not neceassrily correspond the time the patient was seen. Subjective Allergies: Coded Allergies: No Known Allergies (Unverified , 02/28/16) Subjective 03/28: fever last night, blood cultures drawn, no distress. Objective Objective Current Medications Medications (Trade) Dose Ordered Sig/Eufemia Route PRN Reason Start Time Stop Time Status Last Admin Dose Admin Acetaminophen (Tylenol) 650 mg Q4H PRN ORAL Mild Pain/Temp > 100.5 03/27/19 23:30 04/26/19 23:29 03/28/19 23:48 Acetaminophen/ Hydrocodone Bitart ([place] 5/325) 1 tab Q6H PRN ORAL Moderate Pain (Pain Scale 4-6) 03/27/19 23:30 04/03/19 23:29 Acetaminophen/ Hydrocodone Bitart ([place] 5/325) 2 tab Q6H PRN ORAL Severe Pain (Pain Scale 7-10) 03/27/19 23:30 04/03/19 23:29 Albuterol/ Ipratropium (Albuterol/ Ipratropium) 3 ml Q4H PRN HHN Shortness of Breath 03/27/19 23:30 04/01/19 23:29 03/28/19 00:13 Aspirin (ASA) 81 mg DAILY ORAL 03/28/19 09:00 8/5/19 08:59 03/29/19 08:43 Cefepime HCl 1 gm/ Dextrose 55 ml @ 110 mls/hr EVERY 12 HOURS IVPB 03/28/19 09:00 04/04/19 08:59 03/29/19 08:42 Dextrose (Dextrose 50%) 25 ml Q30M PRN IV Hypoglycemia 03/27/19 23:30 04/26/19 23:29 Dextrose (Dextrose 50%) 50 ml Q30M PRN IV Hypoglycemia 03/27/19 23:30 04/26/19 23:29 Diltiazem HCl (Cardizem) 30 mg EVERY 8 HOURS ORAL 03/29/19 14:00 04/28/19 00:00 03/29/19 13:12 Docusate Sodium (Colace) 100 mg THREE TIMES A DAY ORAL 03/29/19 09:00 04/28/19 08:59 03/29/19 17:45 Doxycycline Hyclate 100 mg/ Dextrose 110 ml @ 110 mls/hr Q12H IV 03/28/19 10:00 04/04/19 09:59 03/29/19 10:15 Finasteride (Proscar) 5 mg DAILY ORAL 03/28/19 09:00 04/27/19 08:59 03/29/19 08:43 Heparin Sodium (Porcine) (Heparin 5000 units/ml) 5,000 units EVERY 12 HOURS SUBQ 03/28/19 09:00 04/27/19 08:59 03/29/19 08:44 Insulin Aspart (NovoLOG) BEFORE MEALS AND HS SUBQ 03/28/19 06:30 04/27/19 06:29 03/29/19 17:45 Iron Sucrose 100 mg/Sodium Chloride 55 ml @ 200 mls/hr BEDTIME IV 03/28/19 21:00 04/06/19 21:17 03/28/19 21:50 Pantoprazole (Protonix) 40 mg EVERY 12 HOURS ORAL 03/28/19 21:00 04/27/19 20:59 03/29/19 08:43 Tamsulosin HCl (Flomax) 0.4 mg BEDTIME ORAL 03/28/19 23:45 04/27/19 23:44 03/28/19 23:44 Thiamine HCl (Vitamin B1) 100 mg DAILY ORAL 03/28/19 09:00 04/27/19 08:59 03/29/19 08:43 Last 24 Hour Vital Signs Date Time Temp Pulse Resp B/P (MAP) Pulse Ox O2 Delivery O2 Flow Rate FiO2 03/29/19 16:00 99.4 104 24 110/70 (83) 96 03/29/19 16:00 103 03/29/19 13:12 107 126/86 03/29/19 12:00 104 03/29/19 12:00 98.4 107 22 124/87 (99) 100 03/29/19 09:00 Nasal Cannula 2.0 03/29/19 08:58 108 18 96 Nasal Cannula 2.0 28 03/29/19 08:00 97.9 103 22 117/76 (90) 100 03/29/19 08:00 108 03/29/19 06:15 100 24 109/70 (83) 98 03/29/19 06:00 100 109/70 03/29/19 05:05 99.0 101 24 104/69 (81) 97 03/29/19 04:00 97 03/29/19 04:00 98 03/29/19 03:40 98 03/29/19 00:37 98.2 03/29/19 00:36 98.2 102 18 112/75 (87) 97 03/29/19 00:00 108 110/74 03/28/19 23:45 108 03/28/19 23:33 101.7 108 28 110/74 (86) 97 03/28/19 21:00 Nasal Cannula 2.0 03/28/19 20:00 100.6 112 19 110/79 (89) 99 03/28/19 19:34 109 03/28/19 16:00 105 03/28/19 16:00 99.4 111 20 128/84 (99) 100 03/28/19 12:00 103 03/28/19 12:00 99.4 110 20 115/69 (84) 99 03/28/19 09:59 Nasal Cannula 2.0 03/28/19 08:56 103 121/80 03/28/19 08:00 98.4 106 20 121/80 (94) 98 03/28/19 08:00 103 03/28/19 04:00 112 03/28/19 04:00 99.8 114 22 122/79 (93) 99 03/28/19 00:14 108 20 96 Nasal Cannula 2.0 28 03/28/19 00:00 116 03/28/19 00:00 97.0 114 22 138/92 (107) 100 03/27/19 22:40 Nasal Cannula 2.0 03/27/19 22:30 99.0 120 24 144/96 (112) 99 03/27/19 21:55 100.5 18 147/76 96 Nasal Cannula 2.0 03/27/19 21:55 100.5 112 18 147/76 96 Nasal Cannula 2.0 Intake and Output 03/28/19 03/29/19 19:00 07:00 Intake Total 615 ml Output Total 500 ml 650 ml Balance 115 ml -650 ml Intake Oral 450 ml IV Total 165 ml Output Urine Total 500 ml 650 ml # Bowel Movements 1 1 Labs Test 03/27/19 19:05 03/27/19 20:08 03/28/19 06:45 03/29/19 07:23 White Blood Count 8.2 K/UL (4.8-10.8) 6.8 K/UL (4.8-10.8) 7.1 K/UL (4.8-10.8) Red Blood Count 4.03 M/UL (4.70-6.10) 3.49 M/UL (4.70-6.10) 3.44 M/UL (4.70-6.10) Hemoglobin 10.9 G/DL (14.2-18.0) 9.5 G/DL (14.2-18.0) 9.3 G/DL (14.2-18.0) Hematocrit 34.1 % (42.0-52.0) 29.8 % (42.0-52.0) 29.5 % (42.0-52.0) Mean Corpuscular Volume 85 FL (80-99) 85 FL (80-99) 86 FL (80-99) Mean Corpuscular Hemoglobin 27.1 PG (27.0-31.0) 27.2 PG (27.0-31.0) 27.0 PG (27.0-31.0) Mean Corpuscular Hemoglobin Concent 32.0 G/DL (32.0-36.0) 31.9 G/DL (32.0-36.0) 31.5 G/DL (32.0-36.0) Red Cell Distribution Width 16.0 % (11.6-14.8) 16.7 % (11.6-14.8) 17.0 % (11.6-14.8) Platelet Count 378 K/UL (150-450) 325 K/UL (150-450) 329 K/UL (150-450) Mean Platelet Volume 4.8 FL (6.5-10.1) 5.1 FL (6.5-10.1) 5.4 FL (6.5-10.1) Neutrophils (%) (Auto) 73.3 % (45.0-75.0) 75.8 % (45.0-75.0) 73.2 % (45.0-75.0) Lymphocytes (%) (Auto) 17.4 % (20.0-45.0) 16.3 % (20.0-45.0) 17.2 % (20.0-45.0) Monocytes (%) (Auto) 7.9 % (1.0-10.0) 6.8 % (1.0-10.0) 7.9 % (1.0-10.0) Eosinophils (%) (Auto) 0.6 % (0.0-3.0) 0.4 % (0.0-3.0) 1.0 % (0.0-3.0) Basophils (%) (Auto) 0.7 % (0.0-2.0) 0.7 % (0.0-2.0) 0.9 % (0.0-2.0) Sodium Level 137 MMOL/L (136-145) 141 MMOL/L (136-145) 139 MMOL/L (136-145) Potassium Level 4.1 MMOL/L (3.5-5.1) 4.4 MMOL/L (3.5-5.1) 3.9 MMOL/L (3.5-5.1) Chloride Level 101 MMOL/L (98-107) 108 MMOL/L (98-107) 107 MMOL/L (98-107) Carbon Dioxide Level 25 MMOL/L (21-32) 22 MMOL/L (21-32) 21 MMOL/L (21-32) Anion Gap 11 mmol/L (5-15) 11 mmol/L (5-15) 11 mmol/L (5-15) Blood Urea Nitrogen 26 mg/dL (7-18) 18 mg/dL (7-18) 20 mg/dL (7-18) Creatinine 1.0 MG/DL (0.55-1.30) 0.9 MG/DL (0.55-1.30) 1.0 MG/DL (0.55-1.30) Estimat Glomerular Filtration Rate mL/min (>60) mL/min (>60) mL/min (>60) Glucose Level 190 MG/DL (74-106) 144 MG/DL (74-106) 120 MG/DL (74-106) Lactic Acid Level 1.80 mmol/L (0.4-2.0) Calcium Level 9.4 MG/DL (8.5-10.1) 8.7 MG/DL (8.5-10.1) 8.9 MG/DL (8.5-10.1) Total Bilirubin 0.3 MG/DL (0.2-1.0) 0.4 MG/DL (0.2-1.0) 0.5 MG/DL (0.2-1.0) Aspartate Amino Transf (AST/SGOT) 43 U/L (15-37) 28 U/L (15-37) 30 U/L (15-37) Alanine Aminotransferase (ALT/SGPT) 26 U/L (12-78) 21 U/L (12-78) 24 U/L (12-78) Alkaline Phosphatase 1048 U/L (46-116) 848 U/L (46-116) 779 U/L (46-116) Total Creatine Kinase 121 U/L (26-308) Creatine Kinase MB 0.6 NG/ML (0.0-3.6) Creatine Kinase MB Relative Index 0.4 Troponin I 0.000 ng/mL (0.000-0.056) Total Protein 7.6 G/DL (6.4-8.2) 5.5 G/DL (6.4-8.2) 6.4 G/DL (6.4-8.2) Albumin 2.7 G/DL (3.4-5.0) 2.0 G/DL (3.4-5.0) 1.9 G/DL (3.4-5.0) Globulin 4.9 g/dL 3.5 g/dL 4.5 g/dL Albumin/Globulin Ratio 0.6 (1.0-2.7) 0.6 (1.0-2.7) 0.4 (1.0-2.7) Urine Color Yellow Urine Appearance Clear Urine pH 5 (4.5-8.0) Urine Specific [place] 1.020 (1.005-1.035) Urine Protein 2+ (NEGATIVE) Urine Glucose (UA) Negative (NEGATIVE) Urine Ketones Negative (NEGATIVE) Urine Blood 2+ (NEGATIVE) Urine Nitrite Positive (NEGATIVE) Urine Bilirubin Negative (NEGATIVE) Urine Urobilinogen Normal MG/DL (0.0-1.0) Urine Leukocyte Esterase 3+ (NEGATIVE) Urine RBC 5-10 /HPF (0 - 0) Urine WBC 15-20 /HPF (0 - 0) Urine Squamous Epithelial Cells None /LPF (NONE/OCC) Urine Bacteria Moderate /HPF (NONE) Hemoglobin A1c 6.6 % (4.3-6.0) Iron Level 13 ug/dL (50-175) Total Iron Binding Capacity 117 ug/dL (250-450) Percent Iron Saturation 11 % (15-50) Unsaturated Iron Binding 104 ug/dL (112-346) Ferritin 409 NG/ML (8-388) Prostate Specific Antigen 533.33 ng/mL (0.13-4.0) Uric Acid 3.2 MG/DL (2.6-7.2) Phosphorus Level 3.3 MG/DL (2.5-4.9) Magnesium Level 1.9 MG/DL (1.8-2.4) Gamma Glutamyl Transpeptidase 192 U/L (5-85) C-Reactive Protein, Quantitative 21.0 mg/dL (0.00-0.90) Pro-B-Type Natriuretic Peptide 191 pg/mL (0-125) Triglycerides Level 58 MG/DL (30-150) Cholesterol Level 112 MG/DL (< 200) LDL Cholesterol 61 mg/dL (<100) HDL Cholesterol 39 MG/DL (40-60) Cholesterol/HDL Ratio 2.9 (3.3-4.4) Thyroid Stimulating Hormone (TSH) 1.581 uiU/mL (0.358-3.740) Height (Feet): 6 Height (Inches): 2.00 Weight (Pounds): 156 Objective Objective Narrative General Appearance: no apparent distress, alert, GCS 15, ill appearing. Head: normocephalic, atraumatic ENT: hearing grossly normal, normal pharynx, no angioedema Neck: normal inspection Respiratory: chest non-tender, lungs clear, normal breath sounds, no respiratory distress. Cardiovascular #1: no edema, tachycardia Gastrointestinal: normal bowel sounds, non tender, soft, non-distended, no guarding, no rebound Rectal: deferred Musculoskeletal: back normal, + weakness Contracted RUE Neurologic: alert, oriented x1, responsive Psychiatric: mood/affect normal Aggie Corral NP Mar 29, 2019 20:45
[2019-03-29] MEDS: Tamsulosin 0.4mg cap ORAL SCH (21:09)
[2019-03-30 00:07] VITALS: BP 128/80
[2019-03-30 04:20] VITALS: BP 121/80
[2019-03-30] MEDS: dilTIAZem HCl 30mg tab ORAL SCH ×3 (05:40→21:33)
[2019-03-30] MEDS: NovoLOG Insulin Flexpen SUBQ SCH ×4 (06:11→20:43)
--- NOTE | 2019-03-30 07:20 | NUR ---
HAND-OFF: Report given to Yady ARTEAGA. Endorsed plan of care.
--- NOTE | 2019-03-30 08:06 | NUR ---
NURSE NOTES: Pt is awake in bed AOx2. Pt on cardiac cath lab radiology technologist no signs of cardiac or respiratory distress. Pt IV site on L F/A is patent. Bed is locked and in lowest position. Call light is next to pt. Will continue to monitor and follow plan of care.
[2019-03-30 08:24] VITALS: BP 126/81
--- NOTE | 2019-03-30 08:48 | Urology Progress Note ---
Assessment/Plan Status: progressing Assessment/Plan: 1. Urinary retention with chronic Begum. 2. BPH history. 3. Probable neurogenic bladder. 4. Advanced prostate cancer. 5. Hematuria. 6. Pyuria. 7. Proteinuria. 8. Left-sided hydronephrosis, which appears to be chronic. 9. Possible small renal cyst. 10. Bladder calcifications. 11. Possible cystitis. maintain begum, do not remove hand irrigate PRN abx as ordered consider medical onc eval consider repeat renal imaging study f/u on cx's Subjective Allergies: Coded Allergies: No Known Allergies (Unverified , 02/28/16) Subjective all noted Objective Last 24 Hour Vital Signs Date Time Temp Pulse Resp B/P (MAP) Pulse Ox O2 Delivery O2 Flow Rate FiO2 03/30/19 08:24 98.4 100 20 126/81 (96) 99 03/30/19 07:11 74 16 96 Nasal Cannula 2.0 28 03/30/19 05:40 98 121/80 03/30/19 04:20 98.6 98 20 121/80 (94) 99 03/30/19 04:01 97 03/30/19 00:07 99.3 102 20 128/80 (96) 99 03/29/19 23:57 98 03/29/19 21:38 105 135/89 03/29/19 21:00 Nasal Cannula 2.0 03/29/19 20:11 105 18 97 Nasal Cannula 2.0 28 03/29/19 20:00 99 03/29/19 20:00 99.8 105 19 135/89 (104) 96 03/29/19 16:00 99.4 104 24 110/70 (83) 96 03/29/19 16:00 103 03/29/19 13:12 107 126/86 03/29/19 12:00 104 03/29/19 12:00 98.4 107 22 124/87 (99) 100 03/29/19 09:00 Nasal Cannula 2.0 03/29/19 08:58 108 18 96 Nasal Cannula 2.0 28 Intake and Output 03/29/19 03/30/19 19:00 07:00 Intake Total 795 ml Output Total 350 ml 700 ml Balance 445 ml -700 ml Intake Oral 630 ml IV Total 165 ml Output Urine Total 350 ml 700 ml # Voids 1 # Bowel Movements 1 1 Microbiology Date/Time Source Procedure Growth Status 03/29/19 00:40 Blood Blood Culture - Preliminary NO GROWTH AFTER 24 HOURS Resulted 03/27/19 20:08 Urine,Clean Catch Urine Culture - Preliminary Gram Negative Bacillus 1 Resulted 03/27/19 21:00 Rectum VRE Culture - Final Enterococcus Faecium - Vre Complete Current Medications Medications (Trade) Dose Ordered Sig/Eufemia Route PRN Reason Start Time Stop Time Status Last Admin Dose Admin Acetaminophen (Tylenol) 650 mg Q4H PRN ORAL Mild Pain/Temp > 100.5 03/27/19 23:30 04/26/19 23:29 03/28/19 23:48 Acetaminophen/ Hydrocodone Bitart ([place] 5/325) 1 tab Q6H PRN ORAL Moderate Pain (Pain Scale 4-6) 03/27/19 23:30 04/03/19 23:29 Acetaminophen/ Hydrocodone Bitart ([place] 5/325) 2 tab Q6H PRN ORAL Severe Pain (Pain Scale 7-10) 03/27/19 23:30 04/03/19 23:29 Albuterol/ Ipratropium (Albuterol/ Ipratropium) 3 ml Q4H PRN HHN Shortness of Breath 03/27/19 23:30 04/01/19 23:29 03/28/19 00:13 Aspirin (ASA) 81 mg DAILY ORAL 03/28/19 09:00 04/27/19 08:59 03/29/19 08:43 Cefepime HCl 1 gm/ Dextrose 55 ml @ 110 mls/hr EVERY 12 HOURS IVPB 03/28/19 09:00 04/04/19 08:59 03/29/19 20:52 Dextrose (Dextrose 50%) 25 ml Q30M PRN IV Hypoglycemia 03/27/19 23:30 04/26/19 23:29 Dextrose (Dextrose 50%) 50 ml Q30M PRN IV Hypoglycemia 03/27/19 23:30 04/26/19 23:29 Diltiazem HCl (Cardizem) 30 mg EVERY 8 HOURS ORAL 03/29/19 14:00 04/28/19 00:00 03/30/19 05:40 Docusate Sodium (Colace) 100 mg THREE TIMES A DAY ORAL 03/29/19 09:00 04/28/19 08:59 03/29/19 17:45 Doxycycline Hyclate 100 mg/ Dextrose 110 ml @ 110 mls/hr Q12H IV 03/28/19 10:00 04/04/19 09:59 03/29/19 22:01 Finasteride (Proscar) 5 mg DAILY ORAL 03/28/19 09:00 04/27/19 08:59 03/29/19 08:43 Heparin Sodium (Porcine) (Heparin 5000 units/ml) 5,000 units EVERY 12 HOURS SUBQ 03/28/19 09:00 04/27/19 08:59 03/29/19 21:11 Insulin Aspart (NovoLOG) BEFORE MEALS AND HS SUBQ 03/28/19 06:30 04/27/19 06:29 03/29/19 17:45 Iron Sucrose 100 mg/Sodium Chloride 55 ml @ 200 mls/hr BEDTIME IV 03/28/19 21:00 04/06/19 21:17 03/29/19 20:52 Pantoprazole (Protonix) 40 mg EVERY 12 HOURS ORAL 03/28/19 21:00 04/27/19 20:59 03/29/19 21:09 Tamsulosin HCl (Flomax) 0.4 mg BEDTIME ORAL 03/28/19 23:45 04/27/19 23:44 03/29/19 21:09 Thiamine HCl (Vitamin B1) 100 mg DAILY ORAL 03/28/19 09:00 04/27/19 08:59 03/29/19 08:43 Height (Feet): 6 Height (Inches): 2.00 Weight (Pounds): 156 Objective exam stable urine yellow/jimmy with some debris Edgar Sanchez MD Mar 30, 2019 08:48
[2019-03-30] MEDS: Cefepime HCl 1 GM in D5W 55 ML IVPB SCH ×2 (09:42→20:44)
[2019-03-30] MEDS: Aspirin Baby 81mg ORAL SCH (09:42)
[2019-03-30] MEDS: Thiamine 100mg tab ORAL SCH (09:43)
[2019-03-30] MEDS: Docusate 100mg cap ORAL SCH ×3 (09:44→18:02)
[2019-03-30] MEDS: Heparin 5000 units/ml inj SUBQ SCH ×2 (09:46→20:39)
[2019-03-30] MEDS: Doxycycline Hyclate 100 MG in D5W 110 ML IV SCH ×2 (10:36→22:05)
[2019-03-30 12:00] VITALS: BP 107/72
--- NOTE | 2019-03-30 12:43 | Infectious Diseases Prog Note ---
Assessment/Plan Assessment/Plan IMPRESSION: Sepsis improving, Complicated UTI. chronic Martínez catheter, BPH, metastatic prostate cancer, diabetes mellitus, dementia, anemia, protein-calorie malnutrition. 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 Will f/u cultures Subjective ROS Limited/Unobtainable: Yes Constitutional: Reports: no symptoms Allergies: Coded Allergies: No Known Allergies (Unverified , 02/28/16) Objective Vital Signs Last 24 Hour Vital Signs Date Time Temp Pulse Resp B/P (MAP) Pulse Ox O2 Delivery O2 Flow Rate FiO2 03/30/19 11:31 97 03/30/19 09:00 Nasal Cannula 2.0 03/30/19 08:24 98.4 100 20 126/81 (96) 99 03/30/19 07:29 94 03/30/19 07:11 74 16 96 Nasal Cannula 2.0 28 03/30/19 05:40 98 121/80 03/30/19 04:20 98.6 98 20 121/80 (94) 99 03/30/19 04:01 97 03/30/19 00:07 99.3 102 20 128/80 (96) 99 03/29/19 23:57 98 03/29/19 21:38 105 135/89 03/29/19 21:00 Nasal Cannula 2.0 03/29/19 20:11 105 18 97 Nasal Cannula 2.0 28 03/29/19 20:00 99 03/29/19 20:00 99.8 105 19 135/89 (104) 96 03/29/19 16:00 99.4 104 24 110/70 (83) 96 03/29/19 16:00 103 03/29/19 13:12 107 126/86 Height (Feet): 6 Height (Inches): 2.00 Weight (Pounds): 156 General Appearance: no acute distress HEENT: mucous membranes moist Respiratory/Chest: lungs clear Cardiovascular: normal rate Abdomen: soft, non tender Genitourinary: other - Martínez catheter Extremities: no edema Neurologic/Psychiatric: alert Microbiology Date/Time Source Procedure Growth Status 03/29/19 00:40 Blood Blood Culture - Preliminary NO GROWTH AFTER 24 HOURS Resulted 03/29/19 00:30 Blood Blood Culture - Preliminary NO GROWTH AFTER 24 HOURS Resulted 03/27/19 19:05 Blood Blood Culture - Preliminary NO GROWTH AFTER 48 HOURS Resulted 03/27/19 18:50 Blood Blood Culture - Preliminary NO GROWTH AFTER 48 HOURS Resulted 03/27/19 21:00 Nasal Nares MRSA Culture - Final Staphylococcus Aureus - Mrsa Complete 03/27/19 20:08 Urine,Clean Catch Urine Culture - Preliminary Gram Negative Bacillus 1 Resulted 03/27/19 21:00 Rectum VRE Culture - Final Enterococcus Faecium - Vre Complete Current Medications Medications (Trade) Dose Ordered Sig/Eufemia Route PRN Reason Start Time Stop Time Status Last Admin Dose Admin Acetaminophen (Tylenol) 650 mg Q4H PRN ORAL Mild Pain/Temp > 100.5 03/27/19 23:30 04/26/19 23:29 03/28/19 23:48 Acetaminophen/ Hydrocodone Bitart ([place] 5/325) 1 tab Q6H PRN ORAL Moderate Pain (Pain Scale 4-6) 03/27/19 23:30 04/03/19 23:29 Acetaminophen/ Hydrocodone Bitart ([place] 5/325) 2 tab Q6H PRN ORAL Severe Pain (Pain Scale 7-10) 03/27/19 23:30 04/03/19 23:29 Albuterol/ Ipratropium (Albuterol/ Ipratropium) 3 ml Q4H PRN HHN Shortness of Breath 03/27/19 23:30 04/01/19 23:29 03/28/19 00:13 Aspirin (ASA) 81 mg DAILY ORAL 03/28/19 09:00 04/27/19 08:59 03/30/19 09:42 Cefepime HCl 1 gm/ Dextrose 55 ml @ 110 mls/hr EVERY 12 HOURS IVPB 03/28/19 09:00 04/04/19 08:59 03/30/19 09:42 Dextrose (Dextrose 50%) 25 ml Q30M PRN IV Hypoglycemia 03/27/19 23:30 04/26/19 23:29 Dextrose (Dextrose 50%) 50 ml Q30M PRN IV Hypoglycemia 03/27/19 23:30 04/26/19 23:29 Diltiazem HCl (Cardizem) 30 mg EVERY 8 HOURS ORAL 03/29/19 14:00 04/28/19 00:00 03/30/19 05:40 Docusate Sodium (Colace) 100 mg THREE TIMES A DAY ORAL 03/29/19 09:00 04/28/19 08:59 03/30/19 09:44 Doxycycline Hyclate 100 mg/ Dextrose 110 ml @ 110 mls/hr Q12H IV 03/28/19 10:00 04/04/19 09:59 03/30/19 10:36 Finasteride (Proscar) 5 mg DAILY ORAL 03/28/19 09:00 04/27/19 08:59 03/30/19 09:43 Heparin Sodium (Porcine) (Heparin 5000 units/ml) 5,000 units EVERY 12 HOURS SUBQ 03/28/19 09:00 04/27/19 08:59 03/30/19 09:46 Insulin Aspart (NovoLOG) BEFORE MEALS AND HS SUBQ 03/28/19 06:30 04/27/19 06:29 03/29/19 17:45 Iron Sucrose 100 mg/Sodium Chloride 55 ml @ 200 mls/hr BEDTIME IV 03/28/19 21:00 04/06/19 21:17 03/29/19 20:52 Pantoprazole (Protonix) 40 mg EVERY 12 HOURS ORAL 03/28/19 21:00 04/27/19 20:59 03/30/19 09:44 Tamsulosin HCl (Flomax) 0.4 mg BEDTIME ORAL 03/28/19 23:45 04/27/19 23:44 03/29/19 21:09 Thiamine HCl (Vitamin B1) 100 mg DAILY ORAL 03/28/19 09:00 04/27/19 08:59 03/30/19 09:43 Rick Cat MD Mar 30, 2019 12:43
--- NOTE | 2019-03-30 12:46 | Nephrology Progress Note ---
Assessment/Plan Problem List: (1) Hypertension (2) Dehydration (3) UTI (urinary tract infection) (4) Anemia (5) Elevated PSA Assessment HTN mild dehydration BPH, High PSA of over 500 UTI Anemia Plan no labs today Adjust BP meds Gastric support IV iron continue the rest Subjective ROS Limited/Unobtainable: No Constitutional: Reports: malaise, weakness Objective Objective Last 24 Hour Vital Signs Date Time Temp Pulse Resp B/P (MAP) Pulse Ox O2 Delivery O2 Flow Rate FiO2 03/30/19 11:31 97 03/30/19 09:00 Nasal Cannula 2.0 03/30/19 08:24 98.4 100 20 126/81 (96) 99 03/30/19 07:29 94 03/30/19 07:11 74 16 96 Nasal Cannula 2.0 28 03/30/19 05:40 98 121/80 03/30/19 04:20 98.6 98 20 121/80 (94) 99 03/30/19 04:01 97 03/30/19 00:07 99.3 102 20 128/80 (96) 99 03/29/19 23:57 98 03/29/19 21:38 105 135/89 03/29/19 21:00 Nasal Cannula 2.0 03/29/19 20:11 105 18 97 Nasal Cannula 2.0 28 03/29/19 20:00 99 03/29/19 20:00 99.8 105 19 135/89 (104) 96 03/29/19 16:00 99.4 104 24 110/70 (83) 96 03/29/19 16:00 103 03/29/19 13:12 107 126/86 Intake and Output 03/29/19 03/30/19 19:00 07:00 Intake Total 795 ml Output Total 350 ml 700 ml Balance 445 ml -700 ml Intake Oral 630 ml IV Total 165 ml Output Urine Total 350 ml 700 ml # Voids 1 # Bowel Movements 1 1 Height (Feet): 6 Height (Inches): 2.00 Weight (Pounds): 156 General Appearance: no apparent distress Cardiovascular: tachycardia Respiratory/Chest: decreased breath sounds Abdomen: soft Cecil Collins MD Mar 30, 2019 12:46
--- NOTE | 2019-03-30 13:49 | NUR ---
NURSE NOTES: pt DC 7 in stable condition via taxi. monitor and storage bin tender removed pt has no signs of cardiac of respiratory distress. IV was discontinued no bleeding. ID band was taken off. Pt was given discharge instruction and pt verbalized understanding that he will continue to take home meds. Belonging were put in a bag for him, he signed belonging sheet and double checked all his belonging were inside bag. Advised pt to follow up with doctor within 2 wks of discharge.
--- NOTE | 2019-03-30 14:23 | NUR ---
SWALLOW/SPEECH THERAPY NOTE: REFERRED BY DR FRANZ FOR A SWALLOWING EVALUATION, SEE FULL REPORT IN [facility] ACTIVITY SECTION. 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 SEEN AT [facility] [place] FOR SWALLOW EVAL 02/23/16 AND VIDEOSWALLOW STUDY SAME DAY AT THAT TIME HAD SEVERE OROPHARYNGEAL DYSPHAGIA WITH ORAL APRAXIA AND SENSORIMOTOR DEFICITS AND AUDIBLE ASPIRATION WITH THIN LIQUID WASH, DEEP TRACE PENETRATION WITH THIN AND NECTAR THICK LIQUIDS DUE TO DELAYED SWALLOW AND DECREASED HYOLARYNGEAL EXCURSION. WAS AT RISK FOR CHRONIC TRACE ASPIRATION/PENETRATION WITH ALL CONSISTENCIES. PEG PLACED AND REPEAT MBSS WAS RECOMMENDED IN 2-4 WEEKS. PEG REMOVED 07/30/2016. ALSO HAD PAST ADMIT TO [facility]. NO POLST/AD REGARDING TF BUT HAD IN THE PAST. AT SNF ON PUREED AND NECTAR THICK LIQUIDS. CURRENTLY ON A CCHO-MED PUREED AND NECTAR THICK LIQUID DIET WITH 50 TO MOSTLY 75% INTAKE AND ONE TO ONE FEEDING. PER RN, TAKES MEDS CRUSHED WITHOUT OVERT PROBLEMS. ALERT BUT TENDS TO LEAN TO THE RIGHT AND TILT HEAD RIGHT, BETTER WHEN REPOSITIONED. ABLE TO EXPRESS SOME BASIC NEEDS BUT MILD-MOD DYSARTHRIA/DYSPHONIA NOTED. POOR RECENT MEMORY AND DID NOT FOLLOW ORAL COMMANDS. INITIAL IMPRESSIONS S/S OF A MILD-MODERATE ORAL PREP AND OROPHARYNGEAL DYSPHAGIA WITH INCREASED TRANSIT TIMES. TONGUE APPEARS DEVIATED TO THE RIGHT AT REST. EDENTULOUS RIGHT LABIAL WEAKNESS AND ORAL SPILLAGE WITH CUP MOSTLY. GIVEN TSP PUREED, TAKE 7-12 SECONDS TO SWALLOW, TENDS TO CHEW BOLUS, FAIR HYOLARYNGEAL EXCURSION, NO ORAL RESIDUE NOR OVERT ASPIRATION. GIVEN TSP WATER, ADEQUATE TRANSIT TIMES NO ORAL SPILLAGE, NO ORAL RESIDUE AND NO OVERT ASPIRATION. (HOLD ON FURTHER TRIALS DUE TO PNA DX AND SILENT ASPIRATION RISK THOUGH CXR CLEAR). GIVEN SIP VIA CUP AND TSP NECTAR THICK LIQUIDS, GROSSLY FUNCTIONAL TRANSIT TIMES AND SWALLOW W/O OVERT ASPIRATION. HAS SILENT ASPIRATION RISK DUE TO STROKE AND DEMENTIA DIAGNOSES. RECOMMENDATIONS: FOR QUALITY OF LIFE (PATIENT WANTS TO EAT, HAS MET CA, AND ADVANCED DEMENTIA), CONSIDER CONTINUING WITH CURRENT CCHO-MED PUREED DIET AND NECTAR THICK LIQUIDS WITH POSTED ASPIRATION AND REFLUX PRECAUTIONS AND ONE TO ONE FEEDINGS. SEND HIGH FLAVIA SUP GLUCERNA TID PER RD MOD BARIUM SWALLOW STUDY TO FURTHER ASSESS SWALLOW, DETERMINE SILENT ASP RISK AND ATTEMPT TRIAL TX TECHNIQUES IP OR OP IF DC. SKILLED DYSPHAGIA MANAGEMENT AND TX AND COGNITIVE-COMMUNICATIVE EVAL/TX FOR COMMUNICATION TIPS D/W RN (ELVIN), PATIENT, AND DR FRANZ
--- NOTE | 2019-03-30 14:47 | Hematology/Onc Progress Note ---
Assessment/Plan Assessment/Plan ASSESSMENT AND REC'S 1. 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 --> CT Chest reviewed: no evidence of pulmonary emboli or other acute vascular pathology. Diffuse osteoblastic metastatic disease. --> begum cath intact --> casodex has been started 50mg po daily --> RECOMMEND OUTPATIENT LUPRON, over 1-2 mo, will decrease psa<10 2. Hematuria --> U/A noted 2 + hematuria --> consider Uro eval, begum intact no active bleeding seen 3. Anemia of iron deficiency --> anemia w/u has ordered, iron started --> No evidence of hemolysis is noted, peripheral smear has been reviewed. --> Hgb goal >7. Transfuse prn.Currently Hgb 9.5 --> iron started 2. COPD --> breathing treatments as needed --> imaging revealed CT Chest and CXR --> 3. Shortness of breath --> likely due to above 4. Azotemia. The timing of this note does not necessarily reflect the time of the patient was seen. GREATLY APPRECIATE CONSULTATION. Subjective Constitutional: Denies: no symptoms, chills, fever, malaise, weakness, other HEENT: Denies: no symptoms, eye pain, blurred vision, tearing, double vision, ear pain, ear discharge, nose pain, nose congestion, throat pain, throat swelling, mouth pain, mouth swelling, other Cardiovascular: Denies: no symptoms, chest pain, edema, irregular heart rate, lightheadedness, palpitations, syncope, other Respiratory: Denies: no symptoms, cough, shortness of breath, SOB with excertion, SOB at rest, sputum, wheezing, other Genitourinary: Denies: no symptoms, burning, discharge, frequency, flank pain, hematuria, incontinence, pain, urgency, other Neurologic/Psychiatric: Denies: no symptoms, anxiety, depressed, emotional problems, headache, numbness, paresthesia, pre-existing deficit, seizure, tingling, tremors, weakness, other Endocrine: Denies: no symptoms, excessive sweating, flushing, intolerance to cold, intolerance to heat, increased hunger, increased thirst, increased urine, unexplained weight gain, unexplained weight loss, other Allergies: Coded Allergies: No Known Allergies (Unverified , 02/28/16) Subjective Subjective 03/28: fever last night, blood cultures drawn, no distress 03/30: no events, psa remains elevated, survey skeletal Objective Objective Current Medications Medications (Trade) Dose Ordered Sig/Eufemia Route PRN Reason Start Time Stop Time Status Last Admin Dose Admin Acetaminophen (Tylenol) 650 mg Q4H PRN ORAL Mild Pain/Temp > 100.5 03/27/19 23:30 04/26/19 23:29 03/28/19 23:48 Acetaminophen/ Hydrocodone Bitart ([place] 5/325) 1 tab Q6H PRN ORAL Moderate Pain (Pain Scale 4-6) 03/27/19 23:30 04/03/19 23:29 Acetaminophen/ Hydrocodone Bitart ([place] 5/325) 2 tab Q6H PRN ORAL Severe Pain (Pain Scale 7-10) 03/27/19 23:30 04/03/19 23:29 Albuterol/ Ipratropium (Albuterol/ Ipratropium) 3 ml Q4H PRN HHN Shortness of Breath 03/27/19 23:30 04/01/19 23:29 03/28/19 00:13 Aspirin (ASA) 81 mg DAILY ORAL 03/28/19 09:00 04/27/19 08:59 03/30/19 09:42 Cefepime HCl 1 gm/ Dextrose 55 ml @ 110 mls/hr EVERY 12 HOURS IVPB 03/28/19 09:00 04/04/19 08:59 03/30/19 09:42 Dextrose (Dextrose 50%) 25 ml Q30M PRN IV Hypoglycemia 03/27/19 23:30 04/26/19 23:29 Dextrose (Dextrose 50%) 50 ml Q30M PRN IV Hypoglycemia 03/27/19 23:30 04/26/19 23:29 Diltiazem HCl (Cardizem) 30 mg EVERY 8 HOURS ORAL 03/29/19 14:00 04/28/19 00:00 03/30/19 05:40 Docusate Sodium (Colace) 100 mg THREE TIMES A DAY ORAL 03/29/19 09:00 04/28/19 08:59 03/30/19 12:45 Doxycycline Hyclate 100 mg/ Dextrose 110 ml @ 110 mls/hr Q12H IV 03/28/19 10:00 04/04/19 09:59 03/30/19 10:36 Finasteride (Proscar) 5 mg DAILY ORAL 03/28/19 09:00 04/27/19 08:59 03/30/19 09:43 Heparin Sodium (Porcine) (Heparin 5000 units/ml) 5,000 units EVERY 12 HOURS SUBQ 03/28/19 09:00 04/27/19 08:59 03/30/19 09:46 Insulin Aspart (NovoLOG) BEFORE MEALS AND HS SUBQ 03/28/19 06:30 04/27/19 06:29 03/30/19 11:30 Iron Sucrose 100 mg/Sodium Chloride 55 ml @ 200 mls/hr BEDTIME IV 03/28/19 21:00 04/06/19 21:17 03/29/19 20:52 Pantoprazole (Protonix) 40 mg EVERY 12 HOURS ORAL 03/28/19 21:00 04/27/19 20:59 03/30/19 09:44 Tamsulosin HCl (Flomax) 0.4 mg BEDTIME ORAL 03/28/19 23:45 04/27/19 23:44 03/29/19 21:09 Thiamine HCl (Vitamin B1) 100 mg DAILY ORAL 03/28/19 09:00 04/27/19 08:59 03/30/19 09:43 Last 24 Hour Vital Signs Date Time Temp Pulse Resp B/P (MAP) Pulse Ox O2 Delivery O2 Flow Rate FiO2 03/30/19 14:00 95 107/72 03/30/19 12:00 97.8 95 18 107/72 (84) 100 03/30/19 11:31 97 03/30/19 09:00 Nasal Cannula 2.0 03/30/19 08:24 98.4 100 20 126/81 (96) 99 03/30/19 07:29 94 03/30/19 07:11 74 16 96 Nasal Cannula 2.0 28 03/30/19 05:40 98 121/80 03/30/19 04:20 98.6 98 20 121/80 (94) 99 03/30/19 04:01 97 03/30/19 00:07 99.3 102 20 128/80 (96) 99 03/29/19 23:57 98 03/29/19 21:38 105 135/89 03/29/19 21:00 Nasal Cannula 2.0 03/29/19 20:11 105 18 97 Nasal Cannula 2.0 28 03/29/19 20:00 99 03/29/19 20:00 99.8 105 19 135/89 (104) 96 03/29/19 16:00 99.4 104 24 110/70 (83) 96 03/29/19 16:00 103 03/29/19 13:12 107 126/86 03/29/19 12:00 104 03/29/19 12:00 98.4 107 22 124/87 (99) 100 03/29/19 09:00 Nasal Cannula 2.0 03/29/19 08:58 108 18 96 Nasal Cannula 2.0 28 03/29/19 08:00 97.9 103 22 117/76 (90) 100 03/29/19 08:00 108 03/29/19 06:15 100 24 109/70 (83) 98 03/29/19 06:00 100 109/70 03/29/19 05:05 99.0 101 24 104/69 (81) 97 03/29/19 04:00 97 03/29/19 04:00 98 03/29/19 03:40 98 03/29/19 00:37 98.2 03/29/19 00:36 98.2 102 18 112/75 (87) 97 03/29/19 00:00 108 110/74 03/28/19 23:45 108 03/28/19 23:33 101.7 108 28 110/74 (86) 97 03/28/19 21:00 Nasal Cannula 2.0 03/28/19 20:00 100.6 112 19 110/79 (89) 99 03/28/19 19:34 109 03/28/19 16:00 105 03/28/19 16:00 99.4 111 20 128/84 (99) 100 Intake and Output 03/29/19 03/30/19 19:00 07:00 Intake Total 795 ml Output Total 350 ml 700 ml Balance 445 ml -700 ml Intake Oral 630 ml IV Total 165 ml Output Urine Total 350 ml 700 ml # Voids 1 # Bowel Movements 1 1 Labs Test 03/27/19 19:05 03/27/19 20:08 03/28/19 06:45 03/29/19 07:23 White Blood Count 8.2 K/UL (4.8-10.8) 6.8 K/UL (4.8-10.8) 7.1 K/UL (4.8-10.8) Red Blood Count 4.03 M/UL (4.70-6.10) 3.49 M/UL (4.70-6.10) 3.44 M/UL (4.70-6.10) Hemoglobin 10.9 G/DL (14.2-18.0) 9.5 G/DL (14.2-18.0) 9.3 G/DL (14.2-18.0) Hematocrit 34.1 % (42.0-52.0) 29.8 % (42.0-52.0) 29.5 % (42.0-52.0) Mean Corpuscular Volume 85 FL (80-99) 85 FL (80-99) 86 FL (80-99) Mean Corpuscular Hemoglobin 27.1 PG (27.0-31.0) 27.2 PG (27.0-31.0) 27.0 PG (27.0-31.0) Mean Corpuscular Hemoglobin Concent 32.0 G/DL (32.0-36.0) 31.9 G/DL (32.0-36.0) 31.5 G/DL (32.0-36.0) Red Cell Distribution Width 16.0 % (11.6-14.8) 16.7 % (11.6-14.8) 17.0 % (11.6-14.8) Platelet Count 378 K/UL (150-450) 325 K/UL (150-450) 329 K/UL (150-450) Mean Platelet Volume 4.8 FL (6.5-10.1) 5.1 FL (6.5-10.1) 5.4 FL (6.5-10.1) Neutrophils (%) (Auto) 73.3 % (45.0-75.0) 75.8 % (45.0-75.0) 73.2 % (45.0-75.0) Lymphocytes (%) (Auto) 17.4 % (20.0-45.0) 16.3 % (20.0-45.0) 17.2 % (20.0-45.0) Monocytes (%) (Auto) 7.9 % (1.0-10.0) 6.8 % (1.0-10.0) 7.9 % (1.0-10.0) Eosinophils (%) (Auto) 0.6 % (0.0-3.0) 0.4 % (0.0-3.0) 1.0 % (0.0-3.0) Basophils (%) (Auto) 0.7 % (0.0-2.0) 0.7 % (0.0-2.0) 0.9 % (0.0-2.0) Sodium Level 137 MMOL/L (136-145) 141 MMOL/L (136-145) 139 MMOL/L (136-145) Potassium Level 4.1 MMOL/L (3.5-5.1) 4.4 MMOL/L (3.5-5.1) 3.9 MMOL/L (3.5-5.1) Chloride Level 101 MMOL/L (98-107) 108 MMOL/L (98-107) 107 MMOL/L (98-107) Carbon Dioxide Level 25 MMOL/L (21-32) 22 MMOL/L (21-32) 21 MMOL/L (21-32) Anion Gap 11 mmol/L (5-15) 11 mmol/L (5-15) 11 mmol/L (5-15) Blood Urea Nitrogen 26 mg/dL (7-18) 18 mg/dL (7-18) 20 mg/dL (7-18) Creatinine 1.0 MG/DL (0.55-1.30) 0.9 MG/DL (0.55-1.30) 1.0 MG/DL (0.55-1.30) Estimat Glomerular Filtration Rate mL/min (>60) mL/min (>60) mL/min (>60) Glucose Level 190 MG/DL (74-106) 144 MG/DL (74-106) 120 MG/DL (74-106) Lactic Acid Level 1.80 mmol/L (0.4-2.0) Calcium Level 9.4 MG/DL (8.5-10.1) 8.7 MG/DL (8.5-10.1) 8.9 MG/DL (8.5-10.1) Total Bilirubin 0.3 MG/DL (0.2-1.0) 0.4 MG/DL (0.2-1.0) 0.5 MG/DL (0.2-1.0) Aspartate Amino Transf (AST/SGOT) 43 U/L (15-37) 28 U/L (15-37) 30 U/L (15-37) Alanine Aminotransferase (ALT/SGPT) 26 U/L (12-78) 21 U/L (12-78) 24 U/L (12-78) Alkaline Phosphatase 1048 U/L (46-116) 848 U/L (46-116) 779 U/L (46-116) Total Creatine Kinase 121 U/L (26-308) Creatine Kinase MB 0.6 NG/ML (0.0-3.6) Creatine Kinase MB Relative Index 0.4 Troponin I 0.000 ng/mL (0.000-0.056) Total Protein 7.6 G/DL (6.4-8.2) 5.5 G/DL (6.4-8.2) 6.4 G/DL (6.4-8.2) Albumin 2.7 G/DL (3.4-5.0) 2.0 G/DL (3.4-5.0) 1.9 G/DL (3.4-5.0) Globulin 4.9 g/dL 3.5 g/dL 4.5 g/dL Albumin/Globulin Ratio 0.6 (1.0-2.7) 0.6 (1.0-2.7) 0.4 (1.0-2.7) Urine Color Yellow Urine Appearance Clear Urine pH 5 (4.5-8.0) Urine Specific [place] 1.020 (1.005-1.035) Urine Protein 2+ (NEGATIVE) Urine Glucose (UA) Negative (NEGATIVE) Urine Ketones Negative (NEGATIVE) Urine Blood 2+ (NEGATIVE) Urine Nitrite Positive (NEGATIVE) Urine Bilirubin Negative (NEGATIVE) Urine Urobilinogen Normal MG/DL (0.0-1.0) Urine Leukocyte Esterase 3+ (NEGATIVE) Urine RBC 5-10 /HPF (0 - 0) Urine WBC 15-20 /HPF (0 - 0) Urine Squamous Epithelial Cells None /LPF (NONE/OCC) Urine Bacteria Moderate /HPF (NONE) Hemoglobin A1c 6.6 % (4.3-6.0) Iron Level 13 ug/dL (50-175) Total Iron Binding Capacity 117 ug/dL (250-450) Percent Iron Saturation 11 % (15-50) Unsaturated Iron Binding 104 ug/dL (112-346) Ferritin 409 NG/ML (8-388) Prostate Specific Antigen 533.33 ng/mL (0.13-4.0) Uric Acid 3.2 MG/DL (2.6-7.2) Phosphorus Level 3.3 MG/DL (2.5-4.9) Magnesium Level 1.9 MG/DL (1.8-2.4) Gamma Glutamyl Transpeptidase 192 U/L (5-85) C-Reactive Protein, Quantitative 21.0 mg/dL (0.00-0.90) Pro-B-Type Natriuretic Peptide 191 pg/mL (0-125) Triglycerides Level 58 MG/DL (30-150) Cholesterol Level 112 MG/DL (< 200) LDL Cholesterol 61 mg/dL (<100) HDL Cholesterol 39 MG/DL (40-60) Cholesterol/HDL Ratio 2.9 (3.3-4.4) Thyroid Stimulating Hormone (TSH) 1.581 uiU/mL (0.358-3.740) Height (Feet): 6 Height (Inches): 2.00 Weight (Pounds): 156 Objective PE: Vitals: reviewed General Appearance: NAD HEENT: normocephalic, atraumatic Neck: non-tender, normal alignment Respiratory/Chest: nromal breath sounds bilaterally Cardiovascular/Chest: normal peripheral pulses, normal rate Abdomen: normal bowel sounds, soft, nontender Extremities: normal range of motion Alexei Pompa MD Mar 30, 2019 14:47
--- NOTE | 2019-03-30 15:24 | NUR ---
CASE MANAGEMENT: NOTE INTERQUAL MET
[2019-03-30 16:00] VITALS: BP 126/78
[2019-03-30] MEDS: Bicalutamide 50mg tab ORAL SCH (18:02)
--- NOTE | 2019-03-30 19:40 | NUR ---
NURSE NOTES: received pt from CHANDLER Conteh. pt bedbound. AOx1. no acute distress noted, no c/o pain noted. fall precaution in place: bed locked and lowest position, bedside rail up x2. will continue to monitor for any change in condition.
--- NOTE | 2019-03-30 19:59 | NUR ---
HAND-OFF: Report given to Kristyn VIERA pt in stable condition.
[2019-03-30 20:00] VITALS: BP 119/76
[2019-03-30] MEDS: Tamsulosin 0.4mg cap ORAL SCH (20:43)
--- NOTE | 2019-03-30 20:55 | General Progress Note ---
Assessment/Plan Problem List: (1) HTN (hypertension) ICD Codes: I10 - Essential (primary) hypertension SNOMED: 26453251 (2) Pneumonia ICD Codes: J18.9 - Pneumonia, unspecified organism SNOMED: 404757674 Status: progressing Assessment/Plan: clinically improving not wheezing pna mets prostate cancer abx per id Subjective ROS Limited/Unobtainable: Yes Allergies: Coded Allergies: No Known Allergies (Unverified , 02/28/16) Objective Last 24 Hour Vital Signs Date Time Temp Pulse Resp B/P (MAP) Pulse Ox O2 Delivery O2 Flow Rate FiO2 03/30/19 16:00 102 03/30/19 16:00 98.4 99 20 126/78 (94) 99 03/30/19 14:00 95 107/72 03/30/19 12:00 97.8 95 18 107/72 (84) 100 03/30/19 11:31 97 03/30/19 09:00 Nasal Cannula 2.0 03/30/19 08:24 98.4 100 20 126/81 (96) 99 03/30/19 07:29 94 03/30/19 07:11 74 16 96 Nasal Cannula 2.0 28 03/30/19 05:40 98 121/80 03/30/19 04:20 98.6 98 20 121/80 (94) 99 03/30/19 04:01 97 03/30/19 00:07 99.3 102 20 128/80 (96) 99 03/29/19 23:57 98 03/29/19 21:38 105 135/89 03/29/19 21:00 Nasal Cannula 2.0 Intake and Output 03/29/19 03/30/19 18:59 06:59 Intake Total 795 ml Output Total 350 ml 700 ml Balance 445 ml -700 ml Intake Oral 630 ml IV Total 165 ml Output Urine Total 350 ml 700 ml # Voids 1 # Bowel Movements 1 1 Height (Feet): 6 Height (Inches): 2.00 Weight (Pounds): 156 Cardiovascular: regular rhythm Respiratory/Chest: lungs clear Abdomen: soft Jhon Moreno MD Mar 30, 2019 20:55
[2019-03-31] VITALS: BP 119/76
--- NOTE | 2019-03-31 | NUR ---
NURSE NOTES: pt in bed sleeping. no change in condition. will continue to monitor.
[2019-03-31 04:00] VITALS: BP 127/85
--- NOTE | 2019-03-31 04:00 | NUR ---
NURSE NOTES: no change in condition. will continue to monitor for any change in condition.
[2019-03-31] MEDS: dilTIAZem HCl 30mg tab ORAL SCH ×2 (06:00→13:13)
[2019-03-31] MEDS: NovoLOG Insulin Flexpen SUBQ SCH ×2 (06:30→11:51)
--- NOTE | 2019-03-31 06:43 | NUR ---
NURSE NOTES: pt remains stable. no change in condition. all needs met during my shift. fall precaution in place: bed locked and lowest position, bedside rail up x2. call light and personal belongings within reach. will endorse plan of care to incoming nurse.
--- NOTE | 2019-03-31 07:24 | NUR ---
HAND-OFF: Report given to CHANDLER Dickerson.
--- NOTE | 2019-03-31 07:25 | NUR ---
NURSE NOTES: Received patient from CHANDLER Simons in bed eating breakfast, Pt is 1:1 feeder. Patient is bedbound, AOx1. No acute distress noted, fall precaution in place. Bed is in lowest position and brakes engaged for safety. Bedside rail up x2, call light is within reach. Will continue WITH THE PLAN OF CARE
[2019-03-31 08:00] VITALS: BP 115/73
--- NOTE | 2019-03-31 08:25 | Hematology/Onc Progress Note ---
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 --> CT Chest reviewed: no evidence of pulmonary emboli or other acute vascular pathology. Diffuse osteoblastic metastatic disease. --> begum cath intact --> casodex has been started 50mg po daily --> RECOMMEND OUTPATIENT LUPRON, over 1-2 mo, will decrease psa<10 # Hematuria that has improved --> U/A noted 2 + hematuria --> consider Uro eval, begum intact no active bleeding seen # Anemia of iron deficiency --> anemia w/u has ordered, iron started --> No evidence of hemolysis is noted, peripheral smear has been reviewed. --> Hgb goal >7. Transfuse prn.Currently Hgb 9.5 --> iron started # COPD --> breathing treatments as needed --> imaging revealed CT Chest and CXR --> # Shortness of breath --> likely due to above # Azotemia. The timing of this note does not necessarily reflect the time of the patient was seen. GREATLY APPRECIATE CONSULTATION. Subjective HEENT: Denies: no symptoms, eye pain, blurred vision, tearing, double vision, ear pain, ear discharge, nose pain, nose congestion, throat pain, throat swelling, mouth pain, mouth swelling, other Respiratory: Denies: no symptoms, cough, shortness of breath, SOB with excertion, SOB at rest, sputum, wheezing, other Gastrointestinal/Abdominal: Denies: no symptoms, abdomen distended, abdominal pain, black stools, tarry stools, blood in stool, constipated, diarrhea, difficulty swallowing, nausea, poor appetite, poor fluid intake, rectal bleeding , vomiting, other Genitourinary: Denies: no symptoms, burning, discharge, frequency, flank pain, hematuria, incontinence, pain, urgency, other Neurologic/Psychiatric: Denies: no symptoms, anxiety, depressed, emotional problems, headache, numbness, paresthesia, pre-existing deficit, seizure, tingling, tremors, weakness, other Endocrine: Denies: no symptoms, excessive sweating, flushing, intolerance to cold, intolerance to heat, increased hunger, increased thirst, increased urine, unexplained weight gain, unexplained weight loss, other Hematologic/Lymphatic: Denies: no symptoms, anemia, easy bleeding, easy bruising, adenopathy, other Allergies: Coded Allergies: No Known Allergies (Unverified , 02/28/16) Subjective Subjective 03/28: fever last night, blood cultures drawn, no distress 03/30: no events, psa remains elevated, survey skeletal 03/31: no events noted, no fevers, a+o x3, sleeping Objective Objective Current Medications Medications (Trade) Dose Ordered Sig/Eufemia Route PRN Reason Start Time Stop Time Status Last Admin Dose Admin Acetaminophen (Tylenol) 650 mg Q4H PRN ORAL Mild Pain/Temp > 100.5 03/27/19 23:30 04/26/19 23:29 03/28/19 23:48 Acetaminophen/ Hydrocodone Bitart ([place] 5/325) 1 tab Q6H PRN ORAL Moderate Pain (Pain Scale 4-6) 03/27/19 23:30 04/03/19 23:29 Acetaminophen/ Hydrocodone Bitart ([place] 5/325) 2 tab Q6H PRN ORAL Severe Pain (Pain Scale 7-10) 03/27/19 23:30 04/03/19 23:29 Albuterol/ Ipratropium (Albuterol/ Ipratropium) 3 ml Q4H PRN HHN Shortness of Breath 03/27/19 23:30 04/01/19 23:29 03/28/19 00:13 Aspirin (ASA) 81 mg DAILY ORAL 03/28/19 09:00 04/27/19 08:59 03/30/19 09:42 Bicalutamide (Casodex) 50 mg DAILY ORAL 03/30/19 16:00 04/04/19 15:59 03/30/19 18:02 Cefepime HCl 1 gm/ Dextrose 55 ml @ 110 mls/hr EVERY 12 HOURS IVPB 03/28/19 09:00 04/04/19 08:59 03/30/19 20:44 Dextrose (Dextrose 50%) 25 ml Q30M PRN IV Hypoglycemia 03/27/19 23:30 04/26/19 23:29 Dextrose (Dextrose 50%) 50 ml Q30M PRN IV Hypoglycemia 03/27/19 23:30 04/26/19 23:29 Diltiazem HCl (Cardizem) 30 mg EVERY 8 HOURS ORAL 03/29/19 14:00 04/28/19 00:00 03/30/19 05:40 Docusate Sodium (Colace) 100 mg THREE TIMES A DAY ORAL 03/29/19 09:00 04/28/19 08:59 03/30/19 18:02 Doxycycline Hyclate 100 mg/ Dextrose 110 ml @ 110 mls/hr Q12H IV 03/28/19 10:00 04/04/19 09:59 03/30/19 22:05 Finasteride (Proscar) 5 mg DAILY ORAL 03/28/19 09:00 04/27/19 08:59 03/30/19 09:43 Heparin Sodium (Porcine) (Heparin 5000 units/ml) 5,000 units EVERY 12 HOURS SUBQ 03/28/19 09:00 04/27/19 08:59 03/30/19 20:39 Insulin Aspart (NovoLOG) BEFORE MEALS AND HS SUBQ 03/28/19 06:30 04/27/19 06:29 03/30/19 20:43 Iron Sucrose 100 mg/Sodium Chloride 55 ml @ 200 mls/hr BEDTIME IV 03/28/19 21:00 04/06/19 21:17 03/30/19 20:39 Pantoprazole (Protonix) 40 mg EVERY 12 HOURS ORAL 03/28/19 21:00 04/27/19 20:59 03/30/19 20:43 Tamsulosin HCl (Flomax) 0.4 mg BEDTIME ORAL 03/28/19 23:45 04/27/19 23:44 03/30/19 20:43 Thiamine HCl (Vitamin B1) 100 mg DAILY ORAL 03/28/19 09:00 04/27/19 08:59 03/30/19 09:43 Last 24 Hour Vital Signs Date Time Temp Pulse Resp B/P (MAP) Pulse Ox O2 Delivery O2 Flow Rate FiO2 03/31/19 08:20 98 Nasal Cannula 2.0 28 03/31/19 08:08 108 18 98 Nasal Cannula 2.0 28 03/31/19 06:00 86 113/76 03/31/19 04:00 98 03/31/19 04:00 98.0 103 28 127/85 (99) 99 03/31/19 00:00 98.1 107 28 119/76 (90) 98 03/31/19 00:00 105 03/30/19 21:33 104 117/78 03/30/19 21:00 Nasal Cannula 2.0 03/30/19 21:00 Nasal Cannula 2.0 03/30/19 20:38 96 18 97 Nasal Cannula 2.0 28 03/30/19 20:00 98.1 106 22 119/76 (90) 99 03/30/19 20:00 104 03/30/19 16:00 102 03/30/19 16:00 98.4 99 20 126/78 (94) 99 03/30/19 14:00 95 107/72 03/30/19 12:00 97.8 95 18 107/72 (84) 100 03/30/19 11:31 97 03/30/19 09:00 Nasal Cannula 2.0 03/30/19 08:24 98.4 100 20 126/81 (96) 99 03/30/19 07:29 94 03/30/19 07:11 74 16 96 Nasal Cannula 2.0 28 03/30/19 05:40 98 121/80 03/30/19 04:20 98.6 98 20 121/80 (94) 99 03/30/19 04:01 97 03/30/19 00:07 99.3 102 20 128/80 (96) 99 03/29/19 23:57 98 03/29/19 21:38 105 135/89 03/29/19 21:00 Nasal Cannula 2.0 03/29/19 20:11 105 18 97 Nasal Cannula 2.0 28 03/29/19 20:00 99 03/29/19 20:00 99.8 105 19 135/89 (104) 96 03/29/19 16:00 99.4 104 24 110/70 (83) 96 03/29/19 16:00 103 03/29/19 13:12 107 126/86 03/29/19 12:00 104 03/29/19 12:00 98.4 107 22 124/87 (99) 100 03/29/19 09:00 Nasal Cannula 2.0 03/29/19 08:58 108 18 96 Nasal Cannula 2.0 28 Intake and Output 03/30/19 03/31/19 19:00 07:00 Intake Total 360 ml 200 ml Output Total 700 ml 600 ml Balance -340 ml -400 ml Intake Oral 360 ml 200 ml Output Urine Total 700 ml 600 ml # Bowel Movements 1 2 Labs Test 03/29/19 07:23 White Blood Count 7.1 K/UL (4.8-10.8) Red Blood Count 3.44 M/UL (4.70-6.10) Hemoglobin 9.3 G/DL (14.2-18.0) Hematocrit 29.5 % (42.0-52.0) Mean Corpuscular Volume 86 FL (80-99) Mean Corpuscular Hemoglobin 27.0 PG (27.0-31.0) Mean Corpuscular Hemoglobin Concent 31.5 G/DL (32.0-36.0) Red Cell Distribution Width 17.0 % (11.6-14.8) Platelet Count 329 K/UL (150-450) Mean Platelet Volume 5.4 FL (6.5-10.1) Neutrophils (%) (Auto) 73.2 % (45.0-75.0) Lymphocytes (%) (Auto) 17.2 % (20.0-45.0) Monocytes (%) (Auto) 7.9 % (1.0-10.0) Eosinophils (%) (Auto) 1.0 % (0.0-3.0) Basophils (%) (Auto) 0.9 % (0.0-2.0) Sodium Level 139 MMOL/L (136-145) Potassium Level 3.9 MMOL/L (3.5-5.1) Chloride Level 107 MMOL/L (98-107) Carbon Dioxide Level 21 MMOL/L (21-32) Anion Gap 11 mmol/L (5-15) Blood Urea Nitrogen 20 mg/dL (7-18) Creatinine 1.0 MG/DL (0.55-1.30) Estimat Glomerular Filtration Rate mL/min (>60) Glucose Level 120 MG/DL (74-106) Uric Acid 3.2 MG/DL (2.6-7.2) Calcium Level 8.9 MG/DL (8.5-10.1) Phosphorus Level 3.3 MG/DL (2.5-4.9) Magnesium Level 1.9 MG/DL (1.8-2.4) Total Bilirubin 0.5 MG/DL (0.2-1.0) Gamma Glutamyl Transpeptidase 192 U/L (5-85) Aspartate Amino Transf (AST/SGOT) 30 U/L (15-37) Alanine Aminotransferase (ALT/SGPT) 24 U/L (12-78) Alkaline Phosphatase 779 U/L (46-116) C-Reactive Protein, Quantitative 21.0 mg/dL (0.00-0.90) Pro-B-Type Natriuretic Peptide 191 pg/mL (0-125) Total Protein 6.4 G/DL (6.4-8.2) Albumin 1.9 G/DL (3.4-5.0) Globulin 4.5 g/dL Albumin/Globulin Ratio 0.4 (1.0-2.7) Triglycerides Level 58 MG/DL (30-150) Cholesterol Level 112 MG/DL (< 200) LDL Cholesterol 61 mg/dL (<100) HDL Cholesterol 39 MG/DL (40-60) Cholesterol/HDL Ratio 2.9 (3.3-4.4) Thyroid Stimulating Hormone (TSH) 1.581 uiU/mL (0.358-3.740) Height (Feet): 6 Height (Inches): 2.00 Weight (Pounds): 156 Objective PE: Vitals: reviewed General: NAD HEENT: normocephalic, atraumatic Neck: nt, normal alignment Respiratory/Chest: normal breath sounds bilaterally Cardiovascular/Chest: normal peripheral pulses, normal rate Abdomen: normal bowel sounds, soft, nontender Extremities: normal range of motion Alexei Pompa MD Mar 31, 2019 08:24
[2019-03-31] MEDS: Bicalutamide 50mg tab ORAL SCH (08:30)
[2019-03-31] MEDS: Thiamine 100mg tab ORAL SCH (08:30)
[2019-03-31] MEDS: Aspirin Baby 81mg ORAL SCH (08:30)
[2019-03-31] MEDS: Docusate 100mg cap ORAL SCH ×2 (08:31→13:13)
[2019-03-31 08:32] LABS: BASOPHILS % (AUTO) 0.8 % (0.0-2.0); EOSINOPHILS % (AUTO) 0.6 % (0.0-3.0); HEMATOCRIT 28.9 % (42.0-52.0); HEMOGLOBIN 9.2 G/DL (14.2-18.0); LYMPHOCYTES % (AUTO) 18.4 % (20.0-45.0); MEAN CORPUSCULAR VOLUME 85 FL (80-99); MONOCYTES % (AUTO) 6.8 % (1.0-10.0); NEUTROPHILS % (AUTO) 73.5 % (45.0-75.0); PLATELET COUNT 316 K/UL (150-450); RED BLOOD COUNT 3.41 M/UL (4.70-6.10); RED CELL DISTRIBUTION WIDTH 16.9 % (11.6-14.8); WHITE BLOOD COUNT 6.4 K/UL (4.8-10.8)
[2019-03-31] MEDS: Heparin 5000 units/ml inj SUBQ SCH (08:32)
[2019-03-31] MEDS: Cefepime HCl 1 GM in D5W 55 ML IVPB SCH (08:33)
--- NOTE | 2019-03-31 08:35 | Urology Progress Note ---
Assessment/Plan Status: progressing Assessment/Plan: 1. Urinary retention with chronic Begum. 2. BPH history. 3. Probable neurogenic bladder. 4. Advanced prostate cancer, possibly castrate resistant. 5. Hematuria. 6. Pyuria. 7. Proteinuria. 8. Left-sided hydronephrosis, which appears to be chronic. 9. Possible small renal cyst. 10. Bladder calcifications. 11. Possible cystitis. maintain begum, do not remove hand irrigate PRN abx as ordered medical onc eval noted pt has been on lupron, may need chemo consider repeat renal imaging study f/u on cx's Subjective Allergies: Coded Allergies: No Known Allergies (Unverified , 02/28/16) Subjective all noted Objective Last 24 Hour Vital Signs Date Time Temp Pulse Resp B/P (MAP) Pulse Ox O2 Delivery O2 Flow Rate FiO2 03/31/19 08:20 98 Nasal Cannula 2.0 28 03/31/19 08:08 108 18 98 Nasal Cannula 2.0 28 03/31/19 06:00 86 113/76 03/31/19 04:00 98 03/31/19 04:00 98.0 103 28 127/85 (99) 99 03/31/19 00:00 98.1 107 28 119/76 (90) 98 03/31/19 00:00 105 03/30/19 21:33 104 117/78 03/30/19 21:00 Nasal Cannula 2.0 03/30/19 21:00 Nasal Cannula 2.0 03/30/19 20:38 96 18 97 Nasal Cannula 2.0 28 03/30/19 20:00 98.1 106 22 119/76 (90) 99 03/30/19 20:00 104 03/30/19 16:00 102 03/30/19 16:00 98.4 99 20 126/78 (94) 99 03/30/19 14:00 95 107/72 03/30/19 12:00 97.8 95 18 107/72 (84) 100 03/30/19 11:31 97 03/30/19 09:00 Nasal Cannula 2.0 Intake and Output 03/30/19 03/31/19 19:00 07:00 Intake Total 360 ml 200 ml Output Total 700 ml 600 ml Balance -340 ml -400 ml Intake Oral 360 ml 200 ml Output Urine Total 700 ml 600 ml # Bowel Movements 1 2 Microbiology Date/Time Source Procedure Growth Status 03/29/19 00:40 Blood Blood Culture - Preliminary NO GROWTH AFTER 48 HOURS Resulted 03/27/19 21:00 Nasal Nares MRSA Culture - Final Staphylococcus Aureus - Mrsa Complete 03/27/19 20:08 Urine,Clean Catch Urine Culture - Preliminary Pseudomonas Aeruginosa Resulted 03/27/19 21:00 Rectum - Final NO CARBAPENEM-RESISTANT ENTEROBACTERI... Complete Current Medications Medications (Trade) Dose Ordered Sig/Eufemia Route PRN Reason Start Time Stop Time Status Last Admin Dose Admin Acetaminophen (Tylenol) 650 mg Q4H PRN ORAL Mild Pain/Temp > 100.5 03/27/19 23:30 04/26/19 23:29 03/28/19 23:48 Acetaminophen/ Hydrocodone Bitart ([place] 5/325) 1 tab Q6H PRN ORAL Moderate Pain (Pain Scale 4-6) 03/27/19 23:30 04/03/19 23:29 Acetaminophen/ Hydrocodone Bitart ([place] 5/325) 2 tab Q6H PRN ORAL Severe Pain (Pain Scale 7-10) 03/27/19 23:30 04/03/19 23:29 Albuterol/ Ipratropium (Albuterol/ Ipratropium) 3 ml Q4H PRN HHN Shortness of Breath 03/27/19 23:30 04/01/19 23:29 03/28/19 00:13 Aspirin (ASA) 81 mg DAILY ORAL 03/28/19 09:00 04/27/19 08:59 03/31/19 08:30 Bicalutamide (Casodex) 50 mg DAILY ORAL 03/30/19 16:00 04/04/19 15:59 03/31/19 08:30 Cefepime HCl 1 gm/ Dextrose 55 ml @ 110 mls/hr EVERY 12 HOURS IVPB 03/28/19 09:00 04/04/19 08:59 03/31/19 08:33 Dextrose (Dextrose 50%) 25 ml Q30M PRN IV Hypoglycemia 03/27/19 23:30 04/26/19 23:29 Dextrose (Dextrose 50%) 50 ml Q30M PRN IV Hypoglycemia 03/27/19 23:30 04/26/19 23:29 Diltiazem HCl (Cardizem) 30 mg EVERY 8 HOURS ORAL 03/29/19 14:00 04/28/19 00:00 03/30/19 05:40 Docusate Sodium (Colace) 100 mg THREE TIMES A DAY ORAL 03/29/19 09:00 04/28/19 08:59 03/31/19 08:31 Doxycycline Hyclate 100 mg/ Dextrose 110 ml @ 110 mls/hr Q12H IV 03/28/19 10:00 04/04/19 09:59 03/30/19 22:05 Finasteride (Proscar) 5 mg DAILY ORAL 03/28/19 09:00 04/27/19 08:59 03/31/19 08:30 Heparin Sodium (Porcine) (Heparin 5000 units/ml) 5,000 units EVERY 12 HOURS SUBQ 03/28/19 09:00 04/27/19 08:59 03/31/19 08:32 Insulin Aspart (NovoLOG) BEFORE MEALS AND HS SUBQ 03/28/19 06:30 04/27/19 06:29 03/30/19 20:43 Iron Sucrose 100 mg/Sodium Chloride 55 ml @ 200 mls/hr BEDTIME IV 03/28/19 21:00 04/06/19 21:17 03/30/19 20:39 Pantoprazole (Protonix) 40 mg EVERY 12 HOURS ORAL 03/28/19 21:00 04/27/19 20:59 03/31/19 08:30 Tamsulosin HCl (Flomax) 0.4 mg BEDTIME ORAL 03/28/19 23:45 04/27/19 23:44 03/30/19 20:43 Thiamine HCl (Vitamin B1) 100 mg DAILY ORAL 03/28/19 09:00 04/27/19 08:59 03/31/19 08:30 Laboratory Tests 03/31/19 06:54: White Blood Count [Pending], Red Blood Count [Pending], Hemoglobin [Pending], Hematocrit [Pending], Mean Corpuscular Volume [Pending], Mean Corpuscular Hemoglobin [Pending], Mean Corpuscular Hemoglobin Concent [Pending], Red Cell Distribution Width [Pending], Platelet Count [Pending], Mean Platelet Volume [ Pending], Neutrophils (%) (Auto) [Pending], Lymphocytes (%) (Auto) [Pending], Monocytes (%) (Auto) [Pending], Eosinophils (%) (Auto) [Pending], Basophils (%) (Auto) [Pending], Sodium Level [Pending], Potassium Level [Pending], Chloride Level [Pending], Carbon Dioxide Level [Pending], Blood Urea Nitrogen [Pending], Creatinine [Pending], Estimat Glomerular Filtration Rate [Pending], Glucose Level [Pending], Calcium Level [Pending], Phosphorus Level [Pending], Magnesium Level [Pending], Total Bilirubin [Pending], Aspartate Amino Transf (AST/SGOT) [ Pending], Alanine Aminotransferase (ALT/SGPT) [Pending], Alkaline Phosphatase [ Pending], C-Reactive Protein, Quantitative [Pending], Pro-B-Type Natriuretic Peptide [Pending], Total Protein [Pending], Albumin [Pending], Globulin [Pending ] Height (Feet): 6 Height (Inches): 2.00 Weight (Pounds): 156 Objective exam stable urine yellow/jimmy with some debris Edgar Sanchez MD Mar 31, 2019 08:35
[2019-03-31 09:18] LABS: ALANINE AMINOTRANSFERASE 16 U/L (12-78); ALBUMIN 2.1 G/DL (3.4-5.0); ALBUMIN/GLOBULIN RATIO 0.5 (1.0-2.7); ALKALINE PHOSPHATASE 795 U/L (46-116); ANION GAP 11 mmol/L (5-15); ASPARTATE AMINO TRANSFERASE 22 U/L (15-37); BILIRUBIN,TOTAL 0.4 MG/DL (0.2-1.0); BLOOD UREA NITROGEN 15 mg/dL (7-18); CALCIUM 9.1 MG/DL (8.5-10.1); CARBON DIOXIDE 23 MMOL/L (21-32); CHLORIDE 103 MMOL/L (98-107); CREATININE 0.8 MG/DL (0.55-1.30); PHOSPHORUS 3.3 MG/DL (2.5-4.9); POTASSIUM 3.7 MMOL/L (3.5-5.1); SODIUM 137 MMOL/L (136-145)
--- NOTE | 2019-03-31 09:58 | NUR ---
CASE MANAGEMENT: REVIEW 03/31/2019 SI:SEPSIS. PNA. T 98 HR 103 RR 29 B/P 127/85 SATS 99% ON 2L/NC BNP 203 ALP 795 IS:CARDIZEM PO Q8H CEFEPIME IV Q12H PROTONIX PO Q12H FLOMAX PO QHS ASA PO QD PROSCAR PO QD CASODEX PO QD INSULIN ASPART SUBQ AC/HS DOXYCYCLINE IV Q12H DCP: PATIENT TO BE DISCHARGED TO [facility] ONCE MEDICALLY CLEARED. PLAN OF CARE: HEME/ONC FOLLOWING>>> POSS STAGE 4 PROSTATE CA W/ METS BONE STUDY SCAN
[2019-03-31] MEDS ORDERED: Levofloxacin 500mg tab ORAL SCH (10:45)
--- NOTE | 2019-03-31 11:00 | NUR ---
DISCHARGE DISPOSITION: PLEASE READ PATIENT TO BE DISCHARGED TO [facility] [address] T [phone]>> CALL FOR REPORT [facility] ETA [address] [place] MADE AWARE OF DC
[2019-03-31 12:00] VITALS: BP 120/69
--- NOTE | 2019-03-31 12:01 | Infectious Diseases Prog Note ---
Assessment/Plan Assessment/Plan IMPRESSION: Sepsis improving, Complicated UTI. chronic Martínez catheter, BPH, metastatic prostate cancer, diabetes mellitus, dementia, anemia, protein-calorie malnutrition. 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 PO Levaquin X 3 days Subjective ROS Limited/Unobtainable: Yes Constitutional: Denies: fever Allergies: Coded Allergies: No Known Allergies (Unverified , 02/28/16) Objective Vital Signs Last 24 Hour Vital Signs Date Time Temp Pulse Resp B/P (MAP) Pulse Ox O2 Delivery O2 Flow Rate FiO2 03/31/19 09:00 Nasal Cannula 2.0 03/31/19 08:20 98 Nasal Cannula 2.0 28 03/31/19 08:08 108 18 98 Nasal Cannula 2.0 28 03/31/19 08:00 100 03/31/19 08:00 97.2 100 22 115/73 (87) 100 03/31/19 06:00 86 113/76 03/31/19 04:00 98 03/31/19 04:00 98.0 103 28 127/85 (99) 99 03/31/19 00:00 98.1 107 28 119/76 (90) 98 03/31/19 00:00 105 03/30/19 21:33 104 117/78 03/30/19 21:00 Nasal Cannula 2.0 03/30/19 21:00 Nasal Cannula 2.0 03/30/19 20:38 96 18 97 Nasal Cannula 2.0 28 03/30/19 20:00 98.1 106 22 119/76 (90) 99 03/30/19 20:00 104 03/30/19 16:00 102 03/30/19 16:00 98.4 99 20 126/78 (94) 99 03/30/19 14:00 95 107/72 03/30/19 12:00 97.8 95 18 107/72 (84) 100 Height (Feet): 6 Height (Inches): 2.00 Weight (Pounds): 156 General Appearance: no acute distress Respiratory/Chest: lungs clear Cardiovascular: tachycardia Abdomen: soft, non tender Genitourinary: other - Martínez catheter Extremities: no edema Neurologic/Psychiatric: disoriented Microbiology Date/Time Source Procedure Growth Status 03/29/19 00:40 Blood Blood Culture - Preliminary NO GROWTH AFTER 48 HOURS Resulted 03/29/19 00:30 Blood Blood Culture - Preliminary NO GROWTH AFTER 48 HOURS Resulted Laboratory Tests Test 03/31/19 06:54 White Blood Count 6.4 K/UL (4.8-10.8) Red Blood Count 3.41 M/UL (4.70-6.10) L Hemoglobin 9.2 G/DL (14.2-18.0) L Hematocrit 28.9 % (42.0-52.0) L Mean Corpuscular Volume 85 FL (80-99) Mean Corpuscular Hemoglobin 27.1 PG (27.0-31.0) Mean Corpuscular Hemoglobin Concent 31.9 G/DL (32.0-36.0) L Red Cell Distribution Width 16.9 % (11.6-14.8) H Platelet Count 316 K/UL (150-450) Mean Platelet Volume 5.2 FL (6.5-10.1) L Neutrophils (%) (Auto) 73.5 % (45.0-75.0) Lymphocytes (%) (Auto) 18.4 % (20.0-45.0) L Monocytes (%) (Auto) 6.8 % (1.0-10.0) Eosinophils (%) (Auto) 0.6 % (0.0-3.0) Basophils (%) (Auto) 0.8 % (0.0-2.0) Sodium Level 137 MMOL/L (136-145) Potassium Level 3.7 MMOL/L (3.5-5.1) Chloride Level 103 MMOL/L (98-107) Carbon Dioxide Level 23 MMOL/L (21-32) Anion Gap 11 mmol/L (5-15) Blood Urea Nitrogen 15 mg/dL (7-18) Creatinine 0.8 MG/DL (0.55-1.30) Estimat Glomerular Filtration Rate mL/min (>60) Glucose Level 106 MG/DL (74-106) Calcium Level 9.1 MG/DL (8.5-10.1) Phosphorus Level 3.3 MG/DL (2.5-4.9) Magnesium Level 1.9 MG/DL (1.8-2.4) Total Bilirubin 0.4 MG/DL (0.2-1.0) Aspartate Amino Transf (AST/SGOT) 22 U/L (15-37) Alanine Aminotransferase (ALT/SGPT) 16 U/L (12-78) Alkaline Phosphatase 795 U/L (46-116) H C-Reactive Protein, Quantitative 14.9 mg/dL (0.00-0.90) H Pro-B-Type Natriuretic Peptide 203 pg/mL (0-125) H Total Protein 6.3 G/DL (6.4-8.2) L Albumin 2.1 G/DL (3.4-5.0) L Globulin 4.2 g/dL Albumin/Globulin Ratio 0.5 (1.0-2.7) L Current Medications Medications (Trade) Dose Ordered Sig/Eufemia Route PRN Reason Start Time Stop Time Status Last Admin Dose Admin Acetaminophen (Tylenol) 650 mg Q4H PRN ORAL Mild Pain/Temp > 100.5 03/27/19 23:30 04/26/19 23:29 03/28/19 23:48 Acetaminophen/ Hydrocodone Bitart ([place] 5/325) 1 tab Q6H PRN ORAL Moderate Pain (Pain Scale 4-6) 03/27/19 23:30 04/03/19 23:29 Acetaminophen/ Hydrocodone Bitart ([place] 5/325) 2 tab Q6H PRN ORAL Severe Pain (Pain Scale 7-10) 03/27/19 23:30 04/03/19 23:29 Albuterol/ Ipratropium (Albuterol/ Ipratropium) 3 ml Q4H PRN HHN Shortness of Breath 03/27/19 23:30 04/01/19 23:29 03/28/19 00:13 Aspirin (ASA) 81 mg DAILY ORAL 03/28/19 09:00 04/27/19 08:59 03/31/19 08:30 Bicalutamide (Casodex) 50 mg DAILY ORAL 03/30/19 16:00 04/04/19 15:59 03/31/19 08:30 Dextrose (Dextrose 50%) 25 ml Q30M PRN IV Hypoglycemia 03/27/19 23:30 04/26/19 23:29 Dextrose (Dextrose 50%) 50 ml Q30M PRN IV Hypoglycemia 03/27/19 23:30 04/26/19 23:29 Diltiazem HCl (Cardizem) 30 mg EVERY 8 HOURS ORAL 03/29/19 14:00 04/28/19 00:00 03/30/19 05:40 Docusate Sodium (Colace) 100 mg THREE TIMES A DAY ORAL 03/29/19 09:00 04/28/19 08:59 03/31/19 08:31 Finasteride (Proscar) 5 mg DAILY ORAL 03/28/19 09:00 04/27/19 08:59 03/31/19 08:30 Heparin Sodium (Porcine) (Heparin 5000 units/ml) 5,000 units EVERY 12 HOURS SUBQ 03/28/19 09:00 04/27/19 08:59 03/31/19 08:32 Insulin Aspart (NovoLOG) BEFORE MEALS AND HS SUBQ 03/28/19 06:30 04/27/19 06:29 03/31/19 11:51 Iron Sucrose 100 mg/Sodium Chloride 55 ml @ 200 mls/hr BEDTIME IV 03/28/19 21:00 04/06/19 21:17 03/30/19 20:39 Levofloxacin (Levaquin) 500 mg DAILY ORAL 03/31/19 10:45 04/03/19 10:44 03/31/19 11:50 Pantoprazole (Protonix) 40 mg EVERY 12 HOURS ORAL 03/28/19 21:00 04/27/19 20:59 03/31/19 08:30 Tamsulosin HCl (Flomax) 0.4 mg BEDTIME ORAL 03/28/19 23:45 04/27/19 23:44 03/30/19 20:43 Thiamine HCl (Vitamin B1) 100 mg DAILY ORAL 03/28/19 09:00 04/27/19 08:59 03/31/19 08:30 Rick Cat MD Mar 31, 2019 12:01
--- NOTE | 2019-03-31 12:19 | Nephrology Progress Note ---
Assessment/Plan Problem List: (1) Hypertension (2) Dehydration (3) UTI (urinary tract infection) (4) Anemia (5) Elevated PSA Assessment HTN mild dehydration BPH, High PSA of over 500 UTI Anemia Plan Labs reviewed Adjust BP meds Gastric support IV iron continue the rest Subjective ROS Limited/Unobtainable: No Constitutional: Reports: malaise Objective Objective Last 24 Hour Vital Signs Date Time Temp Pulse Resp B/P (MAP) Pulse Ox O2 Delivery O2 Flow Rate FiO2 03/31/19 09:00 Nasal Cannula 2.0 03/31/19 08:20 98 Nasal Cannula 2.0 28 03/31/19 08:08 108 18 98 Nasal Cannula 2.0 28 03/31/19 08:00 100 03/31/19 08:00 97.2 100 22 115/73 (87) 100 03/31/19 06:00 86 113/76 03/31/19 04:00 98 03/31/19 04:00 98.0 103 28 127/85 (99) 99 03/31/19 00:00 98.1 107 28 119/76 (90) 98 03/31/19 00:00 105 03/30/19 21:33 104 117/78 03/30/19 21:00 Nasal Cannula 2.0 03/30/19 21:00 Nasal Cannula 2.0 03/30/19 20:38 96 18 97 Nasal Cannula 2.0 28 03/30/19 20:00 98.1 106 22 119/76 (90) 99 03/30/19 20:00 104 03/30/19 16:00 102 03/30/19 16:00 98.4 99 20 126/78 (94) 99 03/30/19 14:00 95 107/72 Intake and Output 03/30/19 03/31/19 19:00 07:00 Intake Total 360 ml 200 ml Output Total 700 ml 600 ml Balance -340 ml -400 ml Intake Oral 360 ml 200 ml Output Urine Total 700 ml 600 ml # Bowel Movements 1 2 Laboratory Tests 03/31/19 06:54: White Blood Count 6.4, Red Blood Count 3.41L, Hemoglobin 9.2L, Hematocrit 28.9L , Mean Corpuscular Volume 85, Mean Corpuscular Hemoglobin 27.1, Mean Corpuscular Hemoglobin Concent 31.9L, Red Cell Distribution Width 16.9H, Platelet Count 316, Mean Platelet Volume 5.2L, Neutrophils (%) (Auto) 73.5, Lymphocytes (%) (Auto) 18.4L, Monocytes (%) (Auto) 6.8, Eosinophils (%) (Auto) 0.6, Basophils (%) (Auto) 0.8, Sodium Level 137, Potassium Level 3.7, Chloride Level 103, Carbon Dioxide Level 23, Anion Gap 11, Blood Urea Nitrogen 15, Creatinine 0.8, Estimat Glomerular Filtration Rate , Glucose Level 106, Calcium Level 9.1, Phosphorus Level 3.3, Magnesium Level 1.9, Total Bilirubin 0.4, Aspartate Amino Transf (AST/SGOT) 22, Alanine Aminotransferase (ALT/SGPT) 16, Alkaline Phosphatase 795H, C-Reactive Protein, Quantitative 14.9H, Pro-B-Type Natriuretic Peptide 203H, Total Protein 6.3L, Albumin 2.1L, Globulin 4.2, Albumin/Globulin Ratio 0.5L Height (Feet): 6 Height (Inches): 2.00 Weight (Pounds): 156 General Appearance: no apparent distress Cardiovascular: normal rate Respiratory/Chest: decreased breath sounds Abdomen: soft Objective no change Cecil Collins MD Mar 31, 2019 12:19
--- NOTE | 2019-03-31 12:35 | Diagnostic Imaging Report ---
Indication: Pain, history of prostate cancer Technique: Limited radiographs of the axial and appendicular skeleton Comparison: 03/18/2018 Findings: Multiple osteoblastic foci are seen in the thoracic spine, ribs, and bilateral scapulae. Extensive osteoblastic disease is seen involving the lumbar spine, pelvis, bilateral femurs, right greater than left. There is a pathologic fracture of the right femur with fragmentation. There is a Martínez catheter in place. There is some apparent osteolytic component of the distal femurs. Uncertain as to whether this represents rarefaction related osteoporosis or an osteolytic component of the metastatic disease. There are apparent osteolytic changes of the bilateral tibias and fibulas, more striking on the right than on the left, without definite osteoblastic process. There is evidence of demineralization of the bilateral humeri, radii, and ulnae without definite osteoblastic involvement. No definite skull or face lesions are demonstrated. There is questionable osteoblastic involvement of the cervical spine. When compared to the prior study, the osteoblastic disease is largely new except for that previously reported in the right hemipelvis. The right hip fracture is a new finding although was reported on a prior CT scan of 11/26/2018. The demineralization changes of the distal appendicular skeleton is somewhat more striking than previously. Impression: Extensive osteoblastic disease, most likely confined to the axial skeleton with involvement of the proximal femurs as well. Most likely on the basis of metastatic prostate carcinoma Demineralization with areas of geographic demineralization of the distal bilateral lower extremities and bilateral arms. Suspect that this is on the basis of advanced osteoporotic change, but osteolytic involvement by tumor is also possible. Right hip fracture, presumed pathologic, new since the previous 03/18/2018 skeletal study but evident on prior 11/26/[address]
[2019-03-31 13:13] VITALS: BP 120/69
--- NOTE | 2019-03-31 14:00 | NUR ---
DISCHARGE SWALLOW/SPEECH THERAPY SUMMARY: PATIENT SEEN FOR DYSPHAGIA, SEE SWALLOWING EVALUATION REPORT. PT TO BE DC TO SNF TODAY SO UNABLE TO COMPLETE MODIFIED BARIUM SWALLOW STUDY AT THIS TIME. INTAKE GOALS MET CONSISTENTLY AT 75%. GOALS ALSO MET FOR NEW STAFF EDUCATED/TRAINED IN POSTED ASPIRATION PRECAUTIONS. PATIENT TOOK PO TRIALS WITH MANAGER FRAUD TODAY INITIALLY REFUSING. GROSSLY FUNCTIONAL SWALLOW VIA STRAW CONTROLLED ONE SIP OF GLUCERNA AND NECTAR THICK APPLE JUICE. PLAN: F/UP WITH MANAGER FRAUD AT SNF FOR SKILLED SWALLOWING MANAGEMENT AND TX AND OUTPATIENT MODIFIED BARIUM SWALLOW STUDY IF INDICATED ( 03/27/19 CXR IS CLEAR AND HIS LUNGS ARE CLEAR PER MULTIPLE PHYSICIANS DURING RECENT CHECKS).
--- NOTE | 2019-03-31 14:25 | NUR ---
Report given to Michelle ARTEAGA at [facility].
--- NOTE | 2019-03-31 15:47 | NUR ---
NURSE NOTES: Patient is discharged to [facility] as per Dr. Moreno order [facility] All discharge orders carried out. radiation monitor removed, IV removed, no bleeding, no infiltration. Patient is discharged with begum catheter as per Dr. Moreno order. Inter-facility report given to Michelle ARTEAGA. Patient's belonging checked, patient unable to sign. Patient is in stable condition.
--- NOTE | 2019-04-01 11:29 | Discharge Summary ---
Discharge Summary Discharge Summary _ DATE OF ADMISSION: 03/27/2019 DATE OF DISCHARGE: 03/31/2019 DISCHARGED BY: Dr. Moreno REASON FOR ADMISSION: 78 years old male with past medical history of hypertension, diabetes mellitus, CVA, dysphagia, [facility] for evaluation of fever. Patient was tachycardic , febrile ,and required supplemental oxygen to keep pulse oximetry above 92%. Laboratory work-up revealed no leukocytosis, hemoglobin 10.9 , hematocrit 24.1 . BUN 26 creatinine 1.0. Glucose 190. Lactic acid 1.8. Troponin negative. AST 43 , ALT 26 , alkaline phosphatase 1048. Albumin 2.7. Urinalysis revealed evidence of UTI. Chest x-ray demonstrated no acute cardiopulmonary process. CT of the chest revealed no evidence of pulmonary emboli . Diffuse osteoblastic metastatic disease noted. Patient started on empiric antibiotics, aggressive IV hydration and admitted for further management. CONSULTANTS: pulmonary Dr. De La Cruz ID specialist Dr. Hurst computer science professor Dr. Collins four slide machine operator/oncologist Dr. Pompa urology [facility] COURSE: Patient admitted to telemetry floor. Antibiotic provided as per ID recommendations Blood cultures were negative. Urine culture revealed Pseudomonas aeruginosa and gram-negative bacilli. Repeated blood culture were negative. No leukocytosis, fever resolved. Patient was on IV antibiotic while in the hospital. Patient to continue oral antibiotic for additional as per ID specialist recommendation. Pit Furnace Operator followed. Supplemental oxygen titrated as needed to keep pulse oximetry above 92%. Pulmonary toilet via handheld nebulizing provided. Strict aspiration precautions were maintained. GI prophylaxis provided. Pulse oximetry was stable on 2 L of oxygen via nasal cannula. Precision Thread Grinder Operator /oncologist followed. Per oncologist, prostate cancer with metastasis to bone and PSA 533 was highly suggestive of stage IV prostate cancer. CEA elevated to 39.4. Diffuse osteoblastic metastatic disease noted on CT scan of the chest. Bone skeletal survey revealed extensive osteoblastic disease, most likely confined to the axial skeleton with involvement of the proximal femurs as well; most likely on the basis of metastatic prostate carcinoma. Anemia work-up was consistent with anemia of iron deficiency. No evidence of hemolysis noted. Peripheral smear reviewed. Hemoglobin and hematocrit were closely monitored with goal to keep hemoglobin above 7. Patient started on the IV Venofer . Prior to discharge hemoglobin 9.2, hematocrit 28.9. Scaler Packer followed. Patient initially received IV fluids. Renal parameters and electrolytes were closely monitored. Electrolytes corrected as needed, and nephrotoxins were avoided. Prior to discharge BUN 15, creatinine 0.8. Blood pressure medication regimen was optimized to keep blood pressure under control. Blood pressure stabilized. DVT and GI prophylaxis provided. Blood sugar was managed with sliding scale insulin. Hemoglobin A1c 6.6, at goal. Antiplatelet therapy with aspirin continued. Bowel regimen instituted. Supportive care provided. Urologist followed and recommended to continue Martínez and hand irrigate as needed. Flomax and Proscar were continued. Per urologist, patient had been on Lupron and may need chemotherapy. Urologist recommended consider to repeat renal imaging studies. Casodex continued. Patient clinically stabilized and was ready for transfer back to prison facility for continuation of care. FINAL DIAGNOSES: Sepsis Complicated UTI. Pneumonia Urinary retention with chronic Martínez catheter Metastatic prostate cancer, likely stage IV Mild dehydration BPH Left-sided hydronephrosis , appeared to be chronic Diabetes mellitus Protein calorie malnutrition Anemia of iron deficiency Advanced dementia COPD Hypertension GERD Elevated PSA DISCHARGE MEDICATIONS: See Medication Reconciliation list. DISCHARGE INSTRUCTIONS: Patient was discharged to the prison facility. Follow up with medical doctor at the facility. I have been assigned to dictate discharge summary for this account. I was not involved in the patient's management. Milla Demarco NP Apr 01, 2019 11:29
== END 2019-03-31 15:23 | DRG 871 ==
LOC: EDBD 18:38 → EDSEX 18:38 → EMR 19:03 → EDBEDREQ 20:34 → 2E 20:47 → EDBEDREQ 21:08
DX: A41.9 Sepsis, unspecified organism (principal); J18.9 Pneumonia, unspecified organism; N39.0 Urinary tract infection, site not specified; C79.51 Secondary malignant neoplasm of bone; E46 Unspecified protein-calorie malnutrition; N13.30 Unspecified hydronephrosis; C61 Malignant neoplasm of prostate; D63.0 Anemia in neoplastic disease; K21.9 Gastro-esophageal reflux disease without esophagitis; Z68.20 Body mass index [BMI] 20.0-20.9, adult; F03.90 Unspecified dementia, unspecified severity, without behavioral disturbance, psychotic disturbance, mood disturbance, and anxiety; J44.9 Chronic obstructive pulmonary disease, unspecified; I10 Essential (primary) hypertension; R33.9 Retention of urine, unspecified; R97.20 Elevated prostate specific antigen [PSA]; E11.9 Type 2 diabetes mellitus without complications; E86.0 Dehydration
CPT/HCPCS: 36415; 71045; 71260; 77075; 80053; 80061; 81003; 82378; 82550; 82553; 82728; 82962; 82977; 83036; 83540; 83550; 83605; 83735; 83880; 84100; 84153; 84443; 84484; 84550; 85025; 86140; 87040; 87081; 87086; 87181; 93005; 94664; 96361; 96365; 99285; J1815; J3490; J7620

== ENCOUNTER 2019-05-07 21:33 | Inpatient (IN) | payer MEDICARE, MEDICAID ==
[~2019-05-07] VITALS: Ht 177.8 cm; Wt 65.3 kg
[~2019-05-07 21:33] MED LIST changes: -Vancomycin 500mg/D5W 110ml IVPB SCH
--- NOTE | 2019-05-07 21:35 | NUR ---
ED Nurse Note: Pt BIBA from [facility], reported pt has pnuemonia. Pt is oriented to self, will answer to simple questions, denies pain. VSS.
--- NOTE | 2019-05-07 21:51 | Emergency Room Report ---
History of Present Illness General Chief Complaint: General Complaint Source: Patient, Medical Record, EMS Present Illness HPI This is a 78-year-old male with a history of metastatic prostate cancer. He has multiple other medical problems. He is a DNR. He presents with chief complaint of weakness and possible pneumonia. He was [facility] in from a [facility]. Patient denies any complaint. Per [facility] note there is weakness and possible pneumonia. Unknown fever. No vomiting. No fever or chills. No pain complaint. Patient does have chronic indwelling Martínez. On last admission he grew out multidrug-resistant E. coli and also Pseudomonas. Allergies: Coded Allergies: No Known Allergies (Unverified , 02/28/16) Patient History Past Medical History: see triage record, old chart reviewed Past Surgical History: other Pertinent Family History: none Social History: Denies: smoking Immunizations: other Reviewed Nursing Documentation: PMH: Agreed; PSxH: Agreed Nursing Documentation-PM Past Medical History: No History, Except For Hx Cardiac Problems: Yes Hx Hypertension: Yes Hx Diabetes: Yes Hx Cancer: Yes Hx Gastrointestinal Problems: Yes Hx Neurological Problems: Yes Hx Dementia: Yes Hx Encephalitis: Yes Hx Syncope: Yes Hx Dysphasia: Yes Hx Weakness: Yes Hx Neurologic Surgery: No Review of Systems Constitutional: Reports: malaise, weakness Eye: Denies: eye pain, blurred vision ENT: Denies: ear pain, nose congestion, throat swelling Respiratory: Denies: cough, shortness of breath Cardiovascular: Denies: chest pain, palpitations Gastrointestinal: Denies: abdominal pain, diarrhea, nausea, vomiting Musculoskeletal: Denies: back pain, joint pain Skin: Denies: rash Neurological: Denies: headache, numbness Endocrine: Denies: increased thirst, increased urine Hematologic/Lymphatic: Denies: easy bruising All Other Systems: negative except mentioned in HPI Physical Exam Vital Signs Date Time Temp Pulse Resp B/P (MAP) Pulse Ox O2 Delivery O2 Flow Rate FiO2 05/07/19 21:33 97.9 79 18 109/78 (88) 95 Room Air Vitals normal Sp02 EP Interpretation: reviewed, normal General Appearance: no apparent distress, alert, cachetic, Chronically Ill Head: normocephalic, atraumatic Eyes: bilateral eye PERRL, bilateral eye EOMI ENT: hearing grossly normal, normal pharynx Neck: full range of motion, supple, no meningismus Respiratory: chest non-tender, lungs clear, normal breath sounds Cardiovascular #1: regular rate, rhythm, no murmur Gastrointestinal: normal bowel sounds, non tender, no mass, no organomegaly, no bruit, non-distended Musculoskeletal: back normal, other - Contracted, right-sided weakness Psychiatric: mood/affect normal Medical Decision Making Diagnostic Impression: Primary Impression: Acute encephalopathy Additional Impressions: UTI (urinary tract infection) Qualified Codes: N30.00 - Acute cystitis without hematuria HTN (hypertension) Qualified Codes: I10 - Essential (primary) hypertension ER Course Patient presents with acute encephalopathy secondary to infection from UTI. He grew out multidrug-resistant E. coli on last admission. He also grew out Pseudomonas that is sensitive to cefepime. I put him on cefepime. No evidence of pneumonia on chest x-ray. He does have a right upper lobe infiltrate but I suspect this is metastatic from his prostate cancer. He is not hypoxic. Lungs are clear. White count normal. He will be admitted for IV antibiotics. I discussed the case with Dr. Moreno who will admit. Rhythm Strip Diag. Results EP Interpretation: yes Rate: 96 Rhythm: NSR, no PVC's, no ectopy Chest X-Ray Diagnostic Results Chest X-Ray Diagnostic Results : Chest X-Ray Ordered: Yes # of Views/Limited/Complete: 1 View Indication: Shortness of Breath EP Interpretation: Yes Interpretation: no effusion, no pneumothorax, no acute cardiopulmonary disease, other - RUL mass Impression: Other - mass in rul Electronically Signed by: Diego Sheriff MD Last Vital Signs Date Time Temp Pulse Resp B/P (MAP) Pulse Ox O2 Delivery O2 Flow Rate FiO2 05/07/19 21:33 97.9 79 18 109/78 (88) 95 Room Air Status: improved Disposition: ADMITTED INPATIENT Condition: Serious Diego Sheriff MD May 07, 2019 21:51
[2019-05-07 21:59] VITALS: BP 109/78
[2019-05-07 22:10] LABS: APPEARANCE,URINE SLIGHTLY CLOUDY; BILIRUBIN, URINE NEGATIVE (NEGATIVE); GLUCOSE, URINE (UA) NEGATIVE (NEGATIVE); KETONES,URINE 1+ (NEGATIVE); LEUKOCYTE ESTERASE ,URINE 3+ (NEGATIVE); NITRITE,URINE POSITIVE (NEGATIVE); PH,URINE 5 (4.5-8.0); PROTEIN,URINE 3+ (NEGATIVE); UROBILINOGEN,URINE NORMAL MG/DL (0.0-1.0)
[2019-05-07 22:11] LABS: BASOPHILS % (AUTO) 1.1 % (0.0-2.0); EOSINOPHILS % (AUTO) 0.7 % (0.0-3.0); HEMATOCRIT 36.4 % (42.0-52.0); LYMPHOCYTES % (AUTO) 33.6 % (20.0-45.0); MEAN CORPUSCULAR VOLUME 82 FL (80-99); MONOCYTES % (AUTO) 9.3 % (1.0-10.0); NEUTROPHILS % (AUTO) 55.4 % (45.0-75.0); PLATELET COUNT 184 K/UL (150-450); RED BLOOD COUNT 4.42 M/UL (4.70-6.10); WHITE BLOOD COUNT 4.6 K/UL (4.8-10.8)
[2019-05-07 22:15] LABS: COLOR,URINE YELLOW
[2019-05-07 22:30] LABS: ANION GAP 10 mmol/L (5-15); BLOOD UREA NITROGEN 21 mg/dL (7-18); CALCIUM 9.7 MG/DL (8.5-10.1); CARBON DIOXIDE 24 MMOL/L (21-32); CHLORIDE 103 MMOL/L (98-107); CREATININE 1.1 MG/DL (0.55-1.30); POTASSIUM 4.3 MMOL/L (3.5-5.1); SODIUM 137 MMOL/L (136-145)
[2019-05-07] MEDS ORDERED: Cefepime HCl 1 GM in D5W 55 ML IVPB ONE (22:30)
[2019-05-07 22:35] LABS: ALANINE AMINOTRANSFERASE 18 U/L (12-78); ALBUMIN 3.2 G/DL (3.4-5.0); ALBUMIN/GLOBULIN RATIO 0.7 (1.0-2.7); ALKALINE PHOSPHATASE 1497 U/L (46-116); ASPARTATE AMINO TRANSFERASE 48 U/L (15-37); BILIRUBIN,TOTAL 0.4 MG/DL (0.2-1.0); CKMB 0.7 NG/ML (0.0-3.6); CREATINE KINASE 133 U/L (26-308)
--- NOTE | 2019-05-07 23:03 | NUR ---
NURSE NOTES: Received ER report via telephone from CHANDLER Warren. Awaiting patient.
--- NOTE | 2019-05-07 23:10 | NUR ---
TRANSFER TO FLOOR: Patient transferred to as ordered, per Dr Moreno. Report given to CHANDLER Toussaint. Belongings and medications given to . Family and or S/O informed of transfer.
--- NOTE | 2019-05-07 23:45 | NUR ---
NURSE NOTES: Received patient from ER via tech. Patient on 2L nasal cannula. No signs of distress or labored breathing. IV intact, patent, and saline locked. No belongings. Patient alert to person and place. Patient is selective as to which questions/statements he will respond to. Bed in lowest position with call light in reach. Will continue to monitor and contact MD for admission orders.
[2019-05-08] VITALS: BP 165/95
--- NOTE | 2019-05-08 00:10 | Pulmonology Progress Note ---
Assessment/Plan Assessment/Plan Pulmonary Consultation HPI Patient is a 78-year-old male with a history of COPD, Diabetes, Metastatic prostate cancer, previously noted RUL mass. Other PMH includes Dementia, Hypertension, Dysphagia. He is a DNR status. He presents with chief complaint of weakness, some SOB. He was sent in from a alf. Noted to have UTI. Per alf note there is weakness concern about possible pneumonia. Unknown fever. No vomiting. No pain complaint. Patient does have chronic indwelling Martínez. On last admission he grew out multidrug-resistant E. coli and also Pseudomonas. Allergies: No Known Allergies Past Medical History: COPD, metastatic prostate cancer, previously noted RUL mass. Other PMH includes Dementia, Hypertension, Dysphagia All Other Systems: negative except mentioned in HPI Physical Exam Vital Signs Noted Date Time Temp Pulse Resp B/P (MAP) Pulse Ox O2 Delivery O2 Flow Rate FiO2 05/07/19 21:33 97.9 79 18 109/78 (88) 95 Room Air General Appearance: no apparent distress, awake cachetic, Chronically Ill Head: normocephalic, atraumatic Eyes: bilateral eye PERRL, bilateral eye EOMI ENT: hearing grossly normal, normal pharynx Neck: full range of motion, supple, no meningismus Respiratory: chest non-tender, lungs clear, normal breath sounds Cardiovascular: regular rate, rhythm, normal HS, no murmur Gastrointestinal: normal bowel sounds, non tender, no mass, no organomegaly, no bruit, non-distended Musculoskeletal: back normal, other - Contracted, right-sided weakness Psychiatric: mood/affect normal Impression: Acute encephalopathy Urinary tract infection COPD Diabetes Metastatic prostate cancer Previously noted RUL mass Dementia Hypertension Dysphagia DNR status Plan Continue Cefepime Await urine sensitivities PROFESSOR IN FAMILY STUDIES medications 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 Appearance is nonspecific, could indicate pulmonary edema, infectious/inflammatory process, among other possibilities. More focal consolidation and atelectasis in the right lower lobe Diffuse osseous sclerosis, also previously described Massive left hydronephrosis, described on multiple prior studies Subjective ROS Limited/Unobtainable: No Allergies: Coded Allergies: No Known Allergies (Unverified , 02/28/16) Objective Last 24 Hour Vital Signs Date Time Temp Pulse Resp B/P (MAP) Pulse Ox O2 Delivery O2 Flow Rate FiO2 05/07/19 23:10 97.9 72 18 109/78 95 Room Air 05/07/19 21:59 97.9 72 18 109/78 95 Room Air 05/07/19 21:59 79 18 Room Air 05/07/19 21:33 97.9 79 18 109/78 (88) 95 Room Air Laboratory Tests 05/07/19 21:50: White Blood Count 4.6L, Red Blood Count 4.42L, Hemoglobin 12.0L, Hematocrit 36.4L, Mean Corpuscular Volume 82, Mean Corpuscular Hemoglobin 27.2, Mean Corpuscular Hemoglobin Concent 33.0, Red Cell Distribution Width 18.0H, Platelet Count 184, Mean Platelet Volume 5.6L, Neutrophils (%) (Auto) 55.4, Lymphocytes (%) (Auto) 33.6, Monocytes (%) (Auto) 9.3, Eosinophils (%) (Auto) 0.7, Basophils (%) (Auto) 1.1, Urine Color Yellow, Urine Appearance Slightly cloudy, Urine pH 5, Urine Specific [place] 1.025, Urine Protein 3+H, Urine Glucose (UA) Negative, Urine Ketones 1+H, Urine Blood 5+H, Urine Nitrite PositiveH, Urine Bilirubin Negative, Urine Urobilinogen Normal, Urine Leukocyte Esterase 3+H, Urine RBC 5-10H, Urine WBC 10-15H, Urine Squamous Epithelial Cells None, Urine Bacteria ModerateH, Sodium Level 137, Potassium Level 4.3, Chloride Level 103, Carbon Dioxide Level 24, Anion Gap 10, Blood Urea Nitrogen 21H, Creatinine 1.1, Estimat Glomerular Filtration Rate , Glucose Level 114H, Lactic Acid Level 1.70, Calcium Level 9.7, Total Bilirubin 0.4, Aspartate Amino Transf (AST/SGOT) 48H, Alanine Aminotransferase (ALT/SGPT) 18, Alkaline Phosphatase 1497H, Total Creatine Kinase 133, Creatine Kinase MB 0.7, Creatine Kinase MB Relative Index 0.5, Troponin I 0.000, Total Protein 7.5, Albumin 3.2L , Globulin 4.3, Albumin/Globulin Ratio 0.7L Ye De La Cruz MD May 08, 2019 00:10
[2019-05-08] MEDS ORDERED: Docusate 100mg cap ORAL PRN (00:30)
[2019-05-08] MEDS ORDERED: Albuterol/Ipratropium 3ml neb HHN PRN (00:30)
[2019-05-08] MEDS: D5NS 1,000 ML IV SCH ×2 (01:16→21:05)
[2019-05-08 04:00] VITALS: BP 134/86
[2019-05-08] MEDS: NovoLOG Insulin Flexpen SUBQ SCH ×4 (06:00→23:59)
[2019-05-08 06:25] LABS: BASOPHILS % (AUTO) 1.4 % (0.0-2.0); EOSINOPHILS % (AUTO) 1.1 % (0.0-3.0); HEMATOCRIT 35.5 % (42.0-52.0); HEMOGLOBIN 11.3 G/DL (14.2-18.0); LYMPHOCYTES % (AUTO) 23.8 % (20.0-45.0); MEAN CORPUSCULAR VOLUME 86 FL (80-99); MONOCYTES % (AUTO) 10.7 % (1.0-10.0); NEUTROPHILS % (AUTO) 63.1 % (45.0-75.0); PLATELET COUNT 160 K/UL (150-450); RED BLOOD COUNT 4.13 M/UL (4.70-6.10); RED CELL DISTRIBUTION WIDTH 18.8 % (11.6-14.8); WHITE BLOOD COUNT 5.1 K/UL (4.8-10.8)
[2019-05-08 07:10] LABS: ALANINE AMINOTRANSFERASE 16 U/L (12-78); ALBUMIN 2.9 G/DL (3.4-5.0); ALBUMIN/GLOBULIN RATIO 0.8 (1.0-2.7); ALKALINE PHOSPHATASE 1316 U/L (46-116); ANION GAP 12 mmol/L (5-15); ASPARTATE AMINO TRANSFERASE 44 U/L (15-37); BILIRUBIN,TOTAL 0.6 MG/DL (0.2-1.0); BLOOD UREA NITROGEN 17 mg/dL (7-18); CALCIUM 9.3 MG/DL (8.5-10.1); CARBON DIOXIDE 22 MMOL/L (21-32); CHLORIDE 105 MMOL/L (98-107); CREATININE 0.9 MG/DL (0.55-1.30); POTASSIUM 4.2 MMOL/L (3.5-5.1); SODIUM 138 MMOL/L (136-145)
--- NOTE | 2019-05-08 07:33 | NUR ---
NURSE NOTES: Received patient from CHANDLER Flood in bed resting. Patient is on 2L nasal cannula. No signs of pain and distress noted. IV intact and patent, fluids running. Patient is alert and oriented x2, to person and place. Patient is selective as to which questions/statements he will respond to. Bed in lowest position, brakes engaged for safety. Call light within reach. Will continue with the plan of care.
--- NOTE | 2019-05-08 07:33 | NUR ---
HAND-OFF: Report given to CHANDLER Paz.
[2019-05-08 08:00] VITALS: BP 131/81
[2019-05-08] MEDS: Thiamine 100mg tab ORAL SCH (08:22)
[2019-05-08] MEDS: Aspirin EC 81mg tab ORAL SCH (08:23)
[2019-05-08] MEDS: Heparin 5000 units/ml inj SUBQ SCH ×2 (08:26→20:12)
[2019-05-08] MEDS: Cefepime HCl 1 GM in D5W 55 ML IVPB SCH ×2 (08:27→20:06)
--- NOTE | 2019-05-08 11:30 | Diagnostic Imaging Report ---
Clinical Indication: Shortness of breath, history COPD, history of right upper lobe mass, history of prostate cancer Technique: Spiral acquisitions obtained through the chest. No IV contrast utilized, . Multiplanar reconstructions generated. Total dose length product 873.36 mGycm. CTDIvol(s) 22.06 mGy. Dose reduction achieved using automated exposure control Comparison: 03/27/2019 contrast study Findings: There is considerable image degradation due to motion artifact. There is again demonstrated bilateral interstitial disease as well as subtle fine airspace opacities. This appears somewhat more extensive than on the previous exam. There is an area of consolidation and/or atelectasis involving the right lower lobe. This appears slightly larger than on the previous study. No pleural fluid is demonstrated. No masses or nodules. The heart size is normal. There is no evidence of pericardial effusion. No mediastinal or hilar mass or adenopathy. The thyroid is unremarkable. No axillary or chest wall mass or adenopathy. The bones demonstrate diffuse osteosclerosis. There is also demonstrated on the prior study. No definite acute osseous abnormality demonstrated. Included upper abdominal anatomy demonstrates massive left hydronephrosis, also previously demonstrated. There are some calyceal calcifications on the left which are not evident previously. Impression: Bilateral diffuse mostly interstitial disease with some associated airspace opacity as well. Appearance is nonspecific, could indicate pulmonary edema, infectious/inflammatory process, among other possibilities. More focal consolidation and atelectasis in the right lower lobe Diffuse osseous sclerosis, also previously described Massive left hydronephrosis, described on multiple prior studies The CT scanner at [facility] is accredited by the [employer] and the scans are performed using protocols designed to limit radiation exposure to as low as reasonably achievable to attain images of sufficient resolution adequate for diagnostic evaluation.
[2019-05-08 12:00] VITALS: BP 128/89
--- NOTE | 2019-05-08 14:11 | NUR ---
NOTES: REFERRED FOR SWALLOW EVAL BY DR. FRANZ, SEE FULL REPORT TO FOLLOW. 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 PER POLST NO TUBE FEEDINGS. HAD A SIGNIFICANT OP DYSPHAGIA ON VIDEOSWALLOW STUDY 2016 AND LAST MONTH HAD A BEDSIDE SWALLOW EVAL. CLEARED ON CCHO-MED PUREED AND NECTAR THICK LIQUID AT THAT TIME WITH POSTED ASP/REFLUX PRECAUTIONS. INITIAL IMPRESSIONS: PERSISTENT AND SLIGHTLY WORSENED OROPHARYNGEAL DYSPHAGIA WITH MILD-MODERATE INCREASED IN ORAL PREP AND OROPHARYNEGEAL TRANSIT TIMES. AT REST SOB AND HAS AUDIBLE BREATHING RR 20 THEN UP TO 24 WITH PO INTAKE (EVEN WITH 2 LITERS 02 NC). REFUSED PO TRIALS INITIALLY AND POOR FOLLOWING ORAL COMMANDS. NEEDS ORAL CARE SINCE HE HAS HALITOSIS. TSP THIN LIQUIDS - MILD INCREASE IN TRANSIT TIMES WITH S/S OF ASPIRATION (WEAK COUGH AFTER SWALLOW). POOR LIP CLOSURE SO LIQUID PLACED ON LEFT SIDE OF MOUTH SINCE HE TENDS TO TILT HEAD TO THE RIGHT. NO ORAL RESIDUE. GIVEN TSP NECTAR THICK LIQUIDS MILD INCREASE IN TRANSIT TIMES WITH FAIR HYOLARYNGEAL EXCURSION, NO ORAL RESIDUE NOR OVERT ASPIRATION. GIVEN CUP NECTAR THICK LIQUIDS ORAL SPILLAGE ON RIGHT AND COUGHED AFTER THE SWALLOW, THEN SWALLOWED AGAIN WITH SOME DELAY REFUSED PUREED TSP (NOT HUNGRY) AT RISK FOR POOR INTAKE RECOMMENDATIONS: GIVEN NO TF ON POLST, INITIATE COMFORT FEEDING OF CCHO-MED LIQUIFIED PUREED LIKE NECTAR THICK SOUP CONSISTENCY NO THIN LIQUIDS FOR NOW TSP ONLY USING POSTED ASP/REFLUX PRECAUTIONS AND ONE TO ONE FEEDING. DON'T FEED IF RR GREATER THAN 24. SEND GLUCERNA TID AND COMPLETE CALORIE COUNT COMPLETE MOD BARIUM SWALLOW STUDY IP OR OP IF DC SKILLED DYSPHAGIA MANAGEMENT AND TX, COG-COM EVAL/TX EDUCATED/TRAINED RN IN POSTED PRECAUTIONS D/W ABOVE WITH PATIENT AND STAFF Addendum: 05/08/19 at 1418 by AARON SLAUGHTER PEG REMOVED 07/2016.
[2019-05-08 16:00] VITALS: BP 139/90
--- NOTE | 2019-05-08 17:50 | Diagnostic Imaging Report ---
Indication: Shortness of breath Technique: One view of the chest Comparison: 03/27/2019 Findings: No definite acute infiltrates, effusions, or congestion. The heart size is normal. There is diffuse bony sclerosis again demonstrated. No significant interim change Impression: No acute process
--- NOTE | 2019-05-08 18:19 | Consultation ---
History of Present Illness General Chief Complaint: General Complaint Present Illness Allergies: Coded Allergies: No Known Allergies (Unverified , 02/28/16) Medication History Scheduled Amlodipine Besylate* (Amlodipine Besylate*), 10 MG ORAL DAILY, (Reported) Aspirin* (Aspir 81*), 81 MG ORAL DAILY, (Reported) Finasteride* (Proscar*), 5 MG ORAL DAILY, (Reported) Metoprolol Tartrate* (Metoprolol Tartrate*), 12.5 MG ORAL EVERY 12 HOURS, ( Reported) Metoprolol Tartrate* (Metoprolol Tartrate*), 25 MG ORAL BID, (Reported) Ranitidine Hcl* (Zantac*), 150 MG ORAL DAILY, (Reported) Tamsulosin Hcl (Tamsulosin Hcl*), 0.4 MG ORAL BEDTIME, (Reported) Thiamine Hcl* (Vitamin B-1*), 100 MG ORAL DAILY, (Reported) Scheduled PRN Acetaminophen* (Acetaminophen 325MG Tablet*), 650 MG ORAL Q4H PRN for For Pain, (Reported) Clonidine Hcl* (Catapres*), 0.1 MG ORAL EVERY 6 HOURS PRN for For High Blood Pressure, (Reported) Docusate Sodium* (Colace*), 100 MG ORAL DAILY PRN for Constipation, (Reported) Miscellaneous Medications Insulin Regular, Human (Humulin R), 0 SUBQ, (Reported) Discontinued Medications Amoxicillin* (Amoxil*), 500 MG ORAL EVERY 8 HOURS Discontinued Reason: Therapy completed Cephalexin* (Keflex*), 500 MG ORAL EVERY 8 HOURS, (Reported) Discontinued Reason: Therapy completed Nitrofurantoin Monohyd/M-Cryst* (Macrobid 100 Mg*), 100 MG ORAL EVERY 12 HOURS Discontinued Reason: Therapy completed Patient History Healthcare decision maker Resuscitation status Do Not Resuscitate Advanced Directive on File Physical Exam Last 24 Hour Vital Signs Date Time Temp Pulse Resp B/P (MAP) Pulse Ox O2 Delivery O2 Flow Rate FiO2 05/08/19 16:00 98.9 100 20 139/90 (106) 95 05/08/19 12:00 98.3 96 20 128/89 (102) 96 05/08/19 09:00 Nasal Cannula 2.0 05/08/19 08:24 97 131/81 05/08/19 08:00 98.3 97 20 131/81 (98) 95 05/08/19 07:28 95 Nasal Cannula 2.0 28 05/08/19 07:28 79 18 95 Nasal Cannula 2.0 28 05/08/19 04:00 98.4 100 16 134/86 (102) 99 05/08/19 01:24 83 20 93 Nasal Cannula 2.0 28 05/08/19 01:24 93 Nasal Cannula 2.0 28 05/08/19 00:00 98.4 95 18 165/95 (118) 93 05/07/19 23:58 Nasal Cannula 2.0 05/07/19 23:10 97.9 72 18 109/78 95 Room Air 05/07/19 21:59 97.9 72 18 109/78 95 Room Air 05/07/19 21:59 79 18 Room Air 05/07/19 21:33 97.9 79 18 109/78 (88) 95 Room Air Intake and Output 05/07/19 05/08/19 19:00 07:00 Output Total 300 ml Balance -300 ml Output Urine Total 300 ml Laboratory Tests Test 05/07/19 21:50 05/08/19 06:00 White Blood Count 4.6 K/UL (4.8-10.8) L 5.1 K/UL (4.8-10.8) Red Blood Count 4.42 M/UL (4.70-6.10) L 4.13 M/UL (4.70-6.10) L Hemoglobin 12.0 G/DL (14.2-18.0) L 11.3 G/DL (14.2-18.0) L Hematocrit 36.4 % (42.0-52.0) L 35.5 % (42.0-52.0) L Mean Corpuscular Volume 82 FL (80-99) 86 FL (80-99) Mean Corpuscular Hemoglobin 27.2 PG (27.0-31.0) 27.2 PG (27.0-31.0) Mean Corpuscular Hemoglobin Concent 33.0 G/DL (32.0-36.0) 31.7 G/DL (32.0-36.0) L Red Cell Distribution Width 18.0 % (11.6-14.8) H 18.8 % (11.6-14.8) H Platelet Count 184 K/UL (150-450) 160 K/UL (150-450) Mean Platelet Volume 5.6 FL (6.5-10.1) L 6.5 FL (6.5-10.1) Neutrophils (%) (Auto) 55.4 % (45.0-75.0) 63.1 % (45.0-75.0) Lymphocytes (%) (Auto) 33.6 % (20.0-45.0) 23.8 % (20.0-45.0) Monocytes (%) (Auto) 9.3 % (1.0-10.0) 10.7 % (1.0-10.0) H Eosinophils (%) (Auto) 0.7 % (0.0-3.0) 1.1 % (0.0-3.0) Basophils (%) (Auto) 1.1 % (0.0-2.0) 1.4 % (0.0-2.0) Urine Color Yellow Urine Appearance Slightly cloudy Urine pH 5 (4.5-8.0) Urine Specific Vivian 1.025 (1.005-1.035) Urine Protein 3+ (NEGATIVE) H Urine Glucose (UA) Negative (NEGATIVE) Urine Ketones 1+ (NEGATIVE) H Urine Blood 5+ (NEGATIVE) H Urine Nitrite Positive (NEGATIVE) H Urine Bilirubin Negative (NEGATIVE) Urine Urobilinogen Normal MG/DL (0.0-1.0) Urine Leukocyte Esterase 3+ (NEGATIVE) H Urine RBC 5-10 /HPF (0 - 0) H Urine WBC 10-15 /HPF (0 - 0) H Urine Squamous Epithelial Cells None /LPF (NONE/OCC) Urine Bacteria Moderate /HPF (NONE) H Sodium Level 137 MMOL/L (136-145) 138 MMOL/L (136-145) Potassium Level 4.3 MMOL/L (3.5-5.1) 4.2 MMOL/L (3.5-5.1) Chloride Level 103 MMOL/L (98-107) 105 MMOL/L (98-107) Carbon Dioxide Level 24 MMOL/L (21-32) 22 MMOL/L (21-32) Anion Gap 10 mmol/L (5-15) 12 mmol/L (5-15) Blood Urea Nitrogen 21 mg/dL (7-18) H 17 mg/dL (7-18) Creatinine 1.1 MG/DL (0.55-1.30) 0.9 MG/DL (0.55-1.30) Estimat Glomerular Filtration Rate mL/min (>60) mL/min (>60) Glucose Level 114 MG/DL (74-106) H 119 MG/DL (74-106) H Lactic Acid Level 1.70 mmol/L (0.4-2.0) Calcium Level 9.7 MG/DL (8.5-10.1) 9.3 MG/DL (8.5-10.1) Total Bilirubin 0.4 MG/DL (0.2-1.0) 0.6 MG/DL (0.2-1.0) Aspartate Amino Transf (AST/SGOT) 48 U/L (15-37) H 44 U/L (15-37) H Alanine Aminotransferase (ALT/SGPT) 18 U/L (12-78) 16 U/L (12-78) Alkaline Phosphatase 1497 U/L (46-116) H 1316 U/L (46-116) H Total Creatine Kinase 133 U/L (26-308) Creatine Kinase MB 0.7 NG/ML (0.0-3.6) Creatine Kinase MB Relative Index 0.5 Troponin I 0.000 ng/mL (0.000-0.056) Total Protein 7.5 G/DL (6.4-8.2) 6.7 G/DL (6.4-8.2) Albumin 3.2 G/DL (3.4-5.0) L 2.9 G/DL (3.4-5.0) L Globulin 4.3 g/dL 3.8 g/dL Albumin/Globulin Ratio 0.7 (1.0-2.7) L 0.8 (1.0-2.7) L Height (Feet): 5 Height (Inches): 10.00 Weight (Pounds): 144 Medications Current Medications Medications (Trade) Dose Ordered Sig/Eufemia Route PRN Reason Start Time Stop Time Status Last Admin Dose Admin Acetaminophen (Tylenol) 650 mg Q6H PRN ORAL Mild Pain/Temp > 100.5 05/08/19 00:30 06/07/19 00:29 Albuterol/ Ipratropium (Albuterol/ Ipratropium) 3 ml Q4HRT PRN HHN Shortness of Breath 05/08/19 00:30 05/13/19 00:29 Amlodipine Besylate (Norvasc) 10 mg DAILY ORAL 05/08/19 09:00 06/07/19 08:59 05/08/19 08:24 Aspirin (Ecotrin) 81 mg DAILY ORAL 05/08/19 09:00 06/07/19 08:59 05/08/19 08:23 Cefepime HCl 1 gm/ Dextrose 55 ml @ 110 mls/hr EVERY 12 HOURS IVPB 05/08/19 09:00 05/15/19 08:59 05/08/19 08:27 Clonidine HCl (Catapres Tab) 0.1 mg Q12H PRN ORAL For High SBP >180 05/08/19 00:30 06/07/19 00:29 Dextrose (Dextrose 50%) 25 ml Q30M PRN IV Hypoglycemia 05/08/19 00:30 06/07/19 00:29 Dextrose (Dextrose 50%) 50 ml Q30M PRN IV Hypoglycemia 05/08/19 00:30 06/07/19 00:29 Dextrose/Sodium Chloride 1,000 ml @ 50 mls/hr Q20H IV 05/08/19 01:15 06/07/19 01:14 05/08/19 01:16 Docusate Sodium (Colace) 100 mg BID PRN ORAL Constipation 05/08/19 00:30 06/07/19 00:29 Famotidine (Pepcid) 20 mg DAILY ORAL 05/08/19 09:00 06/07/19 08:59 05/08/19 08:22 Finasteride (Proscar) 5 mg DAILY ORAL 05/08/19 09:00 06/07/19 08:59 05/08/19 08:23 Heparin Sodium (Porcine) (Heparin 5000 units/ml) 5,000 units EVERY 12 HOURS SUBQ 05/08/19 09:00 06/07/19 08:59 05/08/19 08:26 Insulin Aspart (NovoLOG) Q6HR SUBQ 05/08/19 06:00 06/07/19 05:59 05/08/19 17:02 Ondansetron HCl (Zofran) 4 mg Q8H PRN IVP Nausea & Vomiting 05/08/19 00:30 06/07/19 00:29 Tamsulosin HCl (Flomax) 0.4 mg BEDTIME ORAL 05/08/19 21:00 06/07/19 20:59 Thiamine HCl (Vitamin B1) 100 mg DAILY ORAL 05/08/19 09:00 06/07/19 08:59 05/08/19 08:22 Assessment/Plan Assessment/Plan: Hematology Consultation Chief Complaint: General Complaint Source: Patient, Medical Record, EMS REQ MD: Trudi BUTCHER 05/08/19 RFC: Prostate ca HPI This is a 78-year-old male well known to me with a history of metastatic prostate cancer. He has multiple other medical problems. He is a DNR. He presents with chief complaint of weakness and possible pneumonia. He was sent in from a residential. Patient denies any complaint. Per residential note there is weakness and possible pneumonia. Unknown fever. No vomiting. No fever or chills. No pain complaint. Patient does have chronic indwelling Begum. On last admission he grew out multidrug-resistant E. coli and also Pseudomonas. Coded Allergies: No Known Allergies (Unverified , 02/28/16) Patient History Past Medical History: see triage record, old chart reviewed Past Surgical History: other Pertinent Family History: none Social History: Denies: smoking Immunizations: other Reviewed Nursing Documentation: PMH: Agreed; PSxH: Agreed Nursing Documentation-PMH Past Medical History: No History, Except For Hx Cardiac Problems: Yes Hx Hypertension: Yes Hx Diabetes: Yes Hx Cancer: Yes Hx Gastrointestinal Problems: Yes Hx Neurological Problems: Yes Hx Dementia: Yes Hx Encephalitis: Yes Hx Syncope: Yes Hx Dysphasia: Yes Hx Weakness: Yes Hx Neurologic Surgery: No Review of Systems Constitutional: Reports: malaise, weakness Eye: Denies: eye pain, blurred vision ENT: Denies: ear pain, nose congestion, throat swelling Respiratory: Denies: cough, shortness of breath Cardiovascular: Denies: chest pain, palpitations Gastrointestinal: Denies: abdominal pain, diarrhea, nausea, vomiting Musculoskeletal: Denies: back pain, joint pain Skin: Denies: rash Neurological: Denies: headache, numbness Endocrine: Denies: increased thirst, increased urine Hematologic/Lymphatic: Denies: easy bruising All Other Systems: negative except mentioned in HPI Physical Exam: Vitals: reviewed General Appearance: NAD ++ contracted right sided weakness HEENT: normocephalic, atraumatic Neck: non-tender, normal alignment Respiratory/Chest: normal breath sounds bilaterally Cardiovascular/Chest: normal peripheral pulses, normal rate Abdomen: normal bowel sounds, soft, nontender Extremities: normal range of motion Labs; as per above Imaging: noted ASSESSMENT AND RECS: # Prostate Cancer likely metastatic to bone psa is 533, highly suggestive of stage iv, . 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 --> CT Chest reviewed: no evidence of pulmonary emboli or other acute vascular pathology. Diffuse osteoblastic metastatic disease. --> begum cath intact --> casodex has been started 50mg po daily --> RECOMMEND OUTPATIENT LUPRON, over 1-2 mo, will decrease psa<10 --> psa and cea ordered # Hematuria that has improved --> U/A noted 2 + hematuria --> consider Uro eval, begum intact no active bleeding seen --> on abx # Anemia of iron deficiency --> anemia w/u has ordered from prior had acd --> No evidence of hemolysis is noted, peripheral smear has been reviewed. --> Hgb goal >7. Transfuse prn.Currently Hgb 9.5-->11,3 --> iron started # RUL mass --> can be infiltrate, per id on abx--> cefep # COPD --> breathing treatments as needed --> imaging revealed CT Chest and CXR --> 02/NC # Shortness of breath --> likely due to above # Azotemia. The timing of this note does not necessarily reflect the time of the patient was seen. GREATLY APPRECIATE CONSULTATION. Alexei Pompa MD May 08, 2019 18:19
--- NOTE | 2019-05-08 19:14 | NUR ---
HAND-OFF: Report given to CHANDLER Antoine.Endorsed plan of care.
[2019-05-08] MEDS ORDERED: LUPRON DEPOT7.5 MG IM (19:52)
--- NOTE | 2019-05-08 19:59 | NUR ---
NURSE NOTES: Received report from CHANDLER Paz (OLAJUMOKE BELL). Patient awake and able to make eye contact. Breathing at rate of 22 per minute without signs of distress, discomfort, or sob on 2 L nasal cannula. No signs and symptoms of pain noted at this time. IV site noted on LFA 22 g running fluid as ordered. Martínez noted intact draining yellow urine. Bed placed at the lowest with alarm, brake, and side rails up for safety measures. Call light placed within reach. Will continue to monitor and provide care as ordered.
[2019-05-08 20:00] VITALS: BP 115/93
[2019-05-08] MEDS: Tamsulosin 0.4mg cap ORAL SCH (20:16)
--- NOTE | 2019-05-08 20:37 | NUR ---
CASE MANAGEMENT: REVIEW 78Y/MALE BIBA FROM [facility] CC: WEAKNESS . SOB . SI: METASTATIC PROSTATE CA . UTI . ACUTE ENCEPHALOPATHY T 97.9 HR 79 RR 18 BP 109/78 SAT 95% ROOM AIR H/H 11.3/35.5 GLUCOSE 119 PSA 258.91 URINE CX PENDING IS: CEFEPIME IV X1 NS IVF BOLUS X1 PATIENT ADMITTED TO MED/SURG UNIT 05/08/2019 DCP: PATIENT IS FROM [facility]
[2019-05-09] VITALS: BP 120/74
--- NOTE | 2019-05-09 00:15 | History and Physical Report ---
DATE OF ADMISSION: 05/07/2019 HISTORY OF PRESENT ILLNESS: The patient is a poor historian. He has metastatic prostate cancer. The patient comes in with agonal breathing, shortness of breath, and weakness. The patient also is a poor historian, cannot rely upon his history. He states no to everything. PAST MEDICAL HISTORY: Metastatic prostate cancer, contractures, catheter, , history of hypertension, history of dysphagia, cachexia, electrolyte imbalance, and history of wounds. PAST SURGICAL HISTORY: History of PEG in the past and has indwelling Martínez catheter. ALLERGIES: No known allergies. MEDICATIONS: Aspirin, amlodipine, finasteride, Flomax, metoprolol, and used to get Lupron shots. SOCIAL HISTORY: He has a history of drug abuse. He lives in a [place] [facility] [place]. REVIEW OF SYSTEMS: Unable to obtain. Poor historian. FAMILY HISTORY: Unable to obtain. PHYSICAL EXAMINATION: VITAL SIGNS: Temperature 98.3, pulse 97, and blood pressure 122/89. HEENT: PERRLA. NECK: Supple. No lymphadenopathy. CHEST: Clear to auscultation. CARDIOVASCULAR: Regular rate and rhythm. ABDOMEN: Soft and nontender. No organomegaly. EXTREMITIES: He has contractures. SKIN: For the skin integrity, please refer to the nursing notes. NEUROLOGIC: Oriented to name only. LABORATORY DATA: WBC of 4.6, hemoglobin 12, and platelets of 184,000. Sodium 138, potassium 4.2, BUN of 17, creatinine 0.9, and glucose of 119. ASSESSMENT AND PLAN: Agonal breathing, shortness of breath, rule out COPD exacerbation. Also, he has metastatic cancer. I have asked Dr. Pompa, Dr. De La Cruz, and Dr. Rick Cat to see the patient for the above-mentioned diagnoses and also need to rule out UTI. Jhon Moreno M.D. DR: CLAIRE JOB#: [id number] CC:
[2019-05-09 04:00] VITALS: BP 128/76
[2019-05-09] MEDS: NovoLOG Insulin Flexpen SUBQ SCH ×3 (06:10→17:26)
[2019-05-09 08:00] VITALS: BP 130/79
--- NOTE | 2019-05-09 08:05 | NUR ---
NURSE NOTES: Patine awake, on nasal cannula 2 Liter, no sing of distress and shortness of breath; no sing of chest pain; IV LFA 20G D5NS 50cc running; Martínez in place drains well; side rials up x3, bed alarm on, breaks engaged, bed at lowest position; patient was tach and PM will communicated MD. will follow up with that. will keep monitoring.
--- NOTE | 2019-05-09 08:15 | NUR ---
NURSE NOTES: I received a call from microbiologyMorgan. Patient blood culture Gram Positive Cocci. MD Moreno notified.
--- NOTE | 2019-05-09 08:25 | NUR ---
NURSE NOTES: Reached Dr. Moreno to notify about patient's elevated heart rate. Was not able to reach Dr. Moreno at this time. Follow up endorsed to daytime nurse.
--- NOTE | 2019-05-09 08:29 | NUR ---
HAND-OFF: Report given to CHANDLER Hunter. Patient's increased HR made aware to RN. Otherwise, patient in stable condition.
[2019-05-09 08:33] LABS: BASOPHILS % (AUTO) 0.8 % (0.0-2.0); EOSINOPHILS % (AUTO) 0.6 % (0.0-3.0); HEMATOCRIT 31.3 % (42.0-52.0); LYMPHOCYTES % (AUTO) 21.9 % (20.0-45.0); MEAN CORPUSCULAR VOLUME 85 FL (80-99); MONOCYTES % (AUTO) 11.4 % (1.0-10.0); NEUTROPHILS % (AUTO) 65.4 % (45.0-75.0); PLATELET COUNT 147 K/UL (150-450); RED BLOOD COUNT 3.68 M/UL (4.70-6.10); WHITE BLOOD COUNT 5.4 K/UL (4.8-10.8)
[2019-05-09 08:55] LABS: ANION GAP 11 mmol/L (5-15); BLOOD UREA NITROGEN 17 mg/dL (7-18); CARBON DIOXIDE 21 MMOL/L (21-32); CHLORIDE 107 MMOL/L (98-107); CREATININE 0.8 MG/DL (0.55-1.30); POTASSIUM 3.8 MMOL/L (3.5-5.1); SODIUM 139 MMOL/L (136-145)
[2019-05-09] MEDS: Thiamine 100mg tab ORAL SCH (08:57)
[2019-05-09] MEDS: Aspirin EC 81mg tab ORAL SCH (08:57)
[2019-05-09] MEDS: Cefepime HCl 1 GM in D5W 55 ML IVPB SCH ×2 (08:58→21:10)
[2019-05-09] MEDS: Heparin 5000 units/ml inj SUBQ SCH ×2 (08:58→21:00)
--- NOTE | 2019-05-09 09:55 | NUR ---
NURSE NOTES: PM nurse communicated MD Moreno regarding patient HR, which is Tachy. MD Moreno called back and gave order to communicate MD Orozco. MD Orozco is aware of patient HR. Waiting for order.
--- NOTE | 2019-05-09 09:57 | NUR ---
NURSE NOTES: I communicated MD Moreno regarding patient's blood culture result, Gram Positive Cocci. MD Moreno order I communicate Jaye Crews. I left a message to Jaye Cat regarding this result. Waiting for order.
[2019-05-09] MEDS ORDERED: Vancomycin 1gm/D5W 275ml IVPB ONE ×2 (10:30)
--- NOTE | 2019-05-09 10:39 | NUR ---
NURSE NOTES: I received order from MD Orozco to do ECG. Will follow up with that and notify MD the result.
--- NOTE | 2019-05-09 11:12 | NUR ---
NURSE NOTES: MD Orozco notified the ECG result of the patient. Waiting for order.
[2019-05-09 12:00] VITALS: BP 99/72
--- NOTE | 2019-05-09 12:00 | NUR ---
NURSE NOTES: I received an order from MD Orozco D5NS 80cc/Hr. Order carried out as order given.
[2019-05-09] MEDS: D5NS 1,000 ML IV SCH (12:56)
--- NOTE | 2019-05-09 14:26 | Cardiology Progress Note ---
Assessment/Plan Assessment/Plan the patient is seen and examined, full consult note is dictated. Objective Last 24 Hour Vital Signs Date Time Temp Pulse Resp B/P (MAP) Pulse Ox O2 Delivery O2 Flow Rate FiO2 05/09/19 12:00 98.0 69 20 99/72 (81) 96 05/09/19 09:19 98 Nasal Cannula 2.0 28 05/09/19 09:19 109 24 98 Nasal Cannula 2.0 28 05/09/19 09:00 Nasal Cannula 2.0 05/09/19 08:57 107 130/79 05/09/19 08:00 98.3 107 22 130/79 (96) 96 05/09/19 04:00 96.9 107 22 128/76 (93) 95 05/09/19 00:00 99.1 105 22 120/74 (89) 95 05/08/19 21:30 86 18 96 Nasal Cannula 2.0 28 05/08/19 21:29 84 18 94 Nasal Cannula 2.0 28 05/08/19 21:29 94 Nasal Cannula 2.0 28 05/08/19 21:20 84 18 92 Nasal Cannula 2.0 28 05/08/19 21:00 Nasal Cannula 2.0 05/08/19 20:00 98.3 82 22 115/93 (100) 95 05/08/19 16:00 98.9 100 20 139/90 (106) 95 Intake and Output 05/08/19 05/09/19 19:00 07:00 Intake Total 840 ml 700 ml Output Total 1200 ml 2000 ml Balance -360 ml -1300 ml Intake Oral 240 ml 120 ml IV Total 600 ml 580 ml Output Urine Total 1200 ml 2000 ml # Voids 2 2 # Bowel Movements 1 1 Laboratory Tests Test 05/09/19 06:07 White Blood Count 5.4 K/UL (4.8-10.8) Red Blood Count 3.68 M/UL (4.70-6.10) L Hemoglobin 10.0 G/DL (14.2-18.0) L Hematocrit 31.3 % (42.0-52.0) L Mean Corpuscular Volume 85 FL (80-99) Mean Corpuscular Hemoglobin 27.2 PG (27.0-31.0) Mean Corpuscular Hemoglobin Concent 32.0 G/DL (32.0-36.0) Red Cell Distribution Width 19.0 % (11.6-14.8) H Platelet Count 147 K/UL (150-450) L Mean Platelet Volume 6.6 FL (6.5-10.1) Neutrophils (%) (Auto) 65.4 % (45.0-75.0) Lymphocytes (%) (Auto) 21.9 % (20.0-45.0) Monocytes (%) (Auto) 11.4 % (1.0-10.0) H Eosinophils (%) (Auto) 0.6 % (0.0-3.0) Basophils (%) (Auto) 0.8 % (0.0-2.0) Sodium Level 139 MMOL/L (136-145) Potassium Level 3.8 MMOL/L (3.5-5.1) Chloride Level 107 MMOL/L (98-107) Carbon Dioxide Level 21 MMOL/L (21-32) Anion Gap 11 mmol/L (5-15) Blood Urea Nitrogen 17 mg/dL (7-18) Creatinine 0.8 MG/DL (0.55-1.30) Estimat Glomerular Filtration Rate mL/min (>60) Glucose Level 140 MG/DL (74-106) H Calcium Level 9.0 MG/DL (8.5-10.1) Microbiology Date/Time Source Procedure Growth Status 05/07/19 21:50 Blood Blood Culture - Preliminary Resulted 05/07/19 21:35 Blood Blood Culture - Preliminary Resulted 05/07/19 22:50 Nasal Nares MRSA Culture - Final Staphylococcus Aureus - Mrsa Complete 05/07/19 21:50 Urine,Clean Catch Urine Culture - Preliminary Gram Negative Wilfredo Resulted Wicho Orozco MD May 09, 2019 14:26
[2019-05-09 16:00] VITALS: BP 126/82
--- NOTE | 2019-05-09 16:42 | Pulmonology Progress Note ---
Assessment/Plan Assessment/Plan Pulmonary Progress Note HPI Patient is a 78-year-old male with a history of COPD, Diabetes, Metastatic prostate cancer, previously noted RUL mass. Other PMH includes Dementia, Hypertension, Dysphagia. He is a DNR status. He presents with chief complaint of weakness, some SOB. He was sent in from a long term. Noted to have UTI. Per long term note there is weakness concern about possible pneumonia. Unknown fever. No vomiting. No pain complaint. Patient does have chronic indwelling Martínez. On last admission he grew out multidrug-resistant E. coli and also Pseudomonas. Allergies: No Known Allergies Past Medical History: COPD, metastatic prostate cancer, previously noted RUL mass. Other PMH includes Dementia, Hypertension, Dysphagia All Other Systems: negative except mentioned in HPI Physical Exam Vital Signs Noted General Appearance: no apparent distress, awake cachetic, Chronically Ill Head: normocephalic, atraumatic Eyes: bilateral eye PERRL, bilateral eye EOMI ENT: hearing grossly normal, normal pharynx Neck: full range of motion, supple, no meningismus Respiratory: chest non-tender, lungs clear, normal breath sounds Cardiovascular: regular rate, rhythm, normal HS, no murmur Gastrointestinal: normal bowel sounds, non tender, no mass, no organomegaly, no bruit, non-distended Musculoskeletal: back normal, other - Contracted, right-sided weakness Psychiatric: mood/affect normal Impression: Acute encephalopathy Urinary tract infection COPD Diabetes Metastatic prostate cancer Previously noted RUL mass Dementia Hypertension Dysphagia DNR status Plan Continue Cefepime Await urine sensitivities 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 Appearance is nonspecific, could indicate pulmonary edema, infectious/inflammatory process, among other possibilities. More focal consolidation and atelectasis in the right lower lobe Diffuse osseous sclerosis, also previously described Massive left hydronephrosis, described on multiple prior studies Subjective ROS Limited/Unobtainable: No Allergies: Coded Allergies: No Known Allergies (Unverified , 02/28/16) Objective Last 24 Hour Vital Signs Date Time Temp Pulse Resp B/P (MAP) Pulse Ox O2 Delivery O2 Flow Rate FiO2 05/09/19 16:00 98.0 99 20 126/82 (97) 97 05/09/19 12:00 98.0 69 20 99/72 (81) 96 05/09/19 09:19 98 Nasal Cannula 2.0 28 05/09/19 09:19 109 24 98 Nasal Cannula 2.0 28 05/09/19 09:00 Nasal Cannula 2.0 05/09/19 08:57 107 130/79 05/09/19 08:00 98.3 107 22 130/79 (96) 96 05/09/19 04:00 96.9 107 22 128/76 (93) 95 05/09/19 00:00 99.1 105 22 120/74 (89) 95 05/08/19 21:30 86 18 96 Nasal Cannula 2.0 28 05/08/19 21:29 84 18 94 Nasal Cannula 2.0 28 05/08/19 21:29 94 Nasal Cannula 2.0 28 05/08/19 21:20 84 18 92 Nasal Cannula 2.0 28 05/08/19 21:00 Nasal Cannula 2.0 05/08/19 20:00 98.3 82 22 115/93 (100) 95 Intake and Output 05/08/19 05/09/19 18:59 06:59 Intake Total 790 ml 700 ml Output Total 1200 ml 2000 ml Balance -410 ml -1300 ml Intake Oral 240 ml 120 ml IV Total 550 ml 580 ml Output Urine Total 1200 ml 2000 ml # Voids 2 2 # Bowel Movements 1 1 Microbiology Date/Time Source Procedure Growth Status 05/07/19 21:50 Blood Blood Culture - Preliminary Resulted 05/07/19 21:35 Blood Blood Culture - Preliminary Resulted 05/07/19 22:50 Nasal Nares MRSA Culture - Final Staphylococcus Aureus - Mrsa Complete 05/07/19 21:50 Urine,Clean Catch Urine Culture - Preliminary Gram Negative Wilfredo Resulted Laboratory Tests 05/09/19 06:07: White Blood Count 5.4, Red Blood Count 3.68L, Hemoglobin 10.0L, Hematocrit 31.3L , Mean Corpuscular Volume 85, Mean Corpuscular Hemoglobin 27.2, Mean Corpuscular Hemoglobin Concent 32.0, Red Cell Distribution Width 19.0H, Platelet Count 147L, Mean Platelet Volume 6.6, Neutrophils (%) (Auto) 65.4, Lymphocytes (%) (Auto) 21.9, Monocytes (%) (Auto) 11.4H, Eosinophils (%) (Auto) 0.6, Basophils (%) (Auto) 0.8, Sodium Level 139, Potassium Level 3.8, Chloride Level 107, Carbon Dioxide Level 21, Anion Gap 11, Blood Urea Nitrogen 17, Creatinine 0.8, Estimat Glomerular Filtration Rate , Glucose Level 140H, Calcium Level 9.0 Current Medications Medications (Trade) Dose Ordered Sig/Eufemia Route PRN Reason Start Time Stop Time Status Last Admin Dose Admin Acetaminophen (Tylenol) 650 mg Q6H PRN ORAL Mild Pain/Temp > 100.5 05/08/19 00:30 06/07/19 00:29 Albuterol/ Ipratropium (Albuterol/ Ipratropium) 3 ml Q4HRT PRN HHN Shortness of Breath 05/08/19 00:30 05/13/19 00:29 05/08/19 21:26 Amlodipine Besylate (Norvasc) 10 mg DAILY ORAL 05/08/19 09:00 06/07/19 08:59 05/09/19 08:57 Aspirin (Ecotrin) 81 mg DAILY ORAL 05/08/19 09:00 06/07/19 08:59 05/09/19 08:57 Cefepime HCl 1 gm/ Dextrose 55 ml @ 110 mls/hr EVERY 12 HOURS IVPB 05/08/19 09:00 05/15/19 08:59 05/09/19 08:58 Clonidine HCl (Catapres Tab) 0.1 mg Q12H PRN ORAL For High SBP >180 05/08/19 00:30 06/07/19 00:29 Dextrose (Dextrose 50%) 25 ml Q30M PRN IV Hypoglycemia 05/08/19 00:30 06/07/19 00:29 Dextrose (Dextrose 50%) 50 ml Q30M PRN IV Hypoglycemia 05/08/19 00:30 06/07/19 00:29 Dextrose/Sodium Chloride 1,000 ml @ 80 mls/hr [id number] IV 05/09/19 13:00 06/08/19 12:59 05/09/19 12:56 Docusate Sodium (Colace) 100 mg BID PRN ORAL Constipation 05/08/19 00:30 06/07/19 00:29 Famotidine (Pepcid) 20 mg DAILY ORAL 05/08/19 09:00 06/07/19 08:59 05/09/19 08:57 Finasteride (Proscar) 5 mg DAILY ORAL 05/08/19 09:00 06/07/19 08:59 05/09/19 08:57 Heparin Sodium (Porcine) (Heparin 5000 units/ml) 5,000 units EVERY 12 HOURS SUBQ 05/08/19 09:00 06/07/19 08:59 05/08/19 20:12 Insulin Aspart (NovoLOG) Q6HR SUBQ 05/08/19 06:00 06/07/19 05:59 05/09/19 12:10 Ondansetron HCl (Zofran) 4 mg Q8H PRN IVP Nausea & Vomiting 05/08/19 00:30 06/07/19 00:29 Tamsulosin HCl (Flomax) 0.4 mg BEDTIME ORAL 05/08/19 21:00 06/07/19 20:59 05/08/19 20:16 Thiamine HCl (Vitamin B1) 100 mg DAILY ORAL 05/08/19 09:00 06/07/19 08:59 05/09/19 08:57 Vancomycin HCl (Vanco rx to dose) 1 ea DAILY PRN MISC Per rx protocol 05/09/19 09:00 06/08/19 08:59 Vancomycin HCl 750 mg/Sodium Chloride 275 ml @ 183.333 mls/hr Q12H IVPB 05/09/19 22:30 05/14/19 22:29 Ye De La Cruz MD May 09, 2019 16:42
--- NOTE | 2019-05-09 19:29 | General Progress Note ---
Assessment/Plan Problem List: (1) Acute renal failure ICD Codes: N17.9 - Acute kidney failure, unspecified SNOMED: 53343314 (2) Hypoalbuminemia ICD Codes: E88.09 - Other disorders of plasma-protein metabolism, not elsewhere classified SNOMED: 025790728 (3) Diabetes ICD Codes: E11.9 - Type 2 diabetes mellitus without complications SNOMED: 89364085 (4) UTI (urinary tract infection) ICD Codes: N39.0 - Urinary tract infection, site not specified SNOMED: 09559655 Qualifiers: Qualified Codes: N30.00 - Acute cystitis without hematuria (5) HTN (hypertension) ICD Codes: I10 - Essential (primary) hypertension SNOMED: 92217215 Qualifiers: Qualified Codes: I10 - Essential (primary) hypertension (6) Dehydration ICD Codes: E86.0 - Dehydration SNOMED: 38058059 Status: progressing Assessment/Plan: mets prostate cancer tachycardia uti r/o sepsis afebrile poor historian indwelling begum Subjective ROS Limited/Unobtainable: Yes Allergies: Coded Allergies: No Known Allergies (Unverified , 02/28/16) Objective Last 24 Hour Vital Signs Date Time Temp Pulse Resp B/P (MAP) Pulse Ox O2 Delivery O2 Flow Rate FiO2 05/09/19 16:00 98.0 99 20 126/82 (97) 97 05/09/19 12:00 98.0 69 20 99/72 (81) 96 05/09/19 09:19 98 Nasal Cannula 2.0 28 05/09/19 09:19 109 24 98 Nasal Cannula 2.0 28 05/09/19 09:00 Nasal Cannula 2.0 05/09/19 08:57 107 130/79 05/09/19 08:00 98.3 107 22 130/79 (96) 96 05/09/19 04:00 96.9 107 22 128/76 (93) 95 05/09/19 00:00 99.1 105 22 120/74 (89) 95 05/08/19 21:30 86 18 96 Nasal Cannula 2.0 28 05/08/19 21:29 84 18 94 Nasal Cannula 2.0 28 05/08/19 21:29 94 Nasal Cannula 2.0 28 05/08/19 21:20 84 18 92 Nasal Cannula 2.0 28 05/08/19 21:00 Nasal Cannula 2.0 8/16/19 20:00 98.3 82 22 115/93 (100) 95 Intake and Output 05/08/19 05/09/19 18:59 06:59 Intake Total 790 ml 700 ml Output Total 1200 ml 2000 ml Balance -410 ml -1300 ml Intake Oral 240 ml 120 ml IV Total 550 ml 580 ml Output Urine Total 1200 ml 2000 ml # Voids 2 2 # Bowel Movements 1 1 Laboratory Tests 05/09/19 06:07: White Blood Count 5.4, Red Blood Count 3.68L, Hemoglobin 10.0L, Hematocrit 31.3L , Mean Corpuscular Volume 85, Mean Corpuscular Hemoglobin 27.2, Mean Corpuscular Hemoglobin Concent 32.0, Red Cell Distribution Width 19.0H, Platelet Count 147L, Mean Platelet Volume 6.6, Neutrophils (%) (Auto) 65.4, Lymphocytes (%) (Auto) 21.9, Monocytes (%) (Auto) 11.4H, Eosinophils (%) (Auto) 0.6, Basophils (%) (Auto) 0.8, Sodium Level 139, Potassium Level 3.8, Chloride Level 107, Carbon Dioxide Level 21, Anion Gap 11, Blood Urea Nitrogen 17, Creatinine 0.8, Estimat Glomerular Filtration Rate , Glucose Level 140H, Calcium Level 9.0 Height (Feet): 5 Height (Inches): 10.00 Weight (Pounds): 144 General Appearance: lethargic Respiratory/Chest: lungs clear Jhon Moreno MD May 09, 2019 19:29
--- NOTE | 2019-05-09 19:35 | NUR ---
HAND-OFF: Report given to CHANDLER Howe.
[2019-05-09 20:00] VITALS: BP 117/77
--- NOTE | 2019-05-09 20:00 | NUR ---
NURSE NOTES: Received report from CHANDLER Hunter. Patient asleep, breathing through nose on nasal cannula 2 L. No sign of apparent distress, discomfort, or sob. No signs of pain noted at this time. 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 Okay to be on medsurg floor. Martínez intact draining urine. IV on LFA 22g running fluid as ordered. Bed placed at the lowest with alarm, brake, and side rails up for safety. HOB elevated to promote optimal breathing. Call light placed within reach. Will continue to monitor and provide care as ordered.
[2019-05-09] MEDS ORDERED: Vancomycin 1gm/D5W 275ml IVPB SCH ×2 (21:00)
[2019-05-09] MEDS: Tamsulosin 0.4mg cap ORAL SCH (21:06)
--- NOTE | 2019-05-09 21:45 | Consultation ---
DATE OF CONSULTATION: DATE OF CONSULTATION: 05/09/2019 CARDIOLOGY CONSULTATION CONSULTING PHYSICIAN: Wicho Orozco M.D. REFERRING PHYSICIAN: Jhon Moreno M.D., REASON FOR CONSULTATION: Management of tachycardia. HISTORY OF PRESENT ILLNESS: The patient is a very unfortunate 78-year-old gentleman who presents to the hospital from nursing facility with generalized weakness, and possible pneumonia. Unfortunately, the patient is nonverbal due to extreme weakness. This report is prepared by using the old record. At the time of arrival to this facility, blood pressure was 109/78 mmHg and heart rate was 79. A 12-lead electrocardiogram done at the time of evaluation in the Emergency Department, the patient was found to have acute encephalopathy and urinary tract infection. He grew out multi-drug resistant E coli on last admission. The patient was given cefepime in the Emergency Department. Chest x-ray was done and suspected right upper lobe infiltrate. This is metastatic lesion as the patient has history of metastatic prostate cancer. The patient did not have any 12-lead electrocardiogram at the time of arrival to the medical surgical unit. However, today he was noted to be tachycardic therefore 12-lead electrocardiogram was obtained, which showed sinus tachycardia rate of 108 with superior axis, right bundle-branch block, right atrial enlargement, but no evidence of acute ischemic features. QT interval was slightly prolonged. Cardiology consultation was made at the request of Dr. Moreno to manage his tachycardia. PAST MEDICAL HISTORY: Significant for hypertension, diabetes mellitus, malignant prostate cancer, history of dementia, history of encephalitis, history of syncope. SOCIAL HISTORY: No ongoing history of tobacco, alcohol or illicit drug use. FAMILY HISTORY: No premature coronary artery disease in first-degree relatives. PAST SURGICAL HISTORY: None. ALLERGIES: No known drug allergies. MEDICATIONS: List of medications in the nursing facility included acetaminophen 650 q.4h. p.r.n. pain, amlodipine 10 mg p.o. daily, aspirin 81 mg p.o. daily, clonidine 0.1 mg q.6h p.r.n. high blood pressure. Colace 100 mg p.o. daily p.r.n. constipation, Proscar 5 mg p.o. daily, insulin Humulin Lupron 7.5 mg IM once monthly, metoprolol 25 mg twice daily, Zantac 150 milligrams once daily, tamsulosin 0.4 mg p.o. at bedtime, thiamine 100 mg p.o. daily. REVIEW OF SYSTEM: A 12 system review cannot be done as the patient is not verbally communicating at this time. PHYSICAL EXAMINATION: VITAL SIGNS: At the time of arrival to the emergency department, blood pressure was 109/78, respirations 18, pulse of 79, temperature 97.9 degrees Fahrenheit. GENERAL: The patient is a very emaciated 78-year-old gentleman, who is awake, not verbally communicating, not maintaining eye contact. HEENT: Atraumatic and normocephalic by temporal wasting. Conjunctival pallor is present. Pupils are equal, round, and reactive to light and accommodation. NECK: JVP less than 5 cm. No carotid bruit. Carotid upstrokes 2+ bilaterally. CARDIOVASCULAR: Normal S1, S2. Regular rate and rhythm. Tachycardic. No murmurs, gallops, or rubs. LUNGS: Clear to auscultation bilaterally. ABDOMEN: Soft, nontender, and nondistended. No hepatosplenomegaly. Positive bowel sounds. EXTREMITIES: No evidence of edema, clubbing, or cyanosis. LABORATORY FINDINGS: WBC is 4.6, hemoglobin 12.0, hematocrit of 36.4, and platelet count is 184. Chemistries showed sodium 137, potassium is 4.3, chloride 103, bicarbonate 24, BUN of 21, creatinine 1.1, glucose 114, calcium is 9.7, Troponin I was 0. Chest x-ray showed no acute cardiopulmonary disease. CT of the chest showed bilateral diffuse, mostly interstitial disease and some associated air space opacity suggestive of pulmonary edema versus infection, versus inflammatory process, focal consolidation atelectasis in the right lower lobe and massive left hydronephrosis. ASSESSMENT AND PLAN: The patient is a very unfortunate 78-year-old gentleman, seen in Cardiology consultation. 1. Sinus tachycardia. This is most likely secondary to underlying malignancy, infectious process or hypovolemia. I would like to increase the current intravenous fluid to 80 mL per hour. We will obtain 2D echocardiography for assessment of LV systolic function. Also assessment of hemodynamics by evaluating the diastolic data. Further therapeutic and diagnostic decision will be based on the results of echocardiography. No AV vera agent is recommended at this time as the treatment of sinus tachycardia is the treatment of the underlying disorder. AV vera agent may inadvertently lower the blood pressure. 2. Possible diffuse pneumonia, bilateral pneumonia versus metastases to the lung from prostate. 3. Malignant prostate cancer with very elevated PSA, Hematology-Oncology consultation. 4. Anemia. 5. Prerenal azotemia upon arrival to the hospital. I would like to thank, Dr. Moreno, for the courtesy of this consultation. Wicho Orozco M.D. DR: Gabe JOB#: [id number] CC:
[2019-05-09] MEDS ORDERED: Ipratropium 0.02% Inh Soln 2.5ml UD HHN PRN (22:30)
--- NOTE | 2019-05-09 22:30 | NUR ---
NURSE NOTES: Patient HR increased up to 134-137 with O2 saturation of 85% for about 5 minutes. Decreased to 122-124 with O2 saturation of 90%. Reached Dr. Orozco to inform about the increase in HR and decrease O2 saturation. Dr. Orozco aware of the patient's condition and advised to call Dr. De La Cruz to inform about the oxygen saturation and no new orders given to follow up. Monitor for now in [facility] floor per MD order. Called Dr. De La Cruz to inform about the oxygen saturation and increase in HR. Given new orders to adjust the oxygen flow rate as needed to keep patient's oxygen saturation within 90-96%. aware of patient's hx of COPD and increase in HR. Also given order to changed albuterol breathing treatment to atrovent 500 mcg via HHN PRN Q 4hrs for shortness of breath due to HR. Will continue to monitor and provide care as ordered.
[2019-05-09] MEDS: Vancomycin 750mg/NS 275ml IVPB SCH ×2 (22:44)
[2019-05-10] VITALS: BP 127/67
[2019-05-10] MEDS: NovoLOG Insulin Flexpen SUBQ SCH ×4 (00:19→17:28)
[2019-05-10] MEDS: D5NS 1,000 ML IV SCH ×2 (03:03→17:28)
[2019-05-10 04:00] VITALS: BP 113/65
--- NOTE | 2019-05-10 05:41 | NUR ---
NURSE NOTES: Reached Dr. Moreno to inform about the urine culture results. Positive for MRSA E.Coli. Was not able to reach Dr. Moreno at this moment. Will wait for a call back.
--- NOTE | 2019-05-10 07:45 | NUR ---
NURSE NOTES: Previous IV site resistance to flush and puffy. New 22g IV inserted on LAC running fluid as ordered. Patient explained procedure prior. Patient tolerated the procedure well.
--- NOTE | 2019-05-10 07:49 | NUR ---
NURSE NOTES: Patient alert x0, on oxygen 3 Liter, patient grasping for air, and patient is tachy 135; PM nurse received an order from MD De La Cruz to keep sat 90-95 and to increase oxygen flow meter as needed. IV LAC 22G D5NS 80cc running; side rails up x2, breaks engaged, bed at lowest position; Martínez in place drains urine. will keep monitoring.
--- NOTE | 2019-05-10 07:55 | NUR ---
NURSE NOTES: Called Dr. Hina Cat to inform that patient's urine culture came back positive for e.coli. No new ordered given. aware.
[2019-05-10 08:00] VITALS: BP 133/89
[2019-05-10] MEDS: Thiamine 100mg tab ORAL SCH (08:27)
[2019-05-10] MEDS: Aspirin EC 81mg tab ORAL SCH (08:27)
[2019-05-10] MEDS: Cefepime HCl 1 GM in D5W 55 ML IVPB SCH ×2 (08:28→22:41)
--- NOTE | 2019-05-10 08:28 | NUR ---
HAND-OFF: Report given to CHANDLER Hunter.
[2019-05-10] MEDS: Heparin 5000 units/ml inj SUBQ SCH ×2 (08:29→22:42)
[2019-05-10 08:43] LABS: HEMOGLOBIN 10.2 G/DL (14.2-18.0); LYMPHOCYTES % (AUTO) 18.3 % (20.0-45.0); MEAN CORPUSCULAR VOLUME 85 FL (80-99); MONOCYTES % (AUTO) 9.5 % (1.0-10.0); NEUTROPHILS % (AUTO) 70.1 % (45.0-75.0); PLATELET COUNT 179 K/UL (150-450); RED BLOOD COUNT 3.74 M/UL (4.70-6.10); RED CELL DISTRIBUTION WIDTH 19.2 % (11.6-14.8)
[2019-05-10 08:54] LABS: ANION GAP 11 mmol/L (5-15); BLOOD UREA NITROGEN 15 mg/dL (7-18); CALCIUM 9.4 MG/DL (8.5-10.1); CARBON DIOXIDE 20 MMOL/L (21-32); CHLORIDE 106 MMOL/L (98-107); CREATININE 0.8 MG/DL (0.55-1.30); POTASSIUM 3.7 MMOL/L (3.5-5.1); SODIUM 137 MMOL/L (136-145)
[2019-05-10] MEDS: Vancomycin 750mg/NS 275ml IVPB SCH ×2 (10:30)
--- NOTE | 2019-05-10 10:55 | Pulmonology Progress Note ---
Assessment/Plan Assessment/Plan Pulmonary Progress Note HPI Patient is a 78-year-old male with a history of COPD, Diabetes, Metastatic prostate cancer, previously noted RUL mass. Other PMH includes Dementia, Hypertension, Dysphagia. He is a DNR status. He presents with chief complaint of weakness, some SOB. He was sent in from a senior care. Noted to have UTI. Per senior care note there is weakness concern about possible pneumonia. Unknown fever. No vomiting. No pain complaint. Patient does have chronic indwelling Martínez. On last admission he grew out multidrug-resistant E. coli and also Pseudomonas. Allergies: No Known Allergies Past Medical History: COPD, metastatic prostate cancer, previously noted RUL mass. Other PMH includes Dementia, Hypertension, Dysphagia All Other Systems: negative except mentioned in HPI Physical Exam Vital Signs Noted General Appearance: no apparent distress, awake cachetic, Chronically Ill Head: normocephalic, atraumatic Eyes: bilateral eye PERRL, bilateral eye EOMI ENT: hearing grossly normal, normal pharynx Neck: full range of motion, supple, no meningismus Respiratory: chest non-tender, lungs clear, normal breath sounds Cardiovascular: regular rate, rhythm, normal HS, no murmur Gastrointestinal: normal bowel sounds, non tender, no mass, no organomegaly, no bruit, non-distended Musculoskeletal: back normal, other - Contracted, right-sided weakness Psychiatric: mood/affect normal Impression: Acute encephalopathy Urinary tract infection COPD Diabetes Metastatic prostate cancer Previously noted RUL mass Dementia Hypertension Dysphagia DNR status Plan Continue Cefepime Await urine sensitivities 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 Appearance is nonspecific, could indicate pulmonary edema, infectious/inflammatory process, among other possibilities. More focal consolidation and atelectasis in the right lower lobe Diffuse osseous sclerosis, also previously described Massive left hydronephrosis, described on multiple prior studies Subjective ROS Limited/Unobtainable: No Allergies: Coded Allergies: No Known Allergies (Unverified , 02/28/16) Objective Last 24 Hour Vital Signs Date Time Temp Pulse Resp B/P (MAP) Pulse Ox O2 Delivery O2 Flow Rate FiO2 05/10/19 09:00 Nasal Cannula 2.0 05/10/19 08:27 112 133/89 05/10/19 08:00 97.6 112 21 133/89 (104) 94 05/10/19 04:00 98.2 116 22 113/65 (81) 97 05/10/19 00:00 97.9 116 21 127/67 (87) 96 05/09/19 21:00 Nasal Cannula 2.0 05/09/19 20:00 98.2 112 22 117/77 (90) 95 05/09/19 19:49 94 Nasal Cannula 2.0 28 05/09/19 19:49 112 28 94 Nasal Cannula 2.0 28 05/09/19 16:00 98.0 99 20 126/82 (97) 97 05/09/19 12:00 98.0 69 20 99/72 (81) 96 Intake and Output 05/09/19 05/10/19 19:00 07:00 Intake Total 1130 ml 1270.000 ml Output Total 1400 ml 250 ml Balance -270 ml 1020.000 ml Intake Oral 460 ml 460 ml IV Total 670 ml 810.000 ml Output Urine Total 1400 ml 250 ml # Voids 1 # Bowel Movements 1 1 Microbiology Date/Time Source Procedure Growth Status 05/07/19 21:50 Blood Blood Culture - Preliminary Staphylococcus Sp Coag Neg Resulted 05/07/19 21:35 Blood Blood Culture - Preliminary Staphylococcus Sp Coag Neg Resulted 05/07/19 22:50 Nasal Nares MRSA Culture - Final Staphylococcus Aureus - Mrsa Complete 05/07/19 21:50 Urine,Clean Catch Urine Culture - Preliminary Escherichia Coli#2 Escherichia Coli Resulted 05/07/19 22:50 Rectum VRE Culture - Final NO VANCOMYCIN RESISTANT ENTEROCOCCUS ... Complete Laboratory Tests 05/10/19 06:20: White Blood Count 6.0, Red Blood Count 3.74L, Hemoglobin 10.2L, Hematocrit 32.0L , Mean Corpuscular Volume 85, Mean Corpuscular Hemoglobin 27.2, Mean Corpuscular Hemoglobin Concent 31.9L, Red Cell Distribution Width 19.2H, Platelet Count 179, Mean Platelet Volume 6.6, Neutrophils (%) (Auto) 70.1, Lymphocytes (%) (Auto) 18.3L, Monocytes (%) (Auto) 9.5, Eosinophils (%) (Auto) 1.0, Basophils (%) (Auto) 1.0, Sodium Level 137, Potassium Level 3.7, Chloride Level 106, Carbon Dioxide Level 20L, Anion Gap 11, Blood Urea Nitrogen 15, Creatinine 0.8, Estimat Glomerular Filtration Rate , Glucose Level 104, Calcium Level 9.4 Current Medications Medications (Trade) Dose Ordered Sig/Eufemia Route PRN Reason Start Time Stop Time Status Last Admin Dose Admin Acetaminophen (Tylenol) 650 mg Q6H PRN ORAL Mild Pain/Temp > 100.5 05/08/19 00:30 06/07/19 00:29 Amlodipine Besylate (Norvasc) 10 mg DAILY ORAL 05/08/19 09:00 06/07/19 08:59 05/10/19 08:27 Aspirin (Ecotrin) 81 mg DAILY ORAL 05/08/19 09:00 06/07/19 08:59 05/10/19 08:27 Cefepime HCl 1 gm/ Dextrose 55 ml @ 110 mls/hr EVERY 12 HOURS IVPB 05/08/19 09:00 05/15/19 08:59 05/10/19 08:28 Clonidine HCl (Catapres Tab) 0.1 mg Q12H PRN ORAL For High SBP >180 05/08/19 00:30 06/07/19 00:29 Dextrose (Dextrose 50%) 25 ml Q30M PRN IV Hypoglycemia 05/08/19 00:30 06/07/19 00:29 Dextrose (Dextrose 50%) 50 ml Q30M PRN IV Hypoglycemia 05/08/19 00:30 06/07/19 00:29 Dextrose/Sodium Chloride 1,000 ml @ 80 mls/hr [id number] IV 05/09/19 13:00 06/08/19 12:59 05/10/19 03:03 Docusate Sodium (Colace) 100 mg BID PRN ORAL Constipation 05/08/19 00:30 06/07/19 00:29 Famotidine (Pepcid) 20 mg DAILY ORAL 05/08/19 09:00 06/07/19 08:59 05/10/19 08:27 Finasteride (Proscar) 5 mg DAILY ORAL 05/08/19 09:00 06/07/19 08:59 05/10/19 08:27 Heparin Sodium (Porcine) (Heparin 5000 units/ml) 5,000 units EVERY 12 HOURS SUBQ 05/08/19 09:00 06/07/19 08:59 05/08/19 20:12 Insulin Aspart (NovoLOG) Q6HR SUBQ 05/08/19 06:00 06/07/19 05:59 05/10/19 00:19 Ipratropium [place] (Atrovent) 500 mcg Q4H PRN HHN Shortness of Breath 05/09/19 22:30 05/14/19 22:29 Ondansetron HCl (Zofran) 4 mg Q8H PRN IVP Nausea & Vomiting 05/08/19 00:30 06/07/19 00:29 Tamsulosin HCl (Flomax) 0.4 mg BEDTIME ORAL 05/08/19 21:00 06/07/19 20:59 05/09/19 21:06 Thiamine HCl (Vitamin B1) 100 mg DAILY ORAL 05/08/19 09:00 06/07/19 08:59 05/10/19 08:27 Vancomycin HCl (Vanco rx to dose) 1 ea DAILY PRN MISC Per rx protocol 05/09/19 09:00 06/08/19 08:59 Vancomycin HCl 750 mg/Sodium Chloride 275 ml @ 183.333 mls/hr Q12H IVPB 05/09/19 22:30 05/14/19 22:29 05/10/19 10:30 Ye De La Cruz MD May 10, 2019 10:55
[2019-05-10 12:00] VITALS: BP 115/53
[2019-05-10 16:00] VITALS: BP 143/82
[2019-05-10] MEDS: Polymyxin B Sulfate 500,000 UNITS in D5W 500ml 550 ML IV SCH ×2 (16:01→23:11)
--- NOTE | 2019-05-10 18:51 | NUR ---
HAND-OFF: Report given to CHANDLER Howe.
--- NOTE | 2019-05-10 19:15 | NUR ---
NURSE NOTES: Received report from CHANDLER Hunter. Patient on bed with HOB elevated. Patient AAO x 0. Breathing through nose with noted effort during inspiratory breathing on 2L of oxygen via nasal cannual that is known as patient's baseline. O2 sat 95%. Denies pain at this time. Martínez cath intact draining urine. IV site intact on left AC running fluid as ordered. Bed placed at the lowest with alarm, brake, and side rails up for safety. Call light placed within reach. Will continue to monitor and provide care as ordered.
[2019-05-10 20:00] VITALS: BP 131/84
--- NOTE | 2019-05-10 22:01 | General Progress Note ---
Assessment/Plan Problem List: (1) Acute renal failure ICD Codes: N17.9 - Acute kidney failure, unspecified SNOMED: 25142895 (2) Hypoalbuminemia ICD Codes: E88.09 - Other disorders of plasma-protein metabolism, not elsewhere classified SNOMED: 287207643 (3) Diabetes ICD Codes: E11.9 - Type 2 diabetes mellitus without complications SNOMED: 16726558 (4) UTI (urinary tract infection) ICD Codes: N39.0 - Urinary tract infection, site not specified SNOMED: 52017839 Qualifiers: Qualified Codes: N30.00 - Acute cystitis without hematuria (5) HTN (hypertension) ICD Codes: I10 - Essential (primary) hypertension SNOMED: 19049417 Qualifiers: Qualified Codes: I10 - Essential (primary) hypertension (6) Dehydration ICD Codes: E86.0 - Dehydration SNOMED: 98055831 Status: progressing Assessment/Plan: mets prostate cancer tachycardia uti r/o sepsis poor historian dementia indwelling begum poor prognosis Subjective ROS Limited/Unobtainable: Yes Allergies: Coded Allergies: No Known Allergies (Unverified , 02/28/16) Objective Last 24 Hour Vital Signs Date Time Temp Pulse Resp B/P (MAP) Pulse Ox O2 Delivery O2 Flow Rate FiO2 05/10/19 16:00 98.1 111 20 143/82 (102) 96 05/10/19 12:00 97.9 110 20 115/53 (73) 97 05/10/19 11:54 96 Nasal Cannula 2.0 28 05/10/19 11:54 114 22 96 Nasal Cannula 2.0 28 05/10/19 09:00 Nasal Cannula 2.0 05/10/19 08:27 112 133/89 05/10/19 08:00 97.6 112 21 133/89 (104) 94 05/10/19 04:00 98.2 116 22 113/65 (81) 97 05/10/19 00:00 97.9 116 21 127/67 (87) 96 Intake and Output 05/09/19 05/10/19 18:59 06:59 Intake Total 1100 ml 1270.000 ml Output Total 1400 ml 250 ml Balance -300 ml 1020.000 ml Intake Oral 460 ml 460 ml IV Total 640 ml 810.000 ml Output Urine Total 1400 ml 250 ml # Voids 1 # Bowel Movements 1 1 Laboratory Tests 05/10/19 06:20: White Blood Count 6.0, Red Blood Count 3.74L, Hemoglobin 10.2L, Hematocrit 32.0L , Mean Corpuscular Volume 85, Mean Corpuscular Hemoglobin 27.2, Mean Corpuscular Hemoglobin Concent 31.9L, Red Cell Distribution Width 19.2H, Platelet Count 179, Mean Platelet Volume 6.6, Neutrophils (%) (Auto) 70.1, Lymphocytes (%) (Auto) 18.3L, Monocytes (%) (Auto) 9.5, Eosinophils (%) (Auto) 1.0, Basophils (%) (Auto) 1.0, Sodium Level 137, Potassium Level 3.7, Chloride Level 106, Carbon Dioxide Level 20L, Anion Gap 11, Blood Urea Nitrogen 15, Creatinine 0.8, Estimat Glomerular Filtration Rate , Glucose Level 104, Calcium Level 9.4 Height (Feet): 5 Height (Inches): 10.00 Weight (Pounds): 144 Cardiovascular: regular rhythm Respiratory/Chest: lungs clear Abdomen: non tender Jhon Moreno MD May 10, 2019 22:01
--- NOTE | 2019-05-10 22:37 | Cardiology Progress Note ---
Assessment/Plan Assessment/Plan 1. Sinus tachycardia due to underlying malignancy, infectious process or hypovolemia, continue hydration, 2D echo reveals normal LV systolic function with LVEF at 70%. No AV vera agent is recommended at this time as the treatment of sinus tachycardia is the treatment of the underlying disorder. 2. Mild aortic stenosis with LIZANDRO at 1.4 cm2. 3. Severe pulmonary HTN. Subjective Subjective No cardiac events reported. Objective Last 24 Hour Vital Signs Date Time Temp Pulse Resp B/P (MAP) Pulse Ox O2 Delivery O2 Flow Rate FiO2 05/10/19 16:00 98.1 111 20 143/82 (102) 96 05/10/19 12:00 97.9 110 20 115/53 (73) 97 05/10/19 11:54 96 Nasal Cannula 2.0 28 05/10/19 11:54 114 22 96 Nasal Cannula 2.0 28 05/10/19 09:00 Nasal Cannula 2.0 05/10/19 08:27 112 133/89 05/10/19 08:00 97.6 112 21 133/89 (104) 94 05/10/19 04:00 98.2 116 22 113/65 (81) 97 05/10/19 00:00 97.9 116 21 127/67 (87) 96 Intake and Output 05/09/19 05/10/19 18:59 06:59 Intake Total 1100 ml 1270.000 ml Output Total 1400 ml 250 ml Balance -300 ml 1020.000 ml Intake Oral 460 ml 460 ml IV Total 640 ml 810.000 ml Output Urine Total 1400 ml 250 ml # Voids 1 # Bowel Movements 1 1 2D Echo: EF 70%, Mild LVH, Mild , Grade I LVDD, RVSP 68 mmHg Laboratory Tests Test 05/10/19 06:20 White Blood Count 6.0 K/UL (4.8-10.8) Red Blood Count 3.74 M/UL (4.70-6.10) L Hemoglobin 10.2 G/DL (14.2-18.0) L Hematocrit 32.0 % (42.0-52.0) L Mean Corpuscular Volume 85 FL (80-99) Mean Corpuscular Hemoglobin 27.2 PG (27.0-31.0) Mean Corpuscular Hemoglobin Concent 31.9 G/DL (32.0-36.0) L Red Cell Distribution Width 19.2 % (11.6-14.8) H Platelet Count 179 K/UL (150-450) Mean Platelet Volume 6.6 FL (6.5-10.1) Neutrophils (%) (Auto) 70.1 % (45.0-75.0) Lymphocytes (%) (Auto) 18.3 % (20.0-45.0) L Monocytes (%) (Auto) 9.5 % (1.0-10.0) Eosinophils (%) (Auto) 1.0 % (0.0-3.0) Basophils (%) (Auto) 1.0 % (0.0-2.0) Sodium Level 137 MMOL/L (136-145) Potassium Level 3.7 MMOL/L (3.5-5.1) Chloride Level 106 MMOL/L (98-107) Carbon Dioxide Level 20 MMOL/L (21-32) L Anion Gap 11 mmol/L (5-15) Blood Urea Nitrogen 15 mg/dL (7-18) Creatinine 0.8 MG/DL (0.55-1.30) Estimat Glomerular Filtration Rate mL/min (>60) Glucose Level 104 MG/DL (74-106) Calcium Level 9.4 MG/DL (8.5-10.1) Microbiology Date/Time Source Procedure Growth Status 05/07/19 22:50 Nasal Nares MRSA Culture - Final Staphylococcus Aureus - Mrsa Complete 05/07/19 22:50 Rectum VRE Culture - Final NO VANCOMYCIN RESISTANT ENTEROCOCCUS ... Complete Objective HEENT: Atraumatic and normocephalic by temporal wasting. Conjunctival pallor is present. Pupils are equal, round, and reactive to light and accommodation. NECK: JVP less than 5 cm. No carotid bruit. Carotid upstrokes 2+ bilaterally. CARDIOVASCULAR: Normal S1, S2. Regular rate and rhythm. Tachycardic. No murmurs, gallops, or rubs. LUNGS: Clear to auscultation bilaterally. ABDOMEN: Soft, nontender, and nondistended. No hepatosplenomegaly. Positive bowel sounds. EXTREMITIES: No evidence of edema, clubbing, or cyanosis. Wicho Orozco MD May 10, 2019 22:37
[2019-05-10] MEDS: Tamsulosin 0.4mg cap ORAL SCH (22:41)
--- NOTE | 2019-05-10 23:45 | Consultation ---
DATE OF CONSULTATION: 05/10/2019 INFECTIOUS DISEASE CONSULTATION CONSULTING PHYSICIAN: Rick Cat M.D. PRIMARY ATTENDING PHYSICIAN: Jhon Moreno M.D. REASON FOR CONSULT: Complicated UTI. HISTORY OF PRESENT ILLNESS: This is a 78-year-old male who is a residential resident, admitted with altered mental status. He had also weakness, difficulty of breathing, and had tachycardia that started from 17th. The patient has a history of recurrent UTI and prostatic cancer, has chronic Martínez catheter. 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 He had previous admission to the hospital. At that time, he had multidrug resistant E. coli UTI. ALLERGIES: No known drug allergies. MEDICATIONS: He was started on polymyxin B today. He was getting vancomycin for bacteremia which was discontinued, Flomax, heparin, amlodipine, finasteride, thiamine, famotidine, cefepime, insulin, Tylenol, clonidine, Colace, and Zofran. SOCIAL HISTORY: long-term resident. No history of alcohol, drug abuse, and smoking. He is single. Code status is DNR/DNI. REVIEW OF SYSTEMS: The patient has no complaints. PHYSICAL EXAMINATION: VITAL SIGNS: Temperature 97.9, pulse 100, and blood pressure 115/53. GENERAL: Seems to be thin. HEAD AND NECK: [place] conjunctivae. HEART: Normal rate. LUNGS: Clear. ABDOMEN: Soft and nontender. EXTREMITIES: No edema. GENITOURINARY: Martínez catheter. NEUROLOGIC: He is awake, responsive. LABORATORY DATA: Blood culture x2, coagulase-negative Staphylococcus. Urine culture is E. coli MDR that are intermediate sensitive to nitrofurantoin, resistant to other microbials. Has MRSA gram-positive. WBC 6, hemoglobin 10.2, hematocrit 32, and platelets 179,000. Sodium 137, potassium 3.7, chloride 106, bicarbonate 20, BUN 15, and creatinine 0.8. Glucose is 104. Urine showed wbc's 10 to 15, rbc's 5 to 10, nitrites negative. CT chest showed bilateral diffuse interstitial disease, massive left hydronephrosis. IMPRESSION: Complicated urinary tract infection and multidrug resistant E. coli. The patient has chronic Martínez catheterization and left hydronephrosis. He has metastatic prostatic cancer, has chronic obstructive pulmonary disease. He has diabetes mellitus, hypertension, and dementia, and is MRSA carrier. RECOMMENDATIONS: Continue with polymyxin B and cefepime. We will follow up with cultures and additional sensitivities. At the end of my exam, I thank Dr. Moreno for involving me in the care of this patient. Rick Cat M.D. DR: WARD JOB#: [id number] CC: [email or web address]
[2019-05-11] VITALS: BP 120/74
[2019-05-11] MEDS: NovoLOG Insulin Flexpen SUBQ SCH ×3 (00:10→12:00)
[2019-05-11 04:00] VITALS: BP 123/86
[2019-05-11] MEDS: D5NS 1,000 ML IV SCH ×2 (05:20→15:00)
[2019-05-11 06:57] LABS: BASOPHILS % (AUTO) 1.6 % (0.0-2.0); EOSINOPHILS % (AUTO) 1.9 % (0.0-3.0); HEMATOCRIT 32.7 % (42.0-52.0); HEMOGLOBIN 10.3 G/DL (14.2-18.0); LYMPHOCYTES % (AUTO) 28.5 % (20.0-45.0); MEAN CORPUSCULAR VOLUME 85 FL (80-99); MONOCYTES % (AUTO) 9.9 % (1.0-10.0); NEUTROPHILS % (AUTO) 58.1 % (45.0-75.0); PLATELET COUNT 176 K/UL (150-450); RED BLOOD COUNT 3.84 M/UL (4.70-6.10); RED CELL DISTRIBUTION WIDTH 18.8 % (11.6-14.8); WHITE BLOOD COUNT 4.5 K/UL (4.8-10.8)
[2019-05-11 06:59] LABS: ANION GAP 9 mmol/L (5-15); BLOOD UREA NITROGEN 14 mg/dL (7-18); CALCIUM 8.9 MG/DL (8.5-10.1); CARBON DIOXIDE 22 MMOL/L (21-32); CHLORIDE 105 MMOL/L (98-107); CREATININE 0.8 MG/DL (0.55-1.30); POTASSIUM 3.8 MMOL/L (3.5-5.1); SODIUM 135 MMOL/L (136-145)
--- NOTE | 2019-05-11 07:05 | NUR ---
NURSE NOTES: Reached Dr. Moreno to inform on change in patient's urine color from light jimmy to reddish orange color. Will wait for a call back and inform the AM nurse.
--- NOTE | 2019-05-11 07:32 | NUR ---
NURSE NOTES: Received report from Elina, RN. Pt in bed, talkative, alert to self, right arm contracted, left are swelling noted, on 2L NC, no complaints of pain, no apparent distress noted at this time, bed in lowest position, call light within reach.
--- NOTE | 2019-05-11 07:36 | NUR ---
HAND-OFF: Report given to CHANDLER Vaughn.
[2019-05-11 08:00] VITALS: BP 112/77
[2019-05-11] MEDS: Aspirin EC 81mg tab ORAL SCH (08:41)
[2019-05-11] MEDS: Cefepime HCl 1 GM in D5W 55 ML IVPB SCH (08:42)
[2019-05-11] MEDS: Thiamine 100mg tab ORAL SCH (08:42)
[2019-05-11] MEDS: Heparin 5000 units/ml inj SUBQ SCH (08:44)
[2019-05-11] MEDS: Polymyxin B Sulfate 500,000 UNITS in D5W 500ml 550 ML IV SCH (09:26)
[2019-05-11] MEDS ORDERED: D5NS 1000ml IV ONE (09:57)
--- NOTE | 2019-05-11 10:55 | NUR ---
DISCHARGE PLANNING FAXED CLINICALS TO [facility] T: [phone] F: [phone] AWAIT ACCEPTANCE AND ASSIGNED ROOM NUMBER
--- NOTE | 2019-05-11 11:47 | NUR ---
DISCHARGE PLANNED PATIENT WILL BE RETURNING TO [facility] ROOM 6A SKILLED T: [phone] FOR NURSE TO NURSE REPORT [facility] HAS BEEN ARRANGED FOR 1330 PICKUP MESSAGE LEFT FOR MARLINE GILLESPIE
--- NOTE | 2019-05-11 11:48 | Infectious Diseases Prog Note ---
Assessment/Plan Assessment/Plan IMPRESSION: Complicated urinary tract infection and multidrug resistant E. coli. Left hydronephrosis. Metastatic prostatic cancer, Chronic obstructive pulmonary disease. Diabetes mellitus, Hypertension, Dementia, MRSA carrier. DNR status RECOMMENDATIONS: Continue with polymyxin B X 6 days Discontinue cefepime Case was D/W Dr. Moreno Poor prognosis Subjective ROS Limited/Unobtainable: Yes Constitutional: Reports: no symptoms Allergies: Coded Allergies: No Known Allergies (Unverified , 02/28/16) Objective Vital Signs Last 24 Hour Vital Signs Date Time Temp Pulse Resp B/P (MAP) Pulse Ox O2 Delivery O2 Flow Rate FiO2 05/11/19 09:00 Nasal Cannula 2.0 05/11/19 08:42 109 112/77 05/11/19 08:00 97.5 109 18 112/77 (89) 98 05/11/19 07:10 96 Nasal Cannula 2.0 28 05/11/19 07:10 88 20 96 Nasal Cannula 2.0 28 05/11/19 04:00 97.9 112 22 123/86 (98) 96 05/11/19 00:00 97.9 110 22 120/74 (89) 95 05/10/19 21:50 111 22 94 Nasal Cannula 2.0 28 05/10/19 21:50 94 Nasal Cannula 2.0 28 05/10/19 21:00 Nasal Cannula 2.0 05/10/19 20:00 98.2 117 22 131/84 (100) 95 05/10/19 16:00 98.1 111 20 143/82 (102) 96 05/10/19 12:00 97.9 110 20 115/53 (73) 97 05/10/19 11:54 96 Nasal Cannula 2.0 28 05/10/19 11:54 114 22 96 Nasal Cannula 2.0 28 Height (Feet): 5 Height (Inches): 10.00 Weight (Pounds): 144 HEENT: mucous membranes moist Respiratory/Chest: lungs clear, other - oxygen by nasal cannula Cardiovascular: tachycardia Abdomen: soft, non tender Genitourinary: other - Martínez catheter Extremities: other - edema of left arm Neurologic/Psychiatric: other - sleeping Laboratory Tests Test 05/11/19 06:00 White Blood Count 4.5 K/UL (4.8-10.8) L Red Blood Count 3.84 M/UL (4.70-6.10) L Hemoglobin 10.3 G/DL (14.2-18.0) L Hematocrit 32.7 % (42.0-52.0) L Mean Corpuscular Volume 85 FL (80-99) Mean Corpuscular Hemoglobin 26.9 PG (27.0-31.0) L Mean Corpuscular Hemoglobin Concent 31.6 G/DL (32.0-36.0) L Red Cell Distribution Width 18.8 % (11.6-14.8) H Platelet Count 176 K/UL (150-450) Mean Platelet Volume 6.6 FL (6.5-10.1) Neutrophils (%) (Auto) 58.1 % (45.0-75.0) Lymphocytes (%) (Auto) 28.5 % (20.0-45.0) Monocytes (%) (Auto) 9.9 % (1.0-10.0) Eosinophils (%) (Auto) 1.9 % (0.0-3.0) Basophils (%) (Auto) 1.6 % (0.0-2.0) Sodium Level 135 MMOL/L (136-145) L Potassium Level 3.8 MMOL/L (3.5-5.1) Chloride Level 105 MMOL/L (98-107) Carbon Dioxide Level 22 MMOL/L (21-32) Anion Gap 9 mmol/L (5-15) Blood Urea Nitrogen 14 mg/dL (7-18) Creatinine 0.8 MG/DL (0.55-1.30) Estimat Glomerular Filtration Rate mL/min (>60) Glucose Level 110 MG/DL (74-106) H Calcium Level 8.9 MG/DL (8.5-10.1) Current Medications Medications (Trade) Dose Ordered Sig/Eufemia Route PRN Reason Start Time Stop Time Status Last Admin Dose Admin Acetaminophen (Tylenol) 650 mg Q6H PRN ORAL Mild Pain/Temp > 100.5 05/08/19 00:30 06/07/19 00:29 Amlodipine Besylate (Norvasc) 10 mg DAILY ORAL 05/08/19 09:00 06/07/19 08:59 05/11/19 08:42 Aspirin (Ecotrin) 81 mg DAILY ORAL 05/08/19 09:00 06/07/19 08:59 05/11/19 08:41 Cefepime HCl 1 gm/ Dextrose 55 ml @ 110 mls/hr EVERY 12 HOURS IVPB 05/08/19 09:00 05/15/19 08:59 05/11/19 08:42 Clonidine HCl (Catapres Tab) 0.1 mg Q12H PRN ORAL For High SBP >180 05/08/19 00:30 06/07/19 00:29 Dextrose (Dextrose 50%) 25 ml Q30M PRN IV Hypoglycemia 05/08/19 00:30 06/07/19 00:29 Dextrose (Dextrose 50%) 50 ml Q30M PRN IV Hypoglycemia 05/08/19 00:30 06/07/19 00:29 Dextrose/Sodium Chloride 1,000 ml @ 80 mls/hr [id number] IV 05/09/19 13:00 06/08/19 12:59 05/11/19 05:20 Docusate Sodium (Colace) 100 mg BID PRN ORAL Constipation 05/08/19 00:30 06/07/19 00:29 Famotidine (Pepcid) 20 mg DAILY ORAL 05/08/19 09:00 06/07/19 08:59 05/11/19 08:42 Finasteride (Proscar) 5 mg DAILY ORAL 05/08/19 09:00 06/07/19 08:59 05/11/19 08:42 Heparin Sodium (Porcine) (Heparin 5000 units/ml) 5,000 units EVERY 12 HOURS SUBQ 05/08/19 09:00 06/07/19 08:59 05/11/19 08:44 Insulin Aspart (NovoLOG) Q6HR SUBQ 05/08/19 06:00 06/07/19 05:59 05/11/19 06:26 Ipratropium [place] (Atrovent) 500 mcg Q4H PRN HHN Shortness of Breath 05/09/19 22:30 05/14/19 22:29 Ondansetron HCl (Zofran) 4 mg Q8H PRN IVP Nausea & Vomiting 05/08/19 00:30 06/07/19 00:29 Polymyxin B Sulfate 361246 units/Dextrose 550 ml @ 550 mls/hr EVERY 12 HOURS IV 05/10/19 15:00 05/17/19 14:59 05/11/19 09:26 Tamsulosin HCl (Flomax) 0.4 mg BEDTIME ORAL 05/08/19 21:00 06/07/19 20:59 05/10/19 22:41 Thiamine HCl (Vitamin B1) 100 mg DAILY ORAL 05/08/19 09:00 06/07/19 08:59 05/11/19 08:42 Rick Cat MD May 11, 2019 11:48
[2019-05-11 12:00] VITALS: BP 134/60
--- NOTE | 2019-05-11 12:16 | Coder Physician Query ---
y PLEASE COMPLETE DOCUMENT BEFORE SIGNING Dear Dr. Morales Date: 05-11-19 CDS Name: Kia Hairston CDS Phone No.: [phone] Exercise your independent professional judgment when responding to the query. Questions asked do not imply a particular answer is desired or expected. We greatly appreciate your clarification on this issue. CLINICAL DOCUMENTATION STATES: Patient has indwelling chronic begum catheter and a urinary tract infection(UTI). Is there a causal relationship between the begum catheter and the UTI. Please respond to the following question: Is there a diagnosis specific to these symptoms or values? If so please state below. PHYSICIAN RESPONSE: Condition Present on Admission: [ ] Yes [ ] No [ ]Clinically Undeterminable Please also document in your Progress Notes and/or Discharge Summary and indicate if the condition was present on admission. MTDD
[2019-05-11] MEDS ORDERED: NITROFURANTOIN1 GM MC (13:42)
--- NOTE | 2019-05-11 13:45 | NUR ---
HAND-OFF: Report given to CHANDLER Martin.
--- NOTE | 2019-05-11 13:46 | NUR ---
NURSE NOTES: Received pt in bed. AAO x 0. On NC @ 3L/min. No s/s of distress/pain. FC draining by gravity. IV on L AC 22g intact and patent. Pt will be discharged to [facility] rehab today. Will follow up on it. Bed in the lowest, locked, and alarm on. Call light within reach. Will continue to monitor.
--- NOTE | 2019-05-11 14:42 | Pulmonology Progress Note ---
Assessment/Plan Assessment/Plan Pulmonary Progress Note HPI Patient is a 78-year-old male with a history of COPD, Diabetes, Metastatic prostate cancer, previously noted RUL mass. Other PMH includes Dementia, Hypertension, Dysphagia. He is a DNR status. He presents with chief complaint of weakness, some SOB. He was sent in from a [place] [facility]. Noted to have UTI. Per [place] [facility] note there is weakness concern about possible pneumonia. Unknown fever. No vomiting. No pain complaint. Patient does have chronic indwelling Martínez. On last admission he grew out multidrug-resistant E. coli and also Pseudomonas. Allergies: No Known Allergies Past Medical History: COPD, metastatic prostate cancer, previously noted RUL mass. Other PMH includes Dementia, Hypertension, Dysphagia All Other Systems: negative except mentioned in HPI Physical Exam Vital Signs Noted General Appearance: no apparent distress, awake cachetic, Chronically Ill Head: normocephalic, atraumatic Eyes: bilateral eye PERRL, bilateral eye EOMI ENT: hearing grossly normal, normal pharynx Neck: full range of motion, supple, no meningismus Respiratory: chest non-tender, lungs clear, normal breath sounds Cardiovascular: regular rate, rhythm, normal HS, no murmur Gastrointestinal: normal bowel sounds, non tender, no mass, no organomegaly, no bruit, non-distended Musculoskeletal: back normal, other - Contracted, right-sided weakness Psychiatric: mood/affect normal Impression: Acute encephalopathy Urinary tract infection COPD Diabetes Metastatic prostate cancer Previously noted RUL mass Dementia Hypertension Dysphagia DNR status Plan Continue Cefepime Await urine sensitivities [employer] medications 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 Appearance is nonspecific, could indicate pulmonary edema, infectious/inflammatory process, among other possibilities. More focal consolidation and atelectasis in the right lower lobe Diffuse osseous sclerosis, also previously described Massive left hydronephrosis, described on multiple prior studies Subjective ROS Limited/Unobtainable: No Allergies: Coded Allergies: No Known Allergies (Unverified , 02/28/16) Objective Last 24 Hour Vital Signs Date Time Temp Pulse Resp B/P (MAP) Pulse Ox O2 Delivery O2 Flow Rate FiO2 05/11/19 12:00 97.5 105 20 134/60 (84) 93 05/11/19 09:00 Nasal Cannula 2.0 05/11/19 08:42 109 112/77 05/11/19 08:00 97.5 109 18 112/77 (89) 98 05/11/19 07:10 96 Nasal Cannula 2.0 28 05/11/19 07:10 88 20 96 Nasal Cannula 2.0 28 05/11/19 04:00 97.9 112 22 123/86 (98) 96 05/11/19 00:00 97.9 110 22 120/74 (89) 95 05/10/19 21:50 111 22 94 Nasal Cannula 2.0 28 05/10/19 21:50 94 Nasal Cannula 2.0 28 05/10/19 21:00 Nasal Cannula 2.0 05/10/19 20:00 98.2 117 22 131/84 (100) 95 05/10/19 16:00 98.1 111 20 143/82 (102) 96 Intake and Output 05/10/19 05/11/19 19:00 07:00 Intake Total 2186.666 ml 1925 ml Output Total 250 ml 200 ml Balance 1936.666 ml 1725 ml Intake Oral 600 ml 600 ml IV Total 1586.666 ml 1325 ml Output Urine Total 250 ml 200 ml # Voids 1 # Bowel Movements 1 Laboratory Tests 05/11/19 06:00: White Blood Count 4.5L, Red Blood Count 3.84L, Hemoglobin 10.3L, Hematocrit 32.7L, Mean Corpuscular Volume 85, Mean Corpuscular Hemoglobin 26.9L, Mean Corpuscular Hemoglobin Concent 31.6L, Red Cell Distribution Width 18.8H, Platelet Count 176, Mean Platelet Volume 6.6, Neutrophils (%) (Auto) 58.1, Lymphocytes (%) (Auto) 28.5, Monocytes (%) (Auto) 9.9, Eosinophils (%) (Auto) 1.9, Basophils (%) (Auto) 1.6, Sodium Level 135L, Potassium Level 3.8, Chloride Level 105, Carbon Dioxide Level 22, Anion Gap 9, Blood Urea Nitrogen 14, Creatinine 0.8, Estimat Glomerular Filtration Rate , Glucose Level 110H, Calcium Level 8.9 Current Medications Medications (Trade) Dose Ordered Sig/Eufemia Route PRN Reason Start Time Stop Time Status Last Admin Dose Admin Acetaminophen (Tylenol) 650 mg Q6H PRN ORAL Mild Pain/Temp > 100.5 05/08/19 00:30 06/07/19 00:29 Amlodipine Besylate (Norvasc) 10 mg DAILY ORAL 05/08/19 09:00 06/07/19 08:59 05/11/19 08:42 Aspirin (Ecotrin) 81 mg DAILY ORAL 05/08/19 09:00 06/07/19 08:59 05/11/19 08:41 Clonidine HCl (Catapres Tab) 0.1 mg Q12H PRN ORAL For High SBP >180 05/08/19 00:30 06/07/19 00:29 Dextrose (Dextrose 50%) 25 ml Q30M PRN IV Hypoglycemia 05/08/19 00:30 06/07/19 00:29 Dextrose (Dextrose 50%) 50 ml Q30M PRN IV Hypoglycemia 05/08/19 00:30 06/07/19 00:29 Dextrose/Sodium Chloride 1,000 ml @ 80 mls/hr [id number] IV 05/09/19 13:00 06/08/19 12:59 05/11/19 05:20 Docusate Sodium (Colace) 100 mg BID PRN ORAL Constipation 05/08/19 00:30 06/07/19 00:29 Famotidine (Pepcid) 20 mg DAILY ORAL 05/08/19 09:00 06/07/19 08:59 05/11/19 08:42 Finasteride (Proscar) 5 mg DAILY ORAL 05/08/19 09:00 06/07/19 08:59 05/11/19 08:42 Heparin Sodium (Porcine) (Heparin 5000 units/ml) 5,000 units EVERY 12 HOURS SUBQ 05/08/19 09:00 06/07/19 08:59 05/11/19 08:44 Insulin Aspart (NovoLOG) Q6HR SUBQ 05/08/19 06:00 06/07/19 05:59 05/11/19 06:26 Ipratropium [place] (Atrovent) 500 mcg Q4H PRN HHN Shortness of Breath 05/09/19 22:30 05/14/19 22:29 Nitrofurantoin (Macrobid) 100 mg EVERY 12 HOURS ORAL 05/11/19 21:00 06/10/19 20:59 Ondansetron HCl (Zofran) 4 mg Q8H PRN IVP Nausea & Vomiting 05/08/19 00:30 06/07/19 00:29 Tamsulosin HCl (Flomax) 0.4 mg BEDTIME ORAL 05/08/19 21:00 06/07/19 20:59 05/10/19 22:41 Thiamine HCl (Vitamin B1) 100 mg DAILY ORAL 05/08/19 09:00 06/07/19 08:59 05/11/19 08:42 Ye De La Cruz MD May 11, 2019 14:42
--- NOTE | 2019-05-11 15:06 | Hematology/Onc Progress Note ---
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 --> CT Chest reviewed: no evidence of pulmonary emboli or other acute vascular pathology. Diffuse osteoblastic metastatic disease. --> begum cath intact --> casodex has been started 50mg po daily --> RECOMMEND OUTPATIENT LUPRON, over 1-2 mo, will decrease psa<10 --> psa and cea ordered # Hematuria that has improved --> U/A noted 2 + hematuria --> consider Uro eval, begum intact no active bleeding seen --> on abx # Anemia of iron deficiency --> anemia w/u has ordered from prior had acd --> No evidence of hemolysis is noted, peripheral smear has been reviewed. --> Hgb goal >7. Transfuse prn. --> Currently Hgb 9.5-->11.3-->10.3 --> iron started # RUL mass --> can be infiltrate, per id on abx--> cefep # COPD --> breathing treatments as needed --> imaging revealed CT Chest and CXR --> 02/NC # Shortness of breath --> likely due to above # Azotemia. The timing of this note does not necessarily reflect the time of the patient was seen. GREATLY APPRECIATE CONSULTATION. Subjective Hematologic/Lymphatic: Reports: anemia Allergies: Coded Allergies: No Known Allergies (Unverified , 02/28/16) All Systems: reviewed and negative except above Subjective 05/11: no overnight events, labs reviewed, dc planning Objective Objective Current Medications Medications (Trade) Dose Ordered Sig/Eufemia Route PRN Reason Start Time Stop Time Status Last Admin Dose Admin Acetaminophen (Tylenol) 650 mg Q6H PRN ORAL Mild Pain/Temp > 100.5 05/08/19 00:30 06/07/19 00:29 Amlodipine Besylate (Norvasc) 10 mg DAILY ORAL 05/08/19 09:00 06/07/19 08:59 05/11/19 08:42 Aspirin (Ecotrin) 81 mg DAILY ORAL 05/08/19 09:00 06/07/19 08:59 05/11/19 08:41 Clonidine HCl (Catapres Tab) 0.1 mg Q12H PRN ORAL For High SBP >180 05/08/19 00:30 06/07/19 00:29 Dextrose (Dextrose 50%) 25 ml Q30M PRN IV Hypoglycemia 05/08/19 00:30 06/07/19 00:29 Dextrose (Dextrose 50%) 50 ml Q30M PRN IV Hypoglycemia 05/08/19 00:30 06/07/19 00:29 Dextrose/Sodium Chloride 1,000 ml @ 80 mls/hr [id number] IV 05/09/19 13:00 06/08/19 12:59 05/11/19 05:20 Docusate Sodium (Colace) 100 mg BID PRN ORAL Constipation 05/08/19 00:30 06/07/19 00:29 Famotidine (Pepcid) 20 mg DAILY ORAL 05/08/19 09:00 06/07/19 08:59 05/11/19 08:42 Finasteride (Proscar) 5 mg DAILY ORAL 05/08/19 09:00 06/07/19 08:59 05/11/19 08:42 Heparin Sodium (Porcine) (Heparin 5000 units/ml) 5,000 units EVERY 12 HOURS SUBQ 05/08/19 09:00 06/07/19 08:59 05/11/19 08:44 Insulin Aspart (NovoLOG) Q6HR SUBQ 05/08/19 06:00 06/07/19 05:59 05/11/19 06:26 Ipratropium [place] (Atrovent) 500 mcg Q4H PRN HHN Shortness of Breath 05/09/19 22:30 05/14/19 22:29 Nitrofurantoin (Macrobid) 100 mg EVERY 12 HOURS ORAL 05/11/19 21:00 06/10/19 20:59 Ondansetron HCl (Zofran) 4 mg Q8H PRN IVP Nausea & Vomiting 05/08/19 00:30 06/07/19 00:29 Tamsulosin HCl (Flomax) 0.4 mg BEDTIME ORAL 05/08/19 21:00 06/07/19 20:59 05/10/19 22:41 Thiamine HCl (Vitamin B1) 100 mg DAILY ORAL 05/08/19 09:00 06/07/19 08:59 05/11/19 08:42 Last 24 Hour Vital Signs Date Time Temp Pulse Resp B/P (MAP) Pulse Ox O2 Delivery O2 Flow Rate FiO2 05/11/19 12:00 97.5 105 20 134/60 (84) 93 05/11/19 09:00 Nasal Cannula 2.0 05/11/19 08:42 109 112/77 05/11/19 08:00 97.5 109 18 112/77 (89) 98 05/11/19 07:10 96 Nasal Cannula 2.0 28 05/11/19 07:10 88 20 96 Nasal Cannula 2.0 28 05/11/19 04:00 97.9 112 22 123/86 (98) 96 05/11/19 00:00 97.9 110 22 120/74 (89) 95 05/10/19 21:50 111 22 94 Nasal Cannula 2.0 28 05/10/19 21:50 94 Nasal Cannula 2.0 28 05/10/19 21:00 Nasal Cannula 2.0 05/10/19 20:00 98.2 117 22 131/84 (100) 95 05/10/19 16:00 98.1 111 20 143/82 (102) 96 05/10/19 12:00 97.9 110 20 115/53 (73) 97 05/10/19 11:54 96 Nasal Cannula 2.0 28 05/10/19 11:54 114 22 96 Nasal Cannula 2.0 28 05/10/19 09:00 Nasal Cannula 2.0 05/10/19 08:27 112 133/89 05/10/19 08:00 97.6 112 21 133/89 (104) 94 05/10/19 04:00 98.2 116 22 113/65 (81) 97 05/10/19 00:00 97.9 116 21 127/67 (87) 96 05/09/19 21:00 Nasal Cannula 2.0 05/09/19 20:00 98.2 112 22 117/77 (90) 95 05/09/19 19:49 94 Nasal Cannula 2.0 28 05/09/19 19:49 112 28 94 Nasal Cannula 2.0 28 05/09/19 16:00 98.0 99 20 126/82 (97) 97 Intake and Output 05/10/19 05/11/19 19:00 07:00 Intake Total 2186.666 ml 1925 ml Output Total 250 ml 200 ml Balance 1936.666 ml 1725 ml Intake Oral 600 ml 600 ml IV Total 1586.666 ml 1325 ml Output Urine Total 250 ml 200 ml # Voids 1 # Bowel Movements 1 Labs Test 05/09/19 06:07 05/10/19 06:20 05/11/19 06:00 White Blood Count 5.4 K/UL (4.8-10.8) 6.0 K/UL (4.8-10.8) 4.5 K/UL (4.8-10.8) Red Blood Count 3.68 M/UL (4.70-6.10) 3.74 M/UL (4.70-6.10) 3.84 M/UL (4.70-6.10) Hemoglobin 10.0 G/DL (14.2-18.0) 10.2 G/DL (14.2-18.0) 10.3 G/DL (14.2-18.0) Hematocrit 31.3 % (42.0-52.0) 32.0 % (42.0-52.0) 32.7 % (42.0-52.0) Mean Corpuscular Volume 85 FL (80-99) 85 FL (80-99) 85 FL (80-99) Mean Corpuscular Hemoglobin 27.2 PG (27.0-31.0) 27.2 PG (27.0-31.0) 26.9 PG (27.0-31.0) Mean Corpuscular Hemoglobin Concent 32.0 G/DL (32.0-36.0) 31.9 G/DL (32.0-36.0) 31.6 G/DL (32.0-36.0) Red Cell Distribution Width 19.0 % (11.6-14.8) 19.2 % (11.6-14.8) 18.8 % (11.6-14.8) Platelet Count 147 K/UL (150-450) 179 K/UL (150-450) 176 K/UL (150-450) Mean Platelet Volume 6.6 FL (6.5-10.1) 6.6 FL (6.5-10.1) 6.6 FL (6.5-10.1) Neutrophils (%) (Auto) 65.4 % (45.0-75.0) 70.1 % (45.0-75.0) 58.1 % (45.0-75.0) Lymphocytes (%) (Auto) 21.9 % (20.0-45.0) 18.3 % (20.0-45.0) 28.5 % (20.0-45.0) Monocytes (%) (Auto) 11.4 % (1.0-10.0) 9.5 % (1.0-10.0) 9.9 % (1.0-10.0) Eosinophils (%) (Auto) 0.6 % (0.0-3.0) 1.0 % (0.0-3.0) 1.9 % (0.0-3.0) Basophils (%) (Auto) 0.8 % (0.0-2.0) 1.0 % (0.0-2.0) 1.6 % (0.0-2.0) Sodium Level 139 MMOL/L (136-145) 137 MMOL/L (136-145) 135 MMOL/L (136-145) Potassium Level 3.8 MMOL/L (3.5-5.1) 3.7 MMOL/L (3.5-5.1) 3.8 MMOL/L (3.5-5.1) Chloride Level 107 MMOL/L (98-107) 106 MMOL/L (98-107) 105 MMOL/L (98-107) Carbon Dioxide Level 21 MMOL/L (21-32) 20 MMOL/L (21-32) 22 MMOL/L (21-32) Anion Gap 11 mmol/L (5-15) 11 mmol/L (5-15) 9 mmol/L (5-15) Blood Urea Nitrogen 17 mg/dL (7-18) 15 mg/dL (7-18) 14 mg/dL (7-18) Creatinine 0.8 MG/DL (0.55-1.30) 0.8 MG/DL (0.55-1.30) 0.8 MG/DL (0.55-1.30) Estimat Glomerular Filtration Rate mL/min (>60) mL/min (>60) mL/min (>60) Glucose Level 140 MG/DL (74-106) 104 MG/DL (74-106) 110 MG/DL (74-106) Calcium Level 9.0 MG/DL (8.5-10.1) 9.4 MG/DL (8.5-10.1) 8.9 MG/DL (8.5-10.1) Height (Feet): 5 Height (Inches): 10.00 Weight (Pounds): 144 Objective Physical Exam: Vitals: reviewed General Appearance: NAD ++ contracted right sided weakness HEENT: normocephalic, atraumatic Neck: non-tender, normal alignment Respiratory/Chest: normal breath sounds bilaterally Cardiovascular/Chest: normal peripheral pulses, normal rate Abdomen: normal bowel sounds, soft, nontender Extremities: normal range of motion Alexei Pompa MD May 11, 2019 15:06
[2019-05-11 16:00] VITALS: BP 119/66
--- NOTE | 2019-05-11 17:00 | NUR ---
NURSE NOTES: Patient is discharged to [facility] rehab via ambulance. Report given to CHANDLER Gregory. Stable vital sign T 98.5, AK 88, sP02 100, BP 119/66. ID and IV was removed. No s/s of infection on removal site. Discharged with FC which pt came in with for retention. Discharge instructions and prescriptions were given to the ambulance personnel. Pt had no belongings.
--- NOTE | 2019-05-12 09:55 | Cardiology Report ---
APPROVED REPORT EXAM: Two-dimensional and M-mode echocardiogram with Doppler and color Doppler. INDICATION Tachycardia M-Mode DIMENSIONS IVSd1.3 (0.7-1.1cm)Left Atrium (MM)3.2 (1.6-4.0cm) LVDd2.6 (3.5-5.6cm)Aortic Root2.9 (2.0-3.7cm) PWd1.7 (0.7-1.1cm)Aortic Cusp Exc.1.3 (1.5-2.0cm) LVDs0.6 (2.5-4.0cm) PWs2.1 cm Technically difficult study due to poor acoustic windows. Study quality precludes accurate assessment of regional wall motion. Normal left ventricular chamber size,hyperdynamic systolic function and wall motion. Left ventricular ejection fraction estimated to be 70-75 %. Mild left ventricular hypertrophy. No evidence of pericardial effusion. All other cardiac chamber sizes are within normal limits. Aortic valve calcification with decreased cusp excursion c/w aortic stenosis. Mildly thickened mitral valve leaflets with normal excursion. Mild mitral annulus and aortic root calcification. Pulmonic valve not well visualized. Normal tricuspid valve structure. IVC is normal in size with physiological collapse. A color flow and spectral Doppler study was performed and revealed: No aortic regurgitation. Peak aortic valve gradient of 34 mmHg and a mean of 20 mmHg. Aortic valve area 1.4 cm2 calculated by continuity equation. Trace mitral regurgitation. Mitral diastolic velocities suggest mild left ventricular diastolic dysfunction (Grade I). Mild tricuspid regurgitation. Tricuspid systolic velocities suggests peak right ventricular systolic pressure of 68 mmHg, consistent with severe pulmonary hypertension. No pulmonic regurgitation present.
--- NOTE | 2019-05-12 11:07 | Cardiology Report ---
APPROVED REPORT EKG Measurement Heart [id number] Sinus tachycardia Pulmonary disease pattern Right bundle branch block Abnormal ECG
--- NOTE | 2019-05-12 11:12 | Cardiology Report ---
APPROVED REPORT EKG Measurement Heart [id number] Sinus tachycardia Pulmonary disease pattern Right bundle branch block Septal infarct, age undetermined Inferior infarct, age undetermined Abnormal ECG
--- NOTE | 2019-05-12 12:56 | Discharge Summary ---
Discharge Summary Discharge Summary _ DATE OF ADMISSION: 05/07/2019 DATE OF DISCHARGE: 05/11/2019 DISCHARGED BY: Dr. Harden REASON FOR ADMISSION: 78 years old male with past medical history of hypertension, diabetes mellitus, encephalitis, prostate cancer, BPH, anemia, resident of long term facility , with DNR/DNI status, was sent for evaluation due to weakness and possible pneumonia. No reported fever or chills. No complaints of pain , no vomiting. Patient with chronic indwelling Martínez catheter. On last admission urine grew multidrug-resistant E. coli and Pseudomonas. Upon evaluation vital signs were stable. Laboratory work-up revealed no leukocytosis, hemoglobin 12, hematocrit 36.4. Lactic acid 1.7. Stable electrolytes. BUN 21, creatinine 1.1. AST 48, ALT 18, alkaline phosphatase 1497. Troponin negative. EKG revealed normal sinus rhythm . Urinalysis revealed evidence of UTI. Chest x-ray revealed no acute cardiopulmonary pathology. Patient subsequently admitted for further management . CONSULTANTS: counsel Dr. Orozco pulmonary Dr. De La Cruz ID specialist Dr. Hurst needle valve operator/oncologist Dr. Pompa [facility] COURSE: Patient admitted to medical surgical floor. Patient started on empiric antibiotic as per ID specialist recommendation. Blood culture revealed Staph epidermidis. Urine culture revealed E. coli multidrug-resistant. Antibiotics provided as per infectious disease recommendation. Patient was on IV cefepime and polymyxin B. CT of the chest demonstrated bilateral diffuse mostly interstitial disease with some associated airspace opacity. More focal consolidation and atelectasis in the right lower lobe. Diffuse osteosclerosis. Massive left hydronephrosis. Supplemental oxygen provided as needed to keep pulse oximetry above 92%. Bronchodilator therapy provided as needed. Administrator Social Welfare followed. DVT and GI prophylaxis provided. Patient noted to have sinus tachycardia Per cardiology, sinus tachycardia was likely due to underlying malignancy, infectious process or hypovolemia. Hydration with IV fluids continued. Echocardiogram revealed preserved ejection fraction of 70 to 75% with mild left ventricular hypertrophy. No evidence of wall motion abnormality. Mild aortic stenosis noted. Right ventricular systolic pressure of 68 consistent with severe pulmonary hypertension. No AV vera agents were recommended at this time , as the treatment of sinus tachycardia was a treatment of underlying disease. Prior to discharge heart rate 38. Bedside swallow evaluation revealed evidence of dysphagia. Diet texture provided as per speech therapist recommendations with strict aspiration precautions. Speech therapist recommended continue swallow treatment at the facility. Oncologist seen and evaluated patient Cancer tumor markers revealed elevated CEA 36.9 , elevated PSA 258.9. Per oncologist, patient likely had metastatic prostate cancer to the bone. Diffuse osteoblastic metastatic disease noted on the CT scan. Oncologist recommended to start Casodex 50 mg daily and have outpatient Lupron . Hemoglobin and hematocrit were closely monitored with goal to keep hemoglobin above 7. No evidence of active bleeding. Prior to discharge hemoglobin 10.3, hematocrit 32.7. Flomax and Proscar were continued. Supportive care provided. Pain management was addressed. Bowel regimen instituted. Patient clinically stabilized and was ready for transfer back to long term facility for continuation of care. Outpatient follow-up with oncologist was recommended. FINAL DIAGNOSES: Acute encephalopathy Complicated UTI with multidrug-resistant E. coli in patient with chronic indwelling Martínez catheter Metastatic prostate cancer COPD Diabetes mellitus Hypertension Sinus tachycardia Aortic stenosis Severe pulmonary hypertension Anemia of iron deficiency Dysphagia Dementia DNR status DISCHARGE MEDICATIONS: See Medication Reconciliation list. DISCHARGE INSTRUCTIONS: Patient was discharged to the long term facility. Follow up with medical doctor at the facility. I have been assigned to dictate discharge summary for this account. I was not involved in the patient's management. Milla Demarco NP May 12, 2019 12:56
== END 2019-05-11 17:20 | DRG 699 ==
LOC: EDUNIT# 21:33 → EDBD 21:33 → EMR 21:51 → EDBEDREQ 22:03 → 4E 22:05 → EDBEDREQ 22:46
DX: T83.511A Infection and inflammatory reaction due to indwelling urethral catheter, initial encounter (principal); G93.40 Encephalopathy, unspecified; C79.51 Secondary malignant neoplasm of bone; C78.01 Secondary malignant neoplasm of right lung; C61 Malignant neoplasm of prostate; F03.90 Unspecified dementia, unspecified severity, without behavioral disturbance, psychotic disturbance, mood disturbance, and anxiety; E86.0 Dehydration; I49.5 Sick sinus syndrome; B96.20 Unspecified Escherichia coli [E. coli] as the cause of diseases classified elsewhere; J44.9 Chronic obstructive pulmonary disease, unspecified; E11.9 Type 2 diabetes mellitus without complications; I10 Essential (primary) hypertension; R00.0 Tachycardia, unspecified; I27.20 Pulmonary hypertension, unspecified; D50.9 Iron deficiency anemia, unspecified; R13.10 Dysphagia, unspecified; Z66 Do not resuscitate; Z16.24 Resistance to multiple antibiotics; I45.10 Unspecified right bundle-branch block; Z79.4 Long term (current) use of insulin; Z22.322 Carrier or suspected carrier of Methicillin resistant Staphylococcus aureus; E88.09 Other disorders of plasma-protein metabolism, not elsewhere classified; I35.0 Nonrheumatic aortic (valve) stenosis
CPT/HCPCS: 36415; 71045; 71250; 80048; 80053; 81003; 82378; 82550; 82553; 82962; 83605; 84153; 84484; 85025; 87040; 87081; 87086; 87181; 93005; 93306; 94640; 94664; 96361; 96365; 99285; J1815; J7620

== ENCOUNTER 2019-05-30 22:31 | Inpatient (IN) | payer MEDICARE, MEDICAID ==
[~2019-05-30] VITALS: Ht 170.2 cm; Wt 59.0 kg
[~2019-05-30 22:31] MED LIST changes: +LUPRON DEPOT7.5 MG IM; +NITROFURANTOIN1 GM MC
[2019-05-30] MEDS ORDERED: Vancomycin 1 GM in NS 275 ML IV ONE (22:45)
[2019-05-30] MEDS ORDERED: Piperacillin/Tazobactam 3.375 GM in NS 110 ML IVPB ONE (22:45)
[2019-05-30 22:50] VITALS: BP 101/64
--- NOTE | 2019-05-30 22:50 | NUR ---
ED Nurse Note: Patient was BIBA from [facility] c/o chest congestion. AAO x0, BP is 97/56, skin is dry, warm to touch. Patient presented with labored breathing, O2 sat 72 % on RA. Patient has contraction of upper extrimityes, came with begum 16F.
--- NOTE | 2019-05-30 23:05 | Diagnostic Imaging Report ---
EXAM: XR Chest, 1 View CLINICAL HISTORY: COUGH TECHNIQUE: Frontal view of the chest. COMPARISON: No relevant prior studies available. FINDINGS: Lungs: Patient's right hand obscures right lower lung zone. Small patchy airspace opacities over left upper lung zone, bilateral lower lung zone suggests atelectasis and/or pneumonia. Pleural space: Unremarkable. No pneumothorax. Heart: Unremarkable. No cardiomegaly. Mediastinum: Unremarkable. Bones/joints: Diffusely scattered dense bone IMPRESSION: Small patchy airspace opacities over left upper lung zone, bilateral lower lung zone suggests atelectasis and/or pneumonia. Pneumonia is especially of concern over left upper lung zone Diffusely scattered dense bone, may suggest metastases versus underlying metabolic or hematologic disorders.
[2019-05-30 23:08] LABS: APPEARANCE,URINE CLOUDY; BILIRUBIN, URINE 1+ (NEGATIVE); GLUCOSE, URINE (UA) NEGATIVE (NEGATIVE); KETONES,URINE 1+ (NEGATIVE); LEUKOCYTE ESTERASE ,URINE 3+ (NEGATIVE); NITRITE,URINE POSITIVE (NEGATIVE); PH,URINE 5 (4.5-8.0); PROTEIN,URINE 3+ (NEGATIVE); UROBILINOGEN,URINE 4 MG/DL (0.0-1.0)
[2019-05-30 23:11] LABS: COLOR,URINE YELLOW
[2019-05-30 23:14] LABS: BASOPHILS % (AUTO) 0.9 % (0.0-2.0); EOSINOPHILS % (AUTO) 0.3 % (0.0-3.0); HEMATOCRIT 31.8 % (42.0-52.0); HEMOGLOBIN 10.1 G/DL (14.2-18.0); LYMPHOCYTES % (AUTO) 20.7 % (20.0-45.0); MEAN CORPUSCULAR VOLUME 81 FL (80-99); MONOCYTES % (AUTO) 9.9 % (1.0-10.0); NEUTROPHILS % (AUTO) 68.2 % (45.0-75.0); PLATELET COUNT 236 K/UL (150-450); RED BLOOD COUNT 3.92 M/UL (4.70-6.10); RED CELL DISTRIBUTION WIDTH 19.7 % (11.6-14.8); WHITE BLOOD COUNT 8.5 K/UL (4.8-10.8)
[2019-05-30 23:31] LABS: INR 1.2 (0.9-1.1)
[2019-05-30 23:40] LABS: ALANINE AMINOTRANSFERASE 15 U/L (12-78); ALBUMIN 2.9 G/DL (3.4-5.0); ALBUMIN/GLOBULIN RATIO 0.6 (1.0-2.7); ALKALINE PHOSPHATASE 1333 U/L (46-116); ANION GAP 15 mmol/L (5-15); ASPARTATE AMINO TRANSFERASE 34 U/L (15-37); BILIRUBIN,TOTAL 1.2 MG/DL (0.2-1.0); BLOOD UREA NITROGEN 45 mg/dL (7-18); CALCIUM 9.1 MG/DL (8.5-10.1); CARBON DIOXIDE 22 MMOL/L (21-32); CHLORIDE 128 MMOL/L (98-107); CREATINE KINASE 131 U/L (26-308); CREATININE 1.7 MG/DL (0.55-1.30)
[2019-05-30 23:41] LABS: SODIUM 166 MMOL/L (136-145)
[2019-05-30 23:43] LABS: BILIRUBIN,DIRECT 0.5 MG/DL (0.0-0.3)
[2019-05-31] VITALS (8 sets, daily range): BP systolic 94–128; BP diastolic 50–87
--- NOTE | 2019-05-31 00:52 | NUR ---
ED Nurse Note: Placed patient on non-rebreathing mask, 10L, per Viridiana Gutiérrez order.
--- NOTE | 2019-05-31 01:15 | NUR ---
ED Nurse Note: Patient was admited to [facility] due to pneumonia. AAO x0, skin is intact,warm to touch. Patient was transfered to the unit via gurney, with all belongings.
--- NOTE | 2019-05-31 01:30 | NUR ---
NURSE NOTES: Patient admitted from ER via gurney on o2 via NRB at 10LPM sat at 99%. Patient is awake, but nonverbal at this time. RUE contracted. Noted with FC 16Fr from facility with light jimmy urine. Skin is intact but very dry. Patient is in labored breathing with 34 breaths per minute. Tachycardic between 108bpm to 115bpm.
--- NOTE | 2019-05-31 02:06 | NUR ---
NURSE NOTES: Paged Dr. Gonzalez, covering for Dr. sabillon, for admission orders
--- NOTE | 2019-05-31 02:15 | NUR ---
NURSE NOTES: Per Chucho Meraz (next of kin) made aware of patient's condition and prognosis.
--- NOTE | 2019-05-31 02:40 | NUR ---
NURSE NOTES: Another call placed to Dr. Gonzalez's exchange for admission orders.
--- NOTE | 2019-05-31 03:17 | NUR ---
NURSE NOTES: 3rd call placed to Dr. Gonzalez's exchange for admission orders.
[2019-05-31] MEDS ORDERED: Docusate 100mg cap ORAL PRN (03:30)
--- NOTE | 2019-05-31 03:43 | NUR ---
NURSE NOTES: Admission orders received from Dr. Gonzalez. Per Dr. Gonzalez, Dr. Perez will enter the rest of the orders.
[2019-05-31] MEDS ORDERED: D5 1/2NS 1,000 ML IV SCH (04:00)
--- NOTE | 2019-05-31 05:44 | Emergency Room Report ---
History of Present Illness General Chief Complaint: General Complaint Source: Medical Record, EMS Present Illness HPI Patient was sent in for congestion. The patient is in a shelter facility. Apparently he is a DNR status. He is unable to give a history due to dementia. The facility noted that he had respiratory difficulty. He was transported by BLS ambulance. There is a Martínez catheter present. He has a history of metastatic lung cancer. He was most recently discharged May 11 with these discharge diagnoses: Acute encephalopathy Complicated UTI with multidrug-resistant E. coli in patient with chronic indwelling Martínez catheter Metastatic prostate cancer COPD Diabetes mellitus Hypertension Sinus tachycardia Aortic stenosis Severe pulmonary hypertension Anemia of iron deficiency Dysphagia Dementia DNR status Allergies: Coded Allergies: No Known Allergies (Unverified , 02/28/16) Patient History Limited by: medical condition Past Medical History: see triage record, old chart reviewed Social History: Denies: smoking - Prior Social History Narrative long-term facility Reviewed Nursing Documentation: PMH: Agreed; PSxH: Agreed Nursing Documentation-PMH Past Medical History Deferred: Pt Cognitively Impaired Past Medical History: No History, Except For Hx Cardiac Problems: Yes - Anemia, Dysphagia Hx Hypertension: Yes Hx COPD: Yes Hx Diabetes: Yes Hx Cancer: Yes History Of Psychiatric Problem: Yes - DEMENTIA Hx Dementia: Yes Review of Systems All Other Systems: limited Physical Exam Vital Signs Date Time Temp Pulse Resp B/P (MAP) Pulse Ox O2 Delivery O2 Flow Rate FiO2 05/30/19 22:32 98.8 112 18 101/64 (76) 90 Nasal Cannula 3.0 Sp02 EP Interpretation: reviewed, abnormal - It is low by me General Appearance: mild distress, thin, Chronically Ill Head: normocephalic, atraumatic Eyes: bilateral eye PERRL, bilateral eye other - This bilaterally ENT: dry mucus membranes Neck: no meningismus - Slight rigidity Respiratory: no accessory muscle use, no wheezing, respiratory distress - Mild , crackles, rales Cardiovascular #1: no JVD, tachycardia Cardiovascular #2: 2+ radial (R) Gastrointestinal: no mass, decreased bowel sounds, scaphoid Genitourinary: no CVA tenderness, other - Martínez draining cloudy urine Musculoskeletal: other - Contractures lower extremities Neurologic: alert - Looks about but does not respond to verbal stimuli, motor weakness - Diffuse Psychiatric: depressed affect Skin: other - Poor turgor Procedures Critical Care Time Critical Care Time Total Critical Care Time: 30 min bedside evaluation and treatment excludes procedures (EKG). Reason for critical care: Sepsis resuscitation, determination of level of care, respiratory support Possible complications: hypotension, hypertension, [place], shock, arrhythmias, metabolic acidosis, end organ damage, respiratory failure. Interventions: Fluid resuscitation, antibiotics, respiratory support and discussion of level of care with son and review of documents Course: Patient presents with dyspnea tachycardia hypotension. Clinically the patient is septic. Fluid resuscitation begun. Antibiotics ordered to cover pneumonia and UTI. Review of POSLT. Severe hypernatremia. Fluid hydration continued. Some improvement in vital signs but still tachypneic and tachycardic. Discussion with son and admitting physician. Consultations: nursing staff, EMS, family, respiratory therapy, admitting physician Performed by: Dr. Kemp Tolerated well condition = critical Medical Decision Making Diagnostic Impression: Primary Impression: Sepsis Qualified Codes: A41.9 - Sepsis, unspecified organism; R65.20 - Severe sepsis without septic shock; N17.9 - Acute kidney failure, unspecified Additional Impressions: Pneumonia Qualified Codes: J18.1 - Lobar pneumonia, unspecified organism Urinary tract infection Qualified Codes: T83.511A - Infection and inflammatory reaction due to indwelling urethral catheter, initial encounter; N39.0 - Urinary tract infection , site not specified Hypernatremia ARF (acute renal failure) Qualified Codes: N17.9 - Acute kidney failure, unspecified ER Course Patient presents with respiratory difficulty from a shelter facility. Differential includes sepsis, pneumonia, urinary tract infection, acute myocardial infarction amongst others. Patient will be evaluated with EKG, chest x-ray and labs including lactate and blood cultures. The patient will be given fluid resuscitation as blood pressure is minimally low and he is tachycardic. Presumptively and clinically he looks like he is septic. Antibiotics will be started to cover both the possibility of pneumonia and also urinary tract infection. The patient is a DNR status at this time and we should focus on reversible causes and comfort care. EKG was sinus tachycardia right atrial enlargement right axis deviation pulmonary disease uttered. No acute injury. Chest x-ray with bony changes in diffuse infiltrates. Laboratory with normal white count, elevated lactic acid. Urinalysis with pyuria. Hypernatremia and acute renal failure. Slightly elevated BNP. Lactic acid 3. Sepsis reevaluation: Improved blood pressure however still tachycardic. Antibiotics begun. Capillary fill normal. Lactic acid decreasing. Although vital signs somewhat improved the patient is tachypneic. He is working hard to breathe at this time. Oxygen is increased. Consideration of BiPAP. DNR documents reviewed. Discussed with son. Son understands that his father is quite ill at this time and may not survive this hospitalization. Admit medical floor to Dr. Moreno. Patient's prognosis is poor. Laboratory Tests Test 05/30/19 22:40 05/30/19 22:45 05/31/19 00:00 Urine Color Yellow Urine Appearance Cloudy Urine pH 5 (4.5-8.0) Urine Specific [place] 1.025 (1.005-1.035) Urine Protein 3+ (NEGATIVE) H Urine Glucose (UA) Negative (NEGATIVE) Urine Ketones 1+ (NEGATIVE) H Urine Blood 5+ (NEGATIVE) H Urine Nitrite Positive (NEGATIVE) H Urine Bilirubin 1+ (NEGATIVE) H Urine Ictotest Negative (NEGATIVE) Urine Urobilinogen 4 MG/DL (0.0-1.0) H Urine Leukocyte Esterase 3+ (NEGATIVE) H Urine RBC Tntc /HPF (0 - 0) H Urine WBC Tntc /HPF (0 - 0) H Urine Squamous Epithelial Cells None /LPF (NONE/OCC) Urine Bacteria Many /HPF (NONE) H White Blood Count 8.5 K/UL (4.8-10.8) Red Blood Count 3.92 M/UL (4.70-6.10) L Hemoglobin 10.1 G/DL (14.2-18.0) L Hematocrit 31.8 % (42.0-52.0) L Mean Corpuscular Volume 81 FL (80-99) Mean Corpuscular Hemoglobin 25.8 PG (27.0-31.0) L Mean Corpuscular Hemoglobin Concent 31.8 G/DL (32.0-36.0) L Red Cell Distribution Width 19.7 % (11.6-14.8) H Platelet Count 236 K/UL (150-450) Mean Platelet Volume 6.3 FL (6.5-10.1) L Neutrophils (%) (Auto) 68.2 % (45.0-75.0) Lymphocytes (%) (Auto) 20.7 % (20.0-45.0) Monocytes (%) (Auto) 9.9 % (1.0-10.0) Eosinophils (%) (Auto) 0.3 % (0.0-3.0) Basophils (%) (Auto) 0.9 % (0.0-2.0) Prothrombin Time 12.6 SEC (9.30-11.50) H Prothrombin Time INR 1.2 (0.9-1.1) H PTT 25 SEC (23-33) Sodium Level 166 MMOL/L (136-145) *H Potassium Level 4.0 MMOL/L (3.5-5.1) Chloride Level 128 MMOL/L (98-107) H Carbon Dioxide Level 22 MMOL/L (21-32) Anion Gap 15 mmol/L (5-15) Blood Urea Nitrogen 45 mg/dL (7-18) H Creatinine 1.7 MG/DL (0.55-1.30) H Estimate Glomerular Filtration Rate mL/min (>60) Glucose Level 158 MG/DL (74-106) H Lactic Acid Level 3.00 mmol/L (0.4-2.0) H 2.90 mmol/L (0.66-2.22) H Calcium Level 9.1 MG/DL (8.5-10.1) Magnesium Level 2.5 MG/DL (1.8-2.4) H Total Bilirubin 1.2 MG/DL (0.2-1.0) H Direct Bilirubin 0.5 MG/DL (0.0-0.3) H Aspartate Amino Transferase (AST) 34 U/L (15-37) Alanine Aminotransferase (ALT) 15 U/L (12-78) Alkaline Phosphatase 1333 U/L (46-116) H Total Creatine Kinase 131 U/L (26-308) Troponin I 0.046 ng/mL (0.000-0.056) Pro-B-Type Natriuretic Peptide 1313 pg/mL (0-125) H Total Protein 7.5 G/DL (6.4-8.2) Albumin 2.9 G/DL (3.4-5.0) L Globulin 4.6 g/dL Albumin/Globulin Ratio 0.6 (1.0-2.7) L Lipase 88 U/L (73-393) EKG Diagnostic Results Rate: tachycardiac Rhythm: NSR ST Segments: no acute changes - Above Rhythm Strip Diag. Results EP Interpretation: yes Rhythm: no PVC's, no ectopy, other - Sinus tachycardia Chest X-Ray Diagnostic Results Chest X-Ray Diagnostic Results : Chest X-Ray Ordered: Yes # of Views/Limited/Complete: 1 View Indication: Shortness of Breath EP Interpretation: Yes Interpretation: no effusion, no pneumothorax, other - COPD and infiltrates with bony changes Impression: Other Electronically Signed by: Electronically signed by Ye Kemp MD Last Vital Signs Date Time Temp Pulse Resp B/P (MAP) Pulse Ox O2 Delivery O2 Flow Rate FiO2 05/31/19 04:00 98.1 106 28 99/65 (76) 100 05/31/19 02:49 Non-Rebreather 10.0 Status: improved Disposition: ADMITTED INPATIENT Condition: Critical Referrals: Jhon Moreno MD (PCP) Ye Kemp MD May 31, 2019 05:44
[2019-05-31] MEDS ORDERED: Insulin Human Regular 100units/ml 3ml SUBQ SCH (06:30)
[2019-05-31] MEDS ORDERED: Miralax 17gm pkt ORAL PRN (07:15)
[2019-05-31] MEDS ORDERED: Albuterol/Ipratropium 3ml neb HHN PRN (07:15)
[2019-05-31] MEDS ORDERED: Morphine Sulfate 2mg/ml Inj(IV/IM USE ONLY) IVP PRN (07:15)
--- NOTE | 2019-05-31 07:21 | NUR ---
HAND-OFF: Report given to Yady Lopez RN.
--- NOTE | 2019-05-31 08:27 | NUR ---
NURSE NOTES: pt is in bed responds to name and opened eyes but does not answer questions. pt on Non-breather mask at 10L respiration 32/ min. R arm contraction. pt has begum from SNF for retention 16f urine dark and cloudy. Bed is locked and in lowest position. will continuer to monitor and follow plans of care.
[2019-05-31] MEDS ORDERED: Metoprolol 25mg tab ORAL SCH (09:00)
[2019-05-31] MEDS: Aspirin EC 81mg tab ORAL SCH ×2 (09:00→09:24)
[2019-05-31] MEDS: Thiamine 100mg tab ORAL SCH ×2 (09:00→09:24)
[2019-05-31] MEDS: Cefepime HCl 2 GM in D5W 110 ML IV SCH (09:24)
[2019-05-31] MEDS: Heparin 5000 units/ml inj SUBQ SCH ×2 (09:27→20:38)
[2019-05-31] MEDS: Insulin NovoLOG Flexpen S/S (Mod) SUBQ SCH ×3 (11:30→20:36)
--- NOTE | 2019-05-31 15:15 | Cardiology Report ---
APPROVED REPORT EKG Measurement Heart [id number] Sinus tachycardia with occasional premature ventricular complexes Right superior axis deviation Pulmonary disease pattern Incomplete right bundle branch block Right ventricular hypertrophy Abnormal ECG
--- NOTE | 2019-05-31 18:26 | Consultation ---
History of Present Illness General Chief Complaint: General Complaint Present Illness Allergies: Coded Allergies: No Known Allergies (Unverified , 02/28/16) Medication History Scheduled Aspirin* (Aspir 81*), 81 MG ORAL DAILY, (Reported) Finasteride* (Proscar*), 5 MG ORAL DAILY, (Reported) Insulin Regular, Human (Humulin R), 0 SUBQ AC+HS, (Reported) Metoprolol Tartrate* (Metoprolol Tartrate*), 25 MG ORAL BID, (Reported) Ranitidine Hcl* (Zantac*), 150 MG ORAL DAILY, (Reported) Tamsulosin Hcl (Tamsulosin Hcl*), 0.4 MG ORAL BEDTIME, (Reported) Thiamine Hcl* (Vitamin B-1*), 100 MG ORAL DAILY, (Reported) Scheduled PRN Acetaminophen* (Acetaminophen 325MG Tablet*), 650 MG ORAL Q4H PRN for For Pain, (Reported) Clonidine Hcl* (Catapres*), 0.1 MG ORAL EVERY 6 HOURS PRN for For High Blood Pressure, (Reported) Docusate Sodium* (Colace*), 100 MG ORAL DAILY PRN for Constipation, (Reported) Discontinued Medications Nitrofurantoin Macrocrystal (Nitrofurantoin), 1 GM MC Q12HR, (Reported) Discontinued Reason: Therapy completed Patient History Healthcare decision maker lucrecia () Resuscitation status Do Not Resuscitate Advanced Directive on File Physical Exam Last 24 Hour Vital Signs Date Time Temp Pulse Resp B/P (MAP) Pulse Ox O2 Delivery O2 Flow Rate FiO2 05/31/19 12:00 99.5 115 52 105/51 (69) 99 05/31/19 09:00 Non-Rebreather 10.0 05/31/19 09:00 102 97/60 05/31/19 08:00 98.6 102 32 97/60 (72) 100 05/31/19 04:00 98.1 106 28 99/65 (76) 100 05/31/19 02:49 98.1 115 34 107/50 100 Non-Rebreather 10.0 05/31/19 02:30 Non-Rebreather 10.0 05/31/19 02:20 98.1 115 34 107/50 (69) 100 05/31/19 01:40 98.0 115 34 94/72 (79) 99 05/31/19 01:02 98.8 125 26 124/87 100 Non-Rebreather 10.0 05/30/19 22:50 98.8 18 101/64 90 Nasal Cannula 3.0 05/30/19 22:50 112 18 Nasal Cannula 3.0 05/30/19 22:32 98.8 112 18 101/64 (76) 90 Nasal Cannula 3.0 Intake and Output 05/30/19 05/31/19 18:59 06:59 Intake Total 180 ml Output Total 850 ml Balance -670 ml Intake IV Total 180 ml Output Urine Total 850 ml Laboratory Tests Test 05/30/19 22:40 05/30/19 22:45 05/31/19 00:00 Urine Color Yellow Urine Appearance Cloudy Urine pH 5 (4.5-8.0) Urine Specific [place] 1.025 (1.005-1.035) Urine Protein 3+ (NEGATIVE) H Urine Glucose (UA) Negative (NEGATIVE) Urine Ketones 1+ (NEGATIVE) H Urine Blood 5+ (NEGATIVE) H Urine Nitrite Positive (NEGATIVE) H Urine Bilirubin 1+ (NEGATIVE) H Urine Ictotest Negative (NEGATIVE) Urine Urobilinogen 4 MG/DL (0.0-1.0) H Urine Leukocyte Esterase 3+ (NEGATIVE) H Urine RBC Tntc /HPF (0 - 0) H Urine WBC Tntc /HPF (0 - 0) H Urine Squamous Epithelial Cells None /LPF (NONE/OCC) Urine Bacteria Many /HPF (NONE) H White Blood Count 8.5 K/UL (4.8-10.8) Red Blood Count 3.92 M/UL (4.70-6.10) L Hemoglobin 10.1 G/DL (14.2-18.0) L Hematocrit 31.8 % (42.0-52.0) L Mean Corpuscular Volume 81 FL (80-99) Mean Corpuscular Hemoglobin 25.8 PG (27.0-31.0) L Mean Corpuscular Hemoglobin Concent 31.8 G/DL (32.0-36.0) L Red Cell Distribution Width 19.7 % (11.6-14.8) H Platelet Count 236 K/UL (150-450) Mean Platelet Volume 6.3 FL (6.5-10.1) L Neutrophils (%) (Auto) 68.2 % (45.0-75.0) Lymphocytes (%) (Auto) 20.7 % (20.0-45.0) Monocytes (%) (Auto) 9.9 % (1.0-10.0) Eosinophils (%) (Auto) 0.3 % (0.0-3.0) Basophils (%) (Auto) 0.9 % (0.0-2.0) Prothrombin Time 12.6 SEC (9.30-11.50) H Prothromb Time International Ratio 1.2 (0.9-1.1) H Activated Partial Thromboplast Time 25 SEC (23-33) Sodium Level 166 MMOL/L (136-145) *H Potassium Level 4.0 MMOL/L (3.5-5.1) Chloride Level 128 MMOL/L (98-107) H Carbon Dioxide Level 22 MMOL/L (21-32) Anion Gap 15 mmol/L (5-15) Blood Urea Nitrogen 45 mg/dL (7-18) H Creatinine 1.7 MG/DL (0.55-1.30) H Estimat Glomerular Filtration Rate mL/min (>60) Glucose Level 158 MG/DL (74-106) H Lactic Acid Level 3.00 mmol/L (0.4-2.0) H 2.90 mmol/L (0.66-2.22) H Calcium Level 9.1 MG/DL (8.5-10.1) Magnesium Level 2.5 MG/DL (1.8-2.4) H Total Bilirubin 1.2 MG/DL (0.2-1.0) H Direct Bilirubin 0.5 MG/DL (0.0-0.3) H Aspartate Amino Transf (AST/SGOT) 34 U/L (15-37) Alanine Aminotransferase (ALT/SGPT) 15 U/L (12-78) Alkaline Phosphatase 1333 U/L (46-116) H Total Creatine Kinase 131 U/L (26-308) Troponin I 0.046 ng/mL (0.000-0.056) Pro-B-Type Natriuretic Peptide 1313 pg/mL (0-125) H Total Protein 7.5 G/DL (6.4-8.2) Albumin 2.9 G/DL (3.4-5.0) L Globulin 4.6 g/dL Albumin/Globulin Ratio 0.6 (1.0-2.7) L Lipase 88 U/L (73-393) Microbiology Date/Time Source Procedure Growth Status 05/30/19 22:40 Urine,Clean Catch Urine Culture - Preliminary Resulted Height (Feet): 5 Height (Inches): 7.00 Weight (Pounds): 130 Medications Current Medications Medications (Trade) Dose Ordered Sig/Eufemia Route PRN Reason Start Time Stop Time Status Last Admin Dose Admin Acetaminophen (Tylenol) 650 mg Q4H PRN ORAL FEVER (T>100.5F) 05/31/19 07:15 06/30/19 07:14 Albuterol/ Ipratropium (Albuterol/ Ipratropium) 3 ml Q4H PRN HHN Shortness of Breath 05/31/19 07:15 06/05/19 07:14 Aspirin (Ecotrin) 81 mg DAILY ORAL 05/31/19 09:00 06/30/19 08:59 Cefepime HCl 2 gm/ Dextrose 110 ml @ 220 mls/hr DAILY IV 05/31/19 09:00 06/07/19 08:59 05/31/19 09:24 Dextrose 1,000 ml @ 75 mls/hr [id number] IV 05/31/19 11:30 06/30/19 11:29 05/31/19 13:42 Dextrose (Dextrose 50%) 25 ml Q30M PRN IV Hypoglycemia 05/31/19 03:30 06/30/19 03:29 Dextrose (Dextrose 50%) 50 ml Q30M PRN IV Hypoglycemia 05/31/19 03:30 06/30/19 03:29 Docusate Sodium (Colace) 100 mg DAILY PRN ORAL Constipation 05/31/19 03:30 06/30/19 03:29 Finasteride (Proscar) 5 mg DAILY ORAL 05/31/19 09:00 06/30/19 08:59 Heparin Sodium (Porcine) (Heparin 5000 units/ml) 5,000 units EVERY 12 HOURS SUBQ 05/31/19 09:00 06/30/19 08:59 05/31/19 09:27 Insulin Aspart (NovoLOG) No Dose BEFORE MEALS AND HS SUBQ 05/31/19 11:30 06/30/19 11:29 Metoprolol Tartrate (Lopressor) 25 mg BID@0900,2100 ORAL 05/31/19 21:00 06/30/19 08:59 Morphine Sulfate (Morphine Sulfate) 2 mg Q1H PRN IVP For Pain 05/31/19 16:45 06/07/19 16:44 Ondansetron HCl (Zofran) 4 mg Q6H PRN IVP Nausea & Vomiting 05/31/19 07:15 06/30/19 07:14 Polyethylene Glycol (Miralax) 17 gm DAILYPRN PRN ORAL Constipation 05/31/19 07:15 06/30/19 07:14 Tamsulosin HCl (Flomax) 0.4 mg BEDTIME ORAL 05/31/19 21:00 06/30/19 20:59 Thiamine HCl (Vitamin B1) 100 mg DAILY ORAL 05/31/19 09:00 06/30/19 08:59 Vancomycin HCl (Vanco rx to dose) 1 ea DAILY PRN MISC PER RX PROTOCOL 05/31/19 07:45 06/30/19 07:44 Vancomycin HCl 750 mg/Sodium Chloride 275 ml @ 183.333 mls/hr Q24H IVPB 05/31/19 23:00 06/05/19 22:59 Assessment/Plan Problem List: (1) Sepsis ICD Codes: A41.9 - Sepsis, unspecified organism SNOMED: 41377310 Qualifiers: Qualified Codes: A41.9 - Sepsis, unspecified organism; R65.20 - Severe sepsis without septic shock; N17.9 - Acute kidney failure, unspecified (2) Acute encephalopathy ICD Codes: G93.40 - Encephalopathy, unspecified SNOMED: 0118110 (3) Acute renal failure ICD Codes: N17.9 - Acute kidney failure, unspecified SNOMED: 65989503 (4) Diabetes ICD Codes: E11.9 - Type 2 diabetes mellitus without complications SNOMED: 81747488 (5) ARF (acute renal failure) ICD Codes: N17.9 - Acute kidney failure, unspecified SNOMED: 69042381 Qualifiers: Qualified Codes: N17.9 - Acute kidney failure, unspecified (6) Pneumonia ICD Codes: J18.9 - Pneumonia, unspecified organism SNOMED: 044596258 Qualifiers: Qualified Codes: J18.1 - Lobar pneumonia, unspecified organism (7) HTN (hypertension) ICD Codes: I10 - Essential (primary) hypertension SNOMED: 55045948 Dayanna Perez MD May 31, 2019 18:26
[2019-05-31] MEDS: Morphine Sulfate 2mg/ml Inj(IV/IM USE ONLY) IVP PRN (18:48)
--- NOTE | 2019-05-31 19:30 | NUR ---
NURSE NOTES: Pt received in bed, awake, nonverbal. Still tachycardic, tachypneic, labored breathing on 15LPM NRB mask. SpO2 at 100%. FC draining via gravity. Will continue to monitor.
--- NOTE | 2019-05-31 19:56 | NUR ---
HAND-OFF: Report given to Justus/CHANDLER.
[2019-05-31] MEDS: Metoprolol 25mg tab ORAL SCH (20:24)
[2019-05-31] MEDS ORDERED: Tamsulosin 0.4mg cap ORAL SCH (21:00)
[2019-05-31] MEDS ORDERED: Vancomycin 1 GM in D5W 275 ML IV SCH (23:00)
[2019-05-31] MEDS ORDERED: Vancomycin 750mg/NS 275ml IVPB SCH ×2 (23:00)
[2019-06-01] VITALS: BP 110/66
[2019-06-01 04:00] VITALS: BP 107/82
--- NOTE | 2019-06-01 04:45 | NUR ---
NURSE NOTES: Pt suctioned NT by RT, sputum collected.
[2019-06-01] MEDS: Insulin NovoLOG Flexpen S/S (Mod) SUBQ SCH ×3 (05:26→16:10)
--- NOTE | 2019-06-01 07:20 | NUR ---
NURSE NOTES: Pt A/O x 0, bedbound, right arm contracted, begum in place, pts on 15L O2 via non-rebreather mask, suction PRN. pts on Abx/IVF. L arm edema, elevated on pillow. bed in low position, fall precaution maintained. will continue to monitor.
--- NOTE | 2019-06-01 07:22 | NUR ---
HAND-OFF: Report given to Dalila ARTEAGA.
[2019-06-01 07:30] LABS: BASOPHILS % (AUTO) 1.3 % (0.0-2.0); EOSINOPHILS % (AUTO) 0.8 % (0.0-3.0); HEMATOCRIT 29.3 % (42.0-52.0); HEMOGLOBIN 8.7 G/DL (14.2-18.0); LYMPHOCYTES % (AUTO) 21.1 % (20.0-45.0); MEAN CORPUSCULAR VOLUME 85 FL (80-99); MONOCYTES % (AUTO) 8.4 % (1.0-10.0); NEUTROPHILS % (AUTO) 68.5 % (45.0-75.0); PLATELET COUNT 163 K/UL (150-450); RED BLOOD COUNT 3.43 M/UL (4.70-6.10); RED CELL DISTRIBUTION WIDTH 21.8 % (11.6-14.8); WHITE BLOOD COUNT 6.6 K/UL (4.8-10.8)
[2019-06-01 07:40] LABS: ANION GAP 12 mmol/L (5-15); BLOOD UREA NITROGEN 33 mg/dL (7-18); CALCIUM 8.6 MG/DL (8.5-10.1); CARBON DIOXIDE 19 MMOL/L (21-32); CHLORIDE 131 MMOL/L (98-107); CREATININE 1.3 MG/DL (0.55-1.30); POTASSIUM 3.7 MMOL/L (3.5-5.1)
[2019-06-01 07:45] LABS: SODIUM 162 MMOL/L (136-145)
[2019-06-01 07:55] LABS: ALBUMIN 2.3 G/DL (3.4-5.0); ANION GAP 12 mmol/L (5-15); BLOOD UREA NITROGEN 33 mg/dL (7-18); CALCIUM 8.7 MG/DL (8.5-10.1); CARBON DIOXIDE 19 MMOL/L (21-32); CHLORIDE 131 MMOL/L (98-107); CREATININE 1.3 MG/DL (0.55-1.30); PHOSPHORUS 2.7 MG/DL (2.5-4.9); POTASSIUM 3.8 MMOL/L (3.5-5.1)
[2019-06-01 07:56] LABS: SODIUM 162 MMOL/L (136-145)
[2019-06-01 08:00] VITALS: BP 102/57
--- NOTE | 2019-06-01 08:03 | NUR ---
NURSE NOTES: Left message to Dr Moreno, regarding Na 162, waiting for call back.
--- NOTE | 2019-06-01 08:28 | Consultation ---
History of Present Illness General Date patient seen: Jun 01, 2019 Chief Complaint: Present Illness Allergies: Coded Allergies: No Known Allergies (Unverified , 02/28/16) Medication History Scheduled Aspirin* (Aspir 81*), 81 MG ORAL DAILY, (Reported) Finasteride* (Proscar*), 5 MG ORAL DAILY, (Reported) Insulin Regular, Human (Humulin R), 0 SUBQ AC+HS, (Reported) Metoprolol Tartrate* (Metoprolol Tartrate*), 25 MG ORAL BID, (Reported) Ranitidine Hcl* (Zantac*), 150 MG ORAL DAILY, (Reported) Tamsulosin Hcl (Tamsulosin Hcl*), 0.4 MG ORAL BEDTIME, (Reported) Thiamine Hcl* (Vitamin B-1*), 100 MG ORAL DAILY, (Reported) Scheduled PRN Acetaminophen* (Acetaminophen 325MG Tablet*), 650 MG ORAL Q4H PRN for Mild Pain (Pain Scale 1-3), (Reported) Clonidine Hcl* (Catapres*), 0.1 MG ORAL EVERY 6 HOURS PRN for For High Blood Pressure, (Reported) Docusate Sodium* (Colace*), 100 MG ORAL DAILY PRN for Constipation, (Reported) Discontinued Medications Nitrofurantoin Macrocrystal (Nitrofurantoin), 1 GM MC Q12HR, (Reported) Discontinued Reason: Therapy completed Patient History Healthcare decision maker lucrecia () Resuscitation status Do Not Resuscitate Advanced Directive on File Physical Exam Last 24 Hour Vital Signs Date Time Temp Pulse Resp B/P (MAP) Pulse Ox O2 Delivery O2 Flow Rate FiO2 06/01/19 04:00 99.3 116 28 107/82 (90) 99 06/01/19 00:00 97.9 119 42 110/66 (81) 100 05/31/19 21:00 Non-Rebreather 15.0 05/31/19 20:00 97.9 114 40 128/62 (84) 100 05/31/19 16:00 97.6 97 36 125/65 (85) 99 05/31/19 12:00 99.5 115 52 105/51 (69) 99 05/31/19 09:00 Non-Rebreather 10.0 05/31/19 09:00 102 97/60 Intake and Output 05/31/19 06/01/19 19:00 07:00 Intake Total 75 ml 1045.000 ml Output Total 400 ml 400 ml Balance -325 ml 645.000 ml Intake IV Total 75 ml 1045.000 ml Output Urine Total 400 ml 400 ml Laboratory Tests Test 06/01/19 07:00 White Blood Count 6.6 K/UL (4.8-10.8) Red Blood Count 3.43 M/UL (4.70-6.10) L Hemoglobin 8.7 G/DL (14.2-18.0) L Hematocrit 29.3 % (42.0-52.0) L Mean Corpuscular Volume 85 FL (80-99) Mean Corpuscular Hemoglobin 25.3 PG (27.0-31.0) L Mean Corpuscular Hemoglobin Concent 29.6 G/DL (32.0-36.0) L Red Cell Distribution Width 21.8 % (11.6-14.8) H Platelet Count 163 K/UL (150-450) Mean Platelet Volume 7.5 FL (6.5-10.1) Neutrophils (%) (Auto) 68.5 % (45.0-75.0) Lymphocytes (%) (Auto) 21.1 % (20.0-45.0) Monocytes (%) (Auto) 8.4 % (1.0-10.0) Eosinophils (%) (Auto) 0.8 % (0.0-3.0) Basophils (%) (Auto) 1.3 % (0.0-2.0) Sodium Level 162 MMOL/L (136-145) *H Potassium Level 3.8 MMOL/L (3.5-5.1) Chloride Level 131 MMOL/L (98-107) H Carbon Dioxide Level 19 MMOL/L (21-32) L Anion Gap 12 mmol/L (5-15) Blood Urea Nitrogen 33 mg/dL (7-18) H Creatinine 1.3 MG/DL (0.55-1.30) Estimat Glomerular Filtration Rate mL/min (>60) Glucose Level 143 MG/DL (74-106) H Calcium Level 8.7 MG/DL (8.5-10.1) Phosphorus Level 2.7 MG/DL (2.5-4.9) Albumin 2.3 G/DL (3.4-5.0) L Height (Feet): 5 Height (Inches): 7.00 Weight (Pounds): 130 Medications Current Medications Medications (Trade) Dose Ordered Sig/Eufemia Route PRN Reason Start Time Stop Time Status Last Admin Dose Admin Acetaminophen (Tylenol) 650 mg Q4H PRN ORAL FEVER (T>100.5F) 05/31/19 07:15 06/30/19 07:14 Albuterol/ Ipratropium (Albuterol/ Ipratropium) 3 ml Q4H PRN HHN Shortness of Breath 05/31/19 07:15 06/05/19 07:14 Aspirin (Ecotrin) 81 mg DAILY ORAL 05/31/19 09:00 06/30/19 08:59 Cefepime HCl 2 gm/ Dextrose 110 ml @ 220 mls/hr DAILY IV 05/31/19 09:00 06/07/19 08:59 05/31/19 09:24 Dextrose 1,000 ml @ 75 mls/hr [id number] IV 05/31/19 11:30 06/30/19 11:29 06/01/19 00:59 Dextrose (Dextrose 50%) 25 ml Q30M PRN IV Hypoglycemia 05/31/19 03:30 06/30/19 03:29 Dextrose (Dextrose 50%) 50 ml Q30M PRN IV Hypoglycemia 05/31/19 03:30 06/30/19 03:29 Docusate Sodium (Colace) 100 mg DAILY PRN ORAL Constipation 05/31/19 03:30 06/30/19 03:29 Finasteride (Proscar) 5 mg DAILY ORAL 05/31/19 09:00 06/30/19 08:59 Heparin Sodium (Porcine) (Heparin 5000 units/ml) 5,000 units EVERY 12 HOURS SUBQ 05/31/19 09:00 06/30/19 08:59 05/31/19 20:38 Insulin Aspart (NovoLOG) No Dose BEFORE MEALS AND HS SUBQ 05/31/19 11:30 06/30/19 11:29 06/01/19 05:26 Metoprolol Tartrate (Lopressor) 25 mg BID@0900,2100 ORAL 05/31/19 21:00 06/30/19 08:59 Morphine Sulfate (Morphine Sulfate) 2 mg Q1H PRN IVP For Pain 05/31/19 16:45 06/07/19 16:44 05/31/19 18:48 Ondansetron HCl (Zofran) 4 mg Q6H PRN IVP Nausea & Vomiting 05/31/19 07:15 06/30/19 07:14 Polyethylene Glycol (Miralax) 17 gm DAILYPRN PRN ORAL Constipation 05/31/19 07:15 06/30/19 07:14 Tamsulosin HCl (Flomax) 0.4 mg BEDTIME ORAL 05/31/19 21:00 06/30/19 20:59 Thiamine HCl (Vitamin B1) 100 mg DAILY ORAL 05/31/19 09:00 06/30/19 08:59 Vancomycin HCl (Vanco rx to dose) 1 ea DAILY PRN MISC PER RX PROTOCOL 05/31/19 07:45 06/30/19 07:44 Vancomycin HCl 750 mg/Sodium Chloride 275 ml @ 183.333 mls/hr Q24H IVPB 05/31/19 23:00 06/05/19 22:59 05/31/19 22:41 Assessment/Plan Assessment/Plan: (1) 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
[2019-06-01] MEDS: Aspirin EC 81mg tab ORAL SCH (09:00)
[2019-06-01] MEDS: Metoprolol 25mg tab ORAL SCH (09:00)
[2019-06-01] MEDS: Thiamine 100mg tab ORAL SCH (09:00)
[2019-06-01] MEDS: Cefepime HCl 2 GM in D5W 110 ML IV SCH (09:36)
[2019-06-01] MEDS: Heparin 5000 units/ml inj SUBQ SCH (09:39)
--- NOTE | 2019-06-01 09:47 | Consultation ---
Consult Note Consult Note Asked to evaluate at the request of Dr Marx for renal failure and HyperNatremia patient lethargic examined data reviewed Per ER: Patient was sent in for congestion. The patient is in a senior living facility. Apparently he is a DNR status. He is unable to give a history due to dementia. The facility noted that he had respiratory difficulty. He was transported by BLS ambulance. There is a Martínez catheter present. He has a history of metastatic lung cancer. He was most recently discharged May 11 with these discharge diagnoses: Acute encephalopathy Complicated UTI with multidrug-resistant E. coli in patient with chronic indwelling Martínez catheter Metastatic prostate cancer COPD Diabetes mellitus Hypertension Sinus tachycardia Aortic stenosis Severe pulmonary hypertension Anemia of iron deficiency Dysphagia Dementia DNR status No Known Allergies (Unverified , 02/28/16) Past Medical History Deferred: Pt Cognitively Impaired Past Medical History: No History, Except For Hx Cardiac Problems: Yes - Anemia, Dysphagia Hx Hypertension: Yes Hx COPD: Yes Hx Diabetes: Yes Hx Cancer: Yes History Of Psychiatric Problem: Yes - DEMENTIA Hx Dementia: Yes . Assessment/Plan Acute renal failure, with major pre renal componenet HyperNatremia , due to dehydration and free water deficit BPH , High PSA and Alk Phos Sepsis / Pneumonia / UTI Anemia D5W St eval Antibiotics Avoid Nephrotoxics Anemia campos per orders patient DNR DNI Cecil Collins MD Jun 01, 2019 09:47
--- NOTE | 2019-06-01 10:00 | NUR ---
PT NOTE Received MD order for PT evaluation, medical record reviewed. Spoke with patient's uncle, patient has been bedbound for some time. Patient lethargic, unable to follow commands. Skilled inpatient PT intervention not indicated as patient is dependent with all mobility and ADLs. Patient discharged from PT, Dalila ARTEAGA notified.
[2019-06-01 12:00] VITALS: BP 107/65
[2019-06-01] MEDS: Docusate 100mg cap ORAL SCH ×2 (12:46→17:39)
--- NOTE | 2019-06-01 12:52 | Consultation ---
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 She was found to have ROSIE and hypernatremia Of note, patient was admitted here from 05/08- for complicated UTI 2ry to MDR E.coli, s/p Polymixin B for 6 days. Allergies: Coded Allergies: No Known Allergies (Unverified , 02/28/16) Medication History Scheduled Aspirin* (Aspir 81*), 81 MG ORAL DAILY, (Reported) Finasteride* (Proscar*), 5 MG ORAL DAILY, (Reported) Insulin Regular, Human (Humulin R), 0 SUBQ AC+HS, (Reported) Metoprolol Tartrate* (Metoprolol Tartrate*), 25 MG ORAL BID, (Reported) Ranitidine Hcl* (Zantac*), 150 MG ORAL DAILY, (Reported) Tamsulosin Hcl (Tamsulosin Hcl*), 0.4 MG ORAL BEDTIME, (Reported) Thiamine Hcl* (Vitamin B-1*), 100 MG ORAL DAILY, (Reported) Scheduled PRN Acetaminophen* (Acetaminophen 325MG Tablet*), 650 MG ORAL Q4H PRN for Mild Pain (Pain Scale 1-3), (Reported) Clonidine Hcl* (Catapres*), 0.1 MG ORAL EVERY 6 HOURS PRN for For High Blood Pressure, (Reported) Docusate Sodium* (Colace*), 100 MG ORAL DAILY PRN for Constipation, (Reported) Discontinued Medications Nitrofurantoin Macrocrystal (Nitrofurantoin), 1 GM MC Q12HR, (Reported) Discontinued Reason: Therapy completed Patient History Healthcare decision maker lucrecia (uncle) Resuscitation status Do Not Resuscitate Advanced Directive on File Patient History Narrative Pmhx: as above Shx: skilled nursing resident. No history of alcohol, drug abuse, and smoking. He is single. Code status is DNR/DNI. Fhx: non contributory Review of Systems All Other Systems: negative except mentioned in HPI Physical Exam Physical Exam Narrative General Appearance: mild distress, thin, Chronically Ill Head: normocephalic, atraumatic Eyes: bilateral eye PERRL, bilateral eye other - This bilaterally ENT: dry mucus membranes Neck: no meningismus - Slight rigidity Respiratory: no accessory muscle use, no wheezing, respiratory distress - Mild , crackles, rales Cardiovascular : no JVD, tachycardia Gastrointestinal: no mass, decreased bowel sounds, scaphoid Genitourinary: no CVA tenderness, other - Begum draining cloudy urine Musculoskeletal: other - Contractures lower extremities Neurologic: alert - Looks about but does not respond to verbal stimuli, motor weakness - Diffuse Psychiatric: depressed affect Skin: other - Poor turgor Last 24 Hour Vital Signs Date Time Temp Pulse Resp B/P (MAP) Pulse Ox O2 Delivery O2 Flow Rate FiO2 06/01/19 09:00 Non-Rebreather 15.0 06/01/19 09:00 122 102/57 06/01/19 08:00 100.2 122 24 102/57 (72) 93 06/01/19 04:00 99.3 116 28 107/82 (90) 99 06/01/19 00:00 97.9 119 42 110/66 (81) 100 05/31/19 21:00 Non-Rebreather 15.0 05/31/19 20:00 97.9 114 40 128/62 (84) 100 05/31/19 16:00 97.6 97 36 125/65 (85) 99 Intake and Output 05/31/19 06/01/19 19:00 07:00 Intake Total 75 ml 1045.000 ml Output Total 400 ml 400 ml Balance -325 ml 645.000 ml Intake IV Total 75 ml 1045.000 ml Output Urine Total 400 ml 400 ml Laboratory Tests Test 06/01/19 07:00 White Blood Count 6.6 K/UL (4.8-10.8) Red Blood Count 3.43 M/UL (4.70-6.10) L Hemoglobin 8.7 G/DL (14.2-18.0) L Hematocrit 29.3 % (42.0-52.0) L Mean Corpuscular Volume 85 FL (80-99) Mean Corpuscular Hemoglobin 25.3 PG (27.0-31.0) L Mean Corpuscular Hemoglobin Concent 29.6 G/DL (32.0-36.0) L Red Cell Distribution Width 21.8 % (11.6-14.8) H Platelet Count 163 K/UL (150-450) Mean Platelet Volume 7.5 FL (6.5-10.1) Neutrophils (%) (Auto) 68.5 % (45.0-75.0) Lymphocytes (%) (Auto) 21.1 % (20.0-45.0) Monocytes (%) (Auto) 8.4 % (1.0-10.0) Eosinophils (%) (Auto) 0.8 % (0.0-3.0) Basophils (%) (Auto) 1.3 % (0.0-2.0) Sodium Level 162 MMOL/L (136-145) *H Potassium Level 3.8 MMOL/L (3.5-5.1) Chloride Level 131 MMOL/L (98-107) H Carbon Dioxide Level 19 MMOL/L (21-32) L Anion Gap 12 mmol/L (5-15) Blood Urea Nitrogen 33 mg/dL (7-18) H Creatinine 1.3 MG/DL (0.55-1.30) Estimat Glomerular Filtration Rate mL/min (>60) Glucose Level 143 MG/DL (74-106) H Calcium Level 8.7 MG/DL (8.5-10.1) Phosphorus Level 2.7 MG/DL (2.5-4.9) Albumin 2.3 G/DL (3.4-5.0) L Prostate Specific Antigen 1182.00 ng/mL (0.13-4.0) H Height (Feet): 5 Height (Inches): 7.00 Weight (Pounds): 130 Medications Current Medications Medications (Trade) Dose Ordered Sig/Eufemia Route PRN Reason Start Time Stop Time Status Last Admin Dose Admin Acetaminophen (Tylenol) 650 mg Q4H PRN ORAL FEVER (T>100.5F) 05/31/19 07:15 06/30/19 07:14 Albuterol/ Ipratropium (Albuterol/ Ipratropium) 3 ml Q4H PRN HHN Shortness of Breath 05/31/19 07:15 06/05/19 07:14 Aspirin (Ecotrin) 81 mg DAILY ORAL 05/31/19 09:00 06/30/19 08:59 Cefepime HCl 2 gm/ Dextrose 110 ml @ 220 mls/hr DAILY IV 05/31/19 09:00 06/07/19 08:59 06/01/19 09:36 Dextrose 1,000 ml @ 100 mls/hr Q10H IV 06/01/19 10:00 07/01/19 09:59 06/01/19 11:31 Dextrose (Dextrose 50%) 25 ml Q30M PRN IV Hypoglycemia 05/31/19 03:30 06/30/19 03:29 Dextrose (Dextrose 50%) 50 ml Q30M PRN IV Hypoglycemia 05/31/19 03:30 06/30/19 03:29 Docusate Sodium (Colace) 100 mg TID ORAL 06/01/19 13:00 06/30/19 03:29 Finasteride (Proscar) 5 mg DAILY ORAL 05/31/19 09:00 06/30/19 08:59 Heparin Sodium (Porcine) (Heparin 5000 units/ml) 5,000 units EVERY 12 HOURS SUBQ 05/31/19 09:00 06/30/19 08:59 06/01/19 09:39 Insulin Aspart (NovoLOG) No Dose BEFORE MEALS AND HS SUBQ 05/31/19 11:30 06/30/19 11:29 06/01/19 05:26 Metoprolol Tartrate (Lopressor) 25 mg BID@0900,2100 ORAL 05/31/19 21:00 06/30/19 08:59 Morphine Sulfate (Morphine Sulfate) 2 mg Q1H PRN IVP For Pain 05/31/19 16:45 06/07/19 16:44 05/31/19 18:48 Ondansetron HCl (Zofran) 4 mg Q6H PRN IVP Nausea & Vomiting 05/31/19 07:15 06/30/19 07:14 Polyethylene Glycol (Miralax) 17 gm DAILYPRN PRN ORAL Constipation 05/31/19 07:15 06/30/19 07:14 Tamsulosin HCl (Flomax) 0.4 mg BEDTIME ORAL 05/31/19 21:00 06/30/19 20:59 Thiamine HCl (Vitamin B1) 100 mg DAILY ORAL 05/31/19 09:00 06/30/19 08:59 Vancomycin HCl (Vanco rx to dose) 1 ea DAILY PRN MISC PER RX PROTOCOL 05/31/19 07:45 06/30/19 07:44 Vancomycin HCl 750 mg/Sodium Chloride 275 ml @ 183.333 mls/hr Q24H IVPB 05/31/19 23:00 06/05/19 22:59 05/31/19 22:41 Assessment/Plan Assessment/Plan: Abx: IV Vancomycin 05/30- Cefepime 05/31- Zosyn x1 05/30 Assessment: Sepsis UTI -u/a wbc tnct, nit +, leuk +3; ucx >100k GNR -05/30 BCx NTD PNA -CXR: Small patchy airspace opacities over left upper lung zone, bilateral lower lung zone suggests atelectasis and/or pneumonia. Pneumonia is especially of concern over left upper lung zone. Diffusely scattered dense bone , may suggest metastases versus underlying metabolic or hematologic disorders. Low grade fever No leukocytosis Lactic acidosis ROSIE, improving Hypernatremia metastatic prostate cancer to bones BPH recurrent UTIs -05/11 UCx : CRE E.coli (S colistin, Polymixin B), PsA (alvarado S) chronic indwelling begum catheter COPD Dm2 HTN aortic stenosis severe pHTN Iron def anemia dysphagia Dementia DNR status SNF resident Plan: -COntinue empiric IV Vancomycin and Cefepime and give one time dose Amikacin pending cultures -f/u cx -Monitor CBC/CMP, temperatures -aspiration precautions Thank you for this consultation. Will continue to follow along with you. Discussed with Carley Flannery M.D. Jun 01, 2019 12:52
[2019-06-01] MEDS ORDERED: Amikacin Rx to dose MISC ONE (13:00)
--- NOTE | 2019-06-01 13:06 | NUR ---
RD ASSESSMENT & RECOMMENDATIONS SEE CARE ACTIVITY FOR COMPLETE ASSESSMENT DAILY ESTIMATED NEEDS: Needs based on Wt loss, underweight, wasting, catabolic dx/ 59kg 30-35 kcals/kg 5636-1265 total kcals 1-1.5 g protein/kg 59-89 g total protein 25-30 mL/kg 1395-2598 total fluid mLs NUTRITION DIAGNOSIS: 1) Increased kcal/prot intake needs R/T catabolic dx, underweight status, wt loss as evidenced by dx of metastatic prostate cancer to bones and lungs, pt is 68% IBW, BMI of 16.7, admitted w/ possible significant wt loss of 26lbs/16.7% in 2 mo. 2) Swallowing difficulty R/T dysphagia, decreased cognitive fxn, respiratory status as evidenced by pt on pureed texture, pending [employer] eval, on non-rebreather mask. CURRENT DIET:REGULAR, Pureed Moist PO DIET RECOMMENDATIONS: Liberalized REGULAR/ texture per [employer] ENTERAL NUTRITION RECOMMENDATIONS: CONSULT RD IF TF PART OF POC ADDITIONAL RECOMMENDATIONS: 1) Calibrated bedscale wt for accurate CBW 2) Monitor POC- no TF per POLST at this time -> F/up w/ [employer] eval 3) Glucerna TID w/ oral diet 4) Monitor lytes, replete as needed
[2019-06-01] MEDS: Morphine Sulfate 2mg/ml Inj(IV/IM USE ONLY) IVP PRN ×2 (13:45→16:18)
--- NOTE | 2019-06-01 13:56 | Pulmonology Progress Note ---
Assessment/Plan Problems: (1) Sepsis (2) Acute encephalopathy (3) Acute renal failure (4) Diabetes (5) ARF (acute renal failure) (6) Pneumonia (7) HTN (hypertension) Assessment/Plan add atropin and Rubinol prn morphine comfort measures respiratory treatment frequent suctioning Subjective ROS Limited/Unobtainable: Yes Interval Events: on 100% nrm Constitutional: Reports: no symptoms HEENT: Repors: no symptoms Allergies: Coded Allergies: No Known Allergies (Unverified , 02/28/16) Objective Last 24 Hour Vital Signs Date Time Temp Pulse Resp B/P (MAP) Pulse Ox O2 Delivery O2 Flow Rate FiO2 06/01/19 12:00 100.4 130 23 107/65 (79) 93 06/01/19 09:00 Non-Rebreather 15.0 06/01/19 09:00 122 102/57 06/01/19 08:00 100.2 122 24 102/57 (72) 93 06/01/19 04:00 99.3 116 28 107/82 (90) 99 06/01/19 00:00 97.9 119 42 110/66 (81) 100 05/31/19 21:00 Non-Rebreather 15.0 05/31/19 20:00 97.9 114 40 128/62 (84) 100 05/31/19 16:00 97.6 97 36 125/65 (85) 99 Intake and Output 05/31/19 06/01/19 19:00 07:00 Intake Total 75 ml 1045.000 ml Output Total 400 ml 400 ml Balance -325 ml 645.000 ml Intake IV Total 75 ml 1045.000 ml Output Urine Total 400 ml 400 ml General Appearance: cachetic HEENT: normocephalic, atraumatic Respiratory/Chest: chest wall non-tender, crackles/rales, rhonchi Cardiovascular: normal peripheral pulses, normal rate Abdomen: normal bowel sounds, no organomegaly Extremities: no cyanosis Microbiology Date/Time Source Procedure Growth Status 05/30/19 22:50 Blood Blood Culture - Preliminary NO GROWTH AFTER 24 HOURS Resulted 05/30/19 22:45 Blood Blood Culture - Preliminary NO GROWTH AFTER 24 HOURS Resulted 05/30/19 22:40 Urine,Clean Catch Urine Culture - Preliminary Gram Negative Bacillus 1 Resulted Laboratory Tests 06/01/19 07:00: White Blood Count 6.6, Red Blood Count 3.43L, Hemoglobin 8.7L, Hematocrit 29.3L , Mean Corpuscular Volume 85, Mean Corpuscular Hemoglobin 25.3L, Mean Corpuscular Hemoglobin Concent 29.6L, Red Cell Distribution Width 21.8H, Platelet Count 163, Mean Platelet Volume 7.5, Neutrophils (%) (Auto) 68.5, Lymphocytes (%) (Auto) 21.1, Monocytes (%) (Auto) 8.4, Eosinophils (%) (Auto) 0.8, Basophils (%) (Auto) 1.3, Sodium Level 162*H, Potassium Level 3.8, Chloride Level 131H, Carbon Dioxide Level 19L, Anion Gap 12, Blood Urea Nitrogen 33H, Creatinine 1.3, Estimat Glomerular Filtration Rate , Glucose Level 143H, Calcium Level 8.7, Phosphorus Level 2.7, Albumin 2.3L, Prostate Specific Antigen 1182.00H Current Medications Medications (Trade) Dose Ordered Sig/Eufemia Route PRN Reason Start Time Stop Time Status Last Admin Dose Admin Acetaminophen (Tylenol) 650 mg Q4H PRN ORAL FEVER (T>100.5F) 05/31/19 07:15 06/30/19 07:14 Albuterol/ Ipratropium (Albuterol/ Ipratropium) 3 ml Q4H PRN HHN Shortness of Breath 05/31/19 07:15 06/05/19 07:14 Amikacin Sulfate 900 mg/Sodium Chloride 113.6 ml @ 113.6 mls/ hr ONCE IV 06/01/19 16:00 06/01/19 18:00 Aspirin (Ecotrin) 81 mg DAILY ORAL 05/31/19 09:00 06/30/19 08:59 Cefepime HCl 2 gm/ Dextrose 110 ml @ 220 mls/hr DAILY IV 05/31/19 09:00 06/07/19 08:59 06/01/19 09:36 Dextrose 1,000 ml @ 100 mls/hr Q10H IV 06/01/19 10:00 07/01/19 09:59 06/01/19 11:31 Dextrose (Dextrose 50%) 25 ml Q30M PRN IV Hypoglycemia 05/31/19 03:30 06/30/19 03:29 Dextrose (Dextrose 50%) 50 ml Q30M PRN IV Hypoglycemia 05/31/19 03:30 06/30/19 03:29 Docusate Sodium (Colace) 100 mg TID ORAL 06/01/19 13:00 06/30/19 03:29 Finasteride (Proscar) 5 mg DAILY ORAL 05/31/19 09:00 06/30/19 08:59 Heparin Sodium (Porcine) (Heparin 5000 units/ml) 5,000 units EVERY 12 HOURS SUBQ 05/31/19 09:00 06/30/19 08:59 06/01/19 09:39 Insulin Aspart (NovoLOG) No Dose BEFORE MEALS AND HS SUBQ 05/31/19 11:30 06/30/19 11:29 06/01/19 05:26 Metoprolol Tartrate (Lopressor) 25 mg BID@0900,2100 ORAL 05/31/19 21:00 06/30/19 08:59 Morphine Sulfate (Morphine Sulfate) 2 mg Q1H PRN IVP For Pain 05/31/19 16:45 06/07/19 16:44 06/01/19 13:45 Ondansetron HCl (Zofran) 4 mg Q6H PRN IVP Nausea & Vomiting 05/31/19 07:15 06/30/19 07:14 Polyethylene Glycol (Miralax) 17 gm DAILYPRN PRN ORAL Constipation 05/31/19 07:15 06/30/19 07:14 Tamsulosin HCl (Flomax) 0.4 mg BEDTIME ORAL 05/31/19 21:00 06/30/19 20:59 Thiamine HCl (Vitamin B1) 100 mg DAILY ORAL 05/31/19 09:00 06/30/19 08:59 Vancomycin HCl (Vanco rx to dose) 1 ea DAILY PRN MISC PER RX PROTOCOL 05/31/19 07:45 06/30/19 07:44 Vancomycin HCl 750 mg/Sodium Chloride 275 ml @ 183.333 mls/hr Q24H IVPB 05/31/19 23:00 06/05/19 22:59 05/31/19 22:41 Dayanna Perez MD Jun 01, 2019 13:56
[2019-06-01] MEDS ORDERED: Glycopyrrolate 0.2mg/ml 1ml Vial IV PRN ×2 (14:02→16:31)
[2019-06-01 16:00] VITALS: BP 105/59
[2019-06-01] MEDS ORDERED: Amikacin 900 MG in NS 110 ML IV SCH (16:00)
--- NOTE | 2019-06-01 16:32 | NUR ---
HIV/AIDS CARE NURSEPAYMENT SPECIALIST 78 YO MALE BIBA FROM [facility] CC CHEST CONGESTION SI: SEPSIS,PNA T. 98.8 HR 112 RR 18 B/P 101/69 NA 166 CHL 128 BUN 45 CR 1.7 BNP 1313 ALK PHOS 1333 UA+ PROTEIN,KETONES,BLOOD,NITRITE,UROBILINOGEN LEUKOCYTE ESTERASE,BACTERIA CXR+Small patchy airspace opacities over left upper lung zone, bilateral lower lung zone suggests atelectasis and/or pneumonia. Pneumonia is especially of concern over left upper lung zone IS: VANCO IV IV BOLUS NS X 2 LITERS ZOSYN IV ADMITTED TO MED/SURG MED/SURG STATUS DCP RETURN TO [facility]
--- NOTE | 2019-06-01 19:07 | NUR ---
HAND-OFF: Report given to Priyanka ARTEAGA.
[2019-06-01 19:30] VITALS: BP 0/0
--- NOTE | 2019-06-01 19:30 | NUR ---
NURSE NOTES: Patient at 193, pronounced by Lisa- Charge Nurse. Dr Moreno notified. Relative also contacted by phone, and said there is no mortuary arrangement yet and will call back tomorrow.
--- NOTE | 2019-06-01 19:30 | NUR ---
PRONOUNCEMENT: No Code. Called to pronounce patient. Absence of spontaneous respirations, no cardiac or breath sounds on auscultation. Pupils fixed and dilated. No carotid pulse or chest movement. Patient at 1929 Dr Moreno notified PER Flo Mathew,message left, awaiting callback, . Family was notified at 1939 by Flo Mathew, arrangements for mortuary not made so will be placed in [facility].
--- NOTE | 2019-06-02 13:49 | Discharge Summary ---
Discharge Summary Discharge Summary _ SUMMARY DATE OF ADMISSION: 05/30/2019 DATE OF EXPIRATION : 06/01/2019 REASON FOR ADMISSION: 78 years old male, resident of detention facility, with DNR status, WITH past medical history of metastatic prostate cancer, COPD, diabetes mellitus, hypertension, severe pulmonary hypertension, anemia, dysphagia, dementia, aortic stenosis, was recently hospitalized due to acute encephalopathy and complicated UTI with multidrug-resistant E. coli. Patient with chronic indwelling Martínez catheter. Upon evaluation patient was tachycardic , pulse oximetry on 3 L of oxygen was only 90%. Chest x-ray revealed probable pneumonia , especially over the left upper lung zone. Laboratory work-up revealed no leukocytosis, hemoglobin 10.1, hematocrit 21.8. INR 1.2. Lactic acid 3.0 Sodium 166, potassium 4.0 BUN 45, creatinine 1.7. Total bilirubin 1.2 , direct bilirubin 0.5. Stable LFT. Elevated alkaline phosphatase 1333. Troponin - 0.046. Pro BNP 1313. EKG revealed sinus tachycardia, no acute ischemic changes. Urinalysis revealed evidence of UTI and hematuria. In emergency department septic work-up was initiated . DNR documentation was reviewed . Patient subsequently admitted for further management. CONSULTANTS: pulmonary/hospitalist Dr. Perez ID specialist Dr. Lunsford mixing plant dumper Dr. Collins Pain specialist Dr. Ley [facility] COURSE: Patient admitted to medical surgical floor and started on IV fluids and empiric antibiotic as per ID specialist recommendation. Urine culture revealed Pseudomonas aeruginosa , sputum culture showed Staph aureus. Blood cultures were negative. Stoper followed for renal failure and hypernatremia. Per mixing plant dumper , acute renal failure was with major prerenal component. Hypernatremia was due to dehydration and free water deficit. Renal parameters and electrolytes were closely monitored, nephrotoxins were avoided , electrolytes further corrected as needed. Creatinine trended down to 1.3 with IV hydration Pain management was addressed as per pain specialist recommendation. Supplemental oxygen titrated to keep pulse oximetry above 90% . Patient required 100% nonrebreathing mask. Patient required frequent suctioning and meticulous pulmonary toilet. Atropine and Robinul were added for excessive secretion. Blood pressure was managed with beta-zakia. Blood sugar was managed with sliding scale of insulin. Proscar and Flomax continued. Unfortunately patient's condition was rapidly deteriorating. He was pronounced at 19:40 at 9 /9.. Cause of : cardiopulmonary arrest FINAL DIAGNOSES: Sepsis Acute encephalopathy Pneumonia with Staph aureus UTI with Pseudomonas Acute renal failure Diabetes mellitus Metastatic prostate cancer Hypernatremia Lactic acidosis COPD Diabetes mellitus Hypertension Aortic stenosis Severe pulmonary hypertension Dysphagia Iron deficiency anemia Dementia DNR status I have been assigned to dictate discharge summary for this account. I was not involved in the patient's management. Milla Demarco NP Jun 02, 2019 13:49
== END 2019-06-01 19:30 | disposition expired | DRG 871 ==
LOC: EDBD 22:31 → EMR 23:04 → EDUNIT# 23:04 → 4E 23:34 → EDBEDREQ 05-31 00:49
DX: A41.9 Sepsis, unspecified organism (principal); J15.211 Pneumonia due to Methicillin susceptible Staphylococcus aureus; N39.0 Urinary tract infection, site not specified; N17.9 Acute kidney failure, unspecified; C78.00 Secondary malignant neoplasm of unspecified lung; G93.40 Encephalopathy, unspecified; E87.0 Hyperosmolality and hypernatremia; C79.51 Secondary malignant neoplasm of bone; C61 Malignant neoplasm of prostate; Z66 Do not resuscitate; B96.5 Pseudomonas (aeruginosa) (mallei) (pseudomallei) as the cause of diseases classified elsewhere; E11.9 Type 2 diabetes mellitus without complications; J44.9 Chronic obstructive pulmonary disease, unspecified; I10 Essential (primary) hypertension; I35.0 Nonrheumatic aortic (valve) stenosis; I27.20 Pulmonary hypertension, unspecified; D50.9 Iron deficiency anemia, unspecified; F03.90 Unspecified dementia, unspecified severity, without behavioral disturbance, psychotic disturbance, mood disturbance, and anxiety; Z79.82 Long term (current) use of aspirin; Z79.4 Long term (current) use of insulin
CPT/HCPCS: 36415; 71045; 80048; 80053; 80069; 81003; 82248; 82550; 82962; 83605; 83690; 83735; 83880; 84153; 84484; 85025; 85610; 85730; 87040; 87070; 87086; 87181; 87205; 93005; 96361; 96365; 96367; 99291; J1815; J7620